=== PATIENT | female | born 1945 | race Caucasian/White ===

== ENCOUNTER 2018-01-05 12:09 | Inpatient (IN) | payer MEDICARE, OTHER ==
[~2018-01-05] VITALS: Ht 162.6 cm; Wt 62.2 kg
[2018-01-05] VITALS (9 sets, daily range): BP systolic 63–91; BP diastolic 32–278
[~2018-01-05 12:09] MED LIST: ANASTROZOLE1 MG PO; ARIMIDEX1 MG PO; VITAMIN D1000 UNI1 PO
[2018-01-05] MEDS ORDERED: Pantoprazole Inj IV ONE (12:15)
--- NOTE | 2018-01-05 12:34 | Emergency Room Report ---
History of Present Illness General Source: Family Member, EMS Present Illness HPI The patient is sent in for passing bright red blood per rectum. In addition paramedics state that when they were there she vomited some bright red blood. The patient is apparently on Coumadin after having blood clot in the past. She status post mastectomy on the right-hand side. Paramedics were unable to start an IV and she was hypotensive in the field. The patient denies any pain at this time but feels ill. The daughter here and states apparently the patient is a full code. Other history limited. No fever, cough, dyspnea. No prior GI bleed. Allergies: Coded Allergies: ASPIRIN (Unverified Allergy, Unknown, 01/05/18) Uncoded Allergies: TAPE (Allergy, Unknown, 01/05/18) Patient History Limited by: medical condition Past Medical History: see triage record, other - cirrhosis and thrombocytopenia Past Surgical History: hysterectomy, other - breast masectomies, carpal tunnel Social History: Denies: smoking, alcohol use Social History Narrative nursing home facility Reviewed Nursing Documentation: PMH: Agreed; PSxH: Agreed Nursing Documentation-PMH Hx Cardiac Problems: No Hx Cancer: Yes Hx Gastrointestinal Problems: Yes Hx Neurological Problems: No Review of Systems All Other Systems: limited Physical Exam Vital Signs Date Time Temp Pulse Resp B/P (MAP) Pulse Ox O2 Delivery O2 Flow Rate FiO2 01/05/18 12:33 98.0 125 18 75/34 98 Room Air 98.1 01/05/18 20:00 2.0 Sp02 EP Interpretation: reviewed, normal General Appearance: mild distress, obese, other - somewhat confused, Chronically Ill Head: normocephalic, atraumatic Eyes: bilateral eye PERRL, bilateral eye conjunctivae pale ENT: moist mucus membranes Neck: supple/symm/no masses Respiratory: lungs clear, normal breath sounds, other - masectomies Cardiovascular #1: tachycardia, edema - 3+ pitting edema bilat feet - anasarca Gastrointestinal: no guarding, no rebound, abnormal bowel sounds - hyperactive , tenderness - R flank Rectal: heme positive stool - dark blood Neurologic: responsive, sensory intact, motor weakness - LE bilat, but moves all 4, oriented - X2 Psychiatric: depressed affect Skin: pallor Procedures Critical Care Time Critical Care Time Total Critical Care Time: 60 min bedside evaluation and treatment excludes procedures (EKG). Reason for critical care: GI bleed, hypotension, NSTEMI, anticoagulated Possible complications: hypotension, hypertension, DE, shock, arrhythmias, metabolic acidosis, end organ damage, respiratory failure. Interventions: FFP, antibiotics, fluid resuscitation, preparing blood Course: Patient with GI bleed and hypotension. Immediate ordering of blood products (FFP) as on coumadin. BP low and respond to initial fluids. Arrange for FFP and transfusion. Protonix given. More responsive and c/o R flank pain. Morphine given with some relief. Discussed with daughter. Covered with antibiotics as elevated WBC. Discussed with admitting MDs. Re-assess, improved BP and needing blood transfusions. Consultations: nursing staff, EMS, family, blood bank, admitting MD and critical care MD Performed by: Dr. Oreilly Tolerated well condition = critical Medical Decision Making Diagnostic Impression: Primary Impression: GI bleed Qualified Codes: K92.2 - Gastrointestinal hemorrhage, unspecified Additional Impressions: Hypotension Qualified Codes: I95.89 - Other hypotension anticoagulation Hemorrhagic shock NSTEMI (non-ST elevated myocardial infarction) Thrombocytopenia [place] Course Patient presents with GI bleeding and hypotension. Differential includes hyper anticoagulation, ulcer, diverticulitis diverticulosis, acute myocardial infarction amongst others. We need to exclude sepsis also. Evaluation will be with EKG, chest x-ray abdominal series. The patient will have fluid resuscitation and most likely will need blood. Most likely will need to reverse the anticoagulation to some extent. Fresh frozen plasma is being ordered immediately. Also Protonix is ordered. EKG with ST, no hyperacute changes. CXR clear. ABD NSBGP, labs with leukocytosis, anemia and low platelets. INR "therapeutic". FFP called to lab to start preparing. Pt BP better. Able to give small dose morphine for pain. Alert and improved mentation. Discussed findings with daughter. + troponin. No STEMI. Patient allergic to aspirin. Working to transfuse and treat hemorrhagic shock. FFP infused. Patient improved BP. Admit ICU Dr. Randolph. Laboratory Tests Test 01/05/18 12:29 01/05/18 15:10 01/05/18 16:00 01/05/18 19:30 White Blood Count 15.4 K/UL (4.8-10.8) H 11.6 K/UL (4.8-10.8) H Red Blood Count 2.87 M/UL (4.20-5.40) L 1.87 M/UL (4.20-5.40) L Hemoglobin 8.1 G/DL (12.0-16.0) L 5.5 G/DL (12.0-16.0) Hematocrit 25.3 % (37.0-47.0) L 16.4 % (37.0-47.0) #L Mean Corpuscular Volume 88 FL (80-99) 88 FL (80-99) Mean Corpuscular Hemoglobin 28.3 PG (27.0-31.0) 29.7 PG (27.0-31.0) Mean Corpuscular Hemoglobin Concent 32.0 G/DL (32.0-36.0) 33.9 G/DL (32.0-36.0) Red Cell Distribution Width 16.9 % (11.6-14.8) H 17.3 % (11.6-14.8) H Platelet Count 107 K/UL (150-450) L 61 K/UL (150-450) L Mean Platelet Volume 9.3 FL (6.5-10.1) 9.5 FL (6.5-10.1) Neutrophils (%) (Auto) 74.4 % (45.0-75.0) % (45.0-75.0) Lymphocytes (%) (Auto) 17.5 % (20.0-45.0) L % (20.0-45.0) Monocytes (%) (Auto) 6.7 % (1.0-10.0) % (1.0-10.0) Eosinophils (%) (Auto) 0.4 % (0.0-3.0) % (0.0-3.0) Basophils (%) (Auto) 1.0 % (0.0-2.0) % (0.0-2.0) Prothrombin Time 31.2 SEC (9.30-11.50) H Prothrombin Time INR 2.9 (0.9-1.1) H PTT 53 SEC (23-33) H Sodium Level 135 MMOL/L (136-145) L Potassium Level 5.4 MMOL/L (3.5-5.1) H Chloride Level 104 MMOL/L (98-107) Carbon Dioxide Level 26 MMOL/L (21-32) Anion Gap 5 mmol/L (5-15) Blood Urea Nitrogen 44 mg/dL (7-18) H Creatinine 2.1 MG/DL (0.55-1.30) H Estimate Glomerular Filtration Rate mL/min (>60) Glucose Level 150 MG/DL (74-106) H Lactic Acid Level 3.20 mmol/L (0.66-2.22) H 3.60 mmol/L (0.66-2.22) H Calcium Level 8.0 MG/DL (8.5-10.1) L Total Bilirubin 1.4 MG/DL (0.2-1.0) H Direct Bilirubin 0.5 MG/DL (0.0-0.3) H Aspartate Amino Transferase (AST) 54 U/L (15-37) H Alanine Aminotransferase (ALT) 31 U/L (12-78) Alkaline Phosphatase 145 U/L (46-116) H Troponin I 0.084 ng/mL (0.000-0.056) Total Protein 5.7 G/DL (6.4-8.2) L Albumin 1.4 G/DL (3.4-5.0) L Globulin 4.3 g/dL Albumin/Globulin Ratio 0.3 (1.0-2.7) L Lipase 138 U/L (73-393) Urine Color Pending Urine Appearance Pending Urine pH Pending Urine Specific Wheeler Pending Urine Protein Pending Urine Glucose (UA) Pending Urine Ketones Pending Urine Occult Blood Pending Urine Nitrite Pending Urine Bilirubin Pending Urine Urobilinogen Pending Urine Leukocyte Esterase Pending Differential Total Cells Counted 100 Neutrophils % (Manual) 78 % (45-75) H Lymphocytes % (Manual) 17 % (20-45) L Monocytes % (Manual) 4 % (1-10) Eosinophils % (Manual) 0 % (0-3) Basophils % (Manual) 0 % (0-2) Band Neutrophils 1 % (0-8) Platelet Estimate Decreased L Platelet Morphology Normal Hypochromasia 3+ Anisocytosis 1+ Microcytosis 1+ Ammonia 38 umol/L (11-32) H EKG Diagnostic Results Rate: normal Rhythm: NSR ST Segments: no acute changes ASA given to the pt in ED: No - unable due to "allergy" and anticoagulation Rhythm Strip Diag. Results EP Interpretation: yes Rhythm: NSR, no PVC's, no ectopy Chest X-Ray Diagnostic Results Chest X-Ray Diagnostic Results : Chest X-Ray Ordered: Yes # of Views/Limited/Complete: 1 View Indication: Other EP Interpretation: Yes Interpretation: no consolidation, no effusion, no pneumothorax Impression: Other Electronically Signed by: Electronically signed by Vitor Oreilly MD Other X-Ray Diagnostic Results Other X-Ray Diagnostic Results : X-Ray ordered: abd # of Views/Limited Vs Complete: 1 View Indication: Other EP Interpretation: Yes Interpretation: nonspecific bowel gas, no sbo, other - no mass Impression: Other Electronically Signed by: Electronically signed by Vitor Oreilly MD Last Vital Signs Date Time Temp Pulse Resp B/P (MAP) Pulse Ox O2 Delivery O2 Flow Rate FiO2 01/05/18 20:00 98.0 84 18 66/42 98 Nasal Cannula 2.0 98.0 Status: improved Disposition: ADMITTED INPATIENT Condition: Critical Vitor Oreilly M.D. January 05, 2018 12:34
[2018-01-05] MEDS ORDERED: Pantoprazole Inj ONE (12:46)
[2018-01-05] MEDS ORDERED: CALCIUM CARBON500 M1 PO (12:54)
[2018-01-05] MEDS ORDERED: BISACODYL10 M1 RC (12:54)
[2018-01-05] MEDS ORDERED: FUROSEMIDE40 MG ORAL (12:54)
[2018-01-05] MEDS ORDERED: SPIRONOLACTONE50 MG ORAL (12:54)
[2018-01-05] MEDS ORDERED: POTASSIUM CHLO20 ME1 ORAL (12:54)
[2018-01-05] MEDS ORDERED: VITAMIN C250 MG ORAL (12:54)
[2018-01-05] MEDS ORDERED: COUMADIN4 MG ORAL (12:54)
[2018-01-05] MEDS ORDERED: XIFAXAN550 MG ORAL (12:54)
[2018-01-05] MEDS ORDERED: ALBUTEROL2.5 MG/3 M INH (12:54)
[2018-01-05] MEDS ORDERED: LACTULOSE20 GM/301 ORAL (12:54)
[2018-01-05] MEDS ORDERED: NORCO 5-325 TA1 EACH ORAL (12:54)
[2018-01-05] MEDS ORDERED: DOCUSATE SODIU100 MG ORAL (12:54)
[2018-01-05] MEDS ORDERED: BUSPIRONE HCL10 M1 ORAL (12:54)
[2018-01-05] MEDS ORDERED: SUCRALFATE1 GM ORAL (12:54)
[2018-01-05] MEDS ORDERED: ACETAMINOPHEN325 M1 ORAL (12:54)
[2018-01-05] MEDS ORDERED: MULTIVITAMINS1 EAC8 ORAL (12:54)
[2018-01-05 12:56] LABS: EOSINOPHILS % (AUTO) 0.4 % (0.0-3.0); HEMATOCRIT 25.3 % (37.0-47.0); HEMOGLOBIN 8.1 G/DL (12.0-16.0); LYMPHOCYTES % (AUTO) 17.5 % (20.0-45.0); MEAN CORPUSCULAR VOLUME 88 FL (80-99); MONOCYTES % (AUTO) 6.7 % (1.0-10.0); NEUTROPHILS % (AUTO) 74.4 % (45.0-75.0); PLATELET COUNT 107 K/UL (150-450); RED BLOOD COUNT 2.87 M/UL (4.20-5.40); RED CELL DISTRIBUTION WIDTH 16.9 % (11.6-14.8); WHITE BLOOD COUNT 15.4 K/UL (4.8-10.8)
[2018-01-05 13:16] LABS: INR 2.9 (0.9-1.1)
[2018-01-05] MEDS: Morphine Sulfate 4mg/ml Inj IVP PRN ×2 (13:33→20:06)
[2018-01-05 13:49] LABS: ANION GAP 5 mmol/L (5-15); BLOOD UREA NITROGEN 44 mg/dL (7-18); CARBON DIOXIDE 26 MMOL/L (21-32); CHLORIDE 104 MMOL/L (98-107); CREATININE 2.1 MG/DL (0.55-1.30); POTASSIUM 5.4 MMOL/L (3.5-5.1); SODIUM 135 MMOL/L (136-145)
[2018-01-05 14:03] LABS: ALANINE AMINOTRANSFERASE 31 U/L (12-78); ALBUMIN 1.4 G/DL (3.4-5.0); ALBUMIN/GLOBULIN RATIO 0.3 (1.0-2.7); ALKALINE PHOSPHATASE 145 U/L (46-116); ASPARTATE AMINO TRANSFERASE 54 U/L (15-37); BILIRUBIN,DIRECT 0.5 MG/DL (0.0-0.3); BILIRUBIN,TOTAL 1.4 MG/DL (0.2-1.0)
--- NOTE | 2018-01-05 14:08 | Diagnostic Imaging Report ---
Indication: Pain Technique: XRAY Chest 1v Comparison: None Findings: Limited exam with low lung volumes. Probable mild cardiomegaly and question of mild pulmonary vascular congestion. No definite focal airspace consolidation, pleural effusion or pneumothorax. There are degenerative changes of the spine. No acute osseous abnormality seen. IMPRESSION: Limited exam with low lung volumes. This artifactually exaggerate heart size and vascular markings. Probable mild cardiomegaly. A degree of mild pulmonary vascular congestion is not excluded. Correlate clinically. No definite focal consolidation, pleural effusion or pneumothorax.
--- NOTE | 2018-01-05 14:10 | Diagnostic Imaging Report ---
Indication: Pain Technique: XRAY Abdomen 1v Comparison: None Findings: Nonspecific bowel gas pattern with gas in large and small bowel loops. No definite abnormal bowel dilatation. There are degenerative changes in the spine and hips. No acute osseous abnormality is seen. Calcifications in the right upper quadrant may represent calcified gallstones. IMPRESSION: Nonspecific, not overtly obstructive bowel gas pattern. Calcifications in the right upper quadrant may represent calcified gallstones.
[2018-01-05] MEDS ORDERED: Nitroglycerin Subl 0.4mg tab SL PRN (15:45)
[2018-01-05] MEDS: DOPamine 400mg/250ml 250 ML IV SCH (15:45)
[2018-01-05] MEDS ORDERED: Miralax 17gm pkt ORAL PRN (15:45)
[2018-01-05] MEDS ORDERED: Cefepime HCl 1 GM in D5W 55 ML IVPB ONE (15:45)
[2018-01-05] MEDS ORDERED: Mylanta II UD 30ml ORAL PRN (15:45)
[2018-01-05] MEDS: D5NS 1,000 ML IV SCH (16:00)
[2018-01-05] MEDS ORDERED: Phytonadione 10 MG in D5W 55 ML IVPB SCH (17:00)
[2018-01-05] MEDS: BusPIRone 5mg Tab ORAL SCH (18:00)
[2018-01-05] MEDS ORDERED: Lidocaine 1% MPF 10mg/ml 5ml ONE (18:41)
[2018-01-05] MEDS ORDERED: Lidocaine 1% MPF 10mg/ml 5ml INJ ONE (18:45)
[2018-01-05] MEDS ORDERED: Lidocaine 1% MPF 10mg/ml 5ml INJ SCH (19:00)
--- NOTE | 2018-01-05 19:40 | Emergency Room Report ---
History of Present Illness General Chief Complaint: General Complaint Source: Medical Record Present Illness Allergies: Coded Allergies: ASPIRIN (Unverified Allergy, Unknown, 01/05/18) Uncoded Allergies: TAPE (Allergy, Unknown, 01/05/18) Patient History Now: No Nursing Documentation-PMH Hx Cardiac Problems: No Hx Hypertension: Yes Hx COPD: Yes Hx Cancer: Yes Hx Gastrointestinal Problems: Yes History Of Psychiatric Problem: Yes - depression Hx Neurological Problems: No Physical Exam Vital Signs Date Time Temp Pulse Resp B/P (MAP) Pulse Ox O2 Delivery O2 Flow Rate FiO2 01/05/18 12:33 98.0 125 18 75/34 98 Room Air 98.1 Procedures Central Line Central Line : Consent: Emergent Central Line Lumen: triple Maximal Sterile Barrier Tech: yes cap, yes mask, yes sterile gown, yes sterile gloves, yes large sterile sheet, yes hand hygiene, yes chlorhexidine prep Central Line Postion: internal jugular (R) Anesthesia: local cc's of anesthesia: 3 Complications: none Central Line Post Position: sutured, good blood return Attempts: One Patient Tolerated: Well Complications: Other - small hematoma to right side of neck, pressure held Medical Decision Making Diagnostic Impression: Primary Impression: GI bleed Additional Impressions: Hypotension anticoagulation Last Vital Signs Date Time Temp Pulse Resp B/P (MAP) Pulse Ox O2 Delivery O2 Flow Rate FiO2 01/05/18 19:21 97.8 18 91/40 98 Room Air 97.8 01/05/18 12:33 125 Disposition: ADMITTED INPATIENT Condition: Critical Referrals: Perico Randolph MD (PCP) Bandar Escobar MD January 05, 2018 19:40
[2018-01-05 19:56] LABS: HEMATOCRIT 16.4 % (37.0-47.0); MEAN CORPUSCULAR VOLUME 88 FL (80-99); PLATELET COUNT 61 K/UL (150-450); RED BLOOD COUNT 1.87 M/UL (4.20-5.40); RED CELL DISTRIBUTION WIDTH 17.3 % (11.6-14.8); WHITE BLOOD COUNT 11.6 K/UL (4.8-10.8)
[2018-01-05 20:07] LABS: HEMOGLOBIN 5.5 G/DL (12.0-16.0)
[2018-01-05] MEDS ORDERED: Sodium Chloride 500ML 500 ML IV ONE (20:15)
[2018-01-05 21:23] LABS: APPEARANCE,URINE CLEAR; BILIRUBIN, URINE NEGATIVE (NEGATIVE); COLOR,URINE YELLOW; GLUCOSE, URINE (UA) NEGATIVE (NEGATIVE); KETONES,URINE NEGATIVE (NEGATIVE); LEUKOCYTE ESTERASE ,URINE 3+ (NEGATIVE); NITRITE,URINE NEGATIVE (NEGATIVE); PH,URINE 5 (4.5-8.0); PROTEIN,URINE 1+ (NEGATIVE); UROBILINOGEN,URINE NORMAL MG/DL (0.0-1.0)
[2018-01-05 23:13] LABS: HEMATOCRIT 18.9 % (37.0-47.0); MEAN CORPUSCULAR VOLUME 87 FL (80-99); PLATELET COUNT 54 K/UL (150-450); RED BLOOD COUNT 2.18 M/UL (4.20-5.40); RED CELL DISTRIBUTION WIDTH 16.1 % (11.6-14.8); WHITE BLOOD COUNT 10.2 K/UL (4.8-10.8)
[2018-01-05 23:18] LABS: HEMOGLOBIN 6.4 G/DL (12.0-16.0)
[2018-01-06] VITALS (25 sets, daily range): BP systolic 79–128; BP diastolic 27–95
[2018-01-06 00:21] LABS: HEMATOCRIT 21.5 % (37.0-47.0); HEMOGLOBIN 7.1 G/DL (12.0-16.0); MEAN CORPUSCULAR VOLUME 88 FL (80-99); PLATELET COUNT 55 K/UL (150-450); RED BLOOD COUNT 2.44 M/UL (4.20-5.40); RED CELL DISTRIBUTION WIDTH 15.8 % (11.6-14.8); WHITE BLOOD COUNT 9.6 K/UL (4.8-10.8)
[2018-01-06 00:28] LABS: INR 1.8 (0.9-1.1)
[2018-01-06] MEDS: D5NS 1,000 ML IV SCH ×3 (01:44→16:27)
[2018-01-06 06:09] LABS: HEMATOCRIT 27.7 % (37.0-47.0); HEMOGLOBIN 9.5 G/DL (12.0-16.0); MEAN CORPUSCULAR VOLUME 88 FL (80-99); PLATELET COUNT 74 K/UL (150-450); RED BLOOD COUNT 3.16 M/UL (4.20-5.40); RED CELL DISTRIBUTION WIDTH 15.1 % (11.6-14.8); WHITE BLOOD COUNT 16.4 K/UL (4.8-10.8)
[2018-01-06 06:39] LABS: INR 1.6 (0.9-1.1)
[2018-01-06 06:42] LABS: ALANINE AMINOTRANSFERASE 27 U/L (12-78); ALBUMIN 1.8 G/DL (3.4-5.0); ALBUMIN/GLOBULIN RATIO 0.4 (1.0-2.7); ALKALINE PHOSPHATASE 119 U/L (46-116); AMYLASE 65 U/L (25-115); ANION GAP 6 mmol/L (5-15); ASPARTATE AMINO TRANSFERASE 40 U/L (15-37); BILIRUBIN,TOTAL 1.9 MG/DL (0.2-1.0); BLOOD UREA NITROGEN 41 mg/dL (7-18); CALCIUM 7.9 MG/DL (8.5-10.1); CARBON DIOXIDE 27 MMOL/L (21-32); CHLORIDE 104 MMOL/L (98-107); CREATININE 2.1 MG/DL (0.55-1.30); POTASSIUM 4.2 MMOL/L (3.5-5.1); SODIUM 137 MMOL/L (136-145)
[2018-01-06 07:13] LABS: PHOSPHORUS 3.7 MG/DL (2.5-4.9)
[2018-01-06 07:23] LABS: BILIRUBIN,DIRECT 0.6 MG/DL (0.0-0.3)
--- NOTE | 2018-01-06 07:45 | Consultation ---
DATE OF CONSULTATION: 01/05/2018 NOTE: POOR AUDIO GASTROENTEROLOGY CONSULTATION CONSULTING PHYSICIAN: Yohannes Woodall M.D. CHIEF COMPLAINT: I was asked to see this patient by Dr. Perico Randolph for evaluation of gastrointestinal bleeding. HISTORY OF PRESENT ILLNESS: The patient is a debilitated 72-year-old [place] woman from a shelter, who comes in with acute upper gastrointestinal bleeding. The patient was in her usual state of health until today when she was noted to have hematemesis followed by hematochezia. The patient was brought into the hospital where she was found to have severe anemia and also hypotension. She received two units of fresh frozen plasma and is currently undergoing two units of blood transfusion. Vitamin K was given intravenously to reverse her coagulopathy. Latter was given Coumadin for history of deep vein thrombosis and pulmonary embolism. The patient denies any abdominal pain. She states that she has not had history of ulcers recently. She has had an endoscopy and colonoscopy in June 2017 at [facility] showing portal hypertensive gastropathy and possibly a nonbleeding sigmoid vascular ectasia and internal hemorrhoids. It should be noted that the patient has a history of cirrhosis, which has been attributed to fatty liver disease. She has a baseline thrombocytopenia. She also was noted on anticoagulation for history of deep venous thrombosis. PAST MEDICAL HISTORY: 1. History of deep vein thrombosis and pulmonary embolism, on anticoagulation. 2. History of cirrhosis due to fatty liver with portal hypertension. 3. Portal hypertensive gastropathy. 4. History of internal hemorrhoids. 5. History of deep vein thrombosis and pulmonary embolism. 6. History of hepatic encephalopathy requiring lactulose. SOCIAL HISTORY: The patient resides in a shelter and requires 24-hour care. FAMILY HISTORY: Noncontributory. REVIEW OF SYSTEMS: Otherwise negative. PHYSICAL EXAMINATION: GENERAL: This is a debilitated, obese, and edematous white woman, seen in the intensive care unit with daughter at bedside. HEENT: Normocephalic and atraumatic. Dentition is poor. NECK: Supple. CHEST: Revealed coarse breath sounds. HEART: Revealed regular rate. ABDOMEN: Distended, but soft. There was minimal epigastric discomfort to palpation. EXTREMITIES: Revealed 2 to 3+ edema. ASSESSMENT: This patient presents with acute gastrointestinal bleeding in the setting of cirrhosis with thrombocytopenia as well as Coumadin coagulopathy. Differential diagnosis would include upper gastrointestinal bleeding. The lower GI source is unlikely given the presentation, but can be done at a later date if necessary. The patient should receive serial transfusions of fresh frozen plasma and blood as well as vitamin K to reverse the coagulopathy. She can undergo an endoscopy and perhaps later her colonoscopy to evaluate the entire gastrointestinal tract. RECOMMENDATIONS: Per above discussion and per orders written in the chart. Thank you for asking me to participate in the care of this patient. Yohannes Woodall M.D. DR: Mann JOB#: [id number] CC: JUNE
[2018-01-06] MEDS ORDERED: Spironolactone 50mg tab ORAL SCH (09:00)
[2018-01-06] MEDS: BusPIRone 5mg Tab ORAL SCH (09:07)
--- NOTE | 2018-01-06 09:47 | Pulmonolgy Critical Care Note ---
Critical Care - Asmt/Plan Problems: (1) Hemorrhagic shock (2) GI bleed (3) Coagulopathy (4) ATN (acute tubular necrosis) (5) History of breast cancer (6) History of pulmonary embolism (7) Morbid obesity Respiratory: monitor respiratory rate, adjust FIO2 Cardiac: continue pressors, continue to monitor HR/BP Renal: F/U I&O, decrease IV fluid, check electrolytes Gastrointestinal: hold feedings Endocrine: monitor blood sugar Hematologic: monitor H/H Neurologic: PRN Ativan Affect: PRN ativan Discussed with: nurses, consultants, shelter case manager, family member - with daughter at the bed site Critical Care - Objective Last 24 Hour Vital Signs Date Time Temp Pulse Resp B/P (MAP) Pulse Ox O2 Delivery O2 Flow Rate FiO2 01/06/18 09:00 90 13 109/95 100 Nasal Cannula 2.0 01/06/18 08:00 98.5 80 17 99/35 100 Nasal Cannula 2.0 98.5 01/06/18 07:00 75 13 96/36 100 Nasal Cannula 2.0 01/06/18 07:00 96/36 01/06/18 06:00 75 17 97/42 100 Nasal Cannula 2.0 01/06/18 06:00 96/36 01/06/18 05:00 91/36 01/06/18 05:00 81 15 91/36 95 Nasal Cannula 2.0 01/06/18 04:00 81 01/06/18 04:00 101/37 01/06/18 04:00 98.1 76 13 107/40 98 Nasal Cannula 2.0 98.1 01/06/18 03:00 81 17 106/59 99 Nasal Cannula 2.0 01/06/18 03:00 109/40 01/06/18 02:00 108/44 01/06/18 02:00 74 17 108/44 99 Nasal Cannula 2.0 01/06/18 01:30 74 18 98/49 99 Nasal Cannula 2.0 01/06/18 01:00 97/43 01/06/18 01:00 75 17 97/43 99 Nasal Cannula 2.0 01/06/18 00:00 98.3 72 16 79/38 98 Nasal Cannula 2.0 98.3 01/06/18 00:00 83 01/06/18 00:00 79/38 01/05/18 23:00 83 26 73/33 100 Nasal Cannula 2.0 01/05/18 23:00 73/33 01/05/18 22:00 82 26 77/32 100 Nasal Cannula 2.0 01/05/18 21:00 98.1 82 18 71/278 98 Nasal Cannula 2.0 98.1 01/05/18 20:00 98.0 84 18 66/42 98 Nasal Cannula 2.0 98.0 01/05/18 20:00 75/37 01/05/18 19:21 97.8 18 91/40 98 Room Air 97.8 01/05/18 19:00 79 18 63/47 98 Room Air 01/05/18 18:00 77 18 67/42 98 Room Air 01/05/18 17:14 100 01/05/18 17:00 97.8 18 77/46 98 Room Air 97.8 01/05/18 16:40 97.8 18 91/40 98 Room Air 97.8 01/05/18 13:33 98.1 01/05/18 13:00 98.1 18 75/34 98 Room Air 98.1 01/05/18 12:33 98.0 125 18 75/34 98 Room Air 98.1 Status: awake Condition: critical HEENT: atraumatic Neck: full ROM Lungs: clear Heart: HR/BP unstable Abdomen: non-tender, active bowel sounds, feeding tube Extremities: edema Micro: Microbiology Date/Time Source Procedure Growth Status 01/05/18 21:00 Urine,Clean Catch Urine Culture - Preliminary NO GROWTH Resulted Critical Care - Subjective ROS Limited/Unobtainable: No ICU Day: 2 Interval Events: Pt is admitted to ICU b/o BRBPR, She had a hemoglobin of 5, INR of 2.9. She recieved 3 units of prbc, and 2 units of FFP. She is awake and comfortable. Last bloody BM was 4 am today I&O: Intake and Output 01/05/18 01/06/18 19:00 07:00 Intake Total 0 ml 3612.50 ml Output Total 200 ml Balance 0 ml 3412.50 ml Intake Oral 0 ml IV Total 3612.50 ml Output Urine Total 200 ml # Bowel Movements 1 2 CXR: clear Labs: Laboratory Tests Test 01/05/18 12:29 01/05/18 16:00 01/05/18 19:30 01/05/18 21:00 White Blood Count 15.4 K/UL (4.8-10.8) H 11.6 K/UL (4.8-10.8) H Red Blood Count 2.87 M/UL (4.20-5.40) L 1.87 M/UL (4.20-5.40) L Hemoglobin 8.1 G/DL (12.0-16.0) L 5.5 G/DL (12.0-16.0) Hematocrit 25.3 % (37.0-47.0) L 16.4 % (37.0-47.0) #L Mean Corpuscular Volume 88 FL (80-99) 88 FL (80-99) Mean Corpuscular Hemoglobin 28.3 PG (27.0-31.0) 29.7 PG (27.0-31.0) Mean Corpuscular Hemoglobin Concent 32.0 G/DL (32.0-36.0) 33.9 G/DL (32.0-36.0) Red Cell Distribution Width 16.9 % (11.6-14.8) H 17.3 % (11.6-14.8) H Platelet Count 107 K/UL (150-450) L 61 K/UL (150-450) L Mean Platelet Volume 9.3 FL (6.5-10.1) 9.5 FL (6.5-10.1) Neutrophils (%) (Auto) 74.4 % (45.0-75.0) % (45.0-75.0) Lymphocytes (%) (Auto) 17.5 % (20.0-45.0) L % (20.0-45.0) Monocytes (%) (Auto) 6.7 % (1.0-10.0) % (1.0-10.0) Eosinophils (%) (Auto) 0.4 % (0.0-3.0) % (0.0-3.0) Basophils (%) (Auto) 1.0 % (0.0-2.0) % (0.0-2.0) Prothrombin Time 31.2 SEC (9.30-11.50) H Prothromb Time International Ratio 2.9 (0.9-1.1) H Activated Partial Thromboplast Time 53 SEC (23-33) H Sodium Level 135 MMOL/L (136-145) L Potassium Level 5.4 MMOL/L (3.5-5.1) H Chloride Level 104 MMOL/L (98-107) Carbon Dioxide Level 26 MMOL/L (21-32) Anion Gap 5 mmol/L (5-15) Blood Urea Nitrogen 44 mg/dL (7-18) H Creatinine 2.1 MG/DL (0.55-1.30) H Estimat Glomerular Filtration Rate mL/min (>60) Glucose Level 150 MG/DL (74-106) H Lactic Acid Level 3.20 mmol/L (0.66-2.22) H 3.60 mmol/L (0.66-2.22) H Calcium Level 8.0 MG/DL (8.5-10.1) L Total Bilirubin 1.4 MG/DL (0.2-1.0) H Direct Bilirubin 0.5 MG/DL (0.0-0.3) H Aspartate Amino Transf (AST/SGOT) 54 U/L (15-37) H Alanine Aminotransferase (ALT/SGPT) 31 U/L (12-78) Alkaline Phosphatase 145 U/L (46-116) H Troponin I 0.084 ng/mL (0.000-0.056) Total Protein 5.7 G/DL (6.4-8.2) L Albumin 1.4 G/DL (3.4-5.0) L Globulin 4.3 g/dL Albumin/Globulin Ratio 0.3 (1.0-2.7) L Lipase 138 U/L (73-393) Differential Total Cells Counted 100 Neutrophils % (Manual) 78 % (45-75) H Lymphocytes % (Manual) 17 % (20-45) L Monocytes % (Manual) 4 % (1-10) Eosinophils % (Manual) 0 % (0-3) Basophils % (Manual) 0 % (0-2) Band Neutrophils 1 % (0-8) Platelet Estimate Decreased L Platelet Morphology Normal Hypochromasia 3+ Anisocytosis 1+ Microcytosis 1+ Ammonia 38 umol/L (11-32) H Urine Color Yellow Urine Appearance Clear Urine pH 5 (4.5-8.0) Urine Specific Warren 1.015 (1.005-1.035) Urine Protein 1+ (NEGATIVE) H Urine Glucose (UA) Negative (NEGATIVE) Urine Ketones Negative (NEGATIVE) Urine Occult Blood 5+ (NEGATIVE) H Urine Nitrite Negative (NEGATIVE) Urine Bilirubin Negative (NEGATIVE) Urine Urobilinogen Normal MG/DL (0.0-1.0) Urine Leukocyte Esterase 3+ (NEGATIVE) H Urine RBC 5-10 /HPF (0 - 2) H Urine WBC 5-10 /HPF (0 - 2) H Urine Squamous Epithelial Cells Few /LPF (NONE/OCC) Urine Bacteria Moderate /HPF (NONE) H Test 01/05/18 22:45 01/06/18 00:05 01/06/18 04:30 White Blood Count 10.2 K/UL (4.8-10.8) 9.6 K/UL (4.8-10.8) 16.4 K/UL (4.8-10.8) #H Red Blood Count 2.18 M/UL (4.20-5.40) L 2.44 M/UL (4.20-5.40) L 3.16 M/UL (4.20-5.40) L Hemoglobin 6.4 G/DL (12.0-16.0) *L 7.1 G/DL (12.0-16.0) L 9.5 G/DL (12.0-16.0) #L Hematocrit 18.9 % (37.0-47.0) L 21.5 % (37.0-47.0) L 27.7 % (37.0-47.0) L Mean Corpuscular Volume 87 FL (80-99) 88 FL (80-99) 88 FL (80-99) Mean Corpuscular Hemoglobin 29.2 PG (27.0-31.0) 29.3 PG (27.0-31.0) 30.0 PG (27.0-31.0) Mean Corpuscular Hemoglobin Concent 33.8 G/DL (32.0-36.0) 33.1 G/DL (32.0-36.0) 34.1 G/DL (32.0-36.0) Red Cell Distribution Width 16.1 % (11.6-14.8) H 15.8 % (11.6-14.8) H 15.1 % (11.6-14.8) H Platelet Count 54 K/UL (150-450) L 55 K/UL (150-450) L 74 K/UL (150-450) L Mean Platelet Volume 10.3 FL (6.5-10.1) H 10.1 FL (6.5-10.1) 8.2 FL (6.5-10.1) Neutrophils (%) (Auto) % (45.0-75.0) % (45.0-75.0) % (45.0-75.0) Lymphocytes (%) (Auto) % (20.0-45.0) % (20.0-45.0) % (20.0-45.0) Monocytes (%) (Auto) % (1.0-10.0) % (1.0-10.0) % (1.0-10.0) Eosinophils (%) (Auto) % (0.0-3.0) % (0.0-3.0) % (0.0-3.0) Basophils (%) (Auto) % (0.0-2.0) % (0.0-2.0) % (0.0-2.0) Differential Total Cells Counted 100 100 Neutrophils % (Manual) 73 % (45-75) 72 % (45-75) Lymphocytes % (Manual) 19 % (20-45) L 18 % (20-45) L Monocytes % (Manual) 5 % (1-10) 4 % (1-10) Eosinophils % (Manual) 0 % (0-3) 2 % (0-3) Basophils % (Manual) 3 % (0-2) H 0 % (0-2) Band Neutrophils 0 % (0-8) 2 % (0-8) Platelet Estimate Decreased L Decreased L Platelet Morphology Normal Normal Prothrombin Time 18.4 SEC (9.30-11.50) H 16.4 SEC (9.30-11.50) H Prothromb Time International Ratio 1.8 (0.9-1.1) H 1.6 (0.9-1.1) H Myelocytes % 2 % (0-0) H Polychromasia 1+ Hypochromasia 1+ Anisocytosis 1+ Activated Partial Thromboplast Time 39 SEC (23-33) H Sodium Level 137 MMOL/L (136-145) Potassium Level 4.2 MMOL/L (3.5-5.1) Chloride Level 104 MMOL/L (98-107) Carbon Dioxide Level 27 MMOL/L (21-32) Anion Gap 6 mmol/L (5-15) Blood Urea Nitrogen 41 mg/dL (7-18) H Creatinine 2.1 MG/DL (0.55-1.30) H Estimat Glomerular Filtration Rate mL/min (>60) Glucose Level 133 MG/DL (74-106) H Calcium Level 7.9 MG/DL (8.5-10.1) L Phosphorus Level 3.7 MG/DL (2.5-4.9) Magnesium Level 1.8 MG/DL (1.8-2.4) Total Bilirubin 1.9 MG/DL (0.2-1.0) H Direct Bilirubin 0.6 MG/DL (0.0-0.3) H Aspartate Amino Transf (AST/SGOT) 40 U/L (15-37) H Alanine Aminotransferase (ALT/SGPT) 27 U/L (12-78) Alkaline Phosphatase 119 U/L (46-116) H Total Protein 6.1 G/DL (6.4-8.2) L Albumin 1.8 G/DL (3.4-5.0) L Globulin 4.3 g/dL Albumin/Globulin Ratio 0.4 (1.0-2.7) L Amylase Level 65 U/L (25-115) Lipase 105 U/L (73-393) Bakari Gilmore MD January 06, 2018 09:47
--- NOTE | 2018-01-06 10:02 | Diagnostic Imaging Report ---
Indication: Post central line placement Technique: One view of the chest Comparison: 6 hours earlier Findings: Interim placement of right jugular central venous catheter, tip which projects at the level of the high right atrium. No gross pneumothorax. Lungs and pleural spaces are clear. The heart is enlarged Impression: Satisfactory position of central venous catheter, suitable for use. No radiographically evident complication
[2018-01-06] MEDS ORDERED: Pantoprazole Inj IV SCH (10:30)
[2018-01-06 11:15] LABS: HEMATOCRIT 26.3 % (37.0-47.0); HEMOGLOBIN 8.6 G/DL (12.0-16.0); MEAN CORPUSCULAR VOLUME 88 FL (80-99); PLATELET COUNT 64 K/UL (150-450); RED BLOOD COUNT 2.98 M/UL (4.20-5.40); RED CELL DISTRIBUTION WIDTH 15.3 % (11.6-14.8)
[2018-01-06 11:28] LABS: INR 1.6 (0.9-1.1)
[2018-01-06 11:35] LABS: CREATINE KINASE 27 U/L (26-308)
--- NOTE | 2018-01-06 12:43 | Cardiology Progress Note ---
Assessment/Plan Assessment/Plan chronic borderline bp gi bleed anemia breast cancer s/p bialtel mastectomy coagulopathy due to Coumadin morbid obesity lymphedema sub acute renal insuf cr 1.8-2.1 11/2017 but 1.3-1.5 07/2017 bp chronic 90-100's range in 11/2017 agree with ivf and mane off pressor repeat cardiac enzyme [id number] Objective Last 24 Hour Vital Signs Date Time Temp Pulse Resp B/P (MAP) Pulse Ox O2 Delivery O2 Flow Rate FiO2 01/06/18 11:00 90 13 98/27 100 Nasal Cannula 2.0 01/06/18 10:00 87 13 101/33 100 Nasal Cannula 2.0 01/06/18 09:00 90 13 109/95 100 Nasal Cannula 2.0 01/06/18 08:00 97 Nasal Cannula 2.0 28 01/06/18 08:00 Nasal Cannula 2.0 28 01/06/18 08:00 98.5 80 17 99/35 100 Nasal Cannula 2.0 98.5 01/06/18 08:00 81 01/06/18 07:00 75 13 96/36 100 Nasal Cannula 2.0 01/06/18 07:00 96/36 01/06/18 06:00 75 17 97/42 100 Nasal Cannula 2.0 01/06/18 06:00 96/36 01/06/18 05:00 91/36 01/06/18 05:00 81 15 91/36 95 Nasal Cannula 2.0 01/06/18 04:00 81 01/06/18 04:00 101/37 01/06/18 04:00 98.1 76 13 107/40 98 Nasal Cannula 2.0 98.1 01/06/18 03:00 81 17 106/59 99 Nasal Cannula 2.0 01/06/18 03:00 109/40 01/06/18 02:00 108/44 01/06/18 02:00 74 17 108/44 99 Nasal Cannula 2.0 01/06/18 01:30 74 18 98/49 99 Nasal Cannula 2.0 01/06/18 01:00 97/43 01/06/18 01:00 75 17 97/43 99 Nasal Cannula 2.0 01/06/18 00:00 98.3 72 16 79/38 98 Nasal Cannula 2.0 98.3 01/06/18 00:00 83 01/06/18 00:00 79/38 01/05/18 23:00 83 26 73/33 100 Nasal Cannula 2.0 01/05/18 23:00 73/33 01/05/18 22:00 82 26 77/32 100 Nasal Cannula 2.0 01/05/18 21:00 98.1 82 18 71/278 98 Nasal Cannula 2.0 98.1 01/05/18 20:00 98.0 84 18 66/42 98 Nasal Cannula 2.0 98.0 01/05/18 20:00 75/37 01/05/18 19:21 97.8 18 91/40 98 Room Air 97.8 01/05/18 19:00 79 18 63/47 98 Room Air 01/05/18 18:00 77 18 67/42 98 Room Air 01/05/18 17:14 100 01/05/18 17:00 97.8 18 77/46 98 Room Air 97.8 01/05/18 16:40 97.8 18 91/40 98 Room Air 97.8 01/05/18 13:33 98.1 01/05/18 13:00 98.1 18 75/34 98 Room Air 98.1 Intake and Output 01/05/18 01/06/18 19:00 07:00 Intake Total 0 ml 3612.50 ml Output Total 200 ml Balance 0 ml 3412.50 ml Intake Oral 0 ml IV Total 3612.50 ml Output Urine Total 200 ml # Bowel Movements 1 2 Laboratory Tests Test 01/05/18 16:00 01/05/18 19:30 01/05/18 21:00 01/05/18 22:45 Lactic Acid Level 3.60 mmol/L (0.66-2.22) H White Blood Count 11.6 K/UL (4.8-10.8) H 10.2 K/UL (4.8-10.8) Red Blood Count 1.87 M/UL (4.20-5.40) L 2.18 M/UL (4.20-5.40) L Hemoglobin 5.5 G/DL (12.0-16.0) 6.4 G/DL (12.0-16.0) *L Hematocrit 16.4 % (37.0-47.0) #L 18.9 % (37.0-47.0) L Mean Corpuscular Volume 88 FL (80-99) 87 FL (80-99) Mean Corpuscular Hemoglobin 29.7 PG (27.0-31.0) 29.2 PG (27.0-31.0) Mean Corpuscular Hemoglobin Concent 33.9 G/DL (32.0-36.0) 33.8 G/DL (32.0-36.0) Red Cell Distribution Width 17.3 % (11.6-14.8) H 16.1 % (11.6-14.8) H Platelet Count 61 K/UL (150-450) L 54 K/UL (150-450) L Mean Platelet Volume 9.5 FL (6.5-10.1) 10.3 FL (6.5-10.1) H Neutrophils (%) (Auto) % (45.0-75.0) % (45.0-75.0) Lymphocytes (%) (Auto) % (20.0-45.0) % (20.0-45.0) Monocytes (%) (Auto) % (1.0-10.0) % (1.0-10.0) Eosinophils (%) (Auto) % (0.0-3.0) % (0.0-3.0) Basophils (%) (Auto) % (0.0-2.0) % (0.0-2.0) Differential Total Cells Counted 100 100 Neutrophils % (Manual) 78 % (45-75) H 73 % (45-75) Lymphocytes % (Manual) 17 % (20-45) L 19 % (20-45) L Monocytes % (Manual) 4 % (1-10) 5 % (1-10) Eosinophils % (Manual) 0 % (0-3) 0 % (0-3) Basophils % (Manual) 0 % (0-2) 3 % (0-2) H Band Neutrophils 1 % (0-8) 0 % (0-8) Platelet Estimate Decreased L Decreased L Platelet Morphology Normal Normal Hypochromasia 3+ Anisocytosis 1+ Microcytosis 1+ Ammonia 38 umol/L (11-32) H Urine Color Yellow Urine Appearance Clear Urine pH 5 (4.5-8.0) Urine Specific [place] 1.015 (1.005-1.035) Urine Protein 1+ (NEGATIVE) H Urine Glucose (UA) Negative (NEGATIVE) Urine Ketones Negative (NEGATIVE) Urine Occult Blood 5+ (NEGATIVE) H Urine Nitrite Negative (NEGATIVE) Urine Bilirubin Negative (NEGATIVE) Urine Urobilinogen Normal MG/DL (0.0-1.0) Urine Leukocyte Esterase 3+ (NEGATIVE) H Urine RBC 5-10 /HPF (0 - 2) H Urine WBC 5-10 /HPF (0 - 2) H Urine Squamous Epithelial Cells Few /LPF (NONE/OCC) Urine Bacteria Moderate /HPF (NONE) H Test 01/06/18 00:05 01/06/18 04:30 01/06/18 11:00 White Blood Count 9.6 K/UL (4.8-10.8) 16.4 K/UL (4.8-10.8) #H 15.0 K/UL (4.8-10.8) H Red Blood Count 2.44 M/UL (4.20-5.40) L 3.16 M/UL (4.20-5.40) L 2.98 M/UL (4.20-5.40) L Hemoglobin 7.1 G/DL (12.0-16.0) L 9.5 G/DL (12.0-16.0) #L 8.6 G/DL (12.0-16.0) L Hematocrit 21.5 % (37.0-47.0) L 27.7 % (37.0-47.0) L 26.3 % (37.0-47.0) L Mean Corpuscular Volume 88 FL (80-99) 88 FL (80-99) 88 FL (80-99) Mean Corpuscular Hemoglobin 29.3 PG (27.0-31.0) 30.0 PG (27.0-31.0) 29.0 PG (27.0-31.0) Mean Corpuscular Hemoglobin Concent 33.1 G/DL (32.0-36.0) 34.1 G/DL (32.0-36.0) 32.8 G/DL (32.0-36.0) Red Cell Distribution Width 15.8 % (11.6-14.8) H 15.1 % (11.6-14.8) H 15.3 % (11.6-14.8) H Platelet Count 55 K/UL (150-450) L 74 K/UL (150-450) L 64 K/UL (150-450) L Mean Platelet Volume 10.1 FL (6.5-10.1) 8.2 FL (6.5-10.1) 8.8 FL (6.5-10.1) Neutrophils (%) (Auto) % (45.0-75.0) % (45.0-75.0) % (45.0-75.0) Lymphocytes (%) (Auto) % (20.0-45.0) % (20.0-45.0) % (20.0-45.0) Monocytes (%) (Auto) % (1.0-10.0) % (1.0-10.0) % (1.0-10.0) Eosinophils (%) (Auto) % (0.0-3.0) % (0.0-3.0) % (0.0-3.0) Basophils (%) (Auto) % (0.0-2.0) % (0.0-2.0) % (0.0-2.0) Prothrombin Time 18.4 SEC (9.30-11.50) H 16.4 SEC (9.30-11.50) H 16.7 SEC (9.30-11.50) H Prothromb Time International Ratio 1.8 (0.9-1.1) H 1.6 (0.9-1.1) H 1.6 (0.9-1.1) H Differential Total Cells Counted 100 100 Neutrophils % (Manual) 72 % (45-75) 77 % (45-75) H Lymphocytes % (Manual) 18 % (20-45) L 10 % (20-45) L Monocytes % (Manual) 4 % (1-10) 8 % (1-10) Eosinophils % (Manual) 2 % (0-3) 0 % (0-3) Basophils % (Manual) 0 % (0-2) 0 % (0-2) Myelocytes % 2 % (0-0) H Band Neutrophils 2 % (0-8) 5 % (0-8) Platelet Estimate Decreased L Decreased L Platelet Morphology Normal Normal Polychromasia 1+ 1+ Hypochromasia 1+ 1+ Anisocytosis 1+ 1+ Activated Partial Thromboplast Time 39 SEC (23-33) H Sodium Level 137 MMOL/L (136-145) Potassium Level 4.2 MMOL/L (3.5-5.1) Chloride Level 104 MMOL/L (98-107) Carbon Dioxide Level 27 MMOL/L (21-32) Anion Gap 6 mmol/L (5-15) Blood Urea Nitrogen 41 mg/dL (7-18) H Creatinine 2.1 MG/DL (0.55-1.30) H Estimat Glomerular Filtration Rate mL/min (>60) Glucose Level 133 MG/DL (74-106) H Calcium Level 7.9 MG/DL (8.5-10.1) L Phosphorus Level 3.7 MG/DL (2.5-4.9) Magnesium Level 1.8 MG/DL (1.8-2.4) Total Bilirubin 1.9 MG/DL (0.2-1.0) H Direct Bilirubin 0.6 MG/DL (0.0-0.3) H Aspartate Amino Transf (AST/SGOT) 40 U/L (15-37) H Alanine Aminotransferase (ALT/SGPT) 27 U/L (12-78) Alkaline Phosphatase 119 U/L (46-116) H Total Protein 6.1 G/DL (6.4-8.2) L Albumin 1.8 G/DL (3.4-5.0) L Globulin 4.3 g/dL Albumin/Globulin Ratio 0.4 (1.0-2.7) L Amylase Level 65 U/L (25-115) Lipase 105 U/L (73-393) Lactic Acid Level 1.10 mmol/L (0.66-2.22) Uric Acid 7.1 MG/DL (2.6-7.2) Total Creatine Kinase 27 U/L (26-308) Carcinoembryonic Antigen Pending Microbiology Date/Time Source Procedure Growth Status 01/05/18 21:00 Urine,Clean Catch Urine Culture - Preliminary NO GROWTH Resulted Tenzin Ford MD January 06, 2018 12:43
[2018-01-06] MEDS ORDERED: Sodium Chloride 500ML 500 ML IV ONE (13:00)
--- NOTE | 2018-01-06 13:01 | Consultation ---
Consult Note Consult Note asked to eval for renal failure by Dr Randolph The patient is sent in for passing bright red blood per rectum. In addition paramedics state that when they were there she vomited some bright red blood. The patient is apparently on Coumadin after having blood clot in the past. She status post mastectomy on the right-hand side. Paramedics were unable to start an IV and she was hypotensive in the field. The patient denies any pain at this time but feels ill. The daughter here and states apparently the patient is a full code. Other history limited. No fever, cough, dyspnea. No prior GI bleed. Allergies: ASPIRIN (Unverified Allergy, Unknown, 01/05/18) TAPE (Allergy, Unknown, 01/05/18) Hx Cancer: Yes Hx Gastrointestinal Problems: Yes seen in ICU daughter present examined hypotensive on pressors patient was transfused and given FFP Assessment/Plan acute renal failure acute GI bleed Hemmorhagic anemia hypotension h/o breast ca h/o Pulmonary embolism hemodynamic support monitor renal parameters cortisol level avoid nephrotoxics per orders discussed with DARIA BUCKLEY January 06, 2018 13:01
--- NOTE | 2018-01-06 14:03 | Cardiology Report ---
APPROVED REPORT EXAM: Two-dimensional and M-mode echocardiogram with Doppler and color Doppler. INDICATION LV FUNCTION M-Mode DIMENSIONS IVSd1.3 (0.7-1.1cm)Left Atrium (MM)4.0 (1.6-4.0cm) LVDd5.3 (3.5-5.6cm)Aortic Root4.3 (2.0-3.7cm) PWd1.2 (0.7-1.1cm)Aortic Cusp Exc.1.8 (1.5-2.0cm) IVSs1.9 cm LVDs3.5 (2.5-4.0cm) PWs2.1 cm Technically difficult study due pts resistance with poor endocardial and valvular definition . Normal left ventricular chamber size, systolic function and wall motion to extent visualized. Left ventricular ejection fraction estimated to be 65-70 %. No evidence of left ventricular hypertrophy by 2-D. No evidence of pericardial effusion. All other cardiac chamber sizes are within normal limits. Focal aortic valve sclerosis with adequate cusp excursion. Mildly Thickened mitral valve leaflets with normal excursion. Mildly Mitral annulus and aortic root calcification. Pulmonic valve not well visualized. Normal tricuspid valve structure. IVC at normal size without physiologic collapse. valvular definition appears poor A color flow and spectral Doppler study was performed and revealed: No aortic regurgitation. Trace mitral regurgitation. Mitral diastolic velocities suggest reduced left ventricular relaxation c/w mild LV diastolic dysfunction (Grade I ). Trace tricuspid regurgitation. Tricuspid systolic velocities suggests peak right ventricular systolic pressure of 29mmHg No Pulmonic regurgitation present.
--- NOTE | 2018-01-06 14:37 | Cardiology Report ---
APPROVED REPORT EKG Measurement Heart [id number] [place] [id number] Sinus rhythm with 1st degree AV block Moderate voltage criteria for LVH, may be normal variant Borderline ECG
--- NOTE | 2018-01-06 14:42 | Consultation ---
Consult Note Consult Note [id number] Rad Galicia MD January 06, 2018 14:42
--- NOTE | 2018-01-06 14:53 | History & Physical ---
History and Physical History & Physicial Perico Randolph MD January 06, 2018 14:53
[2018-01-06] MEDS: DOPamine 400mg/250ml 250 ML IV SCH (15:45)
--- NOTE | 2018-01-06 16:45 | Consultation ---
DATE OF CONSULTATION: 01/06/2018 CARDIOLOGY CONSULTATION CONSULTING PHYSICIAN: Tenzin Ford M.D. REFERRING PHYSICIANS: 1. Bakari Adair M.D. 2. Perico Randolph M.D. REASON FOR REFERRAL: Hypotension. HISTORY OF PRESENT ILLNESS: This is a 72-year-old female with history of multiple medical problems as delineated below. The patient has been admitted to the hospital here at [facility] yesterday evening with bright red blood per rectum. Apparently, paramedics indicated that she had vomited some bright red blood as well. She has been on Coumadin and was brought to the emergency room at [facility]. She had some drop in her blood pressure and vasopressors were started. I was notified and was recommended administration of some intravenous fluids although the patient received some intravenous fluids earlier. Overnight, she received 3 units of blood cells and she appears to be better. She still remains on some pressors that are being titrated downwards. The patient is awake and responsive although she does not recall having had bleeding or vomiting. She denies any chest pain. Denies any shortness of breath. Denies any dizziness or lightheadedness. No history of palpitation. She does not have any shortness of breath on laying down. She does indicate she has the head of the bed up a little bit when she sleeps. PAST MEDICAL HISTORY: Positive for history of cirrhosis of the liver felt to be secondary to fatty liver and history of thrombocytopenia related to that. A [facility] data was reviewed and indicates that the patient does have a history of bilateral mastectomy for breast cancer. She had recent hospitalization at [facility] where she was treated for thigh cellulitis. She has had history of mastectomy, morbid obesity, pulmonary embolism, history of deep venous thrombosis previously, and bilateral lower extremity lymph edema. She is on chronic anticoagulation. According to her daughter, she never had any heart problems. There has been no history of heart attack. No stroke. No hepatitis or tuberculosis. No asthma. She does have a history of peptic ulcer disease many years ago. No kidney problems except for the cirrhosis. No other liver problems. No thyroid problems. She does have history of anemia. ALLERGIES: She is not allergic to any medication. Actually, she was told not to take aspirin because she takes Coumadin. SOCIAL HISTORY: Remote history of smoking. No drinking of alcoholic beverages. No drug use. She at a convalescent facility. REVIEW OF SYSTEMS: GASTROINTESTINAL: As mentioned with bloody vomitus and bloody stools. GENITOURINARY: Negative. She indicates she has a Luz catheter. PULMONARY: Denies any coughing or wheezing. CONSTITUTIONAL: Denies any fever, chills, or night sweats. NEUROLOGICAL: She has been basically bedbound. She is confused according to her daughter at this time intermittently. PHYSICAL EXAMINATION: GENERAL: Shows to be morbidly obese elderly female, in no respiratory distress. She looks somewhat pale. She has an IJ line in place on the right side. She is responsive and communicative. NECK: Supple. LUNGS: Appear to be clear to auscultation and percussion. CARDIAC: Regular rate and rhythm. There is a systolic ejection murmur. No RV lifts, heaves, thrills, or gallops noted. ABDOMEN: Soft and nontender. Positive bowel sounds. EXTREMITY: There is no clubbing, cyanosis, nor edema. She has pneumatic compression stockings in the lower part of the leg below the knee bilaterally. She has significant lymphedema. NEUROLOGICAL: As mentioned, awake and responsive. LABORATORY DATA: She came in with a white count of 15.4, with a hemoglobin 8.1, and platelet count of 107,000. Eventually, her hemoglobin dropped as low as 5.5 and received packed red cells. After 3 units of packed red cells, she had a white count of 15,000, hemoglobin 8.6, and a platelet count of 64,000 this morning, 77 polys, 10 lymphocytes, and 8 monos. Her coagulation, INR of 1.6, she came in with INR of 2.9 yesterday. She had a PTT of 39. Urinalysis, 5 to 10 rbc's and wbc's and 3+ leukocyte esterase. Urine culture so far negative. A chest x-ray has been performed and repeated. Initial chest x-ray showed limited examination, artificially exaggerated heart size and then subsequently chest x-ray for central line placement shows no significant other abnormalities being noted. She had venous duplex of her lower extremities. No evidence of thrombus within the common femoral and popliteal segment. The greater saphenous veins are also within normal limits. Her electrocardiogram, sinus rhythm with leftward axis. No significant ST-T abnormalities of any significant degree. ASSESSMENT: 1. Hypovolemic shock. 2. Anemia. 3. Gastrointestinal bleed. 4. History of deep venous thrombosis and pulmonary embolism, on chronic anticoagulation therapy. 5. History of breast cancer remotely, status post bilateral mastectomy. 6. Chronic borderline hypotension. 7. Morbid obesity. 8. Subacute renal insufficiency. PLAN: Dr. Gilmore and Dr. Randolph, the patient was seen in cardiac consultation. No symptoms or signs of coronary syndrome at this time. An EKG will be repeated. Her blood pressure data from [facility] was reviewed. It appears she is running with a blood pressure in the 90s to mid 100s on a chronic basis. She is being supported at this time with some pressors, it should be discontinued gradually. I do agree with administration of extra fluids. Packed red cells may need to be readministered if degree of anemia is becoming more severe. However, at this time, she appears to be holding on pretty well. An echocardiogram has been ordered and performed. I will review those data. An EKG will be repeated and a set of cardiac enzymes will be repeated in light of the fact that she has significant anemia at the time of her hospitalization. She has no signs or symptoms of acute coronary syndrome at this time. Her creatinine is elevated, but when compared with the [facility] data that was performed in November 2017, her creatinine appears to be stable level for the month of November. She was running in 1.8 to 2.1. Previously in July 2017, she had level in the 1.3 to 1.5 range, so acute component or subacute component of renal insufficiency is likely present. I will follow the patient along with you and hopefully over the next few hours, we will be able to taper off her pressors. Tenzin Ford M.D. DR: BERT JOB#: [id number] CC:
[2018-01-06] MEDS ORDERED: NS 500ML ONE (17:19)
[2018-01-06] MEDS ORDERED: NS 275ml ONE ×2 (17:19→17:41)
[2018-01-06] MEDS ORDERED: Tubing IV Secondary IV ONE (17:19)
[2018-01-06] MEDS ORDERED: Tubing IV Blood Pump IV ONE ×2 (17:19→17:41)
--- NOTE | 2018-01-06 18:15 | Consultation ---
DATE OF CONSULTATION: 01/06/2018 INFECTIOUS DISEASE CONSULTATION CONSULTING PHYSICIAN: Rad Galicia M.D. REFERRING PHYSICIANS: 1. Perico Randolph M.D. 2. Bakari Gilmore M.D. REASON FOR CONSULTATION: Sepsis. HISTORY OF PRESENT ILLNESS: The patient is a 72-year-old female, resident of long term, who came to the hospital with acute upper GI bleed followed with hematochezia. The patient has been admitted to the ICU. At the time of admission, the patient was found to be hypotensive and severely anemic. The patient also was found to have leukocytosis. Infectious Disease consultation has been requested for possible need for antibiotic treatment. PAST MEDICAL HISTORY: 1. DVT/PE, on anticoagulation. 2. History of cirrhosis/portal hypertension. 3. History of gastropathy. 4. Internal hemorrhoids. 5. History of encephalopathy. 6. Hypertension. 7. COPD. 8. History of breast cancer, bilateral mastectomy. 9. Hysterectomy. ALLERGIES: Aspirin. FAMILY HISTORY: Noncontributory. REVIEW OF SYSTEMS: HEENT: No recent change in vision or hearing. PULMONARY: No cough. CARDIOVASCULAR: No chest pain or palpitation. GASTROINTESTINAL/ABDOMEN: No abdominal pain. GENITOURINARY: No dysuria. EXTREMITIES: The patient has history of left lower extremity cellulitis in the past. PHYSICAL EXAMINATION: VITAL SIGNS: Temperature 98.5, pulse 86, respiratory rate 18, and blood pressure . HEENT: No pale conjunctivae. No icterus. NECK: No lymphadenopathy. CHEST: Clear. HEART: S1 and S2. ABDOMEN: Soft and obese. EXTREMITIES: No cyanosis. NEUROLOGIC: Awake. LABORATORY AND DIAGNOSTIC DATA: White blood cells 15, hemoglobin 8.6, and platelets 64,000. UA unremarkable. AST 40, ALT 27, and alkaline phosphatase 119. CRP 3.5. Urine culture is pending. ASSESSMENT: 1. The patient is a 72-year-old female with leukocytosis (due to the acute distress). 2. Monitor CBC. 3. Monitor BMP. 4. No evidence of source of infection at this point. PLAN: 1. We will monitor the patient off of antibiotics. 2. Blood transfusion as needed. 3. Monitor cultures (blood, urine). 4. Monitor chest x-ray. 5. We will follow GI recommendations. 6. Based on the patient's clinical course and labs, we will do further recommendations. Thank you, Dr. Randolph and Dr. Gilmore, for allowing me to participate in the care of this patient. I will follow the patient with you during this hospitalization. Rad Galiica M.D. DR: CHRISTINE JOB#: [id number] CC:
[2018-01-06 19:23] LABS: HEMATOCRIT 22.6 % (37.0-47.0); HEMOGLOBIN 7.6 G/DL (12.0-16.0); MEAN CORPUSCULAR VOLUME 87 FL (80-99); PLATELET COUNT 40 K/UL (150-450); RED CELL DISTRIBUTION WIDTH 15.2 % (11.6-14.8); WHITE BLOOD COUNT 8.3 K/UL (4.8-10.8)
[2018-01-06 19:26] LABS: INR 1.7 (0.9-1.1)
--- NOTE | 2018-01-06 19:54 | General Progress Note ---
Assessment/Plan Assessment/Plan Assessment - UGIB - Cirrhosis, from [facility] - No esophageal varcies on Jun 2017 EGD - h/o hepatic encephalopathy - Chronic edema - coagulopathy - hypotension, requiring pressors - ? all from GI Bleed (currently transfused) - ? partly baseline - ? partly septic - Azotemia Recommendations - d/w anesthesia this am - sedation risk at this time may outweigh endoscopic benefits - ice chips OK - PPI - close observation - can scope urgently if rebleeds - FFP and PRBC PRN - add Xifaxan - add octreotide, until EGD - BID PPI - Wean off pressors - EGD in next 24-48 hours once medically stablized Subjective Allergies: Coded Allergies: ASPIRIN (Unverified Allergy, Unknown, 01/05/18) Uncoded Allergies: TAPE (Allergy, Unknown, 01/05/18) Subjective Seen this am in ICU with daughter at bedside small blood tinged BM overnight patient without any complaints s/p multiple blood and FFP transfusions Objective Last 24 Hour Vital Signs Date Time Temp Pulse Resp B/P (MAP) Pulse Ox O2 Delivery O2 Flow Rate FiO2 01/06/18 19:00 94/35 01/06/18 19:00 79 13 94/35 100 Nasal Cannula 2.0 01/06/18 18:56 94/35 01/06/18 18:00 97/44 01/06/18 18:00 77 13 111/41 100 Nasal Cannula 2.0 01/06/18 17:00 87 13 98/53 100 Nasal Cannula 2.0 01/06/18 17:00 101/48 01/06/18 16:04 98/27 01/06/18 16:00 79 13 104/49 100 Nasal Cannula 2.0 01/06/18 16:00 80 01/06/18 15:00 81 13 128/64 100 Nasal Cannula 2.0 01/06/18 14:00 84 13 99/52 100 Nasal Cannula 2.0 01/06/18 13:00 77 13 94/29 100 Nasal Cannula 2.0 01/06/18 12:00 87 01/06/18 12:00 98.2 85 13 96/42 100 Nasal Cannula 2.0 98.2 01/06/18 11:00 90 13 98/27 100 Nasal Cannula 2.0 01/06/18 10:00 87 13 101/33 100 Nasal Cannula 2.0 01/06/18 09:00 90 13 109/95 100 Nasal Cannula 2.0 01/06/18 08:00 97 Nasal Cannula 2.0 28 01/06/18 08:00 Nasal Cannula 2.0 28 01/06/18 08:00 98.5 80 17 99/35 100 Nasal Cannula 2.0 98.5 01/06/18 08:00 81 01/06/18 07:00 75 13 96/36 100 Nasal Cannula 2.0 01/06/18 07:00 96/36 01/06/18 06:00 75 17 97/42 100 Nasal Cannula 2.0 01/06/18 06:00 96/36 01/06/18 05:00 91/36 01/06/18 05:00 81 15 91/36 95 Nasal Cannula 2.0 01/06/18 04:00 81 01/06/18 04:00 101/37 01/06/18 04:00 98.1 76 13 107/40 98 Nasal Cannula 2.0 98.1 01/06/18 03:00 81 17 106/59 99 Nasal Cannula 2.0 01/06/18 03:00 109/40 01/06/18 02:00 108/44 01/06/18 02:00 74 17 108/44 99 Nasal Cannula 2.0 01/06/18 01:30 74 18 98/49 99 Nasal Cannula 2.0 01/06/18 01:00 97/43 01/06/18 01:00 75 17 97/43 99 Nasal Cannula 2.0 01/06/18 00:00 98.3 72 16 79/38 98 Nasal Cannula 2.0 98.3 01/06/18 00:00 83 01/06/18 00:00 79/38 01/05/18 23:00 83 26 73/33 100 Nasal Cannula 2.0 01/05/18 23:00 73/33 01/05/18 22:00 82 26 77/32 100 Nasal Cannula 2.0 01/05/18 21:00 98.1 82 18 71/278 98 Nasal Cannula 2.0 98.1 01/05/18 20:00 98.0 84 18 66/42 98 Nasal Cannula 2.0 98.0 01/05/18 20:00 75/37 Intake and Output 01/05/18 01/06/18 19:00 07:00 Intake Total 0 ml 3612.50 ml Output Total 200 ml Balance 0 ml 3412.50 ml Intake Oral 0 ml IV Total 3612.50 ml Output Urine Total 200 ml # Bowel Movements 1 2 Laboratory Tests 01/05/18 21:00: Urine Color Yellow, Urine Appearance Clear, Urine pH 5, Urine Specific [place] 1.015, Urine Protein 1+H, Urine Glucose (UA) Negative, Urine Ketones Negative, Urine Occult Blood 5+H, Urine Nitrite Negative, Urine Bilirubin Negative, Urine Urobilinogen Normal, Urine Leukocyte Esterase 3+H, Urine RBC 5-10H, Urine WBC 5- 10H, Urine Squamous Epithelial Cells Few, Urine Bacteria ModerateH 01/05/18 22:45: White Blood Count 10.2, Red Blood Count 2.18L, Hemoglobin 6.4*L, Hematocrit 18.9L, Mean Corpuscular Volume 87, Mean Corpuscular Hemoglobin 29.2, Mean Corpuscular Hemoglobin Concent 33.8, Red Cell Distribution Width 16.1H, Platelet Count 54L, Mean Platelet Volume 10.3H, Neutrophils (%) (Auto) , Lymphocytes (%) (Auto) , Monocytes (%) (Auto) , Eosinophils (%) (Auto) , Basophils (%) (Auto) , Differential Total Cells Counted 100, Neutrophils % ( Manual) 73, Lymphocytes % (Manual) 19L, Monocytes % (Manual) 5, Eosinophils % ( Manual) 0, Basophils % (Manual) 3H, Band Neutrophils 0, Platelet Estimate DecreasedL, Platelet Morphology Normal 01/06/18 00:05: White Blood Count 9.6, Red Blood Count 2.44L, Hemoglobin 7.1L, Hematocrit 21.5L , Mean Corpuscular Volume 88, Mean Corpuscular Hemoglobin 29.3, Mean Corpuscular Hemoglobin Concent 33.1, Red Cell Distribution Width 15.8H, Platelet Count 55L, Mean Platelet Volume 10.1, Neutrophils (%) (Auto) , Lymphocytes (%) (Auto) , Monocytes (%) (Auto) , Eosinophils (%) (Auto) , Basophils (%) (Auto) , Prothrombin Time 18.4H, Prothromb Time International Ratio 1.8H 01/06/18 04:30: White Blood Count 16.4#H, Red Blood Count 3.16L, Hemoglobin 9.5#L, Hematocrit 27.7L, Mean Corpuscular Volume 88, Mean Corpuscular Hemoglobin 30.0, Mean Corpuscular Hemoglobin Concent 34.1, Red Cell Distribution Width 15.1H, Platelet Count 74L, Mean Platelet Volume 8.2, Neutrophils (%) (Auto) , Lymphocytes (%) (Auto) , Monocytes (%) (Auto) , Eosinophils (%) (Auto) , Basophils (%) (Auto) , Differential Total Cells Counted 100, Neutrophils % ( Manual) 72, Lymphocytes % (Manual) 18L, Monocytes % (Manual) 4, Eosinophils % ( Manual) 2, Basophils % (Manual) 0, Band Neutrophils 2, Platelet Estimate DecreasedL, Platelet Morphology Normal, Prothrombin Time 16.4H, Prothromb Time International Ratio 1.6H, Myelocytes % 2H, Polychromasia 1+, Hypochromasia 1+, Anisocytosis 1+, Activated Partial Thromboplast Time 39H, Sodium Level 137, Potassium Level 4.2, Chloride Level 104, Carbon Dioxide Level 27, Anion Gap 6, Blood Urea Nitrogen 41H, Creatinine 2.1H, Estimat Glomerular Filtration Rate , Glucose Level 133H, Calcium Level 7.9L, Phosphorus Level 3.7, Magnesium Level 1.8, Total Bilirubin 1.9H, Direct Bilirubin 0.6H, Aspartate Amino Transf (AST/ SGOT) 40H, Alanine Aminotransferase (ALT/SGPT) 27, Alkaline Phosphatase 119H, Total Protein 6.1L, Albumin 1.8L, Globulin 4.3, Albumin/Globulin Ratio 0.4L, Amylase Level 65, Lipase 105 01/06/18 11:00: White Blood Count 15.0H, Red Blood Count 2.98L, Hemoglobin 8.6L, Hematocrit 26.3L, Mean Corpuscular Volume 88, Mean Corpuscular Hemoglobin 29.0, Mean Corpuscular Hemoglobin Concent 32.8, Red Cell Distribution Width 15.3H, Platelet Count 64L, Mean Platelet Volume 8.8, Neutrophils (%) (Auto) , Lymphocytes (%) (Auto) , Monocytes (%) (Auto) , Eosinophils (%) (Auto) , Basophils (%) (Auto) , Differential Total Cells Counted 100, Neutrophils % ( Manual) 77H, Lymphocytes % (Manual) 10L, Monocytes % (Manual) 8, Eosinophils % ( Manual) 0, Basophils % (Manual) 0, Band Neutrophils 5, Platelet Estimate DecreasedL, Platelet Morphology Normal, Polychromasia 1+, Hypochromasia 1+, Anisocytosis 1+, Prothrombin Time 16.7H, Prothromb Time International Ratio 1.6H , Urine Random Sodium < 10L, Lactic Acid Level 1.10, Uric Acid 7.1, Total Creatine Kinase 27, C-Reactive Protein, Quantitative 3.5H, Carcinoembryonic Antigen [Pending] 01/06/18 18:25: White Blood Count 8.3, Red Blood Count 2.60L, Hemoglobin 7.6L, Hematocrit 22.6L , Mean Corpuscular Volume 87, Mean Corpuscular Hemoglobin 29.4, Mean Corpuscular Hemoglobin Concent 33.9, Red Cell Distribution Width 15.2H, Platelet Count 40L, Mean Platelet Volume 8.1, Neutrophils (%) (Auto) , Lymphocytes (%) (Auto) , Monocytes (%) (Auto) , Eosinophils (%) (Auto) , Basophils (%) (Auto) , Neutrophils % (Manual) [Pending], Lymphocytes % (Manual) [Pending], Platelet Estimate [Pending], Platelet Morphology [Pending], Prothrombin Time 17.6H, Prothromb Time International Ratio 1.7H Height (Feet): 5 Height (Inches): 4.00 Weight (Pounds): 319 Objective Obese and edematous WW NCAT supple CTA RRR abd soft ext (++) edema non focal neuro Yohannes Woodall MD January 06, 2018 19:54
[2018-01-06] MEDS: Vitamin A&D Oint 2oz Tube TOPIC SCH (21:00)
--- NOTE | 2018-01-06 21:15 | History and Physical Report ---
DATE OF ADMISSION: 01/05/2018 CHIEF COMPLAINT: Rectal bleeding. HISTORY OF PRESENT ILLNESS: This is a 72-year-old very delightful [place]er female with past medical history significant for history of breast cancer, status post bilateral mastectomy, history of fatty liver with liver cirrhosis, portal hypertension, history of internal hemorrhoids, deep vein thrombosis and PE, on anticoagulation Coumadin, history of hepatic encephalopathy, on lactulose therapy, prior history of hypertension, and morbid obesity, who was presented to the hospital from nursing facility after was noted to have acute rectal bleeding. The patient was in usual state of health until yesterday and when she started having bright red blood per rectum. The patient denies any hemoptysis, however, was noted to have hematochezia. The patient become hypotensive and subsequently was transferred to the hospital at the [facility] via ambulance. Shortly after initial evaluation in the emergency room, the patient was admitted to the hospital with acute GI bleed with hemorrhagic shock as well as acute anemia most likely secondary to blood loss. PAST MEDICAL HISTORY/PAST SURGICAL HISTORY: As above, history of deep vein thrombosis with pulmonary embolism on anticoagulation Coumadin, history of endoscopy and colonoscopy in 06/2017 at [facility] showing portal hypertension, gastropathy with possible nonbleeding sigmoid vascular ectasia with internal hemorrhoids, history of liver cirrhosis with fatty liver, portal hypertension, internal hemorrhoids, hepatic encephalopathy, hypertension as well as major depression disorder, congestive heart failure with diastolic dysfunction, and breast cancer, status post bilateral mastectomy. MEDICATIONS: At long-term, significant for Carafate, Coumadin 2 mg, docusate, Lasix 40 mg, albuterol inhaler, Voltaren gel, bisacodyl, Robitussin, acetaminophen, [place], and milk of magnesia. ALLERGIES: Allergy to aspirin and tape. FAMILY HISTORY: Noncontributory. REVIEW OF SYSTEMS: Mostly as above. Denies any dysuria or frequency. Complains of bright red blood per rectum. Denies any hemoptysis, however, has hematochezia. Denies any loss of consciousness. Denies any double vision. Complaining about severe weakness. No seizure activity. No bowel or urine incontinence. PHYSICAL EXAMINATION: GENERAL: The patient is awake, responsive, in no acute distress. VITAL SIGNS: On admission from the ER, temperature 98.0 degrees, pulse of 125, respirations 18, and initial blood pressure 75/34. HEAD AND NECK: Pupils are reactive to light. Extraocular movements are intact. Neck was supple. No JVD. The patient has a triple-lumen catheter in the right side of the neck. IJ was noted. LUNGS: Bilaterally no wheezing or rales. Decreased air in the bases. HEART: S1 and S2. Distant heart sounds. No murmur or gallops. ABDOMEN: Soft, nondistended, nontender, and morbidly obese. CHEST WALL: Bilateral mastectomy was noted, scar tissue and no sign of infection. EXTREMITIES: No cyanosis or clubbing. There is +1 edema. NEUROLOGIC: Cranial nerves II through XII grossly intact. Motor is 5/5 in all extremities. Gait is unable to obtain secondary to the patient's status. LABORATORY AND DIAGNOSTIC DATA: On admission from the ER, WBC of 11.6, hemoglobin of 5.5, hematocrit 16, and platelets is 61. The patient's sodium 135, potassium 5.4, chloride 104, bicarbonate 26, BUN 44, creatinine 2.1, and glucose is 150. Calcium is 8.0. Total bilirubin of 1.4, direct bilirubin of 0.5. Alkaline phosphatase 145. Total protein 5.7. Albumin is 1.4. Lipase is 138. Troponin 0.084 and lactic acid 3.20, repeat one is 3.60. PT of 31, INR is 2.9, and PTT of 53. The patient's chest x-ray noted to be limited, low lung volumes. There is artificially exaggerated heart size with vascular marking, portable mild cardiomegaly, degree of the mild pulmonary vascular congestion is not excluded, no pneumothorax, no pleural effusion. X-ray of the abdomen was done, showed nonspecific obstructive bowel gas pattern, calcification in the right upper quadrant, may represent calcified gallstones. EKG was noted to be normal sinus rhythm, ventricular rate of 88, first-degree AV block, moderate voltage criteria for left ventricular hypertrophy, and no ST elevation or T-wave inversion. ASSESSMENT: 1. Acute GI bleed. 2. Hemorrhagic shock. 3. Severe anemia most likely secondary to acute blood loss. 4. Acute kidney injury on chronic renal insufficiency. 5. Morbid obesity. 6. History of breast cancer. 7. Hyperkalemia. 8. Hypertension. 9. History of breast cancer, status post bilateral mastectomy. 10. Congestive heart failure, chronic with diastolic dysfunction. 11. Major depression disorder. 12. History of DVT and PE in past, on anticoagulation, Coumadin. PLAN: Admit the patient to ICU. We will follow up with Dr. Gilmore, Pulmonary/Critical Care, Dr. Sascha Bond from Nephrology, and Dr. Tenzin Ford from Cardiology as well as Dr. Yohannes Wooadll from Gastroenterology. We will monitor laboratory and hemoglobin and hematocrit. Consider to transfuse platelets as well as packed RBC and fresh frozen plasma as needed. Discussed with the daughter extensively at bedside. Code status is Full Code. POLST noted in the chart. Activity, bedrest and at this time for DVT prophylaxis, SCD. Kept the patient NPO. Perico Randolph M.D. DR: GERRY JOB#: [id number] CC: JUNE
[2018-01-06] MEDS: Pantoprazole Inj IV SCH (21:32)
[2018-01-06] MEDS: Dyna-Hex 2% Top Sol 2oz TOPIC SCH (21:32)
[2018-01-06] MEDS: Octreotide Acetate 500 MCG in Sodium Chloride 500ML 499 ML IV SCH (23:01)
[2018-01-07] VITALS (48 sets, daily range): BP systolic 68–121; BP diastolic 22–64
[2018-01-07 04:40] LABS: HEMATOCRIT 27.5 % (37.0-47.0); HEMOGLOBIN 9.2 G/DL (12.0-16.0); MEAN CORPUSCULAR VOLUME 88 FL (80-99); PLATELET COUNT 51 K/UL (150-450); RED BLOOD COUNT 3.12 M/UL (4.20-5.40); RED CELL DISTRIBUTION WIDTH 15.1 % (11.6-14.8); WHITE BLOOD COUNT 12.1 K/UL (4.8-10.8)
[2018-01-07 04:57] LABS: APPEARANCE,URINE CLEAR; BILIRUBIN, URINE NEGATIVE (NEGATIVE); GLUCOSE, URINE (UA) NEGATIVE (NEGATIVE); KETONES,URINE NEGATIVE (NEGATIVE); LEUKOCYTE ESTERASE ,URINE 1+ (NEGATIVE); NITRITE,URINE NEGATIVE (NEGATIVE); PH,URINE 5 (4.5-8.0); PROTEIN,URINE 2+ (NEGATIVE); UROBILINOGEN,URINE NORMAL MG/DL (0.0-1.0)
[2018-01-07 05:03] LABS: COLOR,URINE YELLOW
[2018-01-07 05:20] LABS: ALANINE AMINOTRANSFERASE 25 U/L (12-78); ALBUMIN 2.6 G/DL (3.4-5.0); ALBUMIN/GLOBULIN RATIO 0.8 (1.0-2.7); ALKALINE PHOSPHATASE 98 U/L (46-116); ANION GAP 8 mmol/L (5-15); ASPARTATE AMINO TRANSFERASE 40 U/L (15-37); BILIRUBIN,TOTAL 2.5 MG/DL (0.2-1.0); BLOOD UREA NITROGEN 37 mg/dL (7-18); CALCIUM 8.1 MG/DL (8.5-10.1); CARBON DIOXIDE 25 MMOL/L (21-32); CHLORIDE 104 MMOL/L (98-107); CHOLESTEROL 70 MG/DL (< 200); HDL CHOLESTEROL 17 MG/DL (40-60); PHOSPHORUS 3.7 MG/DL (2.5-4.9); POTASSIUM 4.2 MMOL/L (3.5-5.1); SODIUM 137 MMOL/L (136-145); TRIGLYCERIDES 69 MG/DL (30-150)
[2018-01-07 05:24] LABS: INR 1.6 (0.9-1.1)
[2018-01-07 05:55] LABS: BILIRUBIN,DIRECT 0.9 MG/DL (0.0-0.3)
[2018-01-07 06:22] LABS: CREATINE KINASE 33 U/L (26-308); GAMMA GLUTAMYL TRANSPEPTIDASE 40 U/L (5-85)
[2018-01-07] MEDS: Pantoprazole Inj IV SCH ×2 (09:20→20:28)
[2018-01-07] MEDS: Vitamin A&D Oint 2oz Tube TOPIC SCH ×2 (09:20→20:29)
--- NOTE | 2018-01-07 09:40 | Nephrology Progress Note ---
Assessment/Plan Problem List: (1) ATN (acute tubular necrosis) (2) Hypotension (3) Hemorrhagic shock (4) GI bleed (5) History of pulmonary embolism (6) History of breast cancer Assessment acute renal failure cr stable acute GI bleed Hemmorhagic anemia hypotension remains on pressors h/o breast ca h/o Pulmonary embolism Plan hemodynamic support add midodrine monitor renal parameters cortisol level avoid nephrotoxics per orders per GI discussed with RN Subjective ROS Limited/Unobtainable: No Constitutional: Reports: malaise Objective Objective Last 24 Hour Vital Signs Date Time Temp Pulse Resp B/P (MAP) Pulse Ox O2 Delivery O2 Flow Rate FiO2 01/07/18 07:00 67 16 96/36 99 Nasal Cannula 2.0 01/07/18 06:00 96/43 01/07/18 06:00 75 13 76/24 99 Nasal Cannula 2.0 01/07/18 05:00 81/31 01/07/18 05:00 75 13 101/42 99 Nasal Cannula 2.0 01/07/18 04:00 98.2 89 23 81/35 99 Nasal Cannula 2.0 98.2 01/07/18 04:00 81/35 01/07/18 04:00 85 01/07/18 03:00 75 16 91/43 99 Nasal Cannula 2.0 01/07/18 03:00 91/43 01/07/18 02:30 74 16 93/42 99 Nasal Cannula 2.0 01/07/18 02:17 71/55 01/07/18 02:00 75 16 71/55 98 Nasal Cannula 2.0 01/07/18 02:00 71/55 01/07/18 01:30 98.0 78 15 78/22 100 Nasal Cannula 2.0 98.0 01/07/18 01:00 68/33 01/07/18 01:00 89 17 68/33 98 Nasal Cannula 2.0 01/07/18 00:00 66 01/07/18 00:00 77/28 01/07/18 00:00 98.4 69 16 77/28 98 Nasal Cannula 2.0 98.4 01/06/18 23:01 103/40 01/06/18 23:00 70 17 103/40 100 Nasal Cannula 2.0 01/06/18 22:00 95/33 01/06/18 22:00 75 13 95/33 100 Nasal Cannula 2.0 01/06/18 21:00 86/26 01/06/18 21:00 79 13 97/40 100 Nasal Cannula 2.0 01/06/18 20:00 75 01/06/18 20:00 98/31 01/06/18 20:00 98.2 74 15 96/38 99 Nasal Cannula 2.0 98.2 01/06/18 19:30 Nasal Cannula 2.0 28 01/06/18 19:30 96 Nasal Cannula 2.0 28 01/06/18 19:00 94/35 01/06/18 19:00 79 13 94/35 100 Nasal Cannula 2.0 01/06/18 18:56 94/35 01/06/18 18:00 97/44 01/06/18 18:00 77 13 111/41 100 Nasal Cannula 2.0 01/06/18 17:00 87 13 98/53 100 Nasal Cannula 2.0 01/06/18 17:00 101/48 01/06/18 16:04 98/27 01/06/18 16:00 79 13 104/49 100 Nasal Cannula 2.0 01/06/18 16:00 80 01/06/18 15:00 81 13 128/64 100 Nasal Cannula 2.0 01/06/18 14:00 84 13 99/52 100 Nasal Cannula 2.0 01/06/18 13:00 77 13 94/29 100 Nasal Cannula 2.0 01/06/18 12:00 87 01/06/18 12:00 98.2 85 13 96/42 100 Nasal Cannula 2.0 98.2 01/06/18 11:00 90 13 98/27 100 Nasal Cannula 2.0 01/06/18 10:00 87 13 101/33 100 Nasal Cannula 2.0 Intake and Output 01/06/18 01/07/18 19:00 07:00 Intake Total 576.25 ml 2221.27 ml Output Total 280 ml 310 ml Balance 296.25 ml 1911.27 ml IV Total 576.25 ml 2221.27 ml Output Urine Total 280 ml 310 ml # Bowel Movements 2 1 Laboratory Tests 01/06/18 11:00: White Blood Count 15.0H, Red Blood Count 2.98L, Hemoglobin 8.6L, Hematocrit 26.3L, Mean Corpuscular Volume 88, Mean Corpuscular Hemoglobin 29.0, Mean Corpuscular Hemoglobin Concent 32.8, Red Cell Distribution Width 15.3H, Platelet Count 64L, Mean Platelet Volume 8.8, Neutrophils (%) (Auto) , Lymphocytes (%) (Auto) , Monocytes (%) (Auto) , Eosinophils (%) (Auto) , Basophils (%) (Auto) , Differential Total Cells Counted 100, Neutrophils % ( Manual) 77H, Lymphocytes % (Manual) 10L, Monocytes % (Manual) 8, Eosinophils % ( Manual) 0, Basophils % (Manual) 0, Band Neutrophils 5, Platelet Estimate DecreasedL, Platelet Morphology Normal, Polychromasia 1+, Hypochromasia 1+, Anisocytosis 1+, Prothrombin Time 16.7H, Prothromb Time International Ratio 1.6H , Urine Random Sodium < 10L, Lactic Acid Level 1.10, Uric Acid 7.1, Total Creatine Kinase 27, C-Reactive Protein, Quantitative 3.5H, Carcinoembryonic Antigen [Pending] 01/06/18 18:25: White Blood Count 8.3, Red Blood Count 2.60L, Hemoglobin 7.6L, Hematocrit 22.6L , Mean Corpuscular Volume 87, Mean Corpuscular Hemoglobin 29.4, Mean Corpuscular Hemoglobin Concent 33.9, Red Cell Distribution Width 15.2H, Platelet Count 40L, Mean Platelet Volume 8.1, Neutrophils (%) (Auto) , Lymphocytes (%) (Auto) , Monocytes (%) (Auto) , Eosinophils (%) (Auto) , Basophils (%) (Auto) , Differential Total Cells Counted 100, Neutrophils % ( Manual) 74, Lymphocytes % (Manual) 15L, Monocytes % (Manual) 6, Eosinophils % ( Manual) 3, Basophils % (Manual) 1, Band Neutrophils 1, Platelet Estimate DecreasedL, Platelet Morphology Normal, Hypochromasia 1+, Anisocytosis 1+, Prothrombin Time 17.6H, Prothromb Time International Ratio 1.7H 01/07/18 03:45: White Blood Count 12.1H, Red Blood Count 3.12L, Hemoglobin 9.2L, Hematocrit 27.5L, Mean Corpuscular Volume 88, Mean Corpuscular Hemoglobin 29.4, Mean Corpuscular Hemoglobin Concent 33.4, Red Cell Distribution Width 15.1H, Platelet Count 51L, Mean Platelet Volume 8.0, Neutrophils (%) (Auto) , Lymphocytes (%) (Auto) , Monocytes (%) (Auto) , Eosinophils (%) (Auto) , Basophils (%) (Auto) , Differential Total Cells Counted 100, Neutrophils % ( Manual) 72, Lymphocytes % (Manual) 16L, Monocytes % (Manual) 4, Eosinophils % ( Manual) 1, Basophils % (Manual) 1, Band Neutrophils 4, Platelet Estimate DecreasedL, Platelet Morphology Normal, Anisocytosis 1+, Prothrombin Time 16.1H , Prothromb Time International Ratio 1.6H, Uric Acid 7.0, Total Creatine Kinase 33, C-Reactive Protein, Quantitative 4.1H, Metamyelocytes % 2H, Activated Partial Thromboplast Time 42H, Sodium Level 137, Potassium Level 4.2, Chloride Level 104, Carbon Dioxide Level 25, Anion Gap 8, Blood Urea Nitrogen 37H, Creatinine 2.0H, Estimat Glomerular Filtration Rate , Glucose Level 138H, Calcium Level 8.1L, Phosphorus Level 3.7, Magnesium Level 1.8, Total Bilirubin 2.5H, Direct Bilirubin 0.9H, Gamma Glutamyl Transpeptidase 40, Aspartate Amino Transf (AST/SGOT) 40H, Alanine Aminotransferase (ALT/SGPT) 25, Alkaline Phosphatase 98, Troponin I 0.175H, Pro-B-Type Natriuretic Peptide 748H, Total Protein 5.7L, Albumin 2.6L, Globulin 3.1, Albumin/Globulin Ratio 0.8L, Triglycerides Level 69, Cholesterol Level 70, LDL Cholesterol 45, HDL Cholesterol 17L, Cholesterol/HDL Ratio 4.1, Thyroid Stimulating Hormone (TSH) 2.039, Cortisol AM Sample [Pending] 01/07/18 04:22: Urine Random Sodium 15L, Urine Color Yellow, Urine Appearance Clear, Urine pH 5 , Urine Specific [place] 1.010, Urine Protein 2+H, Urine Glucose (UA) Negative, Urine Ketones Negative, Urine Occult Blood 5+H, Urine Nitrite Negative, Urine Bilirubin Negative, Urine Urobilinogen Normal, Urine Leukocyte Esterase 1+H, Urine RBC 15-20H, Urine WBC 2-4, Urine Squamous Epithelial Cells Few, Urine Bacteria Few, Urine Eosinophils None seen, Urine Potassium Timed 44 Height (Feet): 5 Height (Inches): 4.00 Weight (Pounds): 324 General Appearance: no apparent distress Cardiovascular: normal rate Respiratory/Chest: decreased breath sounds Abdomen: soft DARIA MCNEILL January 07, 2018 09:40
--- NOTE | 2018-01-07 10:33 | Pulmonolgy Critical Care Note ---
Critical Care - Asmt/Plan Problems: (1) Hemorrhagic shock (2) GI bleed (3) Coagulopathy (4) ATN (acute tubular necrosis) (5) History of breast cancer (6) History of pulmonary embolism (7) Morbid obesity Respiratory: monitor respiratory rate, adjust FIO2, CXR Cardiac: continue pressors, continue to monitor HR/BP Renal: F/U I&O, keep IV fluid Infectious Disease: check cultures Gastrointestinal: hold feedings Endocrine: monitor blood sugar Hematologic: monitor H/H, transfuse if hgb<8.5 Neurologic: PRN Ativan, PRN Morphine, keep patient comfortable Affect: PRN ativan Prophylaxis: Protonix Notes Reviewed: cardio Discussed with: nurses, consultants, case mgrcivil manager - Objective Last 24 Hour Vital Signs Date Time Temp Pulse Resp B/P (MAP) Pulse Ox O2 Delivery O2 Flow Rate FiO2 01/07/18 10:00 70 18 79/28 99 Nasal Cannula 2.0 01/07/18 09:30 69 18 92/46 99 Nasal Cannula 2.0 01/07/18 09:00 70 20 90/36 99 Nasal Cannula 2.0 01/07/18 08:30 85 16 89/36 99 Nasal Cannula 2.0 01/07/18 08:00 82 01/07/18 08:00 98.7 89 23 85/35 99 Nasal Cannula 2.0 98.7 01/07/18 07:30 71 16 92/39 99 Nasal Cannula 2.0 01/07/18 07:00 67 16 96/36 99 Nasal Cannula 2.0 01/07/18 06:00 96/43 01/07/18 06:00 75 13 76/24 99 Nasal Cannula 2.0 01/07/18 05:00 81/31 01/07/18 05:00 75 13 101/42 99 Nasal Cannula 2.0 01/07/18 04:00 98.2 89 23 81/35 99 Nasal Cannula 2.0 98.2 01/07/18 04:00 81/35 01/07/18 04:00 85 01/07/18 03:00 75 16 91/43 99 Nasal Cannula 2.0 01/07/18 03:00 91/43 01/07/18 02:30 74 16 93/42 99 Nasal Cannula 2.0 01/07/18 02:17 71/55 01/07/18 02:00 75 16 71/55 98 Nasal Cannula 2.0 01/07/18 02:00 71/55 01/07/18 01:30 98.0 78 15 78/22 100 Nasal Cannula 2.0 98.0 01/07/18 01:00 68/33 01/07/18 01:00 89 17 68/33 98 Nasal Cannula 2.0 01/07/18 00:00 66 01/07/18 00:00 77/28 01/07/18 00:00 98.4 69 16 77/28 98 Nasal Cannula 2.0 98.4 01/06/18 23:01 103/40 01/06/18 23:00 70 17 103/40 100 Nasal Cannula 2.0 01/06/18 22:00 95/33 01/06/18 22:00 75 13 95/33 100 Nasal Cannula 2.0 01/06/18 21:00 86/26 01/06/18 21:00 79 13 97/40 100 Nasal Cannula 2.0 01/06/18 20:00 75 01/06/18 20:00 98/31 01/06/18 20:00 98.2 74 15 96/38 99 Nasal Cannula 2.0 98.2 01/06/18 19:30 Nasal Cannula 2.0 28 01/06/18 19:30 96 Nasal Cannula 2.0 28 01/06/18 19:00 94/35 01/06/18 19:00 79 13 94/35 100 Nasal Cannula 2.0 01/06/18 18:56 94/35 01/06/18 18:00 97/44 01/06/18 18:00 77 13 111/41 100 Nasal Cannula 2.0 01/06/18 17:00 87 13 98/53 100 Nasal Cannula 2.0 01/06/18 17:00 101/48 01/06/18 16:04 98/27 01/06/18 16:00 79 13 104/49 100 Nasal Cannula 2.0 01/06/18 16:00 80 01/06/18 15:00 81 13 128/64 100 Nasal Cannula 2.0 01/06/18 14:00 84 13 99/52 100 Nasal Cannula 2.0 01/06/18 13:00 77 13 94/29 100 Nasal Cannula 2.0 01/06/18 12:00 87 01/06/18 12:00 98.2 85 13 96/42 100 Nasal Cannula 2.0 98.2 01/06/18 11:00 90 13 98/27 100 Nasal Cannula 2.0 Status: awake Condition: critical HEENT: atraumatic Neck: full ROM Lungs: clear Heart: HR/BP stable, regular Abdomen: non-tender, feeding tube Extremities: no C/C/E Micro: Microbiology Date/Time Source Procedure Growth Status 01/05/18 12:40 Blood Blood Culture - Preliminary NO GROWTH AFTER 24 HOURS Resulted 01/05/18 12:40 Blood Blood Culture - Preliminary NO GROWTH AFTER 24 HOURS Resulted 01/05/18 21:00 Urine,Clean Catch Urine Culture - Preliminary Gram Negative Bacillus 1 Resulted Critical Care - Subjective ROS Limited/Unobtainable: Yes ICU Day: 2 Condition: critical EKG Rhythm: Sinus Rhythm FI02: 28 Fluids: d5 NS 50 cc/hour Drips: levophed I&O: Intake and Output 01/06/18 01/07/18 19:00 07:00 Intake Total 576.25 ml 2221.27 ml Output Total 280 ml 310 ml Balance 296.25 ml 1911.27 ml IV Total 576.25 ml 2221.27 ml Output Urine Total 280 ml 310 ml # Bowel Movements 2 1 CXR: ЕЛЕНА Labs: Laboratory Tests Test 01/06/18 11:00 01/06/18 18:25 01/07/18 03:45 01/07/18 04:22 White Blood Count 15.0 K/UL (4.8-10.8) H 8.3 K/UL (4.8-10.8) 12.1 K/UL (4.8-10.8) H Red Blood Count 2.98 M/UL (4.20-5.40) L 2.60 M/UL (4.20-5.40) L 3.12 M/UL (4.20-5.40) L Hemoglobin 8.6 G/DL (12.0-16.0) L 7.6 G/DL (12.0-16.0) L 9.2 G/DL (12.0-16.0) L Hematocrit 26.3 % (37.0-47.0) L 22.6 % (37.0-47.0) L 27.5 % (37.0-47.0) L Mean Corpuscular Volume 88 FL (80-99) 87 FL (80-99) 88 FL (80-99) Mean Corpuscular Hemoglobin 29.0 PG (27.0-31.0) 29.4 PG (27.0-31.0) 29.4 PG (27.0-31.0) Mean Corpuscular Hemoglobin Concent 32.8 G/DL (32.0-36.0) 33.9 G/DL (32.0-36.0) 33.4 G/DL (32.0-36.0) Red Cell Distribution Width 15.3 % (11.6-14.8) H 15.2 % (11.6-14.8) H 15.1 % (11.6-14.8) H Platelet Count 64 K/UL (150-450) L 40 K/UL (150-450) L 51 K/UL (150-450) L Mean Platelet Volume 8.8 FL (6.5-10.1) 8.1 FL (6.5-10.1) 8.0 FL (6.5-10.1) Neutrophils (%) (Auto) % (45.0-75.0) % (45.0-75.0) % (45.0-75.0) Lymphocytes (%) (Auto) % (20.0-45.0) % (20.0-45.0) % (20.0-45.0) Monocytes (%) (Auto) % (1.0-10.0) % (1.0-10.0) % (1.0-10.0) Eosinophils (%) (Auto) % (0.0-3.0) % (0.0-3.0) % (0.0-3.0) Basophils (%) (Auto) % (0.0-2.0) % (0.0-2.0) % (0.0-2.0) Differential Total Cells Counted 100 100 100 Neutrophils % (Manual) 77 % (45-75) H 74 % (45-75) 72 % (45-75) Lymphocytes % (Manual) 10 % (20-45) L 15 % (20-45) L 16 % (20-45) L Monocytes % (Manual) 8 % (1-10) 6 % (1-10) 4 % (1-10) Eosinophils % (Manual) 0 % (0-3) 3 % (0-3) 1 % (0-3) Basophils % (Manual) 0 % (0-2) 1 % (0-2) 1 % (0-2) Band Neutrophils 5 % (0-8) 1 % (0-8) 4 % (0-8) Platelet Estimate Decreased L Decreased L Decreased L Platelet Morphology Normal Normal Normal Polychromasia 1+ Hypochromasia 1+ 1+ Anisocytosis 1+ 1+ 1+ Prothrombin Time 16.7 SEC (9.30-11.50) H 17.6 SEC (9.30-11.50) H 16.1 SEC (9.30-11.50) H Prothromb Time International Ratio 1.6 (0.9-1.1) H 1.7 (0.9-1.1) H 1.6 (0.9-1.1) H Urine Random Sodium < 10 mmol/L (20-110) L 15 mmol/L (20-110) L Lactic Acid Level 1.10 mmol/L (0.66-2.22) Uric Acid 7.1 MG/DL (2.6-7.2) 7.0 MG/DL (2.6-7.2) Total Creatine Kinase 27 U/L (26-308) 33 U/L (26-308) C-Reactive Protein, Quantitative 3.5 mg/dL (0.00-0.90) H 4.1 mg/dL (0.00-0.90) H Carcinoembryonic Antigen Pending Metamyelocytes % 2 % (0-0) H Activated Partial Thromboplast Time 42 SEC (23-33) H Sodium Level 137 MMOL/L (136-145) Potassium Level 4.2 MMOL/L (3.5-5.1) Chloride Level 104 MMOL/L (98-107) Carbon Dioxide Level 25 MMOL/L (21-32) Anion Gap 8 mmol/L (5-15) Blood Urea Nitrogen 37 mg/dL (7-18) H Creatinine 2.0 MG/DL (0.55-1.30) H Estimat Glomerular Filtration Rate mL/min (>60) Glucose Level 138 MG/DL (74-106) H Calcium Level 8.1 MG/DL (8.5-10.1) L Phosphorus Level 3.7 MG/DL (2.5-4.9) Magnesium Level 1.8 MG/DL (1.8-2.4) Total Bilirubin 2.5 MG/DL (0.2-1.0) H Direct Bilirubin 0.9 MG/DL (0.0-0.3) H Gamma Glutamyl Transpeptidase 40 U/L (5-85) Aspartate Amino Transf (AST/SGOT) 40 U/L (15-37) H Alanine Aminotransferase (ALT/SGPT) 25 U/L (12-78) Alkaline Phosphatase 98 U/L (46-116) Troponin I 0.175 ng/mL (0.000-0.056) Pro-B-Type Natriuretic Peptide 748 pg/mL (0-125) H Total Protein 5.7 G/DL (6.4-8.2) L Albumin 2.6 G/DL (3.4-5.0) L Globulin 3.1 g/dL Albumin/Globulin Ratio 0.8 (1.0-2.7) L Triglycerides Level 69 MG/DL (30-150) Cholesterol Level 70 MG/DL (< 200) LDL Cholesterol 45 mg/dL (<100) HDL Cholesterol 17 MG/DL (40-60) L Cholesterol/HDL Ratio 4.1 (3.3-4.4) Thyroid Stimulating Hormone (TSH) 2.039 uiU/mL (0.358-3.740) Cortisol AM Sample Pending Urine Color Yellow Urine Appearance Clear Urine pH 5 (4.5-8.0) Urine Specific [place] 1.010 (1.005-1.035) Urine Protein 2+ (NEGATIVE) H Urine Glucose (UA) Negative (NEGATIVE) Urine Ketones Negative (NEGATIVE) Urine Occult Blood 5+ (NEGATIVE) H Urine Nitrite Negative (NEGATIVE) Urine Bilirubin Negative (NEGATIVE) Urine Urobilinogen Normal MG/DL (0.0-1.0) Urine Leukocyte Esterase 1+ (NEGATIVE) H Urine RBC 15-20 /HPF (0 - 2) H Urine WBC 2-4 /HPF (0 - 2) Urine Squamous Epithelial Cells Few /LPF (NONE/OCC) Urine Bacteria Few /HPF (NONE) Urine Eosinophils None seen Urine Potassium Timed 44 mmol/L (12-62) Bakari Gilmore MD January 07, 2018 10:33
[2018-01-07] MEDS: D5NS 1,000 ML IV SCH (12:00)
[2018-01-07 13:34] LABS: HEMATOCRIT 29.3 % (37.0-47.0); HEMOGLOBIN 9.5 G/DL (12.0-16.0); MEAN CORPUSCULAR VOLUME 88 FL (80-99); PLATELET COUNT 56 K/UL (150-450); RED BLOOD COUNT 3.33 M/UL (4.20-5.40); RED CELL DISTRIBUTION WIDTH 15.2 % (11.6-14.8); WHITE BLOOD COUNT 12.4 K/UL (4.8-10.8)
[2018-01-07] MEDS: Midodrine 10mg tab ORAL SCH ×2 (13:52→17:28)
[2018-01-07] MEDS: DOPamine 400mg/250ml 250 ML IV SCH (15:45)
--- NOTE | 2018-01-07 16:07 | Consultation ---
History of Present Illness General Date patient seen: January 07, 2018 Chief Complaint: General Complaint Present Illness HPI 72-year-old female, with MMP who came to the hospital with acute upper GI bleed followed with hematochezia. Well known to this physician the pt has hx of anxiety and cognitive impairment the pt is forgetful and pw anxiety Allergies: Coded Allergies: ASPIRIN (Unverified Allergy, Unknown, 01/05/18) Uncoded Allergies: TAPE (Allergy, Unknown, 01/05/18) Medication History Scheduled Anastrozole* (Arimidex*), 1 MG PO DAILY, (Reported) Ascorbic Acid* (Vitamin C*), 250 MG ORAL TWICE A DAY, (Reported) Buspirone Hcl* (Buspirone Hcl*), 10 MG ORAL TWICE A DAY, (Reported) Cholecalciferol (Vitamin D3)* (Vitamin D*), 2,000 UNITS PO DAILY, (Reported) Docusate Sodium* (Docusate Sodium*), 100 MG ORAL TWICE A DAY, (Reported) Furosemide* (Lasix*), 40 MG ORAL DAILY, (Reported) Lactulose (Lactulose*), 30 ML ORAL EVERY 8 HOURS, (Reported) Multivitamin With Minerals (Multivitamins With Minerals*), 1 TAB ORAL DAILY, ( Reported) Potassium Chloride* (K-Dur*), 20 MEQ ORAL DAILY, (Reported) Rifaximin* (Xifaxan*), 550 MG ORAL TWICE A DAY, (Reported) Spironolactone* (Aldactone*), 50 MG ORAL DAILY, (Reported) Sucralfate* (Carafate*), 1 GM ORAL FOUR TIMES A DAY, (Reported) Warfarin Sod* (Coumadin*), 4 MG ORAL DAILY, (Reported) Scheduled PRN Acetaminophen* (Acetaminophen 325MG Tablet*), 650 MG ORAL Q4H PRN for For Pain, (Reported) Albuterol Sulfate* (Albuterol Sulfate Hhn*), 3 ML INH Q4H PRN for Shortness of Breath, (Reported) Hydrocodone Bit/Acetaminophen 5-325* ([place] 5-325*), 1 TAB ORAL Q6H PRN for For Pain, (Reported) Miscellaneous Medications Bisacodyl (Bisacodyl), 10 MG RC, (Reported) Calcium Carbonate (Calcium Carbonate), 500 MG PO, (Reported) Patient History History Provided By: Patient, Medical Record, PMD Healthcare decision maker Resuscitation status Full Code Advanced Directive on File Past Medical/Surgical History Past Medical/Surgical History: (1) Thrombocytopenia (2) [place] (3) NSTEMI (non-ST elevated myocardial infarction) (4) Hemorrhagic shock (5) Hypotension (6) GI bleed (7) Morbid obesity (8) Coagulopathy (9) ATN (acute tubular necrosis) (10) History of breast cancer (11) History of pulmonary embolism Review of Systems Psychiatric: Reports: prior hx, anxiety, depressed feelings, emotional problems Physical Exam General Appearance: no apparent distress, alert Neurologic: oriented x 3, responsive, depressed affect Last 24 Hour Vital Signs Date Time Temp Pulse Resp B/P (MAP) Pulse Ox O2 Delivery O2 Flow Rate FiO2 01/07/18 15:11 114/56 01/07/18 15:00 66 16 114/56 98 Nasal Cannula 2.0 01/07/18 14:30 67 18 91/51 99 Nasal Cannula 2.0 01/07/18 14:00 78/39 01/07/18 14:00 70 19 101/40 99 Nasal Cannula 2.0 01/07/18 13:30 73 18 89/42 99 Nasal Cannula 2.0 01/07/18 13:00 75 19 82/45 99 Nasal Cannula 2.0 01/07/18 13:00 97/41 01/07/18 12:30 70 18 77/28 99 Nasal Cannula 2.0 01/07/18 12:00 85 01/07/18 12:00 98.7 82 22 85/35 99 Nasal Cannula 2.0 98.7 01/07/18 12:00 92/45 01/07/18 11:00 73 18 90/37 100 Nasal Cannula 2.0 01/07/18 11:00 102/59 01/07/18 10:30 69 18 82/30 99 Nasal Cannula 2.0 01/07/18 10:00 70 18 79/28 99 Nasal Cannula 2.0 01/07/18 10:00 109/52 01/07/18 09:30 69 18 92/46 99 Nasal Cannula 2.0 01/07/18 09:00 114/56 01/07/18 09:00 70 20 90/36 99 Nasal Cannula 2.0 01/07/18 08:30 85 16 89/36 99 Nasal Cannula 2.0 01/07/18 08:00 82 01/07/18 08:00 98.7 89 23 85/35 99 Nasal Cannula 2.0 98.7 01/07/18 08:00 100/60 01/07/18 07:30 71 16 92/39 99 Nasal Cannula 2.0 01/07/18 07:00 67 16 96/36 99 Nasal Cannula 2.0 01/07/18 06:00 96/43 01/07/18 06:00 75 13 76/24 99 Nasal Cannula 2.0 01/07/18 05:00 81/31 01/07/18 05:00 75 13 101/42 99 Nasal Cannula 2.0 01/07/18 04:00 98.2 89 23 81/35 99 Nasal Cannula 2.0 98.2 01/07/18 04:00 81/35 01/07/18 04:00 85 01/07/18 03:00 75 16 91/43 99 Nasal Cannula 2.0 01/07/18 03:00 91/43 01/07/18 02:30 74 16 93/42 99 Nasal Cannula 2.0 01/07/18 02:17 71/55 01/07/18 02:00 75 16 71/55 98 Nasal Cannula 2.0 01/07/18 02:00 71/55 01/07/18 01:30 98.0 78 15 78/22 100 Nasal Cannula 2.0 98.0 01/07/18 01:00 68/33 01/07/18 01:00 89 17 68/33 98 Nasal Cannula 2.0 01/07/18 00:00 66 01/07/18 00:00 77/28 01/07/18 00:00 98.4 69 16 77/28 98 Nasal Cannula 2.0 98.4 01/06/18 23:01 103/40 01/06/18 23:00 70 17 103/40 100 Nasal Cannula 2.0 01/06/18 22:00 95/33 01/06/18 22:00 75 13 95/33 100 Nasal Cannula 2.0 01/06/18 21:00 86/26 01/06/18 21:00 79 13 97/40 100 Nasal Cannula 2.0 01/06/18 20:00 75 01/06/18 20:00 98/31 01/06/18 20:00 98.2 74 15 96/38 99 Nasal Cannula 2.0 98.2 01/06/18 19:30 Nasal Cannula 2.0 28 01/06/18 19:30 96 Nasal Cannula 2.0 28 01/06/18 19:00 94/35 01/06/18 19:00 79 13 94/35 100 Nasal Cannula 2.0 01/06/18 18:56 94/35 01/06/18 18:00 97/44 01/06/18 18:00 77 13 111/41 100 Nasal Cannula 2.0 01/06/18 17:00 87 13 98/53 100 Nasal Cannula 2.0 01/06/18 17:00 101/48 Intake and Output 01/06/18 01/07/18 19:00 07:00 Intake Total 576.25 ml 2221.27 ml Output Total 280 ml 310 ml Balance 296.25 ml 1911.27 ml IV Total 576.25 ml 2221.27 ml Output Urine Total 280 ml 310 ml # Bowel Movements 2 1 Laboratory Tests Test 01/06/18 18:25 01/07/18 03:45 01/07/18 04:22 01/07/18 12:30 White Blood Count 8.3 K/UL (4.8-10.8) 12.1 K/UL (4.8-10.8) H 12.4 K/UL (4.8-10.8) H Red Blood Count 2.60 M/UL (4.20-5.40) L 3.12 M/UL (4.20-5.40) L 3.33 M/UL (4.20-5.40) L Hemoglobin 7.6 G/DL (12.0-16.0) L 9.2 G/DL (12.0-16.0) L 9.5 G/DL (12.0-16.0) L Hematocrit 22.6 % (37.0-47.0) L 27.5 % (37.0-47.0) L 29.3 % (37.0-47.0) L Mean Corpuscular Volume 87 FL (80-99) 88 FL (80-99) 88 FL (80-99) Mean Corpuscular Hemoglobin 29.4 PG (27.0-31.0) 29.4 PG (27.0-31.0) 28.6 PG (27.0-31.0) Mean Corpuscular Hemoglobin Concent 33.9 G/DL (32.0-36.0) 33.4 G/DL (32.0-36.0) 32.6 G/DL (32.0-36.0) Red Cell Distribution Width 15.2 % (11.6-14.8) H 15.1 % (11.6-14.8) H 15.2 % (11.6-14.8) H Platelet Count 40 K/UL (150-450) L 51 K/UL (150-450) L 56 K/UL (150-450) L Mean Platelet Volume 8.1 FL (6.5-10.1) 8.0 FL (6.5-10.1) 8.8 FL (6.5-10.1) Neutrophils (%) (Auto) % (45.0-75.0) % (45.0-75.0) % (45.0-75.0) Lymphocytes (%) (Auto) % (20.0-45.0) % (20.0-45.0) % (20.0-45.0) Monocytes (%) (Auto) % (1.0-10.0) % (1.0-10.0) % (1.0-10.0) Eosinophils (%) (Auto) % (0.0-3.0) % (0.0-3.0) % (0.0-3.0) Basophils (%) (Auto) % (0.0-2.0) % (0.0-2.0) % (0.0-2.0) Differential Total Cells Counted 100 100 100 Neutrophils % (Manual) 74 % (45-75) 72 % (45-75) 82 % (45-75) H Lymphocytes % (Manual) 15 % (20-45) L 16 % (20-45) L 8 % (20-45) L Monocytes % (Manual) 6 % (1-10) 4 % (1-10) 3 % (1-10) Eosinophils % (Manual) 3 % (0-3) 1 % (0-3) 2 % (0-3) Basophils % (Manual) 1 % (0-2) 1 % (0-2) 1 % (0-2) Band Neutrophils 1 % (0-8) 4 % (0-8) 4 % (0-8) Platelet Estimate Decreased L Decreased L Decreased L Platelet Morphology Normal Normal Normal Hypochromasia 1+ Anisocytosis 1+ 1+ 1+ Prothrombin Time 17.6 SEC (9.30-11.50) H 16.1 SEC (9.30-11.50) H Prothromb Time International Ratio 1.7 (0.9-1.1) H 1.6 (0.9-1.1) H Metamyelocytes % 2 % (0-0) H Activated Partial Thromboplast Time 42 SEC (23-33) H Sodium Level 137 MMOL/L (136-145) Potassium Level 4.2 MMOL/L (3.5-5.1) Chloride Level 104 MMOL/L (98-107) Carbon Dioxide Level 25 MMOL/L (21-32) Anion Gap 8 mmol/L (5-15) Blood Urea Nitrogen 37 mg/dL (7-18) H Creatinine 2.0 MG/DL (0.55-1.30) H Estimat Glomerular Filtration Rate mL/min (>60) Glucose Level 138 MG/DL (74-106) H Uric Acid 7.0 MG/DL (2.6-7.2) Calcium Level 8.1 MG/DL (8.5-10.1) L Phosphorus Level 3.7 MG/DL (2.5-4.9) Magnesium Level 1.8 MG/DL (1.8-2.4) Total Bilirubin 2.5 MG/DL (0.2-1.0) H Direct Bilirubin 0.9 MG/DL (0.0-0.3) H Gamma Glutamyl Transpeptidase 40 U/L (5-85) Aspartate Amino Transf (AST/SGOT) 40 U/L (15-37) H Alanine Aminotransferase (ALT/SGPT) 25 U/L (12-78) Alkaline Phosphatase 98 U/L (46-116) Total Creatine Kinase 33 U/L (26-308) Troponin I 0.175 ng/mL (0.000-0.056) C-Reactive Protein, Quantitative 4.1 mg/dL (0.00-0.90) H Pro-B-Type Natriuretic Peptide 748 pg/mL (0-125) H Total Protein 5.7 G/DL (6.4-8.2) L Albumin 2.6 G/DL (3.4-5.0) L Globulin 3.1 g/dL Albumin/Globulin Ratio 0.8 (1.0-2.7) L Triglycerides Level 69 MG/DL (30-150) Cholesterol Level 70 MG/DL (< 200) LDL Cholesterol 45 mg/dL (<100) HDL Cholesterol 17 MG/DL (40-60) L Cholesterol/HDL Ratio 4.1 (3.3-4.4) Thyroid Stimulating Hormone (TSH) 2.039 uiU/mL (0.358-3.740) Cortisol AM Sample Pending Urine Color Yellow Urine Appearance Clear Urine pH 5 (4.5-8.0) Urine Specific [place] 1.010 (1.005-1.035) Urine Protein 2+ (NEGATIVE) H Urine Glucose (UA) Negative (NEGATIVE) Urine Ketones Negative (NEGATIVE) Urine Occult Blood 5+ (NEGATIVE) H Urine Nitrite Negative (NEGATIVE) Urine Bilirubin Negative (NEGATIVE) Urine Urobilinogen Normal MG/DL (0.0-1.0) Urine Leukocyte Esterase 1+ (NEGATIVE) H Urine RBC 15-20 /HPF (0 - 2) H Urine WBC 2-4 /HPF (0 - 2) Urine Squamous Epithelial Cells Few /LPF (NONE/OCC) Urine Bacteria Few /HPF (NONE) Urine Eosinophils None seen Urine Random Sodium 15 mmol/L (20-110) L Urine Potassium Timed 44 mmol/L (12-62) Height (Feet): 5 Height (Inches): 4.00 Weight (Pounds): 324 Medications Current Medications Medications (Trade) Dose Ordered Sig/Miles Route PRN Reason Start Time Stop Time Status Last Admin Dose Admin Acetaminophen (Tylenol) 650 mg Q4H PRN ORAL fever 01/05/18 15:45 02/04/18 15:44 Chlorhexidine Gluconate (Destiny-Hex 2%) 1 applic DAILY@2000 TOPIC 01/06/18 20:00 02/05/18 19:59 01/06/18 21:32 Dextrose (Dextrose 50%) STAT PRN IV Hypoglycemia 01/05/18 15:45 02/04/18 15:44 Dextrose/Sodium Chloride 1,000 ml @ 50 mls/hr Q20H IV 5/15/18 16:00 02/04/18 15:59 01/07/18 12:00 Dopamine HCl/ Dextrose 250 ml @ 0 mls/hr Q24H IV 01/05/18 15:45 02/04/18 15:44 Midodrine (Pro-Amatine) 10 mg THREE TIMES A DAY ORAL 01/07/18 13:00 02/06/18 12:59 01/07/18 13:52 Morphine Sulfate (Morphine Sulfate) 2 mg Q4H PRN IVP For Pain 01/05/18 13:30 01/12/18 13:29 01/05/18 13:33 Nitroglycerin (Ntg) 0.4 mg Q5M X 3 DOSES PRN SL Prn Chest Pain 01/05/18 15:45 02/04/18 15:44 Norepinephrine Bitartrate 4 mg/ Dextrose 250 ml @ 0 mls/hr Q24H IV 01/05/18 20:00 02/04/18 19:59 01/07/18 09:00 Octreotide Acetate 500 mcg/ Sodium Chloride 500 ml @ 25 mls/hr Q20H IV 01/06/18 21:00 02/05/18 20:59 01/06/18 23:01 Ondansetron HCl (Zofran) 4 mg Q6H PRN IVP Nausea & Vomiting 01/05/18 13:30 02/04/18 13:29 01/05/18 13:32 Pantoprazole (Protonix) 40 mg Q12HR IV 01/06/18 21:00 02/05/18 10:29 01/07/18 09:20 Polyethylene Glycol (Miralax) 17 gm HSPRN PRN ORAL Constipation 01/05/18 15:45 02/04/18 15:44 Rifaximin (Xifaxan) 550 mg EVERY 12 HOURS ORAL 01/06/18 22:00 01/13/18 21:59 01/07/18 09:20 Vitamin A/Vitamin D (A & D Oint) 1 applic EVERY 12 HOURS TOPIC 01/06/18 21:00 02/05/18 20:59 01/07/18 09:20 Assessment/Plan Status: stable Assessment/Plan mdd anxiety d/o buspar 10mg bid Cady Brower M.D. January 07, 2018 16:07
--- NOTE | 2018-01-07 16:07 | General Progress Note ---
Subjective Allergies: Coded Allergies: ASPIRIN (Unverified Allergy, Unknown, 01/05/18) Uncoded Allergies: TAPE (Allergy, Unknown, 01/05/18) Objective Last 24 Hour Vital Signs Date Time Temp Pulse Resp B/P (MAP) Pulse Ox O2 Delivery O2 Flow Rate FiO2 01/07/18 15:11 114/56 01/07/18 15:00 66 16 114/56 98 Nasal Cannula 2.0 01/07/18 14:30 67 18 91/51 99 Nasal Cannula 2.0 01/07/18 14:00 78/39 01/07/18 14:00 70 19 101/40 99 Nasal Cannula 2.0 01/07/18 13:30 73 18 89/42 99 Nasal Cannula 2.0 01/07/18 13:00 75 19 82/45 99 Nasal Cannula 2.0 01/07/18 13:00 97/41 01/07/18 12:30 70 18 77/28 99 Nasal Cannula 2.0 01/07/18 12:00 85 01/07/18 12:00 98.7 82 22 85/35 99 Nasal Cannula 2.0 98.7 01/07/18 12:00 92/45 01/07/18 11:00 73 18 90/37 100 Nasal Cannula 2.0 01/07/18 11:00 102/59 01/07/18 10:30 69 18 82/30 99 Nasal Cannula 2.0 01/07/18 10:00 70 18 79/28 99 Nasal Cannula 2.0 01/07/18 10:00 109/52 01/07/18 09:30 69 18 92/46 99 Nasal Cannula 2.0 01/07/18 09:00 114/56 01/07/18 09:00 70 20 90/36 99 Nasal Cannula 2.0 01/07/18 08:30 85 16 89/36 99 Nasal Cannula 2.0 01/07/18 08:00 82 01/07/18 08:00 98.7 89 23 85/35 99 Nasal Cannula 2.0 98.7 01/07/18 08:00 100/60 01/07/18 07:30 71 16 92/39 99 Nasal Cannula 2.0 01/07/18 07:00 67 16 96/36 99 Nasal Cannula 2.0 01/07/18 06:00 96/43 5/16/18 06:00 75 13 76/24 99 Nasal Cannula 2.0 01/07/18 05:00 81/31 01/07/18 05:00 75 13 101/42 99 Nasal Cannula 2.0 01/07/18 04:00 98.2 89 23 81/35 99 Nasal Cannula 2.0 98.2 01/07/18 04:00 81/35 01/07/18 04:00 85 01/07/18 03:00 75 16 91/43 99 Nasal Cannula 2.0 01/07/18 03:00 91/43 01/07/18 02:30 74 16 93/42 99 Nasal Cannula 2.0 01/07/18 02:17 71/55 01/07/18 02:00 75 16 71/55 98 Nasal Cannula 2.0 01/07/18 02:00 71/55 01/07/18 01:30 98.0 78 15 78/22 100 Nasal Cannula 2.0 98.0 01/07/18 01:00 68/33 01/07/18 01:00 89 17 68/33 98 Nasal Cannula 2.0 01/07/18 00:00 66 01/07/18 00:00 77/28 01/07/18 00:00 98.4 69 16 77/28 98 Nasal Cannula 2.0 98.4 01/06/18 23:01 103/40 01/06/18 23:00 70 17 103/40 100 Nasal Cannula 2.0 01/06/18 22:00 95/33 01/06/18 22:00 75 13 95/33 100 Nasal Cannula 2.0 01/06/18 21:00 86/26 01/06/18 21:00 79 13 97/40 100 Nasal Cannula 2.0 01/06/18 20:00 75 01/06/18 20:00 98/31 01/06/18 20:00 98.2 74 15 96/38 99 Nasal Cannula 2.0 98.2 01/06/18 19:30 Nasal Cannula 2.0 28 01/06/18 19:30 96 Nasal Cannula 2.0 28 01/06/18 19:00 94/35 01/06/18 19:00 79 13 94/35 100 Nasal Cannula 2.0 01/06/18 18:56 94/35 01/06/18 18:00 97/44 5/15/18 18:00 77 13 111/41 100 Nasal Cannula 2.0 01/06/18 17:00 87 13 98/53 100 Nasal Cannula 2.0 01/06/18 17:00 101/48 Intake and Output 01/06/18 01/07/18 19:00 07:00 Intake Total 576.25 ml 2221.27 ml Output Total 280 ml 310 ml Balance 296.25 ml 1911.27 ml IV Total 576.25 ml 2221.27 ml Output Urine Total 280 ml 310 ml # Bowel Movements 2 1 Laboratory Tests 01/06/18 18:25: White Blood Count 8.3, Red Blood Count 2.60L, Hemoglobin 7.6L, Hematocrit 22.6L , Mean Corpuscular Volume 87, Mean Corpuscular Hemoglobin 29.4, Mean Corpuscular Hemoglobin Concent 33.9, Red Cell Distribution Width 15.2H, Platelet Count 40L, Mean Platelet Volume 8.1, Neutrophils (%) (Auto) , Lymphocytes (%) (Auto) , Monocytes (%) (Auto) , Eosinophils (%) (Auto) , Basophils (%) (Auto) , Differential Total Cells Counted 100, Neutrophils % ( Manual) 74, Lymphocytes % (Manual) 15L, Monocytes % (Manual) 6, Eosinophils % ( Manual) 3, Basophils % (Manual) 1, Band Neutrophils 1, Platelet Estimate DecreasedL, Platelet Morphology Normal, Hypochromasia 1+, Anisocytosis 1+, Prothrombin Time 17.6H, Prothromb Time International Ratio 1.7H 01/07/18 03:45: White Blood Count 12.1H, Red Blood Count 3.12L, Hemoglobin 9.2L, Hematocrit 27.5L, Mean Corpuscular Volume 88, Mean Corpuscular Hemoglobin 29.4, Mean Corpuscular Hemoglobin Concent 33.4, Red Cell Distribution Width 15.1H, Platelet Count 51L, Mean Platelet Volume 8.0, Neutrophils (%) (Auto) , Lymphocytes (%) (Auto) , Monocytes (%) (Auto) , Eosinophils (%) (Auto) , Basophils (%) (Auto) , Differential Total Cells Counted 100, Neutrophils % ( Manual) 72, Lymphocytes % (Manual) 16L, Monocytes % (Manual) 4, Eosinophils % ( Manual) 1, Basophils % (Manual) 1, Band Neutrophils 4, Platelet Estimate DecreasedL, Platelet Morphology Normal, Anisocytosis 1+, Prothrombin Time 16.1H , Prothromb Time International Ratio 1.6H, Metamyelocytes % 2H, Activated Partial Thromboplast Time 42H, Sodium Level 137, Potassium Level 4.2, Chloride Level 104, Carbon Dioxide Level 25, Anion Gap 8, Blood Urea Nitrogen 37H, Creatinine 2.0H, Estimat Glomerular Filtration Rate , Glucose Level 138H, Uric Acid 7.0, Calcium Level 8.1L, Phosphorus Level 3.7, Magnesium Level 1.8, Total Bilirubin 2.5H, Direct Bilirubin 0.9H, Gamma Glutamyl Transpeptidase 40, Aspartate Amino Transf (AST/SGOT) 40H, Alanine Aminotransferase (ALT/SGPT) 25, Alkaline Phosphatase 98, Total Creatine Kinase 33, Troponin I 0.175H, C- Reactive Protein, Quantitative 4.1H, Pro-B-Type Natriuretic Peptide 748H, Total Protein 5.7L, Albumin 2.6L, Globulin 3.1, Albumin/Globulin Ratio 0.8L, Triglycerides Level 69, Cholesterol Level 70, LDL Cholesterol 45, HDL Cholesterol 17L, Cholesterol/HDL Ratio 4.1, Thyroid Stimulating Hormone (TSH) 2.039, Cortisol AM Sample [Pending] 01/07/18 04:22: Urine Color Yellow, Urine Appearance Clear, Urine pH 5, Urine Specific [place] 1.010, Urine Protein 2+H, Urine Glucose (UA) Negative, Urine Ketones Negative, Urine Occult Blood 5+H, Urine Nitrite Negative, Urine Bilirubin Negative, Urine Urobilinogen Normal, Urine Leukocyte Esterase 1+H, Urine RBC 15-20H, Urine WBC 2 -4, Urine Squamous Epithelial Cells Few, Urine Bacteria Few, Urine Eosinophils None seen, Urine Random Sodium 15L, Urine Potassium Timed 44 01/07/18 12:30: White Blood Count 12.4H, Red Blood Count 3.33L, Hemoglobin 9.5L, Hematocrit 29.3L, Mean Corpuscular Volume 88, Mean Corpuscular Hemoglobin 28.6, Mean Corpuscular Hemoglobin Concent 32.6, Red Cell Distribution Width 15.2H, Platelet Count 56L, Mean Platelet Volume 8.8, Neutrophils (%) (Auto) , Lymphocytes (%) (Auto) , Monocytes (%) (Auto) , Eosinophils (%) (Auto) , Basophils (%) (Auto) , Differential Total Cells Counted 100, Neutrophils % ( Manual) 82H, Lymphocytes % (Manual) 8L, Monocytes % (Manual) 3, Eosinophils % ( Manual) 2, Basophils % (Manual) 1, Band Neutrophils 4, Platelet Estimate DecreasedL, Platelet Morphology Normal, Anisocytosis 1+ Height (Feet): 5 Height (Inches): 4.00 Weight (Pounds): 324 Cady Brower M.D. January 07, 2018 16:07
--- NOTE | 2018-01-07 16:32 | Cardiology Report ---
APPROVED REPORT EKG Measurement Heart [id number] Sinus rhythm with 1st degree AV block with premature supraventricular complexes Otherwise normal ECG
--- NOTE | 2018-01-07 16:55 | Cardiology Report ---
APPROVED REPORT EKG Measurement Heart [id number] Sinus rhythm with PACs Abnormal ECG
[2018-01-07] MEDS: Octreotide Acetate 500 MCG in Sodium Chloride 500ML 499 ML IV SCH (17:28)
--- NOTE | 2018-01-07 18:48 | Infectious Diseases Prog Note ---
Assessment/Plan Assessment/Plan ASSESSMENT: The patient is a 72-year-old female with leukocytosis (due to the GI bleed and acute distress) +ve UCxx : low count GNR ( contaminant ) Hyptoension ? GNR translocation ? LLEx cellulitis No evidence or source of infection at this point. DVT/PE, on anticoagulation. History of cirrhosis/portal hypertension. History of gastropathy. Internal hemorrhoids. History of encephalopathy. Hypertension. COPD. History of breast cancer, bilateral mastectomy. Hysterectomy PLAN: start IV Vanco and Zosyn Blood transfusion as needed. Monitor cultures (blood, urine). Monitor chest x-ray. GI fup Subjective Allergies: Coded Allergies: ASPIRIN (Unverified Allergy, Unknown, 01/05/18) Uncoded Allergies: TAPE (Allergy, Unknown, 01/05/18) Subjective afebrile Objective Vital Signs Last 24 Hour Vital Signs Date Time Temp Pulse Resp B/P (MAP) Pulse Ox O2 Delivery O2 Flow Rate FiO2 01/07/18 16:00 82 01/07/18 16:00 98.7 71 14 105/48 99 Nasal Cannula 2.0 98.7 01/07/18 15:45 105/48 01/07/18 15:30 69 18 110/55 98 Nasal Cannula 2.0 01/07/18 15:11 114/56 01/07/18 15:00 66 16 114/56 98 Nasal Cannula 2.0 01/07/18 14:30 67 18 91/51 99 Nasal Cannula 2.0 01/07/18 14:00 78/39 01/07/18 14:00 70 19 101/40 99 Nasal Cannula 2.0 01/07/18 13:30 73 18 89/42 99 Nasal Cannula 2.0 01/07/18 13:00 75 19 82/45 99 Nasal Cannula 2.0 01/07/18 13:00 97/41 01/07/18 12:30 70 18 77/28 99 Nasal Cannula 2.0 01/07/18 12:00 85 01/07/18 12:00 98.7 82 22 85/35 99 Nasal Cannula 2.0 98.7 01/07/18 12:00 92/45 01/07/18 11:00 73 18 90/37 100 Nasal Cannula 2.0 01/07/18 11:00 102/59 01/07/18 10:30 69 18 82/30 99 Nasal Cannula 2.0 01/07/18 10:00 70 18 79/28 99 Nasal Cannula 2.0 01/07/18 10:00 109/52 01/07/18 09:30 69 18 92/46 99 Nasal Cannula 2.0 01/07/18 09:00 114/56 01/07/18 09:00 70 20 90/36 99 Nasal Cannula 2.0 01/07/18 08:30 85 16 89/36 99 Nasal Cannula 2.0 01/07/18 08:00 82 01/07/18 08:00 98.7 89 23 85/35 99 Nasal Cannula 2.0 98.7 01/07/18 08:00 100/60 01/07/18 07:30 71 16 92/39 99 Nasal Cannula 2.0 01/07/18 07:00 67 16 96/36 99 Nasal Cannula 2.0 01/07/18 06:00 96/43 01/07/18 06:00 75 13 76/24 99 Nasal Cannula 2.0 01/07/18 05:00 81/31 01/07/18 05:00 75 13 101/42 99 Nasal Cannula 2.0 01/07/18 04:00 98.2 89 23 81/35 99 Nasal Cannula 2.0 98.2 01/07/18 04:00 81/35 01/07/18 04:00 85 01/07/18 03:00 75 16 91/43 99 Nasal Cannula 2.0 01/07/18 03:00 91/43 01/07/18 02:30 74 16 93/42 99 Nasal Cannula 2.0 01/07/18 02:17 71/55 01/07/18 02:00 75 16 71/55 98 Nasal Cannula 2.0 01/07/18 02:00 71/55 01/07/18 01:30 98.0 78 15 78/22 100 Nasal Cannula 2.0 98.0 01/07/18 01:00 68/33 01/07/18 01:00 89 17 68/33 98 Nasal Cannula 2.0 01/07/18 00:00 66 01/07/18 00:00 77/28 01/07/18 00:00 98.4 69 16 77/28 98 Nasal Cannula 2.0 98.4 01/06/18 23:01 103/40 01/06/18 23:00 70 17 103/40 100 Nasal Cannula 2.0 01/06/18 22:00 95/33 01/06/18 22:00 75 13 95/33 100 Nasal Cannula 2.0 01/06/18 21:00 86/26 01/06/18 21:00 79 13 97/40 100 Nasal Cannula 2.0 01/06/18 20:00 75 01/06/18 20:00 98/31 01/06/18 20:00 98.2 74 15 96/38 99 Nasal Cannula 2.0 98.2 01/06/18 19:30 Nasal Cannula 2.0 28 01/06/18 19:30 96 Nasal Cannula 2.0 28 01/06/18 19:00 94/35 01/06/18 19:00 79 13 94/35 100 Nasal Cannula 2.0 01/06/18 18:56 94/35 Height (Feet): 5 Height (Inches): 4.00 Weight (Pounds): 324 HEENT: mucous membranes moist Respiratory/Chest: normal breath sounds Cardiovascular: regular rhythm Abdomen: soft, non tender Microbiology Date/Time Source Procedure Growth Status 01/05/18 12:40 Blood Blood Culture - Preliminary NO GROWTH AFTER 24 HOURS Resulted 01/05/18 12:40 Blood Blood Culture - Preliminary NO GROWTH AFTER 24 HOURS Resulted 01/05/18 21:00 Urine,Clean Catch Urine Culture - Preliminary Gram Negative Bacillus 1 Resulted Laboratory Tests Test 01/07/18 03:45 01/07/18 04:22 01/07/18 12:30 White Blood Count 12.1 K/UL (4.8-10.8) H 12.4 K/UL (4.8-10.8) H Red Blood Count 3.12 M/UL (4.20-5.40) L 3.33 M/UL (4.20-5.40) L Hemoglobin 9.2 G/DL (12.0-16.0) L 9.5 G/DL (12.0-16.0) L Hematocrit 27.5 % (37.0-47.0) L 29.3 % (37.0-47.0) L Mean Corpuscular Volume 88 FL (80-99) 88 FL (80-99) Mean Corpuscular Hemoglobin 29.4 PG (27.0-31.0) 28.6 PG (27.0-31.0) Mean Corpuscular Hemoglobin Concent 33.4 G/DL (32.0-36.0) 32.6 G/DL (32.0-36.0) Red Cell Distribution Width 15.1 % (11.6-14.8) H 15.2 % (11.6-14.8) H Platelet Count 51 K/UL (150-450) L 56 K/UL (150-450) L Mean Platelet Volume 8.0 FL (6.5-10.1) 8.8 FL (6.5-10.1) Neutrophils (%) (Auto) % (45.0-75.0) % (45.0-75.0) Lymphocytes (%) (Auto) % (20.0-45.0) % (20.0-45.0) Monocytes (%) (Auto) % (1.0-10.0) % (1.0-10.0) Eosinophils (%) (Auto) % (0.0-3.0) % (0.0-3.0) Basophils (%) (Auto) % (0.0-2.0) % (0.0-2.0) Differential Total Cells Counted 100 100 Neutrophils % (Manual) 72 % (45-75) 82 % (45-75) H Lymphocytes % (Manual) 16 % (20-45) L 8 % (20-45) L Monocytes % (Manual) 4 % (1-10) 3 % (1-10) Eosinophils % (Manual) 1 % (0-3) 2 % (0-3) Basophils % (Manual) 1 % (0-2) 1 % (0-2) Metamyelocytes % 2 % (0-0) H Band Neutrophils 4 % (0-8) 4 % (0-8) Platelet Estimate Decreased L Decreased L Platelet Morphology Normal Normal Anisocytosis 1+ 1+ Prothrombin Time 16.1 SEC (9.30-11.50) H Prothromb Time International Ratio 1.6 (0.9-1.1) H Activated Partial Thromboplast Time 42 SEC (23-33) H Sodium Level 137 MMOL/L (136-145) Potassium Level 4.2 MMOL/L (3.5-5.1) Chloride Level 104 MMOL/L (98-107) Carbon Dioxide Level 25 MMOL/L (21-32) Anion Gap 8 mmol/L (5-15) Blood Urea Nitrogen 37 mg/dL (7-18) H Creatinine 2.0 MG/DL (0.55-1.30) H Estimat Glomerular Filtration Rate mL/min (>60) Glucose Level 138 MG/DL (74-106) H Uric Acid 7.0 MG/DL (2.6-7.2) Calcium Level 8.1 MG/DL (8.5-10.1) L Phosphorus Level 3.7 MG/DL (2.5-4.9) Magnesium Level 1.8 MG/DL (1.8-2.4) Total Bilirubin 2.5 MG/DL (0.2-1.0) H Direct Bilirubin 0.9 MG/DL (0.0-0.3) H Gamma Glutamyl Transpeptidase 40 U/L (5-85) Aspartate Amino Transf (AST/SGOT) 40 U/L (15-37) H Alanine Aminotransferase (ALT/SGPT) 25 U/L (12-78) Alkaline Phosphatase 98 U/L (46-116) Total Creatine Kinase 33 U/L (26-308) Troponin I 0.175 ng/mL (0.000-0.056) C-Reactive Protein, Quantitative 4.1 mg/dL (0.00-0.90) H Pro-B-Type Natriuretic Peptide 748 pg/mL (0-125) H Total Protein 5.7 G/DL (6.4-8.2) L Albumin 2.6 G/DL (3.4-5.0) L Globulin 3.1 g/dL Albumin/Globulin Ratio 0.8 (1.0-2.7) L Triglycerides Level 69 MG/DL (30-150) Cholesterol Level 70 MG/DL (< 200) LDL Cholesterol 45 mg/dL (<100) HDL Cholesterol 17 MG/DL (40-60) L Cholesterol/HDL Ratio 4.1 (3.3-4.4) Thyroid Stimulating Hormone (TSH) 2.039 uiU/mL (0.358-3.740) Cortisol AM Sample 9.8 UG/DL Urine Color Yellow Urine Appearance Clear Urine pH 5 (4.5-8.0) Urine Specific [place] 1.010 (1.005-1.035) Urine Protein 2+ (NEGATIVE) H Urine Glucose (UA) Negative (NEGATIVE) Urine Ketones Negative (NEGATIVE) Urine Occult Blood 5+ (NEGATIVE) H Urine Nitrite Negative (NEGATIVE) Urine Bilirubin Negative (NEGATIVE) Urine Urobilinogen Normal MG/DL (0.0-1.0) Urine Leukocyte Esterase 1+ (NEGATIVE) H Urine RBC 15-20 /HPF (0 - 2) H Urine WBC 2-4 /HPF (0 - 2) Urine Squamous Epithelial Cells Few /LPF (NONE/OCC) Urine Bacteria Few /HPF (NONE) Urine Eosinophils None seen Urine Random Sodium 15 mmol/L (20-110) L Urine Potassium Timed 44 mmol/L (12-62) Current Medications Medications (Trade) Dose Ordered Sig/Miles Route PRN Reason Start Time Stop Time Status Last Admin Dose Admin Acetaminophen (Tylenol) 650 mg Q4H PRN ORAL fever 01/05/18 15:45 02/04/18 15:44 Chlorhexidine Gluconate (Destiny-Hex 2%) 1 applic DAILY@2000 TOPIC 01/06/18 20:00 02/05/18 19:59 01/06/18 21:32 Dextrose (Dextrose 50%) STAT PRN IV Hypoglycemia 01/05/18 15:45 02/04/18 15:44 Dextrose/Sodium Chloride 1,000 ml @ 50 mls/hr Q20H IV 01/06/18 16:00 02/04/18 15:59 01/07/18 12:00 Dopamine HCl/ Dextrose 250 ml @ 0 mls/hr Q24H IV 01/05/18 15:45 02/04/18 15:44 Midodrine (Pro-Amatine) 10 mg THREE TIMES A DAY ORAL 01/07/18 13:00 02/06/18 12:59 01/07/18 17:28 Morphine Sulfate (Morphine Sulfate) 2 mg Q4H PRN IVP For Pain 01/05/18 13:30 01/12/18 13:29 01/05/18 13:33 Nitroglycerin (Ntg) 0.4 mg Q5M X 3 DOSES PRN SL Prn Chest Pain 01/05/18 15:45 02/04/18 15:44 Norepinephrine Bitartrate 4 mg/ Dextrose 250 ml @ 0 mls/hr Q24H IV 01/05/18 20:00 02/04/18 19:59 01/07/18 09:00 Octreotide Acetate 500 mcg/ Sodium Chloride 500 ml @ 25 mls/hr Q20H IV 01/06/18 21:00 02/05/18 20:59 01/07/18 17:28 Ondansetron HCl (Zofran) 4 mg Q6H PRN IVP Nausea & Vomiting 01/05/18 13:30 02/04/18 13:29 01/05/18 13:32 Pantoprazole (Protonix) 40 mg Q12HR IV 01/06/18 21:00 02/05/18 10:29 01/07/18 09:20 Polyethylene Glycol (Miralax) 17 gm HSPRN PRN ORAL Constipation 01/05/18 15:45 02/04/18 15:44 Rifaximin (Xifaxan) 550 mg EVERY 12 HOURS ORAL 01/06/18 22:00 01/13/18 21:59 01/07/18 09:20 Vitamin A/Vitamin D (A & D Oint) 1 applic EVERY 12 HOURS TOPIC 01/06/18 21:00 02/05/18 20:59 01/07/18 09:20 Rad Galicia MD January 07, 2018 18:48
[2018-01-07] MEDS: Dyna-Hex 2% Top Sol 2oz TOPIC SCH (19:46)
--- NOTE | 2018-01-07 20:35 | Cardiology Progress Note ---
Assessment/Plan Assessment/Plan 1. Hypovolemic shock. 2. Anemia. 3. Gastrointestinal bleed. 4. History of deep venous thrombosis and pulmonary embolism, on chronic anticoagulation therapy. 5. History of breast cancer remotely, status post bilateral mastectomy. 6. Chronic borderline hypotension. 7. Morbid obesity. 8. Subacute renal insufficiency.cr 1.8-2.1 11/2017 but 1.3-1.5 07/2017 bp chronic 90-100's range in 11/2017 bp is better bc neg urine cx + repeat cardiac enzyme min abn of ? sig with renal isnuf echo normal wall motion cortisol normal on ivf [id number] Subjective Cardiovascular: Denies: chest pain, lightheadedness, palpitations Respiratory: Denies: orthopnea, shortness of breath Gastrointestinal/Abdominal: Denies: abdominal pain Genitourinary: Denies: burning Objective Last 24 Hour Vital Signs Date Time Temp Pulse Resp B/P (MAP) Pulse Ox O2 Delivery O2 Flow Rate FiO2 01/07/18 20:00 98.1 74 20 105/50 99 Nasal Cannula 2.0 98.1 01/07/18 19:34 99 Nasal Cannula 2.0 28 01/07/18 19:34 Nasal Cannula 2.0 28 01/07/18 16:00 82 01/07/18 16:00 98.7 71 14 105/48 99 Nasal Cannula 2.0 98.7 01/07/18 15:45 105/48 01/07/18 15:30 69 18 110/55 98 Nasal Cannula 2.0 01/07/18 15:11 114/56 01/07/18 15:00 66 16 114/56 98 Nasal Cannula 2.0 01/07/18 14:30 67 18 91/51 99 Nasal Cannula 2.0 01/07/18 14:00 78/39 01/07/18 14:00 70 19 101/40 99 Nasal Cannula 2.0 01/07/18 13:30 73 18 89/42 99 Nasal Cannula 2.0 01/07/18 13:00 75 19 82/45 99 Nasal Cannula 2.0 01/07/18 13:00 97/41 01/07/18 12:30 70 18 77/28 99 Nasal Cannula 2.0 01/07/18 12:00 85 01/07/18 12:00 98.7 82 22 85/35 99 Nasal Cannula 2.0 98.7 01/07/18 12:00 92/45 01/07/18 11:00 73 18 90/37 100 Nasal Cannula 2.0 01/07/18 11:00 102/59 01/07/18 10:30 69 18 82/30 99 Nasal Cannula 2.0 01/07/18 10:00 70 18 79/28 99 Nasal Cannula 2.0 01/07/18 10:00 109/52 01/07/18 09:30 69 18 92/46 99 Nasal Cannula 2.0 01/07/18 09:00 114/56 01/07/18 09:00 70 20 90/36 99 Nasal Cannula 2.0 01/07/18 08:30 85 16 89/36 99 Nasal Cannula 2.0 01/07/18 08:00 82 01/07/18 08:00 98.7 89 23 85/35 99 Nasal Cannula 2.0 98.7 01/07/18 08:00 100/60 01/07/18 07:30 71 16 92/39 99 Nasal Cannula 2.0 01/07/18 07:00 67 16 96/36 99 Nasal Cannula 2.0 01/07/18 06:00 96/43 01/07/18 06:00 75 13 76/24 99 Nasal Cannula 2.0 01/07/18 05:00 81/31 01/07/18 05:00 75 13 101/42 99 Nasal Cannula 2.0 01/07/18 04:00 98.2 89 23 81/35 99 Nasal Cannula 2.0 98.2 01/07/18 04:00 81/35 01/07/18 04:00 85 01/07/18 03:00 75 16 91/43 99 Nasal Cannula 2.0 01/07/18 03:00 91/43 01/07/18 02:30 74 16 93/42 99 Nasal Cannula 2.0 01/07/18 02:17 71/55 01/07/18 02:00 75 16 71/55 98 Nasal Cannula 2.0 01/07/18 02:00 71/55 01/07/18 01:30 98.0 78 15 78/22 100 Nasal Cannula 2.0 98.0 01/07/18 01:00 68/33 01/07/18 01:00 89 17 68/33 98 Nasal Cannula 2.0 01/07/18 00:00 66 01/07/18 00:00 77/28 01/07/18 00:00 98.4 69 16 77/28 98 Nasal Cannula 2.0 98.4 01/06/18 23:01 103/40 01/06/18 23:00 70 17 103/40 100 Nasal Cannula 2.0 01/06/18 22:00 95/33 01/06/18 22:00 75 13 95/33 100 Nasal Cannula 2.0 01/06/18 21:00 86/26 01/06/18 21:00 79 13 97/40 100 Nasal Cannula 2.0 General Appearance: no apparent distress, alert, obese Neck: supple Cardiovascular: normal rate, regular rhythm Respiratory/Chest: lungs clear, normal breath sounds Abdomen: normal bowel sounds, non tender, soft Extremities: trace edema Intake and Output 01/06/18 01/07/18 19:00 07:00 Intake Total 576.25 ml 2221.27 ml Output Total 280 ml 310 ml Balance 296.25 ml 1911.27 ml IV Total 576.25 ml 2221.27 ml Output Urine Total 280 ml 310 ml # Bowel Movements 2 1 Laboratory Tests Test 01/07/18 03:45 01/07/18 04:22 01/07/18 12:30 White Blood Count 12.1 K/UL (4.8-10.8) H 12.4 K/UL (4.8-10.8) H Red Blood Count 3.12 M/UL (4.20-5.40) L 3.33 M/UL (4.20-5.40) L Hemoglobin 9.2 G/DL (12.0-16.0) L 9.5 G/DL (12.0-16.0) L Hematocrit 27.5 % (37.0-47.0) L 29.3 % (37.0-47.0) L Mean Corpuscular Volume 88 FL (80-99) 88 FL (80-99) Mean Corpuscular Hemoglobin 29.4 PG (27.0-31.0) 28.6 PG (27.0-31.0) Mean Corpuscular Hemoglobin Concent 33.4 G/DL (32.0-36.0) 32.6 G/DL (32.0-36.0) Red Cell Distribution Width 15.1 % (11.6-14.8) H 15.2 % (11.6-14.8) H Platelet Count 51 K/UL (150-450) L 56 K/UL (150-450) L Mean Platelet Volume 8.0 FL (6.5-10.1) 8.8 FL (6.5-10.1) Neutrophils (%) (Auto) % (45.0-75.0) % (45.0-75.0) Lymphocytes (%) (Auto) % (20.0-45.0) % (20.0-45.0) Monocytes (%) (Auto) % (1.0-10.0) % (1.0-10.0) Eosinophils (%) (Auto) % (0.0-3.0) % (0.0-3.0) Basophils (%) (Auto) % (0.0-2.0) % (0.0-2.0) Differential Total Cells Counted 100 100 Neutrophils % (Manual) 72 % (45-75) 82 % (45-75) H Lymphocytes % (Manual) 16 % (20-45) L 8 % (20-45) L Monocytes % (Manual) 4 % (1-10) 3 % (1-10) Eosinophils % (Manual) 1 % (0-3) 2 % (0-3) Basophils % (Manual) 1 % (0-2) 1 % (0-2) Metamyelocytes % 2 % (0-0) H Band Neutrophils 4 % (0-8) 4 % (0-8) Platelet Estimate Decreased L Decreased L Platelet Morphology Normal Normal Anisocytosis 1+ 1+ Prothrombin Time 16.1 SEC (9.30-11.50) H Prothromb Time International Ratio 1.6 (0.9-1.1) H Activated Partial Thromboplast Time 42 SEC (23-33) H Sodium Level 137 MMOL/L (136-145) Potassium Level 4.2 MMOL/L (3.5-5.1) Chloride Level 104 MMOL/L (98-107) Carbon Dioxide Level 25 MMOL/L (21-32) Anion Gap 8 mmol/L (5-15) Blood Urea Nitrogen 37 mg/dL (7-18) H Creatinine 2.0 MG/DL (0.55-1.30) H Estimat Glomerular Filtration Rate mL/min (>60) Glucose Level 138 MG/DL (74-106) H Uric Acid 7.0 MG/DL (2.6-7.2) Calcium Level 8.1 MG/DL (8.5-10.1) L Phosphorus Level 3.7 MG/DL (2.5-4.9) Magnesium Level 1.8 MG/DL (1.8-2.4) Total Bilirubin 2.5 MG/DL (0.2-1.0) H Direct Bilirubin 0.9 MG/DL (0.0-0.3) H Gamma Glutamyl Transpeptidase 40 U/L (5-85) Aspartate Amino Transf (AST/SGOT) 40 U/L (15-37) H Alanine Aminotransferase (ALT/SGPT) 25 U/L (12-78) Alkaline Phosphatase 98 U/L (46-116) Total Creatine Kinase 33 U/L (26-308) Troponin I 0.175 ng/mL (0.000-0.056) C-Reactive Protein, Quantitative 4.1 mg/dL (0.00-0.90) H Pro-B-Type Natriuretic Peptide 748 pg/mL (0-125) H Total Protein 5.7 G/DL (6.4-8.2) L Albumin 2.6 G/DL (3.4-5.0) L Globulin 3.1 g/dL Albumin/Globulin Ratio 0.8 (1.0-2.7) L Triglycerides Level 69 MG/DL (30-150) Cholesterol Level 70 MG/DL (< 200) LDL Cholesterol 45 mg/dL (<100) HDL Cholesterol 17 MG/DL (40-60) L Cholesterol/HDL Ratio 4.1 (3.3-4.4) Thyroid Stimulating Hormone (TSH) 2.039 uiU/mL (0.358-3.740) Cortisol AM Sample 9.8 UG/DL Urine Color Yellow Urine Appearance Clear Urine pH 5 (4.5-8.0) Urine Specific [place] 1.010 (1.005-1.035) Urine Protein 2+ (NEGATIVE) H Urine Glucose (UA) Negative (NEGATIVE) Urine Ketones Negative (NEGATIVE) Urine Occult Blood 5+ (NEGATIVE) H Urine Nitrite Negative (NEGATIVE) Urine Bilirubin Negative (NEGATIVE) Urine Urobilinogen Normal MG/DL (0.0-1.0) Urine Leukocyte Esterase 1+ (NEGATIVE) H Urine RBC 15-20 /HPF (0 - 2) H Urine WBC 2-4 /HPF (0 - 2) Urine Squamous Epithelial Cells Few /LPF (NONE/OCC) Urine Bacteria Few /HPF (NONE) Urine Eosinophils None seen Urine Random Sodium 15 mmol/L (20-110) L Urine Potassium Timed 44 mmol/L (12-62) Microbiology Date/Time Source Procedure Growth Status 01/05/18 12:40 Blood Blood Culture - Preliminary NO GROWTH AFTER 24 HOURS Resulted 01/05/18 12:40 Blood Blood Culture - Preliminary NO GROWTH AFTER 24 HOURS Resulted 01/05/18 21:00 Urine,Clean Catch Urine Culture - Preliminary Gram Negative Bacillus 1 Resulted Tenzin Ford MD January 07, 2018 20:34
[2018-01-07] MEDS ORDERED: Vancomycin 1.5 GM/D5W 250ML IVPB ONE (21:00)
[2018-01-07 21:17] LABS: HEMATOCRIT 28.9 % (37.0-47.0); HEMOGLOBIN 9.7 G/DL (12.0-16.0); MEAN CORPUSCULAR VOLUME 86 FL (80-99); PLATELET COUNT 60 K/UL (150-450); RED BLOOD COUNT 3.34 M/UL (4.20-5.40); RED CELL DISTRIBUTION WIDTH 15.4 % (11.6-14.8); WHITE BLOOD COUNT 13.2 K/UL (4.8-10.8)
[2018-01-07 21:27] LABS: INR 1.5 (0.9-1.1)
--- NOTE | 2018-01-07 21:58 | General Progress Note ---
Assessment/Plan Assessment/Plan Assessment - UGIB - Cirrhosis, from GRECO - No esophageal varcies on Jun 2017 EGD - h/o hepatic encephalopathy - Chronic edema - coagulopathy - h/o DVT/PE - off of coumadin now - hypotension, requiring pressors - ? all from GI Bleed (currently transfused) - ? partly baseline - ? partly septic - Azotemia Recommendations - await family decision - one reasonable option is to not scope and also not anticoagulate (would need IVC filter) - PPI - close observation - FFP and PRBC PRN - Xifaxan - octreotide, wean off soon - BID PPI - Wean off pressors Subjective Allergies: Coded Allergies: ASPIRIN (Unverified Allergy, Unknown, 01/05/18) Uncoded Allergies: TAPE (Allergy, Unknown, 01/05/18) Subjective above noted d/w IM and cardilogy still on pressors, trying to wean off discussed with family re risk/benefits of endoscopy Bleeding presumed from portal HTN gastropathy, combined with anticoagulation effect EGD would not be of benefit in that setting Other dx would be ulcers and varix where EGD could provide benefit would very likely be intubated for EGD Family want to think about the decision. Not ready to give consent at this time. Objective Last 24 Hour Vital Signs Date Time Temp Pulse Resp B/P (MAP) Pulse Ox O2 Delivery O2 Flow Rate FiO2 01/07/18 20:00 98.1 74 20 105/50 99 Nasal Cannula 2.0 98.1 01/07/18 19:34 99 Nasal Cannula 2.0 28 01/07/18 19:34 Nasal Cannula 2.0 28 01/07/18 19:00 102/50 01/07/18 18:00 110/59 01/07/18 17:28 108/55 01/07/18 16:00 101/60 01/07/18 16:00 82 01/07/18 16:00 98.7 71 14 105/48 99 Nasal Cannula 2.0 98.7 01/07/18 15:45 105/48 01/07/18 15:30 69 18 110/55 98 Nasal Cannula 2.0 01/07/18 15:11 114/56 01/07/18 15:00 66 16 114/56 98 Nasal Cannula 2.0 01/07/18 14:30 67 18 91/51 99 Nasal Cannula 2.0 01/07/18 14:00 78/39 01/07/18 14:00 70 19 101/40 99 Nasal Cannula 2.0 01/07/18 13:30 73 18 89/42 99 Nasal Cannula 2.0 01/07/18 13:00 75 19 82/45 99 Nasal Cannula 2.0 01/07/18 13:00 97/41 01/07/18 12:30 70 18 77/28 99 Nasal Cannula 2.0 01/07/18 12:00 85 01/07/18 12:00 98.7 82 22 85/35 99 Nasal Cannula 2.0 98.7 01/07/18 12:00 92/45 01/07/18 11:00 73 18 90/37 100 Nasal Cannula 2.0 01/07/18 11:00 102/59 01/07/18 10:30 69 18 82/30 99 Nasal Cannula 2.0 01/07/18 10:00 70 18 79/28 99 Nasal Cannula 2.0 01/07/18 10:00 109/52 01/07/18 09:30 69 18 92/46 99 Nasal Cannula 2.0 01/07/18 09:00 114/56 01/07/18 09:00 70 20 90/36 99 Nasal Cannula 2.0 01/07/18 08:30 85 16 89/36 99 Nasal Cannula 2.0 01/07/18 08:00 82 01/07/18 08:00 98.7 89 23 85/35 99 Nasal Cannula 2.0 98.7 01/07/18 08:00 100/60 01/07/18 07:30 71 16 92/39 99 Nasal Cannula 2.0 01/07/18 07:00 67 16 96/36 99 Nasal Cannula 2.0 01/07/18 06:00 96/43 01/07/18 06:00 75 13 76/24 99 Nasal Cannula 2.0 01/07/18 05:00 81/31 01/07/18 05:00 75 13 101/42 99 Nasal Cannula 2.0 01/07/18 04:00 98.2 89 23 81/35 99 Nasal Cannula 2.0 98.2 01/07/18 04:00 81/35 01/07/18 04:00 85 01/07/18 03:00 75 16 91/43 99 Nasal Cannula 2.0 01/07/18 03:00 91/43 01/07/18 02:30 74 16 93/42 99 Nasal Cannula 2.0 01/07/18 02:17 71/55 01/07/18 02:00 75 16 71/55 98 Nasal Cannula 2.0 01/07/18 02:00 71/55 01/07/18 01:30 98.0 78 15 78/22 100 Nasal Cannula 2.0 98.0 01/07/18 01:00 6833 01/07/18 01:00 89 17 98 Nasal Cannula 2.0 01/07/18 00:00 66 01/07/18 00:00 77/28 01/07/18 00:00 98.4 69 16 98 Nasal Cannula 2.0 98.4 01/06/18 23:01 103/40 01/06/18 23:00 70 17 10340 100 Nasal Cannula 2.0 01/06/18 22:00 95/33 01/06/18 22:00 75 13 100 Nasal Cannula 2.0 Intake and Output 01/06/18 01/07/18 19:00 07:00 Intake Total 576.25 ml 2221.27 ml Output Total 280 ml 310 ml Balance 296.25 ml 1911.27 ml IV Total 576.25 ml 2221.27 ml Output Urine Total 280 ml 310 ml # Bowel Movements 2 1 Laboratory Tests 01/07/18 03:45: White Blood Count 12.1H, Red Blood Count 3.12L, Hemoglobin 9.2L, Hematocrit 27.5L, Mean Corpuscular Volume 88, Mean Corpuscular Hemoglobin 29.4, Mean Corpuscular Hemoglobin Concent 33.4, Red Cell Distribution Width 15.1H, Platelet Count 51L, Mean Platelet Volume 8.0, Neutrophils (%) (Auto) , Lymphocytes (%) (Auto) , Monocytes (%) (Auto) , Eosinophils (%) (Auto) , Basophils (%) (Auto) , Differential Total Cells Counted 100, Neutrophils % ( Manual) 72, Lymphocytes % (Manual) 16L, Monocytes % (Manual) 4, Eosinophils % ( Manual) 1, Basophils % (Manual) 1, Metamyelocytes % 2H, Band Neutrophils 4, Platelet Estimate DecreasedL, Platelet Morphology Normal, Anisocytosis 1+, Prothrombin Time 16.1H, Prothromb Time International Ratio 1.6H, Activated Partial Thromboplast Time 42H, Sodium Level 137, Potassium Level 4.2, Chloride Level 104, Carbon Dioxide Level 25, Anion Gap 8, Blood Urea Nitrogen 37H, Creatinine 2.0H, Estimat Glomerular Filtration Rate , Glucose Level 138H, Uric Acid 7.0, Calcium Level 8.1L, Phosphorus Level 3.7, Magnesium Level 1.8, Total Bilirubin 2.5H, Direct Bilirubin 0.9H, Gamma Glutamyl Transpeptidase 40, Aspartate Amino Transf (AST/SGOT) 40H, Alanine Aminotransferase (ALT/SGPT) 25, Alkaline Phosphatase 98, Total Creatine Kinase 33, Troponin I 0.175H, C- Reactive Protein, Quantitative 4.1H, Pro-B-Type Natriuretic Peptide 748H, Total Protein 5.7L, Albumin 2.6L, Globulin 3.1, Albumin/Globulin Ratio 0.8L, Triglycerides Level 69, Cholesterol Level 70, LDL Cholesterol 45, HDL Cholesterol 17L, Cholesterol/HDL Ratio 4.1, Thyroid Stimulating Hormone (TSH) 2.039, Cortisol AM Sample 9.8 01/07/18 04:22: Urine Color Yellow, Urine Appearance Clear, Urine pH 5, Urine Specific [place] 1.010, Urine Protein 2+H, Urine Glucose (UA) Negative, Urine Ketones Negative, Urine Occult Blood 5+H, Urine Nitrite Negative, Urine Bilirubin Negative, Urine Urobilinogen Normal, Urine Leukocyte Esterase 1+H, Urine RBC 15-20H, Urine WBC 2 -4, Urine Squamous Epithelial Cells Few, Urine Bacteria Few, Urine Eosinophils None seen, Urine Random Sodium 15L, Urine Potassium Timed 44 01/07/18 12:30: White Blood Count 12.4H, Red Blood Count 3.33L, Hemoglobin 9.5L, Hematocrit 29.3L, Mean Corpuscular Volume 88, Mean Corpuscular Hemoglobin 28.6, Mean Corpuscular Hemoglobin Concent 32.6, Red Cell Distribution Width 15.2H, Platelet Count 56L, Mean Platelet Volume 8.8, Neutrophils (%) (Auto) , Lymphocytes (%) (Auto) , Monocytes (%) (Auto) , Eosinophils (%) (Auto) , Basophils (%) (Auto) , Differential Total Cells Counted 100, Neutrophils % ( Manual) 82H, Lymphocytes % (Manual) 8L, Monocytes % (Manual) 3, Eosinophils % ( Manual) 2, Basophils % (Manual) 1, Band Neutrophils 4, Platelet Estimate DecreasedL, Platelet Morphology Normal, Anisocytosis 1+ 01/07/18 21:00: White Blood Count 13.2H, Red Blood Count 3.34L, Hemoglobin 9.7L, Hematocrit 28.9L, Mean Corpuscular Volume 86, Mean Corpuscular Hemoglobin 29.0, Mean Corpuscular Hemoglobin Concent 33.5, Red Cell Distribution Width 15.4H, Platelet Count 60L, Mean Platelet Volume 7.4, Neutrophils (%) (Auto) , Lymphocytes (%) (Auto) , Monocytes (%) (Auto) , Eosinophils (%) (Auto) , Basophils (%) (Auto) , Neutrophils % (Manual) [Pending], Lymphocytes % (Manual) [Pending], Platelet Estimate [Pending], Platelet Morphology [Pending], Prothrombin Time 15.4H, Prothromb Time International Ratio 1.5H, Activated Partial Thromboplast Time 46H Height (Feet): 5 Height (Inches): 4.00 Weight (Pounds): 324 Objective Obese and edematous WW NCAT supple CTA RRR abd soft ext (++) edema non focal neuro Yohannes Woodall MD January 07, 2018 21:58
[2018-01-07] MEDS: Piperacillin/Tazobactam 3.375 GM in D5W 110 ML IVPB SCH (22:02)
[2018-01-07] MEDS ORDERED: Tubing Blood Filter IV ONE (22:16)
[2018-01-07] MEDS ORDERED: NS 275ml ONE (22:16)
--- NOTE | 2018-01-07 23:25 | Internal Med Progress Note ---
Subjective Physician Name Perico Randolph Attending Physician Perico Randolph MD Current Medications Medications (Trade) Dose Ordered Sig/Miles Route PRN Reason Start Time Stop Time Status Last Admin Dose Admin Acetaminophen (Tylenol) 650 mg Q4H PRN ORAL fever 01/05/18 15:45 02/04/18 15:44 Chlorhexidine Gluconate (Destiny-Hex 2%) 1 applic DAILY@2000 TOPIC 01/06/18 20:00 02/05/18 19:59 01/07/18 19:46 Dextrose (Dextrose 50%) STAT PRN IV Hypoglycemia 01/05/18 15:45 02/04/18 15:44 Dextrose/Sodium Chloride 1,000 ml @ 50 mls/hr Q20H IV 01/06/18 16:00 02/04/18 15:59 01/07/18 12:00 Dopamine HCl/ Dextrose 250 ml @ 0 mls/hr Q24H IV 01/05/18 15:45 02/04/18 15:44 Midodrine (Pro-Amatine) 10 mg THREE TIMES A DAY ORAL 01/07/18 13:00 02/06/18 12:59 01/07/18 17:28 Morphine Sulfate (Morphine Sulfate) 2 mg Q4H PRN IVP For Pain 01/05/18 13:30 01/12/18 13:29 01/05/18 13:33 Nitroglycerin (Ntg) 0.4 mg Q5M X 3 DOSES PRN SL Prn Chest Pain 01/05/18 15:45 02/04/18 15:44 Norepinephrine Bitartrate 4 mg/ Dextrose 250 ml @ 0 mls/hr Q24H IV 01/07/18 21:30 02/04/18 19:59 01/07/18 21:55 Octreotide Acetate 500 mcg/ Sodium Chloride 500 ml @ 25 mls/hr Q20H IV 01/06/18 21:00 02/05/18 20:59 01/07/18 17:28 Ondansetron HCl (Zofran) 4 mg Q6H PRN IVP Nausea & Vomiting 01/05/18 13:30 02/04/18 13:29 01/05/18 13:32 Pantoprazole (Protonix) 40 mg Q12HR IV 01/06/18 21:00 02/05/18 10:29 01/07/18 20:28 Piperacillin Sod/ Tazobactam Sod 3.375 gm/Dextrose 110 ml @ 27.5 mls/hr EVERY 8 HOURS IVPB 01/07/18 23:30 01/12/18 23:29 01/07/18 22:02 Polyethylene Glycol (Miralax) 17 gm HSPRN PRN ORAL Constipation 01/05/18 15:45 02/04/18 15:44 Rifaximin (Xifaxan) 550 mg EVERY 12 HOURS ORAL 01/06/18 22:00 01/13/18 21:59 01/07/18 20:29 Vancomycin HCl (Vanco rx to dose) 1 ea DAILY PRN MISC Per rx protocol 01/07/18 19:45 02/06/18 19:44 Vitamin A/Vitamin D (A & D Oint) 1 applic EVERY 12 HOURS TOPIC 01/06/18 21:00 02/05/18 20:59 01/07/18 20:29 Allergies: Coded Allergies: ASPIRIN (Unverified Allergy, Unknown, 01/05/18) Uncoded Allergies: TAPE (Allergy, Unknown, 01/05/18) Subjective awake, alert, responsive , still in ICU on pressor, Hgb: 9.7 Objective Last Vital Signs Date Time Temp Pulse Resp B/P (MAP) Pulse Ox O2 Delivery O2 Flow Rate FiO2 01/07/18 21:55 118/50 01/07/18 20:00 98.1 74 20 99 Nasal Cannula 2.0 98.1 01/07/18 19:34 28 Laboratory Tests Test 01/07/18 03:45 01/07/18 04:22 01/07/18 12:30 01/07/18 21:00 White Blood Count 12.1 K/UL (4.8-10.8) H 12.4 K/UL (4.8-10.8) H 13.2 K/UL (4.8-10.8) H Red Blood Count 3.12 M/UL (4.20-5.40) L 3.33 M/UL (4.20-5.40) L 3.34 M/UL (4.20-5.40) L Hemoglobin 9.2 G/DL (12.0-16.0) L 9.5 G/DL (12.0-16.0) L 9.7 G/DL (12.0-16.0) L Hematocrit 27.5 % (37.0-47.0) L 29.3 % (37.0-47.0) L 28.9 % (37.0-47.0) L Mean Corpuscular Volume 88 FL (80-99) 88 FL (80-99) 86 FL (80-99) Mean Corpuscular Hemoglobin 29.4 PG (27.0-31.0) 28.6 PG (27.0-31.0) 29.0 PG (27.0-31.0) Mean Corpuscular Hemoglobin Concent 33.4 G/DL (32.0-36.0) 32.6 G/DL (32.0-36.0) 33.5 G/DL (32.0-36.0) Red Cell Distribution Width 15.1 % (11.6-14.8) H 15.2 % (11.6-14.8) H 15.4 % (11.6-14.8) H Platelet Count 51 K/UL (150-450) L 56 K/UL (150-450) L 60 K/UL (150-450) L Mean Platelet Volume 8.0 FL (6.5-10.1) 8.8 FL (6.5-10.1) 7.4 FL (6.5-10.1) Neutrophils (%) (Auto) % (45.0-75.0) % (45.0-75.0) % (45.0-75.0) Lymphocytes (%) (Auto) % (20.0-45.0) % (20.0-45.0) % (20.0-45.0) Monocytes (%) (Auto) % (1.0-10.0) % (1.0-10.0) % (1.0-10.0) Eosinophils (%) (Auto) % (0.0-3.0) % (0.0-3.0) % (0.0-3.0) Basophils (%) (Auto) % (0.0-2.0) % (0.0-2.0) % (0.0-2.0) Differential Total Cells Counted 100 100 100 Neutrophils % (Manual) 72 % (45-75) 82 % (45-75) H 72 % (45-75) Lymphocytes % (Manual) 16 % (20-45) L 8 % (20-45) L 15 % (20-45) L Monocytes % (Manual) 4 % (1-10) 3 % (1-10) 7 % (1-10) Eosinophils % (Manual) 1 % (0-3) 2 % (0-3) 3 % (0-3) Basophils % (Manual) 1 % (0-2) 1 % (0-2) 1 % (0-2) Metamyelocytes % 2 % (0-0) H Band Neutrophils 4 % (0-8) 4 % (0-8) 2 % (0-8) Platelet Estimate Decreased L Decreased L Decreased L Platelet Morphology Normal Normal Normal Anisocytosis 1+ 1+ 1+ Prothrombin Time 16.1 SEC (9.30-11.50) H 15.4 SEC (9.30-11.50) H Prothromb Time International Ratio 1.6 (0.9-1.1) H 1.5 (0.9-1.1) H Activated Partial Thromboplast Time 42 SEC (23-33) H 46 SEC (23-33) H Sodium Level 137 MMOL/L (136-145) Potassium Level 4.2 MMOL/L (3.5-5.1) Chloride Level 104 MMOL/L (98-107) Carbon Dioxide Level 25 MMOL/L (21-32) Anion Gap 8 mmol/L (5-15) Blood Urea Nitrogen 37 mg/dL (7-18) H Creatinine 2.0 MG/DL (0.55-1.30) H Estimat Glomerular Filtration Rate mL/min (>60) Glucose Level 138 MG/DL (74-106) H Uric Acid 7.0 MG/DL (2.6-7.2) Calcium Level 8.1 MG/DL (8.5-10.1) L Phosphorus Level 3.7 MG/DL (2.5-4.9) Magnesium Level 1.8 MG/DL (1.8-2.4) Total Bilirubin 2.5 MG/DL (0.2-1.0) H Direct Bilirubin 0.9 MG/DL (0.0-0.3) H Gamma Glutamyl Transpeptidase 40 U/L (5-85) Aspartate Amino Transf (AST/SGOT) 40 U/L (15-37) H Alanine Aminotransferase (ALT/SGPT) 25 U/L (12-78) Alkaline Phosphatase 98 U/L (46-116) Total Creatine Kinase 33 U/L (26-308) Troponin I 0.175 ng/mL (0.000-0.056) C-Reactive Protein, Quantitative 4.1 mg/dL (0.00-0.90) H Pro-B-Type Natriuretic Peptide 748 pg/mL (0-125) H Total Protein 5.7 G/DL (6.4-8.2) L Albumin 2.6 G/DL (3.4-5.0) L Globulin 3.1 g/dL Albumin/Globulin Ratio 0.8 (1.0-2.7) L Triglycerides Level 69 MG/DL (30-150) Cholesterol Level 70 MG/DL (< 200) LDL Cholesterol 45 mg/dL (<100) HDL Cholesterol 17 MG/DL (40-60) L Cholesterol/HDL Ratio 4.1 (3.3-4.4) Thyroid Stimulating Hormone (TSH) 2.039 uiU/mL (0.358-3.740) Cortisol AM Sample 9.8 UG/DL Urine Color Yellow Urine Appearance Clear Urine pH 5 (4.5-8.0) Urine Specific Monitor 1.010 (1.005-1.035) Urine Protein 2+ (NEGATIVE) H Urine Glucose (UA) Negative (NEGATIVE) Urine Ketones Negative (NEGATIVE) Urine Occult Blood 5+ (NEGATIVE) H Urine Nitrite Negative (NEGATIVE) Urine Bilirubin Negative (NEGATIVE) Urine Urobilinogen Normal MG/DL (0.0-1.0) Urine Leukocyte Esterase 1+ (NEGATIVE) H Urine RBC 15-20 /HPF (0 - 2) H Urine WBC 2-4 /HPF (0 - 2) Urine Squamous Epithelial Cells Few /LPF (NONE/OCC) Urine Bacteria Few /HPF (NONE) Urine Eosinophils None seen Urine Random Sodium 15 mmol/L (20-110) L Urine Potassium Timed 44 mmol/L (12-62) Microbiology Date/Time Source Procedure Growth Status 01/05/18 12:40 Blood Blood Culture - Preliminary NO GROWTH AFTER 24 HOURS Resulted 01/05/18 12:40 Blood Blood Culture - Preliminary NO GROWTH AFTER 24 HOURS Resulted 01/05/18 21:00 Urine,Clean Catch Urine Culture - Preliminary Gram Negative Bacillus 1 Resulted Intake and Output 01/06/18 01/07/18 19:00 07:00 Intake Total 576.25 ml 2221.27 ml Output Total 280 ml 310 ml Balance 296.25 ml 1911.27 ml IV Total 576.25 ml 2221.27 ml Output Urine Total 280 ml 310 ml # Bowel Movements 2 1 Objective GENERAL: The patient is awake, responsive, in no acute distress. HEAD AND NECK: Pupils are reactive to light. Extraocular movements are intact. Neck was supple. No JVD. The patient has a triple-lumen catheter in the right side of the neck. IJ was noted. LUNGS: Bilaterally no wheezing or rales. Decreased air in the bases. HEART: S1 and S2. Distant heart sounds. No murmur or gallops. ABDOMEN: Soft, nondistended, nontender, and morbidly obese. CHEST WALL: Bilateral mastectomy was noted, scar tissue and no sign of infection. EXTREMITIES: No cyanosis or clubbing. There is +1 edema. NEUROLOGIC: Cranial nerves II through XII grossly intact. Motor is 5/5 in all extremities. Gait is unable to obtain secondary to the patient's status. Assessment/Plan Assessment/Plan 1. Acute GI bleed. 2. Hemorrhagic shock. 3. Severe anemia most likely secondary to acute blood loss. 4. Acute kidney injury on chronic renal insufficiency. 5. Morbid obesity. 6. History of breast cancer. 7. Hyperkalemia. 8. Hypertension. 9. History of breast cancer, status post bilateral mastectomy. 10. Congestive heart failure, chronic with diastolic dysfunction. 11. Major depression disorder. 12. History of DVT and PE in past, Hold anticoagulation, Coumadin. 13. 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 14. Chronic hypotension. PLAN: in ICU. Dr. Gilmore, Pulmonary/Critical Care, Dr. Sascha Bond from Nephrology Dr. Tenzin Ford from Cardiology Dr. Yohannes Woodall from Gastroenterology. Monitor laboratory and Cultures. Discussed with the daughter extensively at bedside regarding plan of care and possible EGD, Code status is Full Code. POLST noted in the chart. bedrest and at this time for DVT prophylaxis, SCD. Abx: Vanco IV and Zosyn IV on Levophed Perico Vázquez MD January 07, 2018 23:25
[2018-01-08] VITALS (64 sets, daily range): BP systolic 85–117; BP diastolic 23–62
[2018-01-08] MEDS: Piperacillin/Tazobactam 3.375 GM in D5W 110 ML IVPB SCH ×3 (05:37→22:07)
[2018-01-08 06:24] LABS: HEMATOCRIT 26.3 % (37.0-47.0); HEMOGLOBIN 8.7 G/DL (12.0-16.0); MEAN CORPUSCULAR VOLUME 88 FL (80-99); PLATELET COUNT 47 K/UL (150-450); RED BLOOD COUNT 2.97 M/UL (4.20-5.40); RED CELL DISTRIBUTION WIDTH 15.5 % (11.6-14.8); WHITE BLOOD COUNT 9.2 K/UL (4.8-10.8)
[2018-01-08 06:28] LABS: INR 1.5 (0.9-1.1)
--- NOTE | 2018-01-08 07:05 | Anethesia Preoperative Eval ---
Anesthesia Pre-op PMH/ROS General Date of Evaluation: January 08, 2018 Time of Evaluation: 06:53 Anesthesiologist: javy ASA Score: ASA 4 Mallampati Score Class I : Soft palate, uvula, fauces, pillars visible Class II: Soft palate, uvula, fauces visible Class III: Soft palate, base of uvula visible Class IV: Only hard plate visible Mallampati Classification: Class II Surgeon: elsy Diagnosis: ugib Surgical Procedure: egd w/ control of bleeding Anesthesia History: none Social History: smoking - nonsmoker Family History: no anesthesia problems Allergies: Coded Allergies: ASPIRIN (Unverified Allergy, Unknown, 01/05/18) Uncoded Allergies: TAPE (Allergy, Unknown, 01/05/18) Past Medical History Cardiovascular: Reports: HTN, other - ashd, heart failure, portal hypertension Pulmonary: Reports: COPD Gastrointestinal/Genitourinary: Reports: other - cirrhosis Neurologic/Psychiatric: Reports: depression/anxiety Hematology/Immune: Reports: anemia, DVT, other - pulmonary embolus, malignant neoplasm, breast cancer Other: obesity Anesthesia Pre-op Phys. Exam Physician Exam Last Vital Signs Date Time Temp Pulse Resp B/P (MAP) Pulse Ox O2 Delivery O2 Flow Rate FiO2 01/08/18 06:00 116/47 01/08/18 06:00 68 16 98 Nasal Cannula 2.0 01/08/18 04:00 98.2 98.2 01/07/18 19:34 28 Constitutional: NAD Neurologic: CN 2-12 intact Cardiovascular: RRR Respiratory: CTA Gastrointestinal: S/NT/ND Airway Exam Mallampati Score: Class II MO: limited Neck: short TMD: 1fb ROM: limited Anesthesia Pre-op A/P Labs Hematology Test 01/07/18 12:30 01/07/18 21:00 01/08/18 05:00 White Blood Count 12.4 K/UL (4.8-10.8) H 13.2 K/UL (4.8-10.8) H 9.2 K/UL (4.8-10.8) Red Blood Count 3.33 M/UL (4.20-5.40) L 3.34 M/UL (4.20-5.40) L 2.97 M/UL (4.20-5.40) L Hemoglobin 9.5 G/DL (12.0-16.0) L 9.7 G/DL (12.0-16.0) L 8.7 G/DL (12.0-16.0) L Hematocrit 29.3 % (37.0-47.0) L 28.9 % (37.0-47.0) L 26.3 % (37.0-47.0) L Mean Corpuscular Volume 88 FL (80-99) 86 FL (80-99) 88 FL (80-99) Mean Corpuscular Hemoglobin 28.6 PG (27.0-31.0) 29.0 PG (27.0-31.0) 29.2 PG (27.0-31.0) Mean Corpuscular Hemoglobin Concent 32.6 G/DL (32.0-36.0) 33.5 G/DL (32.0-36.0) 33.1 G/DL (32.0-36.0) Red Cell Distribution Width 15.2 % (11.6-14.8) H 15.4 % (11.6-14.8) H 15.5 % (11.6-14.8) H Platelet Count 56 K/UL (150-450) L 60 K/UL (150-450) L 47 K/UL (150-450) L Mean Platelet Volume 8.8 FL (6.5-10.1) 7.4 FL (6.5-10.1) 8.9 FL (6.5-10.1) Neutrophils (%) (Auto) % (45.0-75.0) % (45.0-75.0) % (45.0-75.0) Lymphocytes (%) (Auto) % (20.0-45.0) % (20.0-45.0) % (20.0-45.0) Monocytes (%) (Auto) % (1.0-10.0) % (1.0-10.0) % (1.0-10.0) Eosinophils (%) (Auto) % (0.0-3.0) % (0.0-3.0) % (0.0-3.0) Basophils (%) (Auto) % (0.0-2.0) % (0.0-2.0) % (0.0-2.0) Differential Total Cells Counted 100 100 Neutrophils % (Manual) 82 % (45-75) H 72 % (45-75) Pending Lymphocytes % (Manual) 8 % (20-45) L 15 % (20-45) L Pending Monocytes % (Manual) 3 % (1-10) 7 % (1-10) Eosinophils % (Manual) 2 % (0-3) 3 % (0-3) Basophils % (Manual) 1 % (0-2) 1 % (0-2) Band Neutrophils 4 % (0-8) 2 % (0-8) Platelet Estimate Decreased L Decreased L Pending Platelet Morphology Normal Normal Pending Anisocytosis 1+ 1+ Coagulation Test 01/07/18 21:00 01/08/18 04:00 Prothrombin Time 15.4 SEC (9.30-11.50) H 15.7 SEC (9.30-11.50) H Prothromb Time International Ratio 1.5 (0.9-1.1) H 1.5 (0.9-1.1) H Activated Partial Thromboplast Time 46 SEC (23-33) H 52 SEC (23-33) H Chemistry Test 01/08/18 04:00 Sodium Level Pending Potassium Level Pending Chloride Level Pending Carbon Dioxide Level Pending Blood Urea Nitrogen Pending Creatinine Pending Estimat Glomerular Filtration Rate Pending Glucose Level Pending Calcium Level Pending Phosphorus Level Pending Magnesium Level Pending Total Bilirubin Pending Aspartate Amino Transf (AST/SGOT) Pending Alanine Aminotransferase (ALT/SGPT) Pending Alkaline Phosphatase Pending Total Protein Pending Albumin Pending Globulin Pending Risk Assessment & Plan Assessment: [email or web address] Plan: titrate pressors to off as tolerated. optimize patient's status before considering mac for procedure Status Change Before Surgery: Velia Sepulveda MD January 08, 2018 07:05
[2018-01-08 07:11] LABS: ALANINE AMINOTRANSFERASE 30 U/L (12-78); ALBUMIN 2.4 G/DL (3.4-5.0); ALBUMIN/GLOBULIN RATIO 0.8 (1.0-2.7); ALKALINE PHOSPHATASE 93 U/L (46-116); ANION GAP 7 mmol/L (5-15); ASPARTATE AMINO TRANSFERASE 49 U/L (15-37); BILIRUBIN,TOTAL 2.8 MG/DL (0.2-1.0); BLOOD UREA NITROGEN 33 mg/dL (7-18); CALCIUM 7.6 MG/DL (8.5-10.1); CARBON DIOXIDE 25 MMOL/L (21-32); CHLORIDE 102 MMOL/L (98-107); PHOSPHORUS 3.4 MG/DL (2.5-4.9); POTASSIUM 3.9 MMOL/L (3.5-5.1); SODIUM 134 MMOL/L (136-145)
[2018-01-08 07:12] LABS: BILIRUBIN,DIRECT 1.4 MG/DL (0.0-0.3)
[2018-01-08] MEDS: D5NS 1,000 ML IV SCH (09:20)
[2018-01-08] MEDS: Midodrine 10mg tab ORAL SCH ×3 (09:20→18:07)
[2018-01-08] MEDS: Pantoprazole Inj IV SCH ×2 (09:20→20:40)
[2018-01-08] MEDS: Vitamin A&D Oint 2oz Tube TOPIC SCH ×2 (09:21→21:00)
--- NOTE | 2018-01-08 10:03 | Pulmonolgy Critical Care Note ---
Critical Care - Asmt/Plan Problems: (1) Hemorrhagic shock (2) GI bleed (3) Coagulopathy (4) ATN (acute tubular necrosis) (5) History of breast cancer (6) History of pulmonary embolism (7) Morbid obesity Respiratory: monitor respiratory rate, adjust FIO2 Cardiac: continue pressors, continue to monitor HR/BP Renal: F/U I&O, keep IV fluid, check electrolytes Infectious Disease: check cultures, continue antibiotics Gastrointestinal: hold feedings, other - EGD when hemodynamically stable Endocrine: monitor blood sugar Hematologic: monitor H/H, transfuse if hgb<8.5 - last blood transfusion was Neurologic: PRN Ativan, PRN Morphine Affect: PRN ativan Discussed with: nurses, consultants, geriatric case managerpreparation room manager - Objective Last 24 Hour Vital Signs Date Time Temp Pulse Resp B/P (MAP) Pulse Ox O2 Delivery O2 Flow Rate FiO2 01/08/18 07:00 67 16 91/38 99 Nasal Cannula 2.0 01/08/18 07:00 93/40 01/08/18 06:45 66 14 110/45 99 Nasal Cannula 2.0 01/08/18 06:30 66 15 110/45 95 Nasal Cannula 2.0 01/08/18 06:15 66 14 110/45 99 Nasal Cannula 2.0 01/08/18 06:00 116/47 01/08/18 06:00 68 16 116/47 98 Nasal Cannula 2.0 01/08/18 05:45 69 15 116/47 98 Nasal Cannula 2.0 01/08/18 05:37 116/51 01/08/18 05:30 67 15 116/51 98 Nasal Cannula 2.0 01/08/18 05:15 74 17 116/51 98 Nasal Cannula 2.0 01/08/18 05:00 92/35 01/08/18 05:00 68 14 92/35 98 Nasal Cannula 2.0 01/08/18 04:45 66 16 91/41 98 Nasal Cannula 2.0 01/08/18 04:30 66 13 87/36 98 Nasal Cannula 2.0 01/08/18 04:15 67 16 87/36 97 Nasal Cannula 2.0 01/08/18 04:00 98.2 67 14 97/43 98 Nasal Cannula 2.0 98.2 01/08/18 04:00 90/41 01/08/18 04:00 67 01/08/18 03:45 67 14 97/23 98 Nasal Cannula 2.0 01/08/18 03:30 72 16 97/23 97 Nasal Cannula 2.0 01/08/18 03:15 65 13 94/40 99 Nasal Cannula 2.0 01/08/18 03:00 64 13 94/40 99 Nasal Cannula 2.0 01/08/18 03:00 94/40 01/08/18 02:45 67 15 94/40 98 Nasal Cannula 2.0 01/08/18 02:30 66 15 96/44 98 Nasal Cannula 2.0 01/08/18 02:15 69 15 92/32 98 Nasal Cannula 2.0 01/08/18 02:00 69 19 92/32 97 Nasal Cannula 2.0 01/08/18 02:00 92/32 01/08/18 01:45 66 14 89/62 98 Nasal Cannula 2.0 01/08/18 01:30 66 18 89/62 97 Nasal Cannula 2.0 01/08/18 01:15 71 12 85/34 96 Nasal Cannula 2.0 01/08/18 01:08 91/43 01/08/18 01:00 85/43 01/08/18 01:00 67 13 85/43 96 Nasal Cannula 2.0 01/08/18 00:45 71 14 91/43 96 Nasal Cannula 2.0 01/08/18 00:30 68 14 91/43 96 Nasal Cannula 2.0 01/08/18 00:15 79 19 91/43 99 Nasal Cannula 2.0 01/08/18 00:00 73 01/08/18 00:00 98.5 73 15 88/41 99 Nasal Cannula 2.0 98.5 01/08/18 00:00 88/41 18 23:45 70 13 88/41 99 Nasal Cannula 2.0 01/07/18 23:30 69 12 104/44 99 Nasal Cannula 2.0 01/07/18 23:15 70 13 104/44 98 Nasal Cannula 2.0 18 23:00 75 16 94/48 98 Nasal Cannula 2.0 18 23:00 94/48 18 22:45 72 14 94/48 98 Nasal Cannula 2.0 01/07/18 22:30 70 12 95/41 98 Nasal Cannula 2.0 01/07/18 22:15 69 14 95/41 98 Nasal Cannula 2.0 01/07/18 22:00 110/47 18 22:00 77 16 110/47 97 Nasal Cannula 2.0 18 21:55 118/50 18 21:45 75 15 110/47 97 Nasal Cannula 2.0 01/07/18 21:30 67 16 118/50 98 Nasal Cannula 2.0 01/07/18 21:15 61 17 104/64 97 Nasal Cannula 2.0 01/07/18 21:00 75 18 71/42 97 Nasal Cannula 2.0 01/07/18 20:45 66 18 71/42 96 Nasal Cannula 2.0 01/07/18 20:30 71 20 117/40 99 Nasal Cannula 2.0 01/07/18 20:15 71 18 117/40 98 Nasal Cannula 2.0 01/07/18 20:00 69 01/07/18 20:00 98.1 74 20 105/50 99 Nasal Cannula 2.0 98.1 01/07/18 20:00 98.1 74 20 105/50 99 Nasal Cannula 2.0 98.1 18 19:45 71 18 105/50 100 01/07/18 19:34 99 Nasal Cannula 2.0 28 01/07/18 19:34 Nasal Cannula 2.0 28 18 19:30 72 16 105/50 96 18 19:15 71 16 89/43 95 Nasal Cannula 2.0 01/07/18 19:00 65 13 89/43 100 Nasal Cannula 2.0 01/07/18 19:00 102/50 18 18:00 110/59 18 17:28 108/55 18 16:00 101/60 18 16:00 82 01/07/18 16:00 98.7 71 14 105/48 99 Nasal Cannula 2.0 98.7 18 15:45 105/48 18 15:30 69 18 110/55 98 Nasal Cannula 2.0 18 15:11 114/56 18 15:00 66 16 114/56 98 Nasal Cannula 2.0 5/16/18 14:30 67 18 91/51 99 Nasal Cannula 2.0 01/07/18 14:00 78/39 01/07/18 14:00 70 19 101/40 99 Nasal Cannula 2.0 01/07/18 13:30 73 18 89/42 99 Nasal Cannula 2.0 01/07/18 13:00 75 19 82/45 99 Nasal Cannula 2.0 01/07/18 13:00 97/41 01/07/18 12:30 70 18 77/28 99 Nasal Cannula 2.0 01/07/18 12:00 85 01/07/18 12:00 98.7 82 22 85/35 99 Nasal Cannula 2.0 98.7 01/07/18 12:00 92/45 01/07/18 11:00 73 18 90/37 100 Nasal Cannula 2.0 01/07/18 11:00 102/59 01/07/18 10:30 69 18 82/30 99 Nasal Cannula 2.0 Status: awake Condition: critical Neck: full ROM Lungs: clear Heart: HR/BP unstable Abdomen: soft Extremities: no C/C/E Micro: Microbiology Date/Time Source Procedure Growth Status 01/05/18 12:40 Blood Blood Culture - Preliminary NO GROWTH AFTER 48 HOURS Resulted 01/05/18 12:40 Blood Blood Culture - Preliminary NO GROWTH AFTER 48 HOURS Resulted 01/05/18 21:00 Urine,Clean Catch Urine Culture - Preliminary Providencia Stuartii Streptococcus Species Resulted Critical Care - Subjective ICU Day: 3 Condition: critical EKG Rhythm: Sinus Rhythm FI02: 28 Fluids: NS 50 cc/hour Drips: Levophed I&O: Intake and Output 01/07/18 01/08/18 19:00 07:00 Intake Total 1458.85 ml 1537.5 ml Output Total 355 ml 600 ml Balance 1103.85 ml 937.5 ml IV Total 1458.85 ml 1537.5 ml Output Urine Total 355 ml 600 ml Labs: Laboratory Tests Test 01/07/18 12:30 01/07/18 21:00 01/08/18 04:00 01/08/18 05:00 White Blood Count 12.4 K/UL (4.8-10.8) H 13.2 K/UL (4.8-10.8) H 9.2 K/UL (4.8-10.8) Red Blood Count 3.33 M/UL (4.20-5.40) L 3.34 M/UL (4.20-5.40) L 2.97 M/UL (4.20-5.40) L Hemoglobin 9.5 G/DL (12.0-16.0) L 9.7 G/DL (12.0-16.0) L 8.7 G/DL (12.0-16.0) L Hematocrit 29.3 % (37.0-47.0) L 28.9 % (37.0-47.0) L 26.3 % (37.0-47.0) L Mean Corpuscular Volume 88 FL (80-99) 86 FL (80-99) 88 FL (80-99) Mean Corpuscular Hemoglobin 28.6 PG (27.0-31.0) 29.0 PG (27.0-31.0) 29.2 PG (27.0-31.0) Mean Corpuscular Hemoglobin Concent 32.6 G/DL (32.0-36.0) 33.5 G/DL (32.0-36.0) 33.1 G/DL (32.0-36.0) Red Cell Distribution Width 15.2 % (11.6-14.8) H 15.4 % (11.6-14.8) H 15.5 % (11.6-14.8) H Platelet Count 56 K/UL (150-450) L 60 K/UL (150-450) L 47 K/UL (150-450) L Mean Platelet Volume 8.8 FL (6.5-10.1) 7.4 FL (6.5-10.1) 8.9 FL (6.5-10.1) Neutrophils (%) (Auto) % (45.0-75.0) % (45.0-75.0) % (45.0-75.0) Lymphocytes (%) (Auto) % (20.0-45.0) % (20.0-45.0) % (20.0-45.0) Monocytes (%) (Auto) % (1.0-10.0) % (1.0-10.0) % (1.0-10.0) Eosinophils (%) (Auto) % (0.0-3.0) % (0.0-3.0) % (0.0-3.0) Basophils (%) (Auto) % (0.0-2.0) % (0.0-2.0) % (0.0-2.0) Differential Total Cells Counted 100 100 Neutrophils % (Manual) 82 % (45-75) H 72 % (45-75) Pending Lymphocytes % (Manual) 8 % (20-45) L 15 % (20-45) L Pending Monocytes % (Manual) 3 % (1-10) 7 % (1-10) Eosinophils % (Manual) 2 % (0-3) 3 % (0-3) Basophils % (Manual) 1 % (0-2) 1 % (0-2) Band Neutrophils 4 % (0-8) 2 % (0-8) Platelet Estimate Decreased L Decreased L Pending Platelet Morphology Normal Normal Pending Anisocytosis 1+ 1+ Prothrombin Time 15.4 SEC (9.30-11.50) H 15.7 SEC (9.30-11.50) H Prothromb Time International Ratio 1.5 (0.9-1.1) H 1.5 (0.9-1.1) H Activated Partial Thromboplast Time 46 SEC (23-33) H 52 SEC (23-33) H Sodium Level 134 MMOL/L (136-145) L Potassium Level 3.9 MMOL/L (3.5-5.1) Chloride Level 102 MMOL/L (98-107) Carbon Dioxide Level 25 MMOL/L (21-32) Anion Gap 7 mmol/L (5-15) Blood Urea Nitrogen 33 mg/dL (7-18) H Creatinine 2.0 MG/DL (0.55-1.30) H Estimat Glomerular Filtration Rate mL/min (>60) Glucose Level 167 MG/DL (74-106) H Calcium Level 7.6 MG/DL (8.5-10.1) L Phosphorus Level 3.4 MG/DL (2.5-4.9) Magnesium Level 1.7 MG/DL (1.8-2.4) L Total Bilirubin 2.8 MG/DL (0.2-1.0) H Direct Bilirubin 1.4 MG/DL (0.0-0.3) H Aspartate Amino Transf (AST/SGOT) 49 U/L (15-37) H Alanine Aminotransferase (ALT/SGPT) 30 U/L (12-78) Alkaline Phosphatase 93 U/L (46-116) Total Protein 5.5 G/DL (6.4-8.2) L Albumin 2.4 G/DL (3.4-5.0) L Globulin 3.1 g/dL Albumin/Globulin Ratio 0.8 (1.0-2.7) L Bakari Gilmore MD January 08, 2018 10:03
--- NOTE | 2018-01-08 10:15 | Consultation ---
DATE OF CONSULTATION: 01/07/2018 NOTE: POOR AUDIO HEMATOLOGY/ONCOLOGY CONSULTATION CONSULTING PHYSICIAN: Meenakshi Delgado M.D. REFERRING PHYSICIAN: Perico Randolph M.D. REASON FOR CONSULTATION: History of breast cancer, coagulopathy, severe gastrointestinal bleed, and severe anemia. HISTORY OF PRESENT ILLNESS: The patient is a 72-year-old female with known history of breast cancer. The patient was treated under my care with bilateral mastectomies and subsequent adjuvant therapy. The patient has a history of cryptogenic cirrhosis with fatty liver with secondary cirrhosis and portal hypertension. The patient has had a history of deep venous thrombosis in the past and pulmonary embolism, status post chronic anticoagulation. She also has a history of hepatic encephalopathy and treated with lactulose, morbid obesity, immobility, and has been residing in a nursing facility as a result. The patient does have a history of hypertension. The patient is known to have significant rectal bleeding as well as apparent hematuria. Subsequently, she developed significant hypotension and was transferred by ambulance to [facility]. The patient is noted be in hemorrhagic shock, status post multiple units of packed red blood cells. PAST MEDICAL HISTORY: History of breast cancer, status post bilateral mastectomies as noted above, status post adjuvant chemotherapy, currently with no evidence of disease; history of small pulmonary nodules of no significance and followed ; history of pulmonary embolism and DVT, on chronic anticoagulation; history of portal hypertension; cirrhosis; fatty liver; hemorrhoids; morbid obesity; immobility, otherwise as above. PAST SURGICAL HISTORY: As above. MEDICATIONS: Per medical records. ALLERGIES: Per medical records. FAMILY HISTORY: No known cancers in family. SOCIAL HISTORY: The patient has a very supportive family. The patient is a resident of nursing facility. No tobacco, alcohol, or drugs. REVIEW OF SYSTEMS: GENERAL: The patient currently is more awake. HEENT: The patient denies any headaches, vision loss, or hearing loss. PULMONARY: The patient denies shortness of breath. CARDIAC: The patient denies chest pain or palpitations. GASTROINTESTINAL: The patient denies any abdominal pain. The patient has had noted above. SKIN: The patient denies bruising or petechiae. HEMATOLOGIC: The patient is severely anemic secondary to bleed. PHYSICAL EXAMINATION: GENERAL: The patient is well developed, well nourished. The patient is a morbidly obese female, who is awake and alert. Currently son-in-law at the bedside. VITAL SIGNS: Temperature 98 degrees, pulse of 100, breathing at 20, and blood pressure 98/60. HEENT: Sclerae anicteric. CHEST: Clear to auscultation. CARDIAC: Regular rhythm. S1 and S2. ABDOMEN: Soft, nontender, nondistended. No hepatosplenomegaly. BREASTS: There are bilateral mastectomy scars with no nodularity noted. EXTREMITIES: Evidence of edema of bilateral lower extremities. NEUROLOGICAL: The patient is able to move all extremities . LABORATORY DATA: demonstrated a white count 11.6, hemoglobin 5.5, platelet count of 61,000. Creatinine was elevated at 2.1 with bilirubin of 0.5. Current laboratory data today includes white count of 12.1, hemoglobin 9.2, platelet count of 51,000. INR 1.6 with PTT of 42. ASSESSMENT AND PLAN: 1. Breast cancer. No evidence of disease at this point in time. . 2. Anemia, severe secondary to hemorrhagic episode. The patient is status post multiple units of packed red blood cells. The patient needs to have serial exams. The patient is to have appropriate gastrointestinal evaluation. This has been discussed with the patient in great length. 3. History of pulmonary embolism and deep venous thrombosis. At this point in time, my recommendation for the patient to have serial ultrasounds of upper and lower extremities and if negative, hold off on anticoagulation. The patient is very high risk for thrombosis obviously, family is aware, however, in lieu of current bleed inside and the patient has chronic low platelets, it is most likely safer to hold off any further anticoagulation. 4. Morbid obesity. 5. Immobility. Physical Therapy needs to be evaluated when the patient overall is improved. 6. Shock with severe hypotension. Renal function is to be evaluated and continue to be followed up closely. Currently significantly improved. 7. Code Status. Full code. Meenakshi Delgado M.D. DR: OJ JOB#: [id number] CC:
--- NOTE | 2018-01-08 11:32 | Infectious Diseases Prog Note ---
Assessment/Plan Assessment/Plan ASSESSMENT: The patient is a 72-year-old female with Afebrile leukocytosis (due to the GI bleed and acute distress) , SP +ve UCx : low count Providencia , Strep ( contaminant ) Hyptoension ? GNR translocation ? LLEx cellulitis No evidence or source of infection at this point. DVT/PE, on anticoagulation. History of cirrhosis/portal hypertension. History of gastropathy. Internal hemorrhoids. History of encephalopathy. Hypertension. COPD. History of breast cancer, bilateral mastectomy. Hysterectomy PLAN: cont IV Vanco and Zosyn d # 2 Blood transfusion as needed. Monitor cultures (blood, urine). Monitor chest x-ray. GI fup Subjective Allergies: Coded Allergies: ASPIRIN (Unverified Allergy, Unknown, 01/05/18) Uncoded Allergies: TAPE (Allergy, Unknown, 01/05/18) Subjective afebrile Objective Vital Signs Last 24 Hour Vital Signs Date Time Temp Pulse Resp B/P (MAP) Pulse Ox O2 Delivery O2 Flow Rate FiO2 01/08/18 11:00 63 16 94/49 98 Nasal Cannula 2.0 01/08/18 10:30 59 15 97/50 98 Nasal Cannula 2.0 01/08/18 10:00 59 14 117/40 98 Nasal Cannula 2.0 01/08/18 09:30 60 13 102/51 99 Nasal Cannula 2.0 01/08/18 09:00 67 17 95/44 97 Nasal Cannula 2.0 01/08/18 08:30 68 18 99/47 97 Nasal Cannula 2.0 01/08/18 08:00 97.7 62 13 89/43 97 Nasal Cannula 2.0 97.7 01/08/18 08:00 68 01/08/18 07:30 68 17 93/40 97 Nasal Cannula 2.0 01/08/18 07:00 67 16 91/38 99 Nasal Cannula 2.0 01/08/18 07:00 93/40 01/08/18 06:45 66 14 110/45 99 Nasal Cannula 2.0 01/08/18 06:30 66 15 110/45 95 Nasal Cannula 2.0 01/08/18 06:15 66 14 110/45 99 Nasal Cannula 2.0 01/08/18 06:00 116/47 01/08/18 06:00 68 16 116/47 98 Nasal Cannula 2.0 01/08/18 05:45 69 15 116/47 98 Nasal Cannula 2.0 18 05:37 116/51 18 05:30 67 15 116/51 98 Nasal Cannula 2.0 18 05:15 74 17 116/51 98 Nasal Cannula 2.0 18 05:00 92/35 01/08/18 05:00 68 14 92/35 98 Nasal Cannula 2.0 01/08/18 04:45 66 16 91/41 98 Nasal Cannula 2.0 01/08/18 04:30 66 13 87/36 98 Nasal Cannula 2.0 01/08/18 04:15 67 16 87/36 97 Nasal Cannula 2.0 01/08/18 04:00 98.2 67 14 97/43 98 Nasal Cannula 2.0 98.2 01/08/18 04:00 90/41 01/08/18 04:00 67 01/08/18 03:45 67 14 97/23 98 Nasal Cannula 2.0 01/08/18 03:30 72 16 97/23 97 Nasal Cannula 2.0 01/08/18 03:15 65 13 94/40 99 Nasal Cannula 2.0 18 03:00 64 13 94/40 99 Nasal Cannula 2.0 18 03:00 94/40 01/08/18 02:45 67 15 94/40 98 Nasal Cannula 2.0 01/08/18 02:30 66 15 96/44 98 Nasal Cannula 2.0 18 02:15 69 15 92/32 98 Nasal Cannula 2.0 01/08/18 02:00 69 19 92/32 97 Nasal Cannula 2.0 18 02:00 92/32 18 01:45 66 14 89/62 98 Nasal Cannula 2.0 18 01:30 66 18 89/62 97 Nasal Cannula 2.0 18 01:15 71 12 85/34 96 Nasal Cannula 2.0 01/08/18 01:08 91/43 18 01:00 85/43 01/08/18 01:00 67 13 85/43 96 Nasal Cannula 2.0 18 00:45 71 14 91/43 96 Nasal Cannula 2.0 5/17/18 00:30 68 14 91/43 96 Nasal Cannula 2.0 01/08/18 00:15 79 19 91/43 99 Nasal Cannula 2.0 01/08/18 00:00 73 01/08/18 00:00 98.5 73 15 88/41 99 Nasal Cannula 2.0 98.5 01/08/18 00:00 88/41 01/07/18 23:45 70 13 88/41 99 Nasal Cannula 2.0 01/07/18 23:30 69 12 104/44 99 Nasal Cannula 2.0 01/07/18 23:15 70 13 104/44 98 Nasal Cannula 2.0 01/07/18 23:00 75 16 94/48 98 Nasal Cannula 2.0 01/07/18 23:00 94/48 01/07/18 22:45 72 14 94/48 98 Nasal Cannula 2.0 01/07/18 22:30 70 12 95/41 98 Nasal Cannula 2.0 01/07/18 22:15 69 14 95/41 98 Nasal Cannula 2.0 01/07/18 22:00 110/47 01/07/18 22:00 77 16 110/47 97 Nasal Cannula 2.0 01/07/18 21:55 118/50 01/07/18 21:45 75 15 110/47 97 Nasal Cannula 2.0 01/07/18 21:30 67 16 118/50 98 Nasal Cannula 2.0 01/07/18 21:15 61 17 104/64 97 Nasal Cannula 2.0 01/07/18 21:00 75 18 71/42 97 Nasal Cannula 2.0 01/07/18 20:45 66 18 71/42 96 Nasal Cannula 2.0 01/07/18 20:30 71 20 117/40 99 Nasal Cannula 2.0 18 20:15 71 18 117/40 98 Nasal Cannula 2.0 18 20:00 69 01/07/18 20:00 98.1 74 20 105/50 99 Nasal Cannula 2.0 98.1 01/07/18 20:00 98.1 74 20 105/50 99 Nasal Cannula 2.0 98.1 01/07/18 19:45 71 18 105/50 100 18 19:34 99 Nasal Cannula 2.0 28 01/07/18 19:34 Nasal Cannula 2.0 28 01/07/18 19:30 72 16 105/50 96 01/07/18 19:15 71 16 89/43 95 Nasal Cannula 2.0 01/07/18 19:00 65 13 89/43 100 Nasal Cannula 2.0 01/07/18 19:00 102/50 01/07/18 18:00 110/59 01/07/18 17:28 108/55 01/07/18 16:00 101/60 01/07/18 16:00 82 01/07/18 16:00 98.7 71 14 105/48 99 Nasal Cannula 2.0 98.7 01/07/18 15:45 105/48 01/07/18 15:30 69 18 110/55 98 Nasal Cannula 2.0 01/07/18 15:11 114/56 01/07/18 15:00 66 16 114/56 98 Nasal Cannula 2.0 01/07/18 14:30 67 18 91/51 99 Nasal Cannula 2.0 01/07/18 14:00 78/39 01/07/18 14:00 70 19 101/40 99 Nasal Cannula 2.0 01/07/18 13:30 73 18 89/42 99 Nasal Cannula 2.0 01/07/18 13:00 75 19 82/45 99 Nasal Cannula 2.0 01/07/18 13:00 97/41 01/07/18 12:30 70 18 77/28 99 Nasal Cannula 2.0 01/07/18 12:00 85 01/07/18 12:00 98.7 82 22 85/35 99 Nasal Cannula 2.0 98.7 01/07/18 12:00 92/45 Height (Feet): 5 Height (Inches): 4.00 Weight (Pounds): 288 HEENT: mucous membranes moist Respiratory/Chest: no accessory muscle use Cardiovascular: regular rhythm Abdomen: no organomegaly Microbiology Date/Time Source Procedure Growth Status 01/05/18 12:40 Blood Blood Culture - Preliminary NO GROWTH AFTER 48 HOURS Resulted 01/05/18 12:40 Blood Blood Culture - Preliminary NO GROWTH AFTER 48 HOURS Resulted 01/05/18 21:00 Urine,Clean Catch Urine Culture - Preliminary Providencia Stuartii Streptococcus Species Resulted Laboratory Tests Test 01/07/18 12:30 01/07/18 21:00 01/08/18 04:00 5/17/18 05:00 White Blood Count 12.4 K/UL (4.8-10.8) H 13.2 K/UL (4.8-10.8) H 9.2 K/UL (4.8-10.8) Red Blood Count 3.33 M/UL (4.20-5.40) L 3.34 M/UL (4.20-5.40) L 2.97 M/UL (4.20-5.40) L Hemoglobin 9.5 G/DL (12.0-16.0) L 9.7 G/DL (12.0-16.0) L 8.7 G/DL (12.0-16.0) L Hematocrit 29.3 % (37.0-47.0) L 28.9 % (37.0-47.0) L 26.3 % (37.0-47.0) L Mean Corpuscular Volume 88 FL (80-99) 86 FL (80-99) 88 FL (80-99) Mean Corpuscular Hemoglobin 28.6 PG (27.0-31.0) 29.0 PG (27.0-31.0) 29.2 PG (27.0-31.0) Mean Corpuscular Hemoglobin Concent 32.6 G/DL (32.0-36.0) 33.5 G/DL (32.0-36.0) 33.1 G/DL (32.0-36.0) Red Cell Distribution Width 15.2 % (11.6-14.8) H 15.4 % (11.6-14.8) H 15.5 % (11.6-14.8) H Platelet Count 56 K/UL (150-450) L 60 K/UL (150-450) L 47 K/UL (150-450) L Mean Platelet Volume 8.8 FL (6.5-10.1) 7.4 FL (6.5-10.1) 8.9 FL (6.5-10.1) Neutrophils (%) (Auto) % (45.0-75.0) % (45.0-75.0) % (45.0-75.0) Lymphocytes (%) (Auto) % (20.0-45.0) % (20.0-45.0) % (20.0-45.0) Monocytes (%) (Auto) % (1.0-10.0) % (1.0-10.0) % (1.0-10.0) Eosinophils (%) (Auto) % (0.0-3.0) % (0.0-3.0) % (0.0-3.0) Basophils (%) (Auto) % (0.0-2.0) % (0.0-2.0) % (0.0-2.0) Differential Total Cells Counted 100 100 100 Neutrophils % (Manual) 82 % (45-75) H 72 % (45-75) 77 % (45-75) H Lymphocytes % (Manual) 8 % (20-45) L 15 % (20-45) L 13 % (20-45) L Monocytes % (Manual) 3 % (1-10) 7 % (1-10) 9 % (1-10) Eosinophils % (Manual) 2 % (0-3) 3 % (0-3) 1 % (0-3) Basophils % (Manual) 1 % (0-2) 1 % (0-2) 0 % (0-2) Band Neutrophils 4 % (0-8) 2 % (0-8) 0 % (0-8) Platelet Estimate Decreased L Decreased L Decreased L Platelet Morphology Normal Normal Normal Anisocytosis 1+ 1+ 1+ Prothrombin Time 15.4 SEC (9.30-11.50) H 15.7 SEC (9.30-11.50) H Prothromb Time International Ratio 1.5 (0.9-1.1) H 1.5 (0.9-1.1) H Activated Partial Thromboplast Time 46 SEC (23-33) H 52 SEC (23-33) H Sodium Level 134 MMOL/L (136-145) L Potassium Level 3.9 MMOL/L (3.5-5.1) Chloride Level 102 MMOL/L (98-107) Carbon Dioxide Level 25 MMOL/L (21-32) Anion Gap 7 mmol/L (5-15) Blood Urea Nitrogen 33 mg/dL (7-18) H Creatinine 2.0 MG/DL (0.55-1.30) H Estimat Glomerular Filtration Rate mL/min (>60) Glucose Level 167 MG/DL (74-106) H Calcium Level 7.6 MG/DL (8.5-10.1) L Phosphorus Level 3.4 MG/DL (2.5-4.9) Magnesium Level 1.7 MG/DL (1.8-2.4) L Total Bilirubin 2.8 MG/DL (0.2-1.0) H Direct Bilirubin 1.4 MG/DL (0.0-0.3) H Aspartate Amino Transf (AST/SGOT) 49 U/L (15-37) H Alanine Aminotransferase (ALT/SGPT) 30 U/L (12-78) Alkaline Phosphatase 93 U/L (46-116) Total Protein 5.5 G/DL (6.4-8.2) L Albumin 2.4 G/DL (3.4-5.0) L Globulin 3.1 g/dL Albumin/Globulin Ratio 0.8 (1.0-2.7) L Hypochromasia 2+ Current Medications Medications (Trade) Dose Ordered Sig/Miles Route PRN Reason Start Time Stop Time Status Last Admin Dose Admin Acetaminophen (Tylenol) 650 mg Q4H PRN ORAL fever 01/05/18 15:45 02/04/18 15:44 Chlorhexidine Gluconate (Destiny-Hex 2%) 1 applic DAILY@2000 TOPIC 01/06/18 20:00 02/05/18 19:59 01/07/18 19:46 Dextrose (Dextrose 50%) STAT PRN IV Hypoglycemia 01/05/18 15:45 02/04/18 15:44 Dextrose/Sodium Chloride 1,000 ml @ 50 mls/hr Q20H IV 01/06/18 16:00 02/04/18 15:59 01/08/18 09:20 Dopamine HCl/ Dextrose 250 ml @ 0 mls/hr Q24H IV 01/05/18 15:45 02/04/18 15:44 Midodrine (Pro-Amatine) 10 mg THREE TIMES A DAY ORAL 01/07/18 13:00 02/06/18 12:59 01/08/18 09:20 Morphine Sulfate (Morphine Sulfate) 2 mg Q4H PRN IVP For Pain 01/05/18 13:30 01/12/18 13:29 01/05/18 13:33 Nitroglycerin (Ntg) 0.4 mg Q5M X 3 DOSES PRN SL Prn Chest Pain 01/05/18 15:45 02/04/18 15:44 Norepinephrine Bitartrate 4 mg/ Dextrose 250 ml @ 0 mls/hr Q24H IV 01/07/18 21:30 02/04/18 19:59 01/08/18 05:37 Octreotide Acetate 500 mcg/ Sodium Chloride 500 ml @ 25 mls/hr Q20H IV 01/06/18 21:00 02/05/18 20:59 01/07/18 17:28 Ondansetron HCl (Zofran) 4 mg Q6H PRN IVP Nausea & Vomiting 01/05/18 13:30 02/04/18 13:29 01/05/18 13:32 Pantoprazole (Protonix) 40 mg Q12HR IV 01/06/18 21:00 02/05/18 10:29 01/08/18 09:20 Piperacillin Sod/ Tazobactam Sod 3.375 gm/Dextrose 110 ml @ 27.5 mls/hr EVERY 8 HOURS IVPB 01/07/18 23:30 01/12/18 23:29 01/08/18 05:37 Polyethylene Glycol (Miralax) 17 gm HSPRN PRN ORAL Constipation 01/05/18 15:45 02/04/18 15:44 Rifaximin (Xifaxan) 550 mg EVERY 12 HOURS ORAL 01/06/18 22:00 01/13/18 21:59 01/08/18 09:20 Vancomycin HCl (Vanco rx to dose) 1 ea DAILY PRN MISC Per rx protocol 01/07/18 19:45 02/06/18 19:44 Vitamin A/Vitamin D (A & D Oint) 1 applic EVERY 12 HOURS TOPIC 01/06/18 21:00 02/05/18 20:59 01/08/18 09:21 Rad Galicia MD January 08, 2018 11:32
--- NOTE | 2018-01-08 12:35 | Nephrology Progress Note ---
Assessment/Plan Problem List: (1) ATN (acute tubular necrosis) (2) Hypotension (3) Hemorrhagic shock (4) GI bleed (5) History of pulmonary embolism (6) History of breast cancer Assessment acute renal failure cr stable @ 2 acute GI bleed Hemmorhagic anemia hypotension remains on pressors h/o breast ca h/o Pulmonary embolism Plan hemodynamic support on midodrine monitor renal parameters cortisol level 9.8 avoid nephrotoxics per orders per GI discussed with RN Subjective ROS Limited/Unobtainable: No Constitutional: Reports: malaise Objective Objective Last 24 Hour Vital Signs Date Time Temp Pulse Resp B/P (MAP) Pulse Ox O2 Delivery O2 Flow Rate FiO2 01/08/18 11:00 63 16 94/49 98 Nasal Cannula 2.0 01/08/18 10:30 59 15 97/50 98 Nasal Cannula 2.0 01/08/18 10:00 59 14 117/40 98 Nasal Cannula 2.0 01/08/18 09:30 60 13 102/51 99 Nasal Cannula 2.0 01/08/18 09:00 67 17 95/44 97 Nasal Cannula 2.0 01/08/18 08:30 68 18 99/47 97 Nasal Cannula 2.0 01/08/18 08:00 97.7 62 13 89/43 97 Nasal Cannula 2.0 97.7 01/08/18 08:00 68 01/08/18 07:30 68 17 93/40 97 Nasal Cannula 2.0 01/08/18 07:00 67 16 91/38 99 Nasal Cannula 2.0 01/08/18 07:00 93/40 01/08/18 06:45 66 14 110/45 99 Nasal Cannula 2.0 01/08/18 06:30 66 15 110/45 95 Nasal Cannula 2.0 01/08/18 06:15 66 14 110/45 99 Nasal Cannula 2.0 01/08/18 06:00 116/47 01/08/18 06:00 68 16 116/47 98 Nasal Cannula 2.0 01/08/18 05:45 69 15 116/47 98 Nasal Cannula 2.0 01/08/18 05:37 116/51 01/08/18 05:30 67 15 116/51 98 Nasal Cannula 2.0 01/08/18 05:15 74 17 116/51 98 Nasal Cannula 2.0 01/08/18 05:00 92/35 01/08/18 05:00 68 14 92/35 98 Nasal Cannula 2.0 01/08/18 04:45 66 16 91/41 98 Nasal Cannula 2.0 01/08/18 04:30 66 13 87/36 98 Nasal Cannula 2.0 01/08/18 04:15 67 16 87/36 97 Nasal Cannula 2.0 01/08/18 04:00 98.2 67 14 97/43 98 Nasal Cannula 2.0 98.2 01/08/18 04:00 90/41 01/08/18 04:00 67 01/08/18 03:45 67 14 97/23 98 Nasal Cannula 2.0 01/08/18 03:30 72 16 97/23 97 Nasal Cannula 2.0 01/08/18 03:15 65 13 94/40 99 Nasal Cannula 2.0 01/08/18 03:00 64 13 94/40 99 Nasal Cannula 2.0 01/08/18 03:00 94/40 01/08/18 02:45 67 15 94/40 98 Nasal Cannula 2.0 01/08/18 02:30 66 15 96/44 98 Nasal Cannula 2.0 01/08/18 02:15 69 15 92/32 98 Nasal Cannula 2.0 01/08/18 02:00 69 19 92/32 97 Nasal Cannula 2.0 01/08/18 02:00 92/32 01/08/18 01:45 66 14 89/62 98 Nasal Cannula 2.0 01/08/18 01:30 66 18 89/62 97 Nasal Cannula 2.0 01/08/18 01:15 71 12 85/34 96 Nasal Cannula 2.0 01/08/18 01:08 91/43 01/08/18 01:00 85/43 01/08/18 01:00 67 13 85/43 96 Nasal Cannula 2.0 01/08/18 00:45 71 14 91/43 96 Nasal Cannula 2.0 01/08/18 00:30 68 14 91/43 96 Nasal Cannula 2.0 01/08/18 00:15 79 19 91/43 99 Nasal Cannula 2.0 18 00:00 73 01/08/18 00:00 98.5 73 15 88/41 99 Nasal Cannula 2.0 98.5 18 00:00 88/41 01/07/18 23:45 70 13 88/41 99 Nasal Cannula 2.0 01/07/18 23:30 69 12 104/44 99 Nasal Cannula 2.0 01/07/18 23:15 70 13 104/44 98 Nasal Cannula 2.0 01/07/18 23:00 75 16 94/48 98 Nasal Cannula 2.0 01/07/18 23:00 94/48 18 22:45 72 14 94/48 98 Nasal Cannula 2.0 01/07/18 22:30 70 12 95/41 98 Nasal Cannula 2.0 01/07/18 22:15 69 14 95/41 98 Nasal Cannula 2.0 01/07/18 22:00 110/47 01/07/18 22:00 77 16 110/47 97 Nasal Cannula 2.0 01/07/18 21:55 118/50 01/07/18 21:45 75 15 110/47 97 Nasal Cannula 2.0 01/07/18 21:30 67 16 118/50 98 Nasal Cannula 2.0 01/07/18 21:15 61 17 104/64 97 Nasal Cannula 2.0 01/07/18 21:00 75 18 71/42 97 Nasal Cannula 2.0 01/07/18 20:45 66 18 71/42 96 Nasal Cannula 2.0 01/07/18 20:30 71 20 117/40 99 Nasal Cannula 2.0 18 20:15 71 18 117/40 98 Nasal Cannula 2.0 18 20:00 69 18 20:00 98.1 74 20 105/50 99 Nasal Cannula 2.0 98.1 01/07/18 20:00 98.1 74 20 105/50 99 Nasal Cannula 2.0 98.1 18 19:45 71 18 105/50 100 18 19:34 99 Nasal Cannula 2.0 28 01/07/18 19:34 Nasal Cannula 2.0 28 01/07/18 19:30 72 16 105/50 96 1618 19:15 71 16 89/43 95 Nasal Cannula 2.0 01/07/18 19:00 65 13 89/43 100 Nasal Cannula 2.0 01/07/18 19:00 102/50 01/07/18 18:00 110/59 01/07/18 17:28 108/55 01/07/18 16:00 101/60 01/07/18 16:00 82 01/07/18 16:00 98.7 71 14 105/48 99 Nasal Cannula 2.0 98.7 01/07/18 15:45 105/48 01/07/18 15:30 69 18 110/55 98 Nasal Cannula 2.0 01/07/18 15:11 114/56 01/07/18 15:00 66 16 114/56 98 Nasal Cannula 2.0 01/07/18 14:30 67 18 91/51 99 Nasal Cannula 2.0 01/07/18 14:00 78/39 01/07/18 14:00 70 19 101/40 99 Nasal Cannula 2.0 01/07/18 13:30 73 18 89/42 99 Nasal Cannula 2.0 01/07/18 13:00 75 19 82/45 99 Nasal Cannula 2.0 01/07/18 13:00 97/41 Intake and Output 01/07/18 01/08/18 19:00 07:00 Intake Total 1458.85 ml 1537.5 ml Output Total 355 ml 600 ml Balance 1103.85 ml 937.5 ml IV Total 1458.85 ml 1537.5 ml Output Urine Total 355 ml 600 ml Laboratory Tests 01/07/18 21:00: White Blood Count 13.2H, Red Blood Count 3.34L, Hemoglobin 9.7L, Hematocrit 28.9L, Mean Corpuscular Volume 86, Mean Corpuscular Hemoglobin 29.0, Mean Corpuscular Hemoglobin Concent 33.5, Red Cell Distribution Width 15.4H, Platelet Count 60L, Mean Platelet Volume 7.4, Neutrophils (%) (Auto) , Lymphocytes (%) (Auto) , Monocytes (%) (Auto) , Eosinophils (%) (Auto) , Basophils (%) (Auto) , Differential Total Cells Counted 100, Neutrophils % ( Manual) 72, Lymphocytes % (Manual) 15L, Monocytes % (Manual) 7, Eosinophils % ( Manual) 3, Basophils % (Manual) 1, Band Neutrophils 2, Platelet Estimate DecreasedL, Platelet Morphology Normal, Anisocytosis 1+, Prothrombin Time 15.4H , Prothromb Time International Ratio 1.5H, Activated Partial Thromboplast Time 46H 01/08/18 04:00: Prothrombin Time 15.7H, Prothromb Time International Ratio 1.5H, Activated Partial Thromboplast Time 52H, Sodium Level 134L, Potassium Level 3.9, Chloride Level 102, Carbon Dioxide Level 25, Anion Gap 7, Blood Urea Nitrogen 33H, Creatinine 2.0H, Estimat Glomerular Filtration Rate , Glucose Level 167H, Calcium Level 7.6L, Phosphorus Level 3.4, Magnesium Level 1.7L, Total Bilirubin 2.8H, Direct Bilirubin 1.4H, Aspartate Amino Transf (AST/SGOT) 49H, Alanine Aminotransferase (ALT/SGPT) 30, Alkaline Phosphatase 93, Total Protein 5.5L, Albumin 2.4L, Globulin 3.1, Albumin/Globulin Ratio 0.8L 01/08/18 05:00: White Blood Count 9.2, Red Blood Count 2.97L, Hemoglobin 8.7L, Hematocrit 26.3L , Mean Corpuscular Volume 88, Mean Corpuscular Hemoglobin 29.2, Mean Corpuscular Hemoglobin Concent 33.1, Red Cell Distribution Width 15.5H, Platelet Count 47L, Mean Platelet Volume 8.9, Neutrophils (%) (Auto) , Lymphocytes (%) (Auto) , Monocytes (%) (Auto) , Eosinophils (%) (Auto) , Basophils (%) (Auto) , Differential Total Cells Counted 100, Neutrophils % ( Manual) 77H, Lymphocytes % (Manual) 13L, Monocytes % (Manual) 9, Eosinophils % ( Manual) 1, Basophils % (Manual) 0, Band Neutrophils 0, Platelet Estimate DecreasedL, Platelet Morphology Normal, Anisocytosis 1+, Hypochromasia 2+ Height (Feet): 5 Height (Inches): 4.00 Weight (Pounds): 288 General Appearance: no apparent distress Cardiovascular: normal rate Respiratory/Chest: decreased breath sounds Abdomen: soft DARIA MCNEILL January 08, 2018 12:35
[2018-01-08 13:09] LABS: FERRITIN 126 NG/ML (8-388)
[2018-01-08 13:23] LABS: % IRON SATURATION 56 % (15-50); IRON 63 ug/dL (50-175); TOTAL IRON BINDING CAPACITY 113 ug/dL (250-450)
[2018-01-08] MEDS: Octreotide Acetate 500 MCG in Sodium Chloride 500ML 499 ML IV SCH (14:19)
--- NOTE | 2018-01-08 14:35 | Internal Med Progress Note ---
Subjective Physician Name Perico Randolph Attending Physician Perico Randolph MD Current Medications Medications (Trade) Dose Ordered Sig/Miles Route PRN Reason Start Time Stop Time Status Last Admin Dose Admin Acetaminophen (Tylenol) 650 mg Q4H PRN ORAL fever 01/05/18 15:45 02/04/18 15:44 Chlorhexidine Gluconate (Destiny-Hex 2%) 1 applic DAILY@2000 TOPIC 01/06/18 20:00 02/05/18 19:59 01/07/18 19:46 Dextrose (Dextrose 50%) STAT PRN IV Hypoglycemia 01/05/18 15:45 02/04/18 15:44 Dextrose/Sodium Chloride 1,000 ml @ 50 mls/hr Q20H IV 01/06/18 16:00 02/04/18 15:59 01/08/18 09:20 Dopamine HCl/ Dextrose 250 ml @ 0 mls/hr Q24H IV 01/05/18 15:45 02/04/18 15:44 Midodrine (Pro-Amatine) 10 mg THREE TIMES A DAY ORAL 01/07/18 13:00 02/06/18 12:59 01/08/18 14:18 Morphine Sulfate (Morphine Sulfate) 2 mg Q4H PRN IVP For Pain 01/05/18 13:30 01/12/18 13:29 01/05/18 13:33 Nitroglycerin (Ntg) 0.4 mg Q5M X 3 DOSES PRN SL Prn Chest Pain 01/05/18 15:45 02/04/18 15:44 Norepinephrine Bitartrate 4 mg/ Dextrose 250 ml @ 0 mls/hr Q24H IV 01/07/18 21:30 02/04/18 19:59 01/08/18 05:37 Octreotide Acetate 500 mcg/ Sodium Chloride 500 ml @ 25 mls/hr Q20H IV 01/06/18 21:00 02/05/18 20:59 01/08/18 14:19 Ondansetron HCl (Zofran) 4 mg Q6H PRN IVP Nausea & Vomiting 01/05/18 13:30 02/04/18 13:29 01/05/18 13:32 Pantoprazole (Protonix) 40 mg Q12HR IV 01/06/18 21:00 02/05/18 10:29 01/08/18 09:20 Piperacillin Sod/ Tazobactam Sod 3.375 gm/Dextrose 110 ml @ 27.5 mls/hr EVERY 8 HOURS IVPB 01/07/18 23:30 01/12/18 23:29 01/08/18 14:18 Polyethylene Glycol (Miralax) 17 gm HSPRN PRN ORAL Constipation 01/05/18 15:45 02/04/18 15:44 Rifaximin (Xifaxan) 550 mg EVERY 12 HOURS ORAL 01/06/18 22:00 01/13/18 21:59 01/08/18 09:20 Vancomycin HCl (Vanco rx to dose) 1 ea DAILY PRN MISC Per rx protocol 01/07/18 19:45 02/06/18 19:44 Vitamin A/Vitamin D (A & D Oint) 1 applic EVERY 12 HOURS TOPIC 01/06/18 21:00 02/05/18 20:59 01/08/18 09:21 Allergies: Coded Allergies: ASPIRIN (Unverified Allergy, Unknown, 01/05/18) Uncoded Allergies: TAPE (Allergy, Unknown, 01/05/18) Subjective awake, alert, responsive, NAD, Daughter at bedside , still in ICU on pressor, Hgb: 8.7 Objective Last Vital Signs Date Time Temp Pulse Resp B/P (MAP) Pulse Ox O2 Delivery O2 Flow Rate FiO2 01/08/18 13:00 74 20 87/46 100 Nasal Cannula 2.0 01/08/18 12:00 97.8 97.8 01/07/18 19:34 28 Laboratory Tests Test 01/07/18 21:00 01/08/18 04:00 01/08/18 05:00 White Blood Count 13.2 K/UL (4.8-10.8) H 9.2 K/UL (4.8-10.8) Red Blood Count 3.34 M/UL (4.20-5.40) L 2.97 M/UL (4.20-5.40) L Hemoglobin 9.7 G/DL (12.0-16.0) L 8.7 G/DL (12.0-16.0) L Hematocrit 28.9 % (37.0-47.0) L 26.3 % (37.0-47.0) L Mean Corpuscular Volume 86 FL (80-99) 88 FL (80-99) Mean Corpuscular Hemoglobin 29.0 PG (27.0-31.0) 29.2 PG (27.0-31.0) Mean Corpuscular Hemoglobin Concent 33.5 G/DL (32.0-36.0) 33.1 G/DL (32.0-36.0) Red Cell Distribution Width 15.4 % (11.6-14.8) H 15.5 % (11.6-14.8) H Platelet Count 60 K/UL (150-450) L 47 K/UL (150-450) L Mean Platelet Volume 7.4 FL (6.5-10.1) 8.9 FL (6.5-10.1) Neutrophils (%) (Auto) % (45.0-75.0) % (45.0-75.0) Lymphocytes (%) (Auto) % (20.0-45.0) % (20.0-45.0) Monocytes (%) (Auto) % (1.0-10.0) % (1.0-10.0) Eosinophils (%) (Auto) % (0.0-3.0) % (0.0-3.0) Basophils (%) (Auto) % (0.0-2.0) % (0.0-2.0) Differential Total Cells Counted 100 100 Neutrophils % (Manual) 72 % (45-75) 77 % (45-75) H Lymphocytes % (Manual) 15 % (20-45) L 13 % (20-45) L Monocytes % (Manual) 7 % (1-10) 9 % (1-10) Eosinophils % (Manual) 3 % (0-3) 1 % (0-3) Basophils % (Manual) 1 % (0-2) 0 % (0-2) Band Neutrophils 2 % (0-8) 0 % (0-8) Platelet Estimate Decreased L Decreased L Platelet Morphology Normal Normal Anisocytosis 1+ 1+ Prothrombin Time 15.4 SEC (9.30-11.50) H 15.7 SEC (9.30-11.50) H Prothromb Time International Ratio 1.5 (0.9-1.1) H 1.5 (0.9-1.1) H Activated Partial Thromboplast Time 46 SEC (23-33) H 52 SEC (23-33) H Sodium Level 134 MMOL/L (136-145) L Potassium Level 3.9 MMOL/L (3.5-5.1) Chloride Level 102 MMOL/L (98-107) Carbon Dioxide Level 25 MMOL/L (21-32) Anion Gap 7 mmol/L (5-15) Blood Urea Nitrogen 33 mg/dL (7-18) H Creatinine 2.0 MG/DL (0.55-1.30) H Estimat Glomerular Filtration Rate mL/min (>60) Glucose Level 167 MG/DL (74-106) H Calcium Level 7.6 MG/DL (8.5-10.1) L Phosphorus Level 3.4 MG/DL (2.5-4.9) Magnesium Level 1.7 MG/DL (1.8-2.4) L Iron Level 63 ug/dL (50-175) Total Iron Binding Capacity 113 ug/dL (250-450) L Percent Iron Saturation 56 % (15-50) H Unsaturated Iron Binding 50 ug/dL (112-346) L Ferritin 126 NG/ML (8-388) Total Bilirubin 2.8 MG/DL (0.2-1.0) H Direct Bilirubin 1.4 MG/DL (0.0-0.3) H Aspartate Amino Transf (AST/SGOT) 49 U/L (15-37) H Alanine Aminotransferase (ALT/SGPT) 30 U/L (12-78) Alkaline Phosphatase 93 U/L (46-116) Total Protein 5.5 G/DL (6.4-8.2) L Albumin 2.4 G/DL (3.4-5.0) L Globulin 3.1 g/dL Albumin/Globulin Ratio 0.8 (1.0-2.7) L Vitamin B12 Level 1075 PG/ML (193-986) H Folate 5.2 NG/ML (8.6-58.9) L Hypochromasia 2+ Microbiology Date/Time Source Procedure Growth Status 01/05/18 21:00 Urine,Clean Catch Urine Culture - Preliminary Providencia Stuartii Streptococcus Species Resulted Intake and Output 01/07/18 01/08/18 19:00 07:00 Intake Total 1458.85 ml 1537.5 ml Output Total 355 ml 600 ml Balance 1103.85 ml 937.5 ml IV Total 1458.85 ml 1537.5 ml Output Urine Total 355 ml 600 ml Objective GENERAL: awake, responsive, in no acute distress. HEAD AND NECK: Pupils are reactive to light. Extraocular movements are intact. Neck was supple. No JVD. The patient has a triple-lumen catheter right IJ. LUNGS: Bilaterally no wheezing or rales. Decreased air in the bases. HEART: S1 and S2 RR. Distant heart sounds. No murmur ABDOMEN: Soft, nondistended, nontender, and morbidly obese. CHEST WALL: Bilateral mastectomy was noted, scar tissue and no sign of infection. EXTREMITIES: No cyanosis or clubbing. +1 edema. NEUROLOGIC: Cranial nerves II through XII grossly intact. Motor is 5/5 in all extremities. Gait is unable to obtain secondary to the patient's status. Assessment/Plan Assessment/Plan 1. Acute GI bleed. 2. Hemorrhagic shock. 3. Severe anemia most likely secondary to acute blood loss. 4. Acute kidney injury on chronic renal insufficiency. 5. Morbid obesity. 6. History of breast cancer. 7. Hyperkalemia. 8. Hypertension. 9. History of breast cancer, status post bilateral mastectomy. 10. Congestive heart failure, chronic with diastolic dysfunction. 11. Major depression disorder. 12. History of DVT and PE in past, Hold anticoagulation, Coumadin. 13. 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 14. Chronic hypotension. PLAN: in ICU. Dr. Gilmore, Pulmonary/Critical Care, Dr. Sascha Bond from Nephrology Dr. Tenzin Ford from Cardiology Dr. Yohannes Woodall from Gastroenterology. Monitor laboratory and Cultures. Discussed with the daughter extensively at bedside regarding plan of care and lab results. Code status is Full Code. POLST noted in the chart. bedrest and at this time for DVT prophylaxis, SCD. Abx: Vanco IV and Zosyn IV on Norepinephrine Drip On Sandostatin drip 2D Echo: Technically difficult study due pts resistance with poor endocardial and valvular definition . Normal left ventricular chamber size, systolic function and wall motion to extent visualized. Left ventricular ejection fraction estimated to be 65-70 %. No evidence of left ventricular hypertrophy by 2-D. No evidence of pericardial effusion. All other cardiac chamber sizes are within normal limits. Focal aortic valve sclerosis with adequate cusp excursion. Mildly Thickened mitral valve leaflets with normal excursion. Mildly Mitral annulus and aortic root calcification. Pulmonic valve not well visualized. Normal tricuspid valve structure. IVC at normal size without physiologic collapse. valvular definition appears poor A color flow and spectral Doppler study was performed and revealed: No aortic regurgitation. Trace mitral regurgitation. Mitral diastolic velocities suggest reduced left ventricular relaxation c/w mild LV diastolic dysfunction (Grade I ). Trace tricuspid regurgitation. Tricuspid systolic velocities suggests peak right ventricular systolic pressure of 29mmHg No Pulmonic regurgitation present. Perico Randolph MD January 08, 2018 14:35
[2018-01-08] MEDS: DOPamine 400mg/250ml 250 ML IV SCH (15:45)
--- NOTE | 2018-01-08 15:50 | General Progress Note ---
Assessment/Plan Status: stable, progressing Assessment/Plan mdd anxiety d/o buspar 10mg bid Subjective Date patient seen: January 08, 2018 Neurologic/Psychiatric: Reports: anxiety, depressed, emotional problems Allergies: Coded Allergies: ASPIRIN (Unverified Allergy, Unknown, 01/05/18) Uncoded Allergies: TAPE (Allergy, Unknown, 01/05/18) Objective Last 24 Hour Vital Signs Date Time Temp Pulse Resp B/P (MAP) Pulse Ox O2 Delivery O2 Flow Rate FiO2 01/08/18 13:00 74 20 87/46 100 Nasal Cannula 2.0 01/08/18 12:30 72 17 91/46 99 Nasal Cannula 2.0 01/08/18 12:00 60 01/08/18 12:00 97.8 72 18 88/41 99 Nasal Cannula 2.0 97.8 01/08/18 11:30 60 17 95/41 98 Nasal Cannula 2.0 01/08/18 11:00 63 16 94/49 98 Nasal Cannula 2.0 01/08/18 10:30 59 15 97/50 98 Nasal Cannula 2.0 01/08/18 10:00 59 14 117/40 98 Nasal Cannula 2.0 01/08/18 09:30 60 13 102/51 99 Nasal Cannula 2.0 01/08/18 09:00 67 17 95/44 97 Nasal Cannula 2.0 01/08/18 08:30 68 18 99/47 97 Nasal Cannula 2.0 01/08/18 08:00 97.7 62 13 89/43 97 Nasal Cannula 2.0 97.7 01/08/18 08:00 68 01/08/18 07:30 68 17 93/40 97 Nasal Cannula 2.0 01/08/18 07:00 67 16 91/38 99 Nasal Cannula 2.0 01/08/18 07:00 93/40 01/08/18 06:45 66 14 110/45 99 Nasal Cannula 2.0 01/08/18 06:30 66 15 110/45 95 Nasal Cannula 2.0 01/08/18 06:15 66 14 110/45 99 Nasal Cannula 2.0 01/08/18 06:00 116/47 01/08/18 06:00 68 16 116/47 98 Nasal Cannula 2.0 01/08/18 05:45 69 15 116/47 98 Nasal Cannula 2.0 01/08/18 05:37 116/51 5/17/18 05:30 67 15 116/51 98 Nasal Cannula 2.0 01/08/18 05:15 74 17 116/51 98 Nasal Cannula 2.0 01/08/18 05:00 92/35 01/08/18 05:00 68 14 92/35 98 Nasal Cannula 2.0 01/08/18 04:45 66 16 91/41 98 Nasal Cannula 2.0 01/08/18 04:30 66 13 87/36 98 Nasal Cannula 2.0 01/08/18 04:15 67 16 87/36 97 Nasal Cannula 2.0 01/08/18 04:00 98.2 67 14 97/43 98 Nasal Cannula 2.0 98.2 01/08/18 04:00 90/41 01/08/18 04:00 67 01/08/18 03:45 67 14 97/23 98 Nasal Cannula 2.0 01/08/18 03:30 72 16 97/23 97 Nasal Cannula 2.0 01/08/18 03:15 65 13 94/40 99 Nasal Cannula 2.0 01/08/18 03:00 64 13 94/40 99 Nasal Cannula 2.0 01/08/18 03:00 94/40 01/08/18 02:45 67 15 94/40 98 Nasal Cannula 2.0 01/08/18 02:30 66 15 96/44 98 Nasal Cannula 2.0 01/08/18 02:15 69 15 92/32 98 Nasal Cannula 2.0 01/08/18 02:00 69 19 92/32 97 Nasal Cannula 2.0 01/08/18 02:00 92/32 01/08/18 01:45 66 14 89/62 98 Nasal Cannula 2.0 01/08/18 01:30 66 18 89/62 97 Nasal Cannula 2.0 01/08/18 01:15 71 12 85/34 96 Nasal Cannula 2.0 01/08/18 01:08 91/43 01/08/18 01:00 85/43 01/08/18 01:00 67 13 85/43 96 Nasal Cannula 2.0 01/08/18 00:45 71 14 91/43 96 Nasal Cannula 2.0 01/08/18 00:30 68 14 91/43 96 Nasal Cannula 2.0 01/08/18 00:15 79 19 91/43 99 Nasal Cannula 2.0 01/08/18 00:00 73 01/08/18 00:00 98.5 73 15 88/41 99 Nasal Cannula 2.0 98.5 01/08/18 00:00 88/41 01/07/18 23:45 70 13 88/41 99 Nasal Cannula 2.0 01/07/18 23:30 69 12 104/44 99 Nasal Cannula 2.0 01/07/18 23:15 70 13 104/44 98 Nasal Cannula 2.0 01/07/18 23:00 75 16 94/48 98 Nasal Cannula 2.0 01/07/18 23:00 94/48 01/07/18 22:45 72 14 94/48 98 Nasal Cannula 2.0 01/07/18 22:30 70 12 95/41 98 Nasal Cannula 2.0 01/07/18 22:15 69 14 95/41 98 Nasal Cannula 2.0 01/07/18 22:00 110/47 01/07/18 22:00 77 16 110/47 97 Nasal Cannula 2.0 01/07/18 21:55 118/50 01/07/18 21:45 75 15 110/47 97 Nasal Cannula 2.0 01/07/18 21:30 67 16 118/50 98 Nasal Cannula 2.0 01/07/18 21:15 61 17 104/64 97 Nasal Cannula 2.0 01/07/18 21:00 75 18 71/42 97 Nasal Cannula 2.0 01/07/18 20:45 66 18 71/42 96 Nasal Cannula 2.0 01/07/18 20:30 71 20 117/40 99 Nasal Cannula 2.0 01/07/18 20:15 71 18 117/40 98 Nasal Cannula 2.0 01/07/18 20:00 69 01/07/18 20:00 98.1 74 20 105/50 99 Nasal Cannula 2.0 98.1 01/07/18 20:00 98.1 74 20 105/50 99 Nasal Cannula 2.0 98.1 01/07/18 19:45 71 18 105/50 100 18 19:34 99 Nasal Cannula 2.0 28 01/07/18 19:34 Nasal Cannula 2.0 28 01/07/18 19:30 72 16 105/50 96 18 19:15 71 16 89/43 95 Nasal Cannula 2.0 01/07/18 19:00 65 13 89/43 100 Nasal Cannula 2.0 01/07/18 19:00 102/50 01/07/18 18:00 110/59 01/07/18 17:28 108/55 01/07/18 16:00 101/60 01/07/18 16:00 82 01/07/18 16:00 98.7 71 14 105/48 99 Nasal Cannula 2.0 98.7 Intake and Output 01/07/18 01/08/18 19:00 07:00 Intake Total 1458.85 ml 1537.5 ml Output Total 355 ml 600 ml Balance 1103.85 ml 937.5 ml IV Total 1458.85 ml 1537.5 ml Output Urine Total 355 ml 600 ml Laboratory Tests 01/07/18 21:00: White Blood Count 13.2H, Red Blood Count 3.34L, Hemoglobin 9.7L, Hematocrit 28.9L, Mean Corpuscular Volume 86, Mean Corpuscular Hemoglobin 29.0, Mean Corpuscular Hemoglobin Concent 33.5, Red Cell Distribution Width 15.4H, Platelet Count 60L, Mean Platelet Volume 7.4, Neutrophils (%) (Auto) , Lymphocytes (%) (Auto) , Monocytes (%) (Auto) , Eosinophils (%) (Auto) , Basophils (%) (Auto) , Differential Total Cells Counted 100, Neutrophils % ( Manual) 72, Lymphocytes % (Manual) 15L, Monocytes % (Manual) 7, Eosinophils % ( Manual) 3, Basophils % (Manual) 1, Band Neutrophils 2, Platelet Estimate DecreasedL, Platelet Morphology Normal, Anisocytosis 1+, Prothrombin Time 15.4H , Prothromb Time International Ratio 1.5H, Activated Partial Thromboplast Time 46H 01/08/18 04:00: Prothrombin Time 15.7H, Prothromb Time International Ratio 1.5H, Activated Partial Thromboplast Time 52H, Sodium Level 134L, Potassium Level 3.9, Chloride Level 102, Carbon Dioxide Level 25, Anion Gap 7, Blood Urea Nitrogen 33H, Creatinine 2.0H, Estimat Glomerular Filtration Rate , Glucose Level 167H, Calcium Level 7.6L, Phosphorus Level 3.4, Magnesium Level 1.7L, Iron Level 63, Total Iron Binding Capacity 113L, Percent Iron Saturation 56H, Unsaturated Iron Binding 50L, Ferritin 126, Total Bilirubin 2.8H, Direct Bilirubin 1.4H, Aspartate Amino Transf (AST/SGOT) 49H, Alanine Aminotransferase (ALT/SGPT) 30, Alkaline Phosphatase 93, Total Protein 5.5L, Albumin 2.4L, Globulin 3.1, Albumin /Globulin Ratio 0.8L, Vitamin B12 Level 1075H, Folate 5.2L 01/08/18 05:00: White Blood Count 9.2, Red Blood Count 2.97L, Hemoglobin 8.7L, Hematocrit 26.3L , Mean Corpuscular Volume 88, Mean Corpuscular Hemoglobin 29.2, Mean Corpuscular Hemoglobin Concent 33.1, Red Cell Distribution Width 15.5H, Platelet Count 47L, Mean Platelet Volume 8.9, Neutrophils (%) (Auto) , Lymphocytes (%) (Auto) , Monocytes (%) (Auto) , Eosinophils (%) (Auto) , Basophils (%) (Auto) , Differential Total Cells Counted 100, Neutrophils % ( Manual) 77H, Lymphocytes % (Manual) 13L, Monocytes % (Manual) 9, Eosinophils % ( Manual) 1, Basophils % (Manual) 0, Band Neutrophils 0, Platelet Estimate DecreasedL, Platelet Morphology Normal, Anisocytosis 1+, Hypochromasia 2+ 01/08/18 14:30: Urine Eosinophils [Pending] Height (Feet): 5 Height (Inches): 4.00 Weight (Pounds): 288 General Appearance: WD/WN, no apparent distress, alert Neurologic: oriented x 3, responsive, depressed affect Cady Brower M.D. January 08, 2018 15:50
--- NOTE | 2018-01-08 17:42 | General Progress Note ---
Assessment/Plan Assessment/Plan Assessment - UGIB - Cirrhosis, from [facility] - No esophageal varcies on Jun 2017 EGD - h/o hepatic encephalopathy - Chronic edema - coagulopathy - h/o DVT/PE - off of coumadin now - hypotension, requiring pressors - ? all from GI Bleed (currently transfused) - ? partly baseline - ? partly septic - Azotemia Recommendations - restart PO diet - no plans for Endoscopy at this time - wean off of sandostatin - Consider IVC filter, since may no longer be a candidate for anticoagulation - close observation - FFP and PRBC PRN - Xifaxan - BID PPI Subjective Allergies: Coded Allergies: ASPIRIN (Unverified Allergy, Unknown, 01/05/18) Uncoded Allergies: TAPE (Allergy, Unknown, 01/05/18) Subjective above noted still on pressors d/w anesthesia - still not candidate for sedation/EGD (unless life threatening situation) d/w family - at this time they agree to hold off on EGD Objective Last 24 Hour Vital Signs Date Time Temp Pulse Resp B/P (MAP) Pulse Ox O2 Delivery O2 Flow Rate FiO2 01/08/18 13:00 74 20 87/46 100 Nasal Cannula 2.0 01/08/18 12:30 72 17 91/46 99 Nasal Cannula 2.0 01/08/18 12:00 60 01/08/18 12:00 97.8 72 18 88/41 99 Nasal Cannula 2.0 97.8 01/08/18 11:30 60 17 95/41 98 Nasal Cannula 2.0 01/08/18 11:00 63 16 94/49 98 Nasal Cannula 2.0 01/08/18 10:30 59 15 97/50 98 Nasal Cannula 2.0 01/08/18 10:00 59 14 117/40 98 Nasal Cannula 2.0 01/08/18 09:30 60 13 102/51 99 Nasal Cannula 2.0 01/08/18 09:00 67 17 95/44 97 Nasal Cannula 2.0 01/08/18 08:30 68 18 99/47 97 Nasal Cannula 2.0 01/08/18 08:00 97.7 62 13 89/43 97 Nasal Cannula 2.0 97.7 01/08/18 08:00 68 01/08/18 07:30 68 17 93/40 97 Nasal Cannula 2.0 01/08/18 07:00 67 16 91/38 99 Nasal Cannula 2.0 01/08/18 07:00 93/40 18 06:45 66 14 110/45 99 Nasal Cannula 2.0 18 06:30 66 15 110/45 95 Nasal Cannula 2.0 18 06:15 66 14 110/45 99 Nasal Cannula 2.0 18 06:00 116/47 01/08/18 06:00 68 16 116/47 98 Nasal Cannula 2.0 01/08/18 05:45 69 15 116/47 98 Nasal Cannula 2.0 18 05:37 116/51 01/08/18 05:30 67 15 116/51 98 Nasal Cannula 2.0 01/08/18 05:15 74 17 116/51 98 Nasal Cannula 2.0 01/08/18 05:00 92/35 01/08/18 05:00 68 14 92/35 98 Nasal Cannula 2.0 01/08/18 04:45 66 16 91/41 98 Nasal Cannula 2.0 01/08/18 04:30 66 13 87/36 98 Nasal Cannula 2.0 18 04:15 67 16 87/36 97 Nasal Cannula 2.0 01/08/18 04:00 98.2 67 14 97/43 98 Nasal Cannula 2.0 98.2 01/08/18 04:00 90/41 01/08/18 04:00 67 18 03:45 67 14 97/23 98 Nasal Cannula 2.0 18 03:30 72 16 97/23 97 Nasal Cannula 2.0 18 03:15 65 13 94/40 99 Nasal Cannula 2.0 18 03:00 64 13 94/40 99 Nasal Cannula 2.0 01/08/18 03:00 94/40 01/08/18 02:45 67 15 94/40 98 Nasal Cannula 2.0 18 02:30 66 15 96/44 98 Nasal Cannula 2.0 01/08/18 02:15 69 15 92/32 98 Nasal Cannula 2.0 01/08/18 02:00 69 19 92/32 97 Nasal Cannula 2.0 01/08/18 02:00 92/32 01/08/18 01:45 66 14 89/62 98 Nasal Cannula 2.0 01/08/18 01:30 66 18 89/62 97 Nasal Cannula 2.0 01/08/18 01:15 71 12 85/34 96 Nasal Cannula 2.0 01/08/18 01:08 91/43 01/08/18 01:00 85/43 01/08/18 01:00 67 13 85/43 96 Nasal Cannula 2.0 01/08/18 00:45 71 14 91/43 96 Nasal Cannula 2.0 01/08/18 00:30 68 14 91/43 96 Nasal Cannula 2.0 01/08/18 00:15 79 19 91/43 99 Nasal Cannula 2.0 01/08/18 00:00 73 01/08/18 00:00 98.5 73 15 88/41 99 Nasal Cannula 2.0 98.5 01/08/18 00:00 88/41 01/07/18 23:45 70 13 88/41 99 Nasal Cannula 2.0 01/07/18 23:30 69 12 104/44 99 Nasal Cannula 2.0 01/07/18 23:15 70 13 104/44 98 Nasal Cannula 2.0 01/07/18 23:00 75 16 94/48 98 Nasal Cannula 2.0 01/07/18 23:00 94/48 01/07/18 22:45 72 14 94/48 98 Nasal Cannula 2.0 01/07/18 22:30 70 12 95/41 98 Nasal Cannula 2.0 01/07/18 22:15 69 14 95/41 98 Nasal Cannula 2.0 01/07/18 22:00 110/47 01/07/18 22:00 77 16 110/47 97 Nasal Cannula 2.0 01/07/18 21:55 118/50 18 21:45 75 15 110/47 97 Nasal Cannula 2.0 01/07/18 21:30 67 16 118/50 98 Nasal Cannula 2.0 01/07/18 21:15 61 17 104/64 97 Nasal Cannula 2.0 01/07/18 21:00 75 18 71/42 97 Nasal Cannula 2.0 01/07/18 20:45 66 18 71/42 96 Nasal Cannula 2.0 01/07/18 20:30 71 20 117/40 99 Nasal Cannula 2.0 01/07/18 20:15 71 18 117/40 98 Nasal Cannula 2.0 01/07/18 20:00 69 01/07/18 20:00 98.1 74 20 105/50 99 Nasal Cannula 2.0 98.1 01/07/18 20:00 98.1 74 20 105/50 99 Nasal Cannula 2.0 98.1 01/07/18 19:45 71 18 105/50 100 01/07/18 19:34 99 Nasal Cannula 2.0 28 01/07/18 19:34 Nasal Cannula 2.0 28 01/07/18 19:30 72 16 105/50 96 01/07/18 19:15 71 16 89/43 95 Nasal Cannula 2.0 01/07/18 19:00 65 13 89/43 100 Nasal Cannula 2.0 01/07/18 19:00 102/50 01/07/18 18:00 110/59 Intake and Output 01/07/18 01/08/18 19:00 07:00 Intake Total 1458.85 ml 1537.5 ml Output Total 355 ml 600 ml Balance 1103.85 ml 937.5 ml IV Total 1458.85 ml 1537.5 ml Output Urine Total 355 ml 600 ml Laboratory Tests 01/07/18 21:00: White Blood Count 13.2H, Red Blood Count 3.34L, Hemoglobin 9.7L, Hematocrit 28.9L, Mean Corpuscular Volume 86, Mean Corpuscular Hemoglobin 29.0, Mean Corpuscular Hemoglobin Concent 33.5, Red Cell Distribution Width 15.4H, Platelet Count 60L, Mean Platelet Volume 7.4, Neutrophils (%) (Auto) , Lymphocytes (%) (Auto) , Monocytes (%) (Auto) , Eosinophils (%) (Auto) , Basophils (%) (Auto) , Differential Total Cells Counted 100, Neutrophils % ( Manual) 72, Lymphocytes % (Manual) 15L, Monocytes % (Manual) 7, Eosinophils % ( Manual) 3, Basophils % (Manual) 1, Band Neutrophils 2, Platelet Estimate DecreasedL, Platelet Morphology Normal, Anisocytosis 1+, Prothrombin Time 15.4H , Prothromb Time International Ratio 1.5H, Activated Partial Thromboplast Time 46H 01/08/18 04:00: Prothrombin Time 15.7H, Prothromb Time International Ratio 1.5H, Activated Partial Thromboplast Time 52H, Sodium Level 134L, Potassium Level 3.9, Chloride Level 102, Carbon Dioxide Level 25, Anion Gap 7, Blood Urea Nitrogen 33H, Creatinine 2.0H, Estimat Glomerular Filtration Rate , Glucose Level 167H, Calcium Level 7.6L, Phosphorus Level 3.4, Magnesium Level 1.7L, Iron Level 63, Total Iron Binding Capacity 113L, Percent Iron Saturation 56H, Unsaturated Iron Binding 50L, Ferritin 126, Total Bilirubin 2.8H, Direct Bilirubin 1.4H, Aspartate Amino Transf (AST/SGOT) 49H, Alanine Aminotransferase (ALT/SGPT) 30, Alkaline Phosphatase 93, Total Protein 5.5L, Albumin 2.4L, Globulin 3.1, Albumin /Globulin Ratio 0.8L, Vitamin B12 Level 1075H, Folate 5.2L 01/08/18 05:00: White Blood Count 9.2, Red Blood Count 2.97L, Hemoglobin 8.7L, Hematocrit 26.3L , Mean Corpuscular Volume 88, Mean Corpuscular Hemoglobin 29.2, Mean Corpuscular Hemoglobin Concent 33.1, Red Cell Distribution Width 15.5H, Platelet Count 47L, Mean Platelet Volume 8.9, Neutrophils (%) (Auto) , Lymphocytes (%) (Auto) , Monocytes (%) (Auto) , Eosinophils (%) (Auto) , Basophils (%) (Auto) , Differential Total Cells Counted 100, Neutrophils % ( Manual) 77H, Lymphocytes % (Manual) 13L, Monocytes % (Manual) 9, Eosinophils % ( Manual) 1, Basophils % (Manual) 0, Band Neutrophils 0, Platelet Estimate DecreasedL, Platelet Morphology Normal, Anisocytosis 1+, Hypochromasia 2+ 01/08/18 14:30: Urine Eosinophils None seen Height (Feet): 5 Height (Inches): 4.00 Weight (Pounds): 288 Objective Obese and edematous WW NCAT supple CTA RRR abd soft ext (++) edema non focal neuro Yohnanes Woodall MD January 08, 2018 17:42
[2018-01-08] MEDS: Dyna-Hex 2% Top Sol 2oz TOPIC SCH (20:00)
--- NOTE | 2018-01-08 20:23 | Cardiology Progress Note ---
Assessment/Plan Assessment/Plan 1. Hypovolemic shock. 2. Anemia. 3. Gastrointestinal bleed. 4. History of deep venous thrombosis and pulmonary embolism, on chronic anticoagulation therapy. 5. History of breast cancer remotely, status post bilateral mastectomy. 6. Chronic borderline hypotension. 7. Morbid obesity. 8. Subacute renal insufficiency.cr 1.8-2.1 11/2017 but 1.3-1.5 07/2017 9. cirrhosis 10. thrombocytopenia bp chronic 90-100's range in 11/2017 bp is better bc neg urine cx + repeat cardiac enzyme min abn of ? sig with renal isnuf echo normal wall motion cortisol normal on ivf tapering off pressors slowly noted no plans of pci Subjective Cardiovascular: Denies: chest pain, lightheadedness, palpitations Respiratory: Denies: shortness of breath Gastrointestinal/Abdominal: Denies: abdominal pain, blood in stool Genitourinary: Denies: burning Objective Last 24 Hour Vital Signs Date Time Temp Pulse Resp B/P (MAP) Pulse Ox O2 Delivery O2 Flow Rate FiO2 01/08/18 19:23 Nasal Cannula 2.0 28 01/08/18 19:23 100 Nasal Cannula 2.0 28 01/08/18 18:30 57 14 109/44 98 Nasal Cannula 2.0 01/08/18 18:00 61 16 102/41 100 Nasal Cannula 2.0 01/08/18 18:00 102/41 01/08/18 17:30 54 14 98/44 100 Nasal Cannula 2.0 01/08/18 17:00 56 16 103/44 99 Nasal Cannula 2.0 01/08/18 17:00 103/44 01/08/18 16:30 64 16 86/45 98 Nasal Cannula 2.0 01/08/18 16:00 89/44 01/08/18 16:00 98.1 64 17 89/44 96 Nasal Cannula 2.0 98.1 01/08/18 16:00 58 01/08/18 15:45 89/44 01/08/18 15:30 60 15 86/40 99 Nasal Cannula 2.0 01/08/18 15:00 60 16 88/43 99 Nasal Cannula 2.0 01/08/18 15:00 88/43 01/08/18 14:30 59 15 85/50 99 Nasal Cannula 2.0 01/08/18 14:00 66 17 90/43 99 Nasal Cannula 2.0 01/08/18 14:00 90/43 18 13:30 58 16 91/58 99 Nasal Cannula 2.0 01/08/18 13:00 87/46 01/08/18 13:00 74 20 87/46 100 Nasal Cannula 2.0 01/08/18 12:30 72 17 91/46 99 Nasal Cannula 2.0 01/08/18 12:00 60 01/08/18 12:00 97.8 72 18 88/41 99 Nasal Cannula 2.0 97.8 01/08/18 12:00 88/41 01/08/18 11:30 60 17 95/41 98 Nasal Cannula 2.0 01/08/18 11:00 63 16 94/49 98 Nasal Cannula 2.0 01/08/18 11:00 94/49 01/08/18 10:30 59 15 97/50 98 Nasal Cannula 2.0 01/08/18 10:00 59 14 117/40 98 Nasal Cannula 2.0 01/08/18 10:00 117/40 01/08/18 09:30 60 13 102/51 99 Nasal Cannula 2.0 01/08/18 09:00 95/44 01/08/18 09:00 67 17 95/44 97 Nasal Cannula 2.0 01/08/18 08:30 68 18 99/47 97 Nasal Cannula 2.0 01/08/18 08:00 97.7 62 13 89/43 97 Nasal Cannula 2.0 97.7 01/08/18 08:00 99/47 18 08:00 68 01/08/18 07:30 68 17 93/40 97 Nasal Cannula 2.0 01/08/18 07:00 67 16 91/38 99 Nasal Cannula 2.0 01/08/18 07:00 93/40 18 06:45 66 14 110/45 99 Nasal Cannula 2.0 18 06:30 66 15 110/45 95 Nasal Cannula 2.0 18 06:15 66 14 110/45 99 Nasal Cannula 2.0 18 06:00 116/47 18 06:00 68 16 116/47 98 Nasal Cannula 2.0 18 05:45 69 15 116/47 98 Nasal Cannula 2.0 5/17/18 05:37 116/51 18 05:30 67 15 116/51 98 Nasal Cannula 2.0 01/08/18 05:15 74 17 116/51 98 Nasal Cannula 2.0 01/08/18 05:00 92/35 18 05:00 68 14 92/35 98 Nasal Cannula 2.0 01/08/18 04:45 66 16 91/41 98 Nasal Cannula 2.0 01/08/18 04:30 66 13 87/36 98 Nasal Cannula 2.0 01/08/18 04:15 67 16 87/36 97 Nasal Cannula 2.0 01/08/18 04:00 98.2 67 14 97/43 98 Nasal Cannula 2.0 98.2 01/08/18 04:00 90/41 01/08/18 04:00 67 01/08/18 03:45 67 14 97/23 98 Nasal Cannula 2.0 01/08/18 03:30 72 16 97/23 97 Nasal Cannula 2.0 01/08/18 03:15 65 13 94/40 99 Nasal Cannula 2.0 01/08/18 03:00 64 13 94/40 99 Nasal Cannula 2.0 01/08/18 03:00 94/40 18 02:45 67 15 94/40 98 Nasal Cannula 2.0 01/08/18 02:30 66 15 96/44 98 Nasal Cannula 2.0 01/08/18 02:15 69 15 92/32 98 Nasal Cannula 2.0 01/08/18 02:00 69 19 92/32 97 Nasal Cannula 2.0 01/08/18 02:00 92/32 01/08/18 01:45 66 14 89/62 98 Nasal Cannula 2.0 01/08/18 01:30 66 18 89/62 97 Nasal Cannula 2.0 01/08/18 01:15 71 12 85/34 96 Nasal Cannula 2.0 18 01:08 91/43 01/08/18 01:00 85/43 01/08/18 01:00 67 13 85/43 96 Nasal Cannula 2.0 01/08/18 00:45 71 14 91/43 96 Nasal Cannula 2.0 01/08/18 00:30 68 14 91/43 96 Nasal Cannula 2.0 01/08/18 00:15 79 19 91/43 99 Nasal Cannula 2.0 01/08/18 00:00 73 01/08/18 00:00 98.5 73 15 88/41 99 Nasal Cannula 2.0 98.5 01/08/18 00:00 88/41 01/07/18 23:45 70 13 88/41 99 Nasal Cannula 2.0 01/07/18 23:30 69 12 104/44 99 Nasal Cannula 2.0 01/07/18 23:15 70 13 104/44 98 Nasal Cannula 2.0 01/07/18 23:00 75 16 94/48 98 Nasal Cannula 2.0 01/07/18 23:00 94/48 01/07/18 22:45 72 14 94/48 98 Nasal Cannula 2.0 01/07/18 22:30 70 12 95/41 98 Nasal Cannula 2.0 01/07/18 22:15 69 14 95/41 98 Nasal Cannula 2.0 01/07/18 22:00 110/47 01/07/18 22:00 77 16 110/47 97 Nasal Cannula 2.0 01/07/18 21:55 118/50 01/07/18 21:45 75 15 110/47 97 Nasal Cannula 2.0 01/07/18 21:30 67 16 118/50 98 Nasal Cannula 2.0 01/07/18 21:15 61 17 104/64 97 Nasal Cannula 2.0 01/07/18 21:00 75 18 71/42 97 Nasal Cannula 2.0 01/07/18 20:45 66 18 71/42 96 Nasal Cannula 2.0 01/07/18 20:30 71 20 117/40 99 Nasal Cannula 2.0 General Appearance: no apparent distress, alert, obese Neck: supple Cardiovascular: normal rate, regular rhythm Respiratory/Chest: lungs clear, normal breath sounds Abdomen: normal bowel sounds, non tender, soft Extremities: moderate edema Intake and Output 01/07/18 01/08/18 19:00 07:00 Intake Total 1458.85 ml 1537.5 ml Output Total 355 ml 600 ml Balance 1103.85 ml 937.5 ml IV Total 1458.85 ml 1537.5 ml Output Urine Total 355 ml 600 ml Laboratory Tests Test 01/07/18 21:00 01/08/18 04:00 01/08/18 05:00 01/08/18 14:30 White Blood Count 13.2 K/UL (4.8-10.8) H 9.2 K/UL (4.8-10.8) Red Blood Count 3.34 M/UL (4.20-5.40) L 2.97 M/UL (4.20-5.40) L Hemoglobin 9.7 G/DL (12.0-16.0) L 8.7 G/DL (12.0-16.0) L Hematocrit 28.9 % (37.0-47.0) L 26.3 % (37.0-47.0) L Mean Corpuscular Volume 86 FL (80-99) 88 FL (80-99) Mean Corpuscular Hemoglobin 29.0 PG (27.0-31.0) 29.2 PG (27.0-31.0) Mean Corpuscular Hemoglobin Concent 33.5 G/DL (32.0-36.0) 33.1 G/DL (32.0-36.0) Red Cell Distribution Width 15.4 % (11.6-14.8) H 15.5 % (11.6-14.8) H Platelet Count 60 K/UL (150-450) L 47 K/UL (150-450) L Mean Platelet Volume 7.4 FL (6.5-10.1) 8.9 FL (6.5-10.1) Neutrophils (%) (Auto) % (45.0-75.0) % (45.0-75.0) Lymphocytes (%) (Auto) % (20.0-45.0) % (20.0-45.0) Monocytes (%) (Auto) % (1.0-10.0) % (1.0-10.0) Eosinophils (%) (Auto) % (0.0-3.0) % (0.0-3.0) Basophils (%) (Auto) % (0.0-2.0) % (0.0-2.0) Differential Total Cells Counted 100 100 Neutrophils % (Manual) 72 % (45-75) 77 % (45-75) H Lymphocytes % (Manual) 15 % (20-45) L 13 % (20-45) L Monocytes % (Manual) 7 % (1-10) 9 % (1-10) Eosinophils % (Manual) 3 % (0-3) 1 % (0-3) Basophils % (Manual) 1 % (0-2) 0 % (0-2) Band Neutrophils 2 % (0-8) 0 % (0-8) Platelet Estimate Decreased L Decreased L Platelet Morphology Normal Normal Anisocytosis 1+ 1+ Prothrombin Time 15.4 SEC (9.30-11.50) H 15.7 SEC (9.30-11.50) H Prothromb Time International Ratio 1.5 (0.9-1.1) H 1.5 (0.9-1.1) H Activated Partial Thromboplast Time 46 SEC (23-33) H 52 SEC (23-33) H Sodium Level 134 MMOL/L (136-145) L Potassium Level 3.9 MMOL/L (3.5-5.1) Chloride Level 102 MMOL/L (98-107) Carbon Dioxide Level 25 MMOL/L (21-32) Anion Gap 7 mmol/L (5-15) Blood Urea Nitrogen 33 mg/dL (7-18) H Creatinine 2.0 MG/DL (0.55-1.30) H Estimat Glomerular Filtration Rate mL/min (>60) Glucose Level 167 MG/DL (74-106) H Calcium Level 7.6 MG/DL (8.5-10.1) L Phosphorus Level 3.4 MG/DL (2.5-4.9) Magnesium Level 1.7 MG/DL (1.8-2.4) L Iron Level 63 ug/dL (50-175) Total Iron Binding Capacity 113 ug/dL (250-450) L Percent Iron Saturation 56 % (15-50) H Unsaturated Iron Binding 50 ug/dL (112-346) L Ferritin 126 NG/ML (8-388) Total Bilirubin 2.8 MG/DL (0.2-1.0) H Direct Bilirubin 1.4 MG/DL (0.0-0.3) H Aspartate Amino Transf (AST/SGOT) 49 U/L (15-37) H Alanine Aminotransferase (ALT/SGPT) 30 U/L (12-78) Alkaline Phosphatase 93 U/L (46-116) Total Protein 5.5 G/DL (6.4-8.2) L Albumin 2.4 G/DL (3.4-5.0) L Globulin 3.1 g/dL Albumin/Globulin Ratio 0.8 (1.0-2.7) L Vitamin B12 Level 1075 PG/ML (193-986) H Folate 5.2 NG/ML (8.6-58.9) L Hypochromasia 2+ Urine Eosinophils None seen Test 01/08/18 17:55 Random Vancomycin Level 11.7 ug/mL Microbiology Date/Time Source Procedure Growth Status 01/05/18 21:00 Urine,Clean Catch Urine Culture - Preliminary Providencia Stuartii Streptococcus Species Resulted Tenzin Ford MD January 08, 2018 20:23
[2018-01-08] MEDS ORDERED: Vancomycin 1.5 GM/D5W 250ML IVPB ONE (21:00)
[2018-01-09] VITALS (44 sets, daily range): BP systolic 80–109; BP diastolic 32–93
[2018-01-09 05:08] LABS: HEMATOCRIT 23.8 % (37.0-47.0); HEMOGLOBIN 7.8 G/DL (12.0-16.0); MEAN CORPUSCULAR VOLUME 89 FL (80-99); PLATELET COUNT 40 K/UL (150-450); RED BLOOD COUNT 2.68 M/UL (4.20-5.40); RED CELL DISTRIBUTION WIDTH 16.2 % (11.6-14.8); WHITE BLOOD COUNT 7.6 K/UL (4.8-10.8)
[2018-01-09] MEDS: D5NS 1,000 ML IV SCH (05:13)
[2018-01-09 05:47] LABS: ALANINE AMINOTRANSFERASE 25 U/L (12-78); ALBUMIN 1.9 G/DL (3.4-5.0); ALBUMIN/GLOBULIN RATIO 0.6 (1.0-2.7); ALKALINE PHOSPHATASE 81 U/L (46-116); ANION GAP 5 mmol/L (5-15); ASPARTATE AMINO TRANSFERASE 51 U/L (15-37); BILIRUBIN,TOTAL 2.8 MG/DL (0.2-1.0); BLOOD UREA NITROGEN 31 mg/dL (7-18); CALCIUM 7.5 MG/DL (8.5-10.1); CARBON DIOXIDE 26 MMOL/L (21-32); CHLORIDE 105 MMOL/L (98-107); CREATININE 2.1 MG/DL (0.55-1.30); PHOSPHORUS 3.3 MG/DL (2.5-4.9); SODIUM 136 MMOL/L (136-145)
[2018-01-09 06:22] LABS: INR 1.5 (0.9-1.1)
[2018-01-09] MEDS: Piperacillin/Tazobactam 3.375 GM in D5W 110 ML IVPB SCH ×3 (06:28→21:42)
[2018-01-09 06:38] LABS: BILIRUBIN,DIRECT 1.4 MG/DL (0.0-0.3)
[2018-01-09] MEDS: Midodrine 10mg tab ORAL SCH ×3 (09:00→18:25)
[2018-01-09] MEDS: Vitamin A&D Oint 2oz Tube TOPIC SCH ×2 (09:00→20:30)
[2018-01-09] MEDS: Pantoprazole Inj IV SCH ×2 (09:00→20:30)
--- NOTE | 2018-01-09 11:52 | Pulmonolgy Critical Care Note ---
Critical Care - Asmt/Plan Problems: (1) Hemorrhagic shock (2) GI bleed (3) Coagulopathy (4) ATN (acute tubular necrosis) (5) History of breast cancer (6) History of pulmonary embolism (7) Morbid obesity Respiratory: monitor respiratory rate, adjust FIO2, CXR Cardiac: continue pressors, continue to monitor HR/BP Renal: F/U I&O Infectious Disease: check cultures Gastrointestinal: hold feedings Endocrine: monitor blood sugar, check HgA1C Hematologic: monitor H/H, transfuse if hgb<8.5 Neurologic: PRN Morphine, keep patient comfortable Affect: PRN ativan Prophylaxis: Protonix Notes Reviewed: car jockey, cardio Discussed with: nurses, consultants, social work case managerbusiness affairs manager - Objective Last 24 Hour Vital Signs Date Time Temp Pulse Resp B/P (MAP) Pulse Ox O2 Delivery O2 Flow Rate FiO2 01/09/18 11:00 90/40 01/09/18 11:00 79 21 99/40 98 Nasal Cannula 2.0 01/09/18 10:30 80 21 93/35 98 Nasal Cannula 2.0 01/09/18 10:00 92/35 01/09/18 10:00 73 21 80/32 98 Nasal Cannula 2.0 01/09/18 09:30 77 21 87/33 98 Nasal Cannula 2.0 01/09/18 09:00 75 21 92/34 98 Nasal Cannula 2.0 01/09/18 09:00 89/33 01/09/18 08:30 71 21 89/40 98 Nasal Cannula 2.0 01/09/18 08:16 96 Nasal Cannula 2.0 28 01/09/18 08:16 Nasal Cannula 2.0 28 01/09/18 08:00 95/40 01/09/18 08:00 98.2 72 21 90/33 98 Nasal Cannula 2.0 98.2 01/09/18 08:00 75 01/09/18 07:00 97.9 68 16 93/36 96 Nasal Cannula 2.0 97.9 01/09/18 07:00 93/36 01/09/18 06:30 71 21 87/33 98 Nasal Cannula 2.0 01/09/18 06:00 68 14 87/34 96 Nasal Cannula 2.0 01/09/18 06:00 87/34 01/09/18 05:30 66 14 91/40 98 Nasal Cannula 2.0 01/09/18 05:00 69 15 84/39 98 Nasal Cannula 2.0 01/09/18 05:00 84/42 01/09/18 04:30 67 15 84/42 100 Nasal Cannula 2.0 01/09/18 04:00 71 01/09/18 04:00 98.0 71 21 103/36 98 Nasal Cannula 2.0 98.0 01/09/18 04:00 79/34 01/09/18 03:30 71 21 85/38 98 Nasal Cannula 2.0 01/09/18 03:30 99/42 01/09/18 03:00 88/39 01/09/18 03:00 69 21 88/93 98 Nasal Cannula 2.0 01/09/18 02:30 70 21 86/42 98 Nasal Cannula 2.0 01/09/18 02:30 90/37 01/09/18 02:00 71 23 90/37 97 Nasal Cannula 2.0 01/09/18 02:00 92/40 01/09/18 01:30 68 18 92/40 98 Nasal Cannula 2.0 01/09/18 01:00 95/39 01/09/18 01:00 69 20 95/39 98 Nasal Cannula 2.0 01/09/18 00:30 101/39 01/09/18 00:30 69 19 101/39 97 Nasal Cannula 2.0 01/09/18 00:00 89 01/09/18 00:00 102/44 01/09/18 00:00 66 20 92/37 99 Nasal Cannula 2.0 01/08/18 23:30 100/42 01/08/18 23:30 61 18 89/42 97 Nasal Cannula 2.0 01/08/18 23:00 61 20 95/40 97 Nasal Cannula 2.0 18 23:00 95/40 18 22:30 64 17 93/44 98 Nasal Cannula 2.0 01/08/18 22:00 65 14 94/43 98 Nasal Cannula 2.0 18 21:42 91/40 18 21:30 60 14 89/42 99 Nasal Cannula 2.0 01/08/18 21:15 64 16 91/40 99 Nasal Cannula 2.0 18 21:00 63 15 91/40 98 Nasal Cannula 2.0 01/08/18 21:00 91/40 01/08/18 20:45 72 16 91/42 98 Nasal Cannula 2.0 01/08/18 20:30 57 16 100/59 99 Nasal Cannula 2.0 18 20:30 100/59 18 20:00 59 01/08/18 20:00 97.3 56 12 107/46 100 Nasal Cannula 2.0 97.3 01/08/18 20:00 107/46 01/08/18 19:30 54 14 101/47 100 Nasal Cannula 2.0 01/08/18 19:23 Nasal Cannula 2.0 28 01/08/18 19:23 100 Nasal Cannula 2.0 28 01/08/18 19:00 100/40 01/08/18 19:00 55 11 100/40 100 Nasal Cannula 2.0 01/08/18 18:30 57 14 109/44 98 Nasal Cannula 2.0 01/08/18 18:00 61 16 102/41 100 Nasal Cannula 2.0 01/08/18 18:00 102/41 01/08/18 17:30 54 14 98/44 100 Nasal Cannula 2.0 01/08/18 17:00 56 16 103/44 99 Nasal Cannula 2.0 01/08/18 17:00 103/44 01/08/18 16:30 64 16 86/45 98 Nasal Cannula 2.0 01/08/18 16:00 89/44 01/08/18 16:00 98.1 64 17 89/44 96 Nasal Cannula 2.0 98.1 01/08/18 16:00 58 18 15:45 89/44 18 15:30 60 15 86/40 99 Nasal Cannula 2.0 01/08/18 15:00 60 16 88/43 99 Nasal Cannula 2.0 18 15:00 88/43 18 14:30 59 15 85/50 99 Nasal Cannula 2.0 01/08/18 14:00 66 17 90/43 99 Nasal Cannula 2.0 01/08/18 14:00 90/43 18 13:30 58 16 91/58 99 Nasal Cannula 2.0 18 13:00 87/46 01/08/18 13:00 74 20 87/46 100 Nasal Cannula 2.0 01/08/18 12:30 72 17 91/46 99 Nasal Cannula 2.0 01/08/18 12:00 60 01/08/18 12:00 97.8 72 18 88/41 99 Nasal Cannula 2.0 97.8 01/08/18 12:00 88/41 Status: awake Condition: grave HEENT: atraumatic Lungs: chest wall tender Heart: HR/BP stable, regular Abdomen: active bowel sounds Extremities: no C/C/E, edema Decubiti: location Critical Care - Subjective ROS Limited/Unobtainable: No Interval Events: getting blood now Condition: critical EKG Rhythm: Sinus Rhythm FI02: 28 I&O: Intake and Output 01/08/18 01/09/18 19:00 07:00 Intake Total 1474.5 ml 853.170 ml Output Total 430 ml 270 ml Balance 1044.5 ml 583.170 ml Intake Oral 250 ml 30 ml IV Total 1174.5 ml 823.170 ml Other 50 ml Output Urine Total 430 ml 270 ml CXR: no change Labs: Laboratory Tests Test 01/08/18 14:30 01/08/18 17:55 01/09/18 04:00 Urine Eosinophils None seen Random Vancomycin Level 11.7 ug/mL White Blood Count 7.6 K/UL (4.8-10.8) Red Blood Count 2.68 M/UL (4.20-5.40) L Hemoglobin 7.8 G/DL (12.0-16.0) L Hematocrit 23.8 % (37.0-47.0) L Mean Corpuscular Volume 89 FL (80-99) Mean Corpuscular Hemoglobin 29.2 PG (27.0-31.0) Mean Corpuscular Hemoglobin Concent 32.9 G/DL (32.0-36.0) Red Cell Distribution Width 16.2 % (11.6-14.8) H Platelet Count 40 K/UL (150-450) L Mean Platelet Volume 9.3 FL (6.5-10.1) Neutrophils (%) (Auto) % (45.0-75.0) Lymphocytes (%) (Auto) % (20.0-45.0) Monocytes (%) (Auto) % (1.0-10.0) Eosinophils (%) (Auto) % (0.0-3.0) Basophils (%) (Auto) % (0.0-2.0) Differential Total Cells Counted 100 Neutrophils % (Manual) 71 % (45-75) Lymphocytes % (Manual) 16 % (20-45) L Monocytes % (Manual) 7 % (1-10) Eosinophils % (Manual) 2 % (0-3) Basophils % (Manual) 1 % (0-2) Band Neutrophils 3 % (0-8) Platelet Estimate Decreased L Platelet Morphology Normal Hypochromasia 1+ Anisocytosis 1+ Prothrombin Time 15.9 SEC (9.30-11.50) H Prothromb Time International Ratio 1.5 (0.9-1.1) H Activated Partial Thromboplast Time 53 SEC (23-33) H Sodium Level 136 MMOL/L (136-145) Potassium Level 4.0 MMOL/L (3.5-5.1) Chloride Level 105 MMOL/L (98-107) Carbon Dioxide Level 26 MMOL/L (21-32) Anion Gap 5 mmol/L (5-15) Blood Urea Nitrogen 31 mg/dL (7-18) H Creatinine 2.1 MG/DL (0.55-1.30) H Estimat Glomerular Filtration Rate mL/min (>60) Glucose Level 130 MG/DL (74-106) H Calcium Level 7.5 MG/DL (8.5-10.1) L Phosphorus Level 3.3 MG/DL (2.5-4.9) Magnesium Level 1.5 MG/DL (1.8-2.4) L Total Bilirubin 2.8 MG/DL (0.2-1.0) H Direct Bilirubin 1.4 MG/DL (0.0-0.3) H Aspartate Amino Transf (AST/SGOT) 51 U/L (15-37) H Alanine Aminotransferase (ALT/SGPT) 25 U/L (12-78) Alkaline Phosphatase 81 U/L (46-116) Total Protein 4.9 G/DL (6.4-8.2) L Albumin 1.9 G/DL (3.4-5.0) L Globulin 3.0 g/dL Albumin/Globulin Ratio 0.6 (1.0-2.7) L Bakari Gilmore MD January 09, 2018 11:52
--- NOTE | 2018-01-09 13:41 | Internal Med Progress Note ---
Subjective Physician Name Perico Randolph Attending Physician Perico Randolph MD Current Medications Medications (Trade) Dose Ordered Sig/Miles Route PRN Reason Start Time Stop Time Status Last Admin Dose Admin Acetaminophen (Tylenol) 650 mg Q4H PRN ORAL fever 01/05/18 15:45 02/04/18 15:44 Chlorhexidine Gluconate (Destiny-Hex 2%) 1 applic DAILY@2000 TOPIC 01/06/18 20:00 02/05/18 19:59 01/08/18 20:00 Dextrose (Dextrose 50%) STAT PRN IV Hypoglycemia 01/05/18 15:45 02/04/18 15:44 Dextrose/Sodium Chloride 1,000 ml @ 50 mls/hr Q20H IV 01/06/18 16:00 02/04/18 15:59 01/09/18 05:13 Dopamine HCl/ Dextrose 250 ml @ 0 mls/hr Q24H IV 01/05/18 15:45 02/04/18 15:44 Midodrine (Pro-Amatine) 10 mg THREE TIMES A DAY ORAL 01/07/18 13:00 02/06/18 12:59 01/09/18 09:00 Morphine Sulfate (Morphine Sulfate) 2 mg Q4H PRN IVP For Pain 01/05/18 13:30 01/12/18 13:29 01/05/18 13:33 Nitroglycerin (Ntg) 0.4 mg Q5M X 3 DOSES PRN SL Prn Chest Pain 01/05/18 15:45 02/04/18 15:44 Norepinephrine Bitartrate 4 mg/ Dextrose 250 ml @ 0 mls/hr Q24H IV 01/07/18 21:30 02/04/18 19:59 01/09/18 02:00 Ondansetron HCl (Zofran) 4 mg Q6H PRN IVP Nausea & Vomiting 01/05/18 13:30 02/04/18 13:29 01/05/18 13:32 Pantoprazole (Protonix) 40 mg Q12HR IV 01/06/18 21:00 02/05/18 10:29 01/09/18 09:00 Piperacillin Sod/ Tazobactam Sod 3.375 gm/Dextrose 110 ml @ 27.5 mls/hr EVERY 8 HOURS IVPB 01/07/18 23:30 01/12/18 23:29 01/09/18 06:28 Polyethylene Glycol (Miralax) 17 gm HSPRN PRN ORAL Constipation 01/05/18 15:45 02/04/18 15:44 Rifaximin (Xifaxan) 550 mg EVERY 12 HOURS ORAL 01/06/18 22:00 01/13/18 21:59 01/09/18 09:00 Vancomycin HCl (Vanco rx to dose) 1 ea DAILY PRN MISC Per rx protocol 01/07/18 19:45 02/06/18 19:44 Vancomycin HCl/ Dextrose 250 ml @ 125 mls/hr Q48H IVPB 01/10/18 21:00 01/15/18 20:59 Vitamin A/Vitamin D (A & D Oint) 1 applic EVERY 12 HOURS TOPIC 01/06/18 21:00 02/05/18 20:59 01/09/18 09:00 Allergies: Coded Allergies: ASPIRIN (Unverified Allergy, Unknown, 01/05/18) Uncoded Allergies: TAPE (Allergy, Unknown, 01/05/18) Subjective awake, alert, responsive, NAD, Daughter at bedside , still in ICU, on pressor, Hgb: 7.8 Objective Last Vital Signs Date Time Temp Pulse Resp B/P (MAP) Pulse Ox O2 Delivery O2 Flow Rate FiO2 01/09/18 11:00 90/40 01/09/18 11:00 79 21 98 Nasal Cannula 2.0 01/09/18 08:16 28 01/09/18 08:00 98.2 98.2 Laboratory Tests Test 01/08/18 14:30 01/08/18 17:55 01/09/18 04:00 Urine Eosinophils None seen Random Vancomycin Level 11.7 ug/mL White Blood Count 7.6 K/UL (4.8-10.8) Red Blood Count 2.68 M/UL (4.20-5.40) L Hemoglobin 7.8 G/DL (12.0-16.0) L Hematocrit 23.8 % (37.0-47.0) L Mean Corpuscular Volume 89 FL (80-99) Mean Corpuscular Hemoglobin 29.2 PG (27.0-31.0) Mean Corpuscular Hemoglobin Concent 32.9 G/DL (32.0-36.0) Red Cell Distribution Width 16.2 % (11.6-14.8) H Platelet Count 40 K/UL (150-450) L Mean Platelet Volume 9.3 FL (6.5-10.1) Neutrophils (%) (Auto) % (45.0-75.0) Lymphocytes (%) (Auto) % (20.0-45.0) Monocytes (%) (Auto) % (1.0-10.0) Eosinophils (%) (Auto) % (0.0-3.0) Basophils (%) (Auto) % (0.0-2.0) Differential Total Cells Counted 100 Neutrophils % (Manual) 71 % (45-75) Lymphocytes % (Manual) 16 % (20-45) L Monocytes % (Manual) 7 % (1-10) Eosinophils % (Manual) 2 % (0-3) Basophils % (Manual) 1 % (0-2) Band Neutrophils 3 % (0-8) Platelet Estimate Decreased L Platelet Morphology Normal Hypochromasia 1+ Anisocytosis 1+ Prothrombin Time 15.9 SEC (9.30-11.50) H Prothromb Time International Ratio 1.5 (0.9-1.1) H Activated Partial Thromboplast Time 53 SEC (23-33) H Sodium Level 136 MMOL/L (136-145) Potassium Level 4.0 MMOL/L (3.5-5.1) Chloride Level 105 MMOL/L (98-107) Carbon Dioxide Level 26 MMOL/L (21-32) Anion Gap 5 mmol/L (5-15) Blood Urea Nitrogen 31 mg/dL (7-18) H Creatinine 2.1 MG/DL (0.55-1.30) H Estimat Glomerular Filtration Rate mL/min (>60) Glucose Level 130 MG/DL (74-106) H Calcium Level 7.5 MG/DL (8.5-10.1) L Phosphorus Level 3.3 MG/DL (2.5-4.9) Magnesium Level 1.5 MG/DL (1.8-2.4) L Total Bilirubin 2.8 MG/DL (0.2-1.0) H Direct Bilirubin 1.4 MG/DL (0.0-0.3) H Aspartate Amino Transf (AST/SGOT) 51 U/L (15-37) H Alanine Aminotransferase (ALT/SGPT) 25 U/L (12-78) Alkaline Phosphatase 81 U/L (46-116) Total Protein 4.9 G/DL (6.4-8.2) L Albumin 1.9 G/DL (3.4-5.0) L Globulin 3.0 g/dL Albumin/Globulin Ratio 0.6 (1.0-2.7) L Intake and Output 01/08/18 01/09/18 19:00 07:00 Intake Total 1474.5 ml 853.170 ml Output Total 430 ml 270 ml Balance 1044.5 ml 583.170 ml Intake Oral 250 ml 30 ml IV Total 1174.5 ml 823.170 ml Other 50 ml Output Urine Total 430 ml 270 ml Objective GENERAL: awake, responsive, in no acute distress. HEAD AND NECK: Pupils are reactive to light. Extraocular movements are intact. Neck was supple. No JVD. Triple-lumen catheter right IJ. LUNGS: Bilaterally no wheezing or rales. Decreased air in the bases. HEART: S1 and S2 RR. Distant heart sounds. No murmur ABDOMEN: Soft, nondistended, nontender, and morbidly obese. CHEST WALL: Bilateral mastectomy was noted, scar tissue and no sign of infection. EXTREMITIES: No cyanosis or clubbing. +2 edema. NEUROLOGIC: Cranial nerves II through XII grossly intact. Motor is 5/5 in all extremities. Gait is unable to obtain secondary to the patient's status. Assessment/Plan Assessment/Plan 1. Acute GI bleed. 2. Hemorrhagic shock. 3. Severe anemia most likely secondary to acute blood loss. 4. Acute kidney injury on chronic renal insufficiency. 5. Morbid obesity. 6. History of breast cancer. 7. Hyperkalemia. 8. Hypertension. 9. History of breast cancer, status post bilateral mastectomy. 10. Congestive heart failure, chronic with diastolic dysfunction. 11. Major depression disorder. 12. History of DVT and PE in past, Hold anticoagulation, Coumadin. 13. 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 14. Chronic hypotension. PLAN: in ICU. Dr. Gilmore, Pulmonary/Critical Care, Dr. Sascha Bond from Nephrology Dr. Tenzin Ford from Cardiology Dr. Yohannes Woodall from Gastroenterology. Monitor laboratory and Cultures. Discussed with the daughter extensively at bedside regarding plan of care and lab results. Code status is Full Code. POLST noted in the chart. bedrest and at this time for DVT prophylaxis, SCD. Abx: Vanco IV and Zosyn IV weaning Norepinephrine Drip Dc Sandostatin drip Transfuse 1 U PRBC. 2D Echo: Technically difficult study due pts resistance with poor endocardial and valvular definition . Normal left ventricular chamber size, systolic function and wall motion to extent visualized. Left ventricular ejection fraction estimated to be 65-70 %. No evidence of left ventricular hypertrophy by 2-D. No evidence of pericardial effusion. All other cardiac chamber sizes are within normal limits. Focal aortic valve sclerosis with adequate cusp excursion. Mildly Thickened mitral valve leaflets with normal excursion. Mildly Mitral annulus and aortic root calcification. Pulmonic valve not well visualized. Normal tricuspid valve structure. IVC at normal size without physiologic collapse. valvular definition appears poor A color flow and spectral Doppler study was performed and revealed: No aortic regurgitation. Trace mitral regurgitation. Mitral diastolic velocities suggest reduced left ventricular relaxation c/w mild LV diastolic dysfunction (Grade I ). Trace tricuspid regurgitation. Tricuspid systolic velocities suggests peak right ventricular systolic pressure of 29mmHg No Pulmonic regurgitation present. Perico Randolph MD January 09, 2018 13:41
--- NOTE | 2018-01-09 15:15 | General Progress Note ---
Assessment/Plan Status: stable, progressing Assessment/Plan mdd anxiety d/o buspar 10mg bid provided ro/st Subjective Date patient seen: January 09, 2018 Neurologic/Psychiatric: Reports: anxiety, emotional problems Allergies: Coded Allergies: ASPIRIN (Unverified Allergy, Unknown, 01/05/18) Uncoded Allergies: TAPE (Allergy, Unknown, 01/05/18) Objective Last 24 Hour Vital Signs Date Time Temp Pulse Resp B/P (MAP) Pulse Ox O2 Delivery O2 Flow Rate FiO2 01/09/18 11:00 90/40 01/09/18 11:00 79 21 99/40 98 Nasal Cannula 2.0 01/09/18 10:30 80 21 93/35 98 Nasal Cannula 2.0 01/09/18 10:00 92/35 01/09/18 10:00 73 21 80/32 98 Nasal Cannula 2.0 01/09/18 09:30 77 21 87/33 98 Nasal Cannula 2.0 01/09/18 09:00 75 21 92/34 98 Nasal Cannula 2.0 01/09/18 09:00 89/33 01/09/18 08:30 71 21 89/40 98 Nasal Cannula 2.0 01/09/18 08:16 96 Nasal Cannula 2.0 28 01/09/18 08:16 Nasal Cannula 2.0 28 01/09/18 08:00 95/40 01/09/18 08:00 98.2 72 21 90/33 98 Nasal Cannula 2.0 98.2 01/09/18 08:00 75 01/09/18 07:00 97.9 68 16 93/36 96 Nasal Cannula 2.0 97.9 01/09/18 07:00 93/36 01/09/18 06:30 71 21 87/33 98 Nasal Cannula 2.0 01/09/18 06:00 68 14 87/34 96 Nasal Cannula 2.0 01/09/18 06:00 87/34 01/09/18 05:30 66 14 91/40 98 Nasal Cannula 2.0 01/09/18 05:00 69 15 84/39 98 Nasal Cannula 2.0 01/09/18 05:00 84/42 01/09/18 04:30 67 15 84/42 100 Nasal Cannula 2.0 01/09/18 04:00 71 01/09/18 04:00 98.0 71 21 103/36 98 Nasal Cannula 2.0 98.0 01/09/18 04:00 79/34 18 03:30 71 21 85/38 98 Nasal Cannula 2.0 01/09/18 03:30 99/42 01/09/18 03:00 88/39 01/09/18 03:00 69 21 88/93 98 Nasal Cannula 2.0 01/09/18 02:30 70 21 86/42 98 Nasal Cannula 2.0 01/09/18 02:30 90/37 01/09/18 02:00 71 23 90/37 97 Nasal Cannula 2.0 01/09/18 02:00 92/40 01/09/18 01:30 68 18 92/40 98 Nasal Cannula 2.0 01/09/18 01:00 95/39 01/09/18 01:00 69 20 95/39 98 Nasal Cannula 2.0 01/09/18 00:30 101/39 01/09/18 00:30 69 19 101/39 97 Nasal Cannula 2.0 01/09/18 00:00 89 01/09/18 00:00 102/44 01/09/18 00:00 66 20 92/37 99 Nasal Cannula 2.0 01/08/18 23:30 100/42 01/08/18 23:30 61 18 89/42 97 Nasal Cannula 2.0 01/08/18 23:00 61 20 95/40 97 Nasal Cannula 2.0 01/08/18 23:00 95/40 18 22:30 64 17 93/44 98 Nasal Cannula 2.0 01/08/18 22:00 65 14 94/43 98 Nasal Cannula 2.0 18 21:42 91/40 18 21:30 60 14 89/42 99 Nasal Cannula 2.0 18 21:15 64 16 91/40 99 Nasal Cannula 2.0 18 21:00 63 15 91/40 98 Nasal Cannula 2.0 01/08/18 21:00 91/40 01/08/18 20:45 72 16 91/42 98 Nasal Cannula 2.0 18 20:30 57 16 100/59 99 Nasal Cannula 2.0 18 20:30 100/59 01/08/18 20:00 59 5/17/18 20:00 97.3 56 12 107/46 100 Nasal Cannula 2.0 97.3 01/08/18 20:00 107/46 18 19:30 54 14 101/47 100 Nasal Cannula 2.0 01/08/18 19:23 Nasal Cannula 2.0 28 01/08/18 19:23 100 Nasal Cannula 2.0 28 01/08/18 19:00 100/40 01/08/18 19:00 55 11 100/40 100 Nasal Cannula 2.0 01/08/18 18:30 57 14 109/44 98 Nasal Cannula 2.0 01/08/18 18:00 61 16 102/41 100 Nasal Cannula 2.0 01/08/18 18:00 102/41 01/08/18 17:30 54 14 98/44 100 Nasal Cannula 2.0 01/08/18 17:00 56 16 103/44 99 Nasal Cannula 2.0 01/08/18 17:00 103/44 01/08/18 16:30 64 16 86/45 98 Nasal Cannula 2.0 01/08/18 16:00 89/44 01/08/18 16:00 98.1 64 17 89/44 96 Nasal Cannula 2.0 98.1 01/08/18 16:00 58 18 15:45 89/44 18 15:30 60 15 86/40 99 Nasal Cannula 2.0 Intake and Output 01/08/18 01/09/18 19:00 07:00 Intake Total 1474.5 ml 853.170 ml Output Total 430 ml 270 ml Balance 1044.5 ml 583.170 ml Intake Oral 250 ml 30 ml IV Total 1174.5 ml 823.170 ml Other 50 ml Output Urine Total 430 ml 270 ml Laboratory Tests 01/08/18 17:55: Random Vancomycin Level 11.7 01/09/18 04:00: White Blood Count 7.6, Red Blood Count 2.68L, Hemoglobin 7.8L, Hematocrit 23.8L , Mean Corpuscular Volume 89, Mean Corpuscular Hemoglobin 29.2, Mean Corpuscular Hemoglobin Concent 32.9, Red Cell Distribution Width 16.2H, Platelet Count 40L, Mean Platelet Volume 9.3, Neutrophils (%) (Auto) , Lymphocytes (%) (Auto) , Monocytes (%) (Auto) , Eosinophils (%) (Auto) , Basophils (%) (Auto) , Differential Total Cells Counted 100, Neutrophils % ( Manual) 71, Lymphocytes % (Manual) 16L, Monocytes % (Manual) 7, Eosinophils % ( Manual) 2, Basophils % (Manual) 1, Band Neutrophils 3, Platelet Estimate DecreasedL, Platelet Morphology Normal, Hypochromasia 1+, Anisocytosis 1+, Prothrombin Time 15.9H, Prothromb Time International Ratio 1.5H, Activated Partial Thromboplast Time 53H, Sodium Level 136, Potassium Level 4.0, Chloride Level 105, Carbon Dioxide Level 26, Anion Gap 5, Blood Urea Nitrogen 31H, Creatinine 2.1H, Estimat Glomerular Filtration Rate , Glucose Level 130H, Calcium Level 7.5L, Phosphorus Level 3.3, Magnesium Level 1.5L, Total Bilirubin 2.8H, Direct Bilirubin 1.4H, Aspartate Amino Transf (AST/SGOT) 51H, Alanine Aminotransferase (ALT/SGPT) 25, Alkaline Phosphatase 81, Total Protein 4.9L, Albumin 1.9L, Globulin 3.0, Albumin/Globulin Ratio 0.6L Height (Feet): 5 Height (Inches): 4.00 Weight (Pounds): 339 General Appearance: WD/WN, no apparent distress, alert Neurologic: oriented x 3 - more confused than baseline, responsive, depressed affect Cady Brower M.D. January 09, 2018 15:15
[2018-01-09] MEDS: DOPamine 400mg/250ml 250 ML IV SCH (15:45)
--- NOTE | 2018-01-09 15:58 | Nephrology Progress Note ---
Assessment/Plan Problem List: (1) ATN (acute tubular necrosis) (2) Hypotension (3) Hemorrhagic shock (4) GI bleed (5) History of pulmonary embolism (6) History of breast cancer Assessment acute renal failure cr stable @ 2.1 acute GI bleed Hemmorhagic anemia hypotension remains on pressors h/o breast ca h/o Pulmonary embolism Plan transfuse hemodynamic support on midodrine monitor renal parameters cortisol level 9.8 avoid nephrotoxics per orders per GI discussed with RN Subjective ROS Limited/Unobtainable: No Constitutional: Reports: malaise Objective Objective Last 24 Hour Vital Signs Date Time Temp Pulse Resp B/P (MAP) Pulse Ox O2 Delivery O2 Flow Rate FiO2 01/09/18 11:00 90/40 01/09/18 11:00 79 21 99/40 98 Nasal Cannula 2.0 01/09/18 10:30 80 21 93/35 98 Nasal Cannula 2.0 01/09/18 10:00 92/35 01/09/18 10:00 73 21 80/32 98 Nasal Cannula 2.0 01/09/18 09:30 77 21 87/33 98 Nasal Cannula 2.0 01/09/18 09:00 75 21 92/34 98 Nasal Cannula 2.0 01/09/18 09:00 89/33 01/09/18 08:30 71 21 89/40 98 Nasal Cannula 2.0 01/09/18 08:16 96 Nasal Cannula 2.0 28 01/09/18 08:16 Nasal Cannula 2.0 28 01/09/18 08:00 95/40 01/09/18 08:00 98.2 72 21 90/33 98 Nasal Cannula 2.0 98.2 01/09/18 08:00 75 01/09/18 07:00 97.9 68 16 93/36 96 Nasal Cannula 2.0 97.9 01/09/18 07:00 93/36 01/09/18 06:30 71 21 87/33 98 Nasal Cannula 2.0 01/09/18 06:00 68 14 87/34 96 Nasal Cannula 2.0 01/09/18 06:00 87/34 01/09/18 05:30 66 14 91/40 98 Nasal Cannula 2.0 01/09/18 05:00 69 15 84/39 98 Nasal Cannula 2.0 01/09/18 05:00 84/42 01/09/18 04:30 67 15 84/42 100 Nasal Cannula 2.0 01/09/18 04:00 71 01/09/18 04:00 98.0 71 21 103/36 98 Nasal Cannula 2.0 98.0 01/09/18 04:00 79/34 01/09/18 03:30 71 21 85/38 98 Nasal Cannula 2.0 01/09/18 03:30 99/42 01/09/18 03:00 88/39 01/09/18 03:00 69 21 88/93 98 Nasal Cannula 2.0 01/09/18 02:30 70 21 86/42 98 Nasal Cannula 2.0 01/09/18 02:30 90/37 01/09/18 02:00 71 23 90/37 97 Nasal Cannula 2.0 01/09/18 02:00 92/40 01/09/18 01:30 68 18 92/40 98 Nasal Cannula 2.0 01/09/18 01:00 95/39 01/09/18 01:00 69 20 95/39 98 Nasal Cannula 2.0 01/09/18 00:30 101/39 01/09/18 00:30 69 19 101/39 97 Nasal Cannula 2.0 01/09/18 00:00 89 01/09/18 00:00 102/44 01/09/18 00:00 66 20 92/37 99 Nasal Cannula 2.0 01/08/18 23:30 100/42 01/08/18 23:30 61 18 89/42 97 Nasal Cannula 2.0 01/08/18 23:00 61 20 95/40 97 Nasal Cannula 2.0 01/08/18 23:00 95/40 01/08/18 22:30 64 17 93/44 98 Nasal Cannula 2.0 01/08/18 22:00 65 14 94/43 98 Nasal Cannula 2.0 01/08/18 21:42 91/40 01/08/18 21:30 60 14 89/42 99 Nasal Cannula 2.0 01/08/18 21:15 64 16 91/40 99 Nasal Cannula 2.0 01/08/18 21:00 63 15 91/40 98 Nasal Cannula 2.0 01/08/18 21:00 91/40 01/08/18 20:45 72 16 91/42 98 Nasal Cannula 2.0 01/08/18 20:30 57 16 100/59 99 Nasal Cannula 2.0 01/08/18 20:30 100/59 01/08/18 20:00 59 01/08/18 20:00 97.3 56 12 107/46 100 Nasal Cannula 2.0 97.3 01/08/18 20:00 107/46 01/08/18 19:30 54 14 101/47 100 Nasal Cannula 2.0 01/08/18 19:23 Nasal Cannula 2.0 28 01/08/18 19:23 100 Nasal Cannula 2.0 28 01/08/18 19:00 100/40 01/08/18 19:00 55 11 100/40 100 Nasal Cannula 2.0 01/08/18 18:30 57 14 109/44 98 Nasal Cannula 2.0 01/08/18 18:00 61 16 102/41 100 Nasal Cannula 2.0 01/08/18 18:00 102/41 01/08/18 17:30 54 14 98/44 100 Nasal Cannula 2.0 01/08/18 17:00 56 16 103/44 99 Nasal Cannula 2.0 01/08/18 17:00 103/44 01/08/18 16:30 64 16 86/45 98 Nasal Cannula 2.0 01/08/18 16:00 89/44 01/08/18 16:00 98.1 64 17 89/44 96 Nasal Cannula 2.0 98.1 01/08/18 16:00 58 Intake and Output 01/08/1818 19:00 07:00 Intake Total 1474.5 ml 853.170 ml Output Total 430 ml 270 ml Balance 1044.5 ml 583.170 ml Intake Oral 250 ml 30 ml IV Total 1174.5 ml 823.170 ml Other 50 ml Output Urine Total 430 ml 270 ml Laboratory Tests 01/08/18 17:55: Random Vancomycin Level 11.7 01/09/18 04:00: White Blood Count 7.6, Red Blood Count 2.68L, Hemoglobin 7.8L, Hematocrit 23.8L , Mean Corpuscular Volume 89, Mean Corpuscular Hemoglobin 29.2, Mean Corpuscular Hemoglobin Concent 32.9, Red Cell Distribution Width 16.2H, Platelet Count 40L, Mean Platelet Volume 9.3, Neutrophils (%) (Auto) , Lymphocytes (%) (Auto) , Monocytes (%) (Auto) , Eosinophils (%) (Auto) , Basophils (%) (Auto) , Differential Total Cells Counted 100, Neutrophils % ( Manual) 71, Lymphocytes % (Manual) 16L, Monocytes % (Manual) 7, Eosinophils % ( Manual) 2, Basophils % (Manual) 1, Band Neutrophils 3, Platelet Estimate DecreasedL, Platelet Morphology Normal, Hypochromasia 1+, Anisocytosis 1+, Prothrombin Time 15.9H, Prothromb Time International Ratio 1.5H, Activated Partial Thromboplast Time 53H, Sodium Level 136, Potassium Level 4.0, Chloride Level 105, Carbon Dioxide Level 26, Anion Gap 5, Blood Urea Nitrogen 31H, Creatinine 2.1H, Estimat Glomerular Filtration Rate , Glucose Level 130H, Calcium Level 7.5L, Phosphorus Level 3.3, Magnesium Level 1.5L, Total Bilirubin 2.8H, Direct Bilirubin 1.4H, Aspartate Amino Transf (AST/SGOT) 51H, Alanine Aminotransferase (ALT/SGPT) 25, Alkaline Phosphatase 81, Total Protein 4.9L, Albumin 1.9L, Globulin 3.0, Albumin/Globulin Ratio 0.6L Height (Feet): 5 Height (Inches): 4.00 Weight (Pounds): 339 General Appearance: no apparent distress Objective no change DARIA MCNEILL January 09, 2018 15:58
--- NOTE | 2018-01-09 18:19 | General Progress Note ---
Assessment/Plan Assessment/Plan Assessment - UGIB - clinically resolved, but still anemic and downward trend - Cirrhosis, from GRECO - No esophageal varcies on Jun 2017 EGD - h/o hepatic encephalopathy - coagulopathy (INR and platelets) - Chronic edema - h/o DVT/PE - off of coumadin now - hypotension, requiring pressors - Azotemia Recommendations - PO diet - at high anesthesia risk for EGD (due to both hypotension and poor breathing reserves) - no plans for Endoscopy at this time - not clear if benefits justify the risk - Consider IVC filter, since may no longer be a candidate for anticoagulation - Will give a 24-48 hour IV albumin trial --> may help wean off pressors - FFP and PRBC PRN - Xifaxan - BID PPI Subjective Allergies: Coded Allergies: ASPIRIN (Unverified Allergy, Unknown, 01/05/18) Uncoded Allergies: TAPE (Allergy, Unknown, 01/05/18) Subjective above noted still on pressors feels OK, but weak no abd pain no vomiting Objective Last 24 Hour Vital Signs Date Time Temp Pulse Resp B/P (MAP) Pulse Ox O2 Delivery O2 Flow Rate FiO2 01/09/18 16:30 75 16 91/41 97 Nasal Cannula 2.0 01/09/18 16:00 98.6 72 18 89/42 98 Nasal Cannula 2.0 98.6 01/09/18 16:00 78 01/09/18 16:00 91/41 01/09/18 15:45 90/40 01/09/18 15:30 83 20 101/46 99 Nasal Cannula 2.0 01/09/18 15:00 80 21 99/36 98 Nasal Cannula 2.0 01/09/18 15:00 98/35 01/09/18 14:00 101/45 01/09/18 14:00 75 19 99/40 98 Nasal Cannula 2.0 01/09/18 13:30 75 18 105/42 98 Nasal Cannula 2.0 01/09/18 13:00 82 21 95/41 98 Nasal Cannula 2.0 01/09/18 13:00 97/33 01/09/18 12:30 80 20 99/40 98 Nasal Cannula 2.0 01/09/18 12:00 92/40 01/09/18 12:00 80 01/09/18 12:00 98.2 72 21 90/33 98 Nasal Cannula 2.0 98.2 18 11:00 90/40 18 11:00 79 21 99/40 98 Nasal Cannula 2.0 01/09/18 10:30 80 21 93/35 98 Nasal Cannula 2.0 01/09/18 10:00 92/35 18 10:00 73 21 80/32 98 Nasal Cannula 2.0 01/09/18 09:30 77 21 87/33 98 Nasal Cannula 2.0 01/09/18 09:00 75 21 92/34 98 Nasal Cannula 2.0 01/09/18 09:00 89/33 01/09/18 08:30 71 21 89/40 98 Nasal Cannula 2.0 01/09/18 08:16 96 Nasal Cannula 2.0 28 01/09/18 08:16 Nasal Cannula 2.0 28 01/09/18 08:00 95/40 01/09/18 08:00 98.2 72 21 90/33 98 Nasal Cannula 2.0 98.2 01/09/18 08:00 75 01/09/18 07:00 97.9 68 16 93/36 96 Nasal Cannula 2.0 97.9 01/09/18 07:00 93/36 18 06:30 71 21 87/33 98 Nasal Cannula 2.0 01/09/18 06:00 68 14 87/34 96 Nasal Cannula 2.0 01/09/18 06:00 87/34 18 05:30 66 14 91/40 98 Nasal Cannula 2.0 01/09/18 05:00 69 15 84/39 98 Nasal Cannula 2.0 01/09/18 05:00 84/42 18 04:30 67 15 84/42 100 Nasal Cannula 2.0 01/09/18 04:00 71 18 04:00 98.0 71 21 103/36 98 Nasal Cannula 2.0 98.0 01/09/18 04:00 79/34 01/09/18 03:30 71 21 85/38 98 Nasal Cannula 2.0 18 03:30 99/42 01/09/18 03:00 88/39 18 03:00 69 21 88/93 98 Nasal Cannula 2.0 01/09/18 02:30 70 21 86/42 98 Nasal Cannula 2.0 01/09/18 02:30 90/37 18 02:00 71 23 90/37 97 Nasal Cannula 2.0 01/09/18 02:00 92/40 01/09/18 01:30 68 18 92/40 98 Nasal Cannula 2.0 01/09/18 01:00 95/39 01/09/18 01:00 69 20 95/39 98 Nasal Cannula 2.0 01/09/18 00:30 101/39 01/09/18 00:30 69 19 101/39 97 Nasal Cannula 2.0 01/09/18 00:00 89 01/09/18 00:00 102/44 01/09/18 00:00 66 20 92/37 99 Nasal Cannula 2.0 01/08/18 23:30 100/42 01/08/18 23:30 61 18 89/42 97 Nasal Cannula 2.0 01/08/18 23:00 61 20 95/40 97 Nasal Cannula 2.0 01/08/18 23:00 95/40 01/08/18 22:30 64 17 93/44 98 Nasal Cannula 2.0 01/08/18 22:00 65 14 94/43 98 Nasal Cannula 2.0 01/08/18 21:42 91/40 01/08/18 21:30 60 14 89/42 99 Nasal Cannula 2.0 01/08/18 21:15 64 16 91/40 99 Nasal Cannula 2.0 01/08/18 21:00 63 15 91/40 98 Nasal Cannula 2.0 01/08/18 21:00 91/40 01/08/18 20:45 72 16 91/42 98 Nasal Cannula 2.0 01/08/18 20:30 57 16 100/59 99 Nasal Cannula 2.0 01/08/18 20:30 100/59 18 20:00 59 01/08/18 20:00 97.3 56 12 107/46 100 Nasal Cannula 2.0 97.3 01/08/18 20:00 107/46 18 19:30 54 14 101/47 100 Nasal Cannula 2.0 01/08/18 19:23 Nasal Cannula 2.0 28 01/08/18 19:23 100 Nasal Cannula 2.0 28 01/08/18 19:00 100/40 01/08/18 19:00 55 11 100/40 100 Nasal Cannula 2.0 01/08/18 18:30 57 14 109/44 98 Nasal Cannula 2.0 Intake and Output 01/08/18 01/09/18 19:00 07:00 Intake Total 1474.5 ml 853.170 ml Output Total 430 ml 270 ml Balance 1044.5 ml 583.170 ml Intake Oral 250 ml 30 ml IV Total 1174.5 ml 823.170 ml Other 50 ml Output Urine Total 430 ml 270 ml Laboratory Tests 01/09/18 04:00: White Blood Count 7.6, Red Blood Count 2.68L, Hemoglobin 7.8L, Hematocrit 23.8L , Mean Corpuscular Volume 89, Mean Corpuscular Hemoglobin 29.2, Mean Corpuscular Hemoglobin Concent 32.9, Red Cell Distribution Width 16.2H, Platelet Count 40L, Mean Platelet Volume 9.3, Neutrophils (%) (Auto) , Lymphocytes (%) (Auto) , Monocytes (%) (Auto) , Eosinophils (%) (Auto) , Basophils (%) (Auto) , Differential Total Cells Counted 100, Neutrophils % ( Manual) 71, Lymphocytes % (Manual) 16L, Monocytes % (Manual) 7, Eosinophils % ( Manual) 2, Basophils % (Manual) 1, Band Neutrophils 3, Platelet Estimate DecreasedL, Platelet Morphology Normal, Hypochromasia 1+, Anisocytosis 1+, Prothrombin Time 15.9H, Prothromb Time International Ratio 1.5H, Activated Partial Thromboplast Time 53H, Sodium Level 136, Potassium Level 4.0, Chloride Level 105, Carbon Dioxide Level 26, Anion Gap 5, Blood Urea Nitrogen 31H, Creatinine 2.1H, Estimat Glomerular Filtration Rate , Glucose Level 130H, Calcium Level 7.5L, Phosphorus Level 3.3, Magnesium Level 1.5L, Total Bilirubin 2.8H, Direct Bilirubin 1.4H, Aspartate Amino Transf (AST/SGOT) 51H, Alanine Aminotransferase (ALT/SGPT) 25, Alkaline Phosphatase 81, Total Protein 4.9L, Albumin 1.9L, Globulin 3.0, Albumin/Globulin Ratio 0.6L Height (Feet): 5 Height (Inches): 4.00 Weight (Pounds): 339 Objective Obese and edematous WW NCAT supple CTA RRR abd soft ext (++) edema non focal neuro Khorrami,Payman MD January 09, 2018 18:19
--- NOTE | 2018-01-09 18:42 | Cardiology Progress Note ---
Assessment/Plan Assessment/Plan 1. Hypovolemic shock. 2. Anemia. 3. Gastrointestinal bleed. 4. History of deep venous thrombosis and pulmonary embolism, on chronic anticoagulation therapy. 5. History of breast cancer remotely, status post bilateral mastectomy. 6. Chronic borderline hypotension. 7. Morbid obesity. 8. Subacute renal insufficiency.cr 1.8-2.1 11/2017 but 1.3-1.5 07/2017 9. cirrhosis 10. thrombocytopenia bp chronic 90-100's range in 11/2017 bp is better bc neg urine cx + repeat cardiac enzyme min abn of ? sig with renal isnuf echo normal wall motion cortisol normal on ivf tapering off pressors slowly almost off noted no plans for egd still off anitcoag due to unkown risk fo recurrent gi bleed heme input noted Subjective Cardiovascular: Denies: chest pain, lightheadedness, palpitations Respiratory: Denies: shortness of breath Gastrointestinal/Abdominal: Denies: abdominal pain Genitourinary: Denies: burning Objective Last 24 Hour Vital Signs Date Time Temp Pulse Resp B/P (MAP) Pulse Ox O2 Delivery O2 Flow Rate FiO2 01/09/18 18:00 73 16 92/41 97 Nasal Cannula 2.0 01/09/18 17:30 75 18 97/39 97 Nasal Cannula 2.0 01/09/18 17:00 72 16 89/42 97 Nasal Cannula 2.0 01/09/18 16:30 75 16 91/41 97 Nasal Cannula 2.0 01/09/18 16:00 98.6 72 18 89/42 98 Nasal Cannula 2.0 98.6 01/09/18 16:00 78 01/09/18 16:00 91/41 01/09/18 15:45 90/40 01/09/18 15:30 83 20 101/46 99 Nasal Cannula 2.0 01/09/18 15:00 80 21 99/36 98 Nasal Cannula 2.0 01/09/18 15:00 98/35 01/09/18 14:00 101/45 01/09/18 14:00 75 19 99/40 98 Nasal Cannula 2.0 01/09/18 13:30 75 18 105/42 98 Nasal Cannula 2.0 01/09/18 13:00 82 21 95/41 98 Nasal Cannula 2.0 01/09/18 13:00 97/33 01/09/18 12:30 80 20 99/40 98 Nasal Cannula 2.0 01/09/18 12:00 92/40 01/09/18 12:00 80 01/09/18 12:00 98.2 72 21 90/33 98 Nasal Cannula 2.0 98.2 01/09/18 11:00 90/40 01/09/18 11:00 79 21 99/40 98 Nasal Cannula 2.0 01/09/18 10:30 80 21 93/35 98 Nasal Cannula 2.0 01/09/18 10:00 92/35 01/09/18 10:00 73 21 80/32 98 Nasal Cannula 2.0 01/09/18 09:30 77 21 87/33 98 Nasal Cannula 2.0 01/09/18 09:00 75 21 92/34 98 Nasal Cannula 2.0 01/09/18 09:00 89/33 01/09/18 08:30 71 21 89/40 98 Nasal Cannula 2.0 01/09/18 08:16 96 Nasal Cannula 2.0 28 01/09/18 08:16 Nasal Cannula 2.0 28 01/09/18 08:00 95/40 01/09/18 08:00 98.2 72 21 90/33 98 Nasal Cannula 2.0 98.2 01/09/18 08:00 75 01/09/18 07:00 97.9 68 16 93/36 96 Nasal Cannula 2.0 97.9 01/09/18 07:00 93/36 01/09/18 06:30 71 21 87/33 98 Nasal Cannula 2.0 01/09/18 06:00 68 14 87/34 96 Nasal Cannula 2.0 01/09/18 06:00 87/34 01/09/18 05:30 66 14 91/40 98 Nasal Cannula 2.0 01/09/18 05:00 69 15 84/39 98 Nasal Cannula 2.0 01/09/18 05:00 84/42 01/09/18 04:30 67 15 84/42 100 Nasal Cannula 2.0 01/09/18 04:00 71 01/09/18 04:00 98.0 71 21 103/36 98 Nasal Cannula 2.0 98.0 01/09/18 04:00 79/34 01/09/18 03:30 71 21 85/38 98 Nasal Cannula 2.0 01/09/18 03:30 99/42 01/09/18 03:00 88/39 01/09/18 03:00 69 21 88/93 98 Nasal Cannula 2.0 01/09/18 02:30 70 21 86/42 98 Nasal Cannula 2.0 01/09/18 02:30 90/37 01/09/18 02:00 71 23 90/37 97 Nasal Cannula 2.0 01/09/18 02:00 92/40 01/09/18 01:30 68 18 92/40 98 Nasal Cannula 2.0 01/09/18 01:00 95/39 01/09/18 01:00 69 20 95/39 98 Nasal Cannula 2.0 01/09/18 00:30 101/39 01/09/18 00:30 69 19 101/39 97 Nasal Cannula 2.0 01/09/18 00:00 89 01/09/18 00:00 102/44 01/09/18 00:00 66 20 92/37 99 Nasal Cannula 2.0 01/08/18 23:30 100/42 01/08/18 23:30 61 18 89/42 97 Nasal Cannula 2.0 01/08/18 23:00 61 20 95/40 97 Nasal Cannula 2.0 01/08/18 23:00 95/40 01/08/18 22:30 64 17 93/44 98 Nasal Cannula 2.0 01/08/18 22:00 65 14 94/43 98 Nasal Cannula 2.0 01/08/18 21:42 91/40 01/08/18 21:30 60 14 89/42 99 Nasal Cannula 2.0 01/08/18 21:15 64 16 91/40 99 Nasal Cannula 2.0 01/08/18 21:00 63 15 91/40 98 Nasal Cannula 2.0 01/08/18 21:00 91/40 01/08/18 20:45 72 16 91/42 98 Nasal Cannula 2.0 01/08/18 20:30 57 16 100/59 99 Nasal Cannula 2.0 18 20:30 100/59 18 20:00 59 18 20:00 97.3 56 12 107/46 100 Nasal Cannula 2.0 97.3 01/08/18 20:00 107/46 01/08/18 19:30 54 14 101/47 100 Nasal Cannula 2.0 01/08/18 19:23 Nasal Cannula 2.0 28 01/08/18 19:23 100 Nasal Cannula 2.0 28 01/08/18 19:00 100/40 01/08/18 19:00 55 11 100/40 100 Nasal Cannula 2.0 General Appearance: alert Neck: supple Cardiovascular: normal rate, regular rhythm Respiratory/Chest: crackles/rales Abdomen: normal bowel sounds, non tender, soft Extremities: moderate edema Intake and Output 01/08/18 01/09/18 19:00 07:00 Intake Total 1474.5 ml 853.170 ml Output Total 430 ml 270 ml Balance 1044.5 ml 583.170 ml Intake Oral 250 ml 30 ml IV Total 1174.5 ml 823.170 ml Other 50 ml Output Urine Total 430 ml 270 ml Laboratory Tests Test 01/09/18 04:00 White Blood Count 7.6 K/UL (4.8-10.8) Red Blood Count 2.68 M/UL (4.20-5.40) L Hemoglobin 7.8 G/DL (12.0-16.0) L Hematocrit 23.8 % (37.0-47.0) L Mean Corpuscular Volume 89 FL (80-99) Mean Corpuscular Hemoglobin 29.2 PG (27.0-31.0) Mean Corpuscular Hemoglobin Concent 32.9 G/DL (32.0-36.0) Red Cell Distribution Width 16.2 % (11.6-14.8) H Platelet Count 40 K/UL (150-450) L Mean Platelet Volume 9.3 FL (6.5-10.1) Neutrophils (%) (Auto) % (45.0-75.0) Lymphocytes (%) (Auto) % (20.0-45.0) Monocytes (%) (Auto) % (1.0-10.0) Eosinophils (%) (Auto) % (0.0-3.0) Basophils (%) (Auto) % (0.0-2.0) Differential Total Cells Counted 100 Neutrophils % (Manual) 71 % (45-75) Lymphocytes % (Manual) 16 % (20-45) L Monocytes % (Manual) 7 % (1-10) Eosinophils % (Manual) 2 % (0-3) Basophils % (Manual) 1 % (0-2) Band Neutrophils 3 % (0-8) Platelet Estimate Decreased L Platelet Morphology Normal Hypochromasia 1+ Anisocytosis 1+ Prothrombin Time 15.9 SEC (9.30-11.50) H Prothromb Time International Ratio 1.5 (0.9-1.1) H Activated Partial Thromboplast Time 53 SEC (23-33) H Sodium Level 136 MMOL/L (136-145) Potassium Level 4.0 MMOL/L (3.5-5.1) Chloride Level 105 MMOL/L (98-107) Carbon Dioxide Level 26 MMOL/L (21-32) Anion Gap 5 mmol/L (5-15) Blood Urea Nitrogen 31 mg/dL (7-18) H Creatinine 2.1 MG/DL (0.55-1.30) H Estimat Glomerular Filtration Rate mL/min (>60) Glucose Level 130 MG/DL (74-106) H Calcium Level 7.5 MG/DL (8.5-10.1) L Phosphorus Level 3.3 MG/DL (2.5-4.9) Magnesium Level 1.5 MG/DL (1.8-2.4) L Total Bilirubin 2.8 MG/DL (0.2-1.0) H Direct Bilirubin 1.4 MG/DL (0.0-0.3) H Aspartate Amino Transf (AST/SGOT) 51 U/L (15-37) H Alanine Aminotransferase (ALT/SGPT) 25 U/L (12-78) Alkaline Phosphatase 81 U/L (46-116) Total Protein 4.9 G/DL (6.4-8.2) L Albumin 1.9 G/DL (3.4-5.0) L Globulin 3.0 g/dL Albumin/Globulin Ratio 0.6 (1.0-2.7) L Tenzin Ford MD January 09, 2018 18:42
[2018-01-09] MEDS: Dyna-Hex 2% Top Sol 2oz TOPIC SCH (20:00)
--- NOTE | 2018-01-09 20:40 | Infectious Diseases Prog Note ---
Assessment/Plan Assessment/Plan ASSESSMENT: The patient is a 72-year-old female with Afebrile leukocytosis (due to the GI bleed and acute distress) , SP +ve UCx : low count Providencia , Entero ( contaminant ) Hyptoension ? GNR translocation ? LLEx cellulitis no change No evidence or source of infection at this point. DVT/PE, on anticoagulation. History of cirrhosis/portal hypertension. History of gastropathy. Internal hemorrhoids. History of encephalopathy. Hypertension. COPD. History of breast cancer, bilateral mastectomy. Hysterectomy PLAN: cont IV Vanco and Zosyn d # 3 / 5-7 Blood transfusion as needed. Monitor cultures (blood, ). Monitor chest x-ray. GI fup not a candiate for EGD (due to both hypotension and poor breathing reserves) Subjective Allergies: Coded Allergies: ASPIRIN (Unverified Allergy, Unknown, 01/05/18) Uncoded Allergies: TAPE (Allergy, Unknown, 01/05/18) Subjective tapering pressors Objective Vital Signs Last 24 Hour Vital Signs Date Time Temp Pulse Resp B/P (MAP) Pulse Ox O2 Delivery O2 Flow Rate FiO2 01/09/18 19:19 Nasal Cannula 2.0 28 01/09/18 19:19 97 Nasal Cannula 2.0 28 01/09/18 19:00 65 18 93/47 97 Nasal Cannula 2.0 01/09/18 18:00 73 16 92/41 97 Nasal Cannula 2.0 01/09/18 17:30 75 18 97/39 97 Nasal Cannula 2.0 01/09/18 17:00 93/47 01/09/18 17:00 72 16 89/42 97 Nasal Cannula 2.0 01/09/18 16:30 75 16 91/41 97 Nasal Cannula 2.0 01/09/18 16:00 98.6 72 18 89/42 98 Nasal Cannula 2.0 98.6 01/09/18 16:00 78 01/09/18 16:00 91/41 01/09/18 15:45 90/40 01/09/18 15:30 83 20 101/46 99 Nasal Cannula 2.0 01/09/18 15:00 80 21 99/36 98 Nasal Cannula 2.0 01/09/18 15:00 98/35 01/09/18 14:00 101/45 01/09/18 14:00 75 19 99/40 98 Nasal Cannula 2.0 18 13:30 75 18 105/42 98 Nasal Cannula 2.0 18 13:00 82 21 95/41 98 Nasal Cannula 2.0 18 13:00 97/33 5/18 12:30 80 20 99/40 98 Nasal Cannula 2.0 18 12:00 92/40 18 12:00 80 01/09/18 12:00 98.2 72 21 90/33 98 Nasal Cannula 2.0 98.2 18 11:00 90/40 18 11:00 79 21 99/40 98 Nasal Cannula 2.0 01/09/18 10:30 80 21 93/35 98 Nasal Cannula 2.0 01/09/18 10:00 92/35 01/09/18 10:00 73 21 80/32 98 Nasal Cannula 2.0 01/09/18 09:30 77 21 87/33 98 Nasal Cannula 2.0 01/09/18 09:00 75 21 92/34 98 Nasal Cannula 2.0 01/09/18 09:00 89/33 518 08:30 71 21 89/40 98 Nasal Cannula 2.0 01/09/18 08:16 96 Nasal Cannula 2.0 28 01/09/18 08:16 Nasal Cannula 2.0 28 01/09/18 08:00 95/40 18 08:00 98.2 72 21 90/33 98 Nasal Cannula 2.0 98.2 01/09/18 08:00 75 01/09/18 07:00 97.9 68 16 93/36 96 Nasal Cannula 2.0 97.9 18 07:00 93/36 18 06:30 71 21 87/33 98 Nasal Cannula 2.0 18 06:00 68 14 87/34 96 Nasal Cannula 2.0 01/09/18 06:00 87/34 18 05:30 66 14 91/40 98 Nasal Cannula 2.0 18 05:00 69 15 84/39 98 Nasal Cannula 2.0 01/09/18 05:00 84/42 518 04:30 67 15 84/42 100 Nasal Cannula 2.0 01/09/18 04:00 71 01/09/18 04:00 98.0 71 21 103/36 98 Nasal Cannula 2.0 98.0 01/09/18 04:00 79/34 01/09/18 03:30 71 21 85/38 98 Nasal Cannula 2.0 01/09/18 03:30 99/42 01/09/18 03:00 88/39 01/09/18 03:00 69 21 88/93 98 Nasal Cannula 2.0 01/09/18 02:30 70 21 86/42 98 Nasal Cannula 2.0 01/09/18 02:30 90/37 01/09/18 02:00 71 23 90/37 97 Nasal Cannula 2.0 01/09/18 02:00 92/40 01/09/18 01:30 68 18 92/40 98 Nasal Cannula 2.0 01/09/18 01:00 95/39 01/09/18 01:00 69 20 95/39 98 Nasal Cannula 2.0 01/09/18 00:30 101/39 01/09/18 00:30 69 19 101/39 97 Nasal Cannula 2.0 01/09/18 00:00 89 01/09/18 00:00 102/44 01/09/18 00:00 66 20 92/37 99 Nasal Cannula 2.0 01/08/18 23:30 100/42 01/08/18 23:30 61 18 89/42 97 Nasal Cannula 2.0 01/08/18 23:00 61 20 95/40 97 Nasal Cannula 2.0 01/08/18 23:00 95/40 01/08/18 22:30 64 17 93/44 98 Nasal Cannula 2.0 01/08/18 22:00 65 14 94/43 98 Nasal Cannula 2.0 01/08/18 21:42 91/40 01/08/18 21:30 60 14 89/42 99 Nasal Cannula 2.0 01/08/18 21:15 64 16 91/40 99 Nasal Cannula 2.0 01/08/18 21:00 63 15 91/40 98 Nasal Cannula 2.0 01/08/18 21:00 91/40 01/08/18 20:45 72 16 91/42 98 Nasal Cannula 2.0 Height (Feet): 5 Height (Inches): 4.00 Weight (Pounds): 339 HEENT: mucous membranes moist Respiratory/Chest: no respiratory distress Cardiovascular: regularly irregular Abdomen: soft, non tender Laboratory Tests Test 01/09/18 04:00 White Blood Count 7.6 K/UL (4.8-10.8) Red Blood Count 2.68 M/UL (4.20-5.40) L Hemoglobin 7.8 G/DL (12.0-16.0) L Hematocrit 23.8 % (37.0-47.0) L Mean Corpuscular Volume 89 FL (80-99) Mean Corpuscular Hemoglobin 29.2 PG (27.0-31.0) Mean Corpuscular Hemoglobin Concent 32.9 G/DL (32.0-36.0) Red Cell Distribution Width 16.2 % (11.6-14.8) H Platelet Count 40 K/UL (150-450) L Mean Platelet Volume 9.3 FL (6.5-10.1) Neutrophils (%) (Auto) % (45.0-75.0) Lymphocytes (%) (Auto) % (20.0-45.0) Monocytes (%) (Auto) % (1.0-10.0) Eosinophils (%) (Auto) % (0.0-3.0) Basophils (%) (Auto) % (0.0-2.0) Differential Total Cells Counted 100 Neutrophils % (Manual) 71 % (45-75) Lymphocytes % (Manual) 16 % (20-45) L Monocytes % (Manual) 7 % (1-10) Eosinophils % (Manual) 2 % (0-3) Basophils % (Manual) 1 % (0-2) Band Neutrophils 3 % (0-8) Platelet Estimate Decreased L Platelet Morphology Normal Hypochromasia 1+ Anisocytosis 1+ Prothrombin Time 15.9 SEC (9.30-11.50) H Prothromb Time International Ratio 1.5 (0.9-1.1) H Activated Partial Thromboplast Time 53 SEC (23-33) H Sodium Level 136 MMOL/L (136-145) Potassium Level 4.0 MMOL/L (3.5-5.1) Chloride Level 105 MMOL/L (98-107) Carbon Dioxide Level 26 MMOL/L (21-32) Anion Gap 5 mmol/L (5-15) Blood Urea Nitrogen 31 mg/dL (7-18) H Creatinine 2.1 MG/DL (0.55-1.30) H Estimat Glomerular Filtration Rate mL/min (>60) Glucose Level 130 MG/DL (74-106) H Calcium Level 7.5 MG/DL (8.5-10.1) L Phosphorus Level 3.3 MG/DL (2.5-4.9) Magnesium Level 1.5 MG/DL (1.8-2.4) L Total Bilirubin 2.8 MG/DL (0.2-1.0) H Direct Bilirubin 1.4 MG/DL (0.0-0.3) H Aspartate Amino Transf (AST/SGOT) 51 U/L (15-37) H Alanine Aminotransferase (ALT/SGPT) 25 U/L (12-78) Alkaline Phosphatase 81 U/L (46-116) Total Protein 4.9 G/DL (6.4-8.2) L Albumin 1.9 G/DL (3.4-5.0) L Globulin 3.0 g/dL Albumin/Globulin Ratio 0.6 (1.0-2.7) L Current Medications Medications (Trade) Dose Ordered Sig/Miles Route PRN Reason Start Time Stop Time Status Last Admin Dose Admin Acetaminophen (Tylenol) 650 mg Q4H PRN ORAL fever 01/05/18 15:45 02/04/18 15:44 Albumin Human 100 ml @ 100 mls/hr Q8H IV 01/09/18 20:00 01/11/18 12:59 01/09/18 20:00 Chlorhexidine Gluconate (Destiny-Hex 2%) 1 applic DAILY@2000 TOPIC 01/06/18 20:00 02/05/18 19:59 01/09/18 20:00 Dextrose (Dextrose 50%) STAT PRN IV Hypoglycemia 01/05/18 15:45 02/04/18 15:44 Dextrose/Sodium Chloride 1,000 ml @ 50 mls/hr Q20H IV 01/06/18 16:00 02/04/18 15:59 01/09/18 05:13 Dopamine HCl/ Dextrose 250 ml @ 0 mls/hr Q24H IV 01/05/18 15:45 02/04/18 15:44 Midodrine (Pro-Amatine) 10 mg THREE TIMES A DAY ORAL 01/07/18 13:00 02/06/18 12:59 01/09/18 18:25 Morphine Sulfate (Morphine Sulfate) 2 mg Q4H PRN IVP For Pain 01/05/18 13:30 01/12/18 13:29 01/05/18 13:33 Nitroglycerin (Ntg) 0.4 mg Q5M X 3 DOSES PRN SL Prn Chest Pain 01/05/18 15:45 02/04/18 15:44 Norepinephrine Bitartrate 4 mg/ Dextrose 250 ml @ 0 mls/hr Q24H IV 01/07/18 21:30 02/04/18 19:59 01/09/18 02:00 Ondansetron HCl (Zofran) 4 mg Q6H PRN IVP Nausea & Vomiting 01/05/18 13:30 02/04/18 13:29 01/05/18 13:32 Pantoprazole (Protonix) 40 mg Q12HR IV 01/06/18 21:00 02/05/18 10:29 01/09/18 20:30 Piperacillin Sod/ Tazobactam Sod 3.375 gm/Dextrose 110 ml @ 27.5 mls/hr EVERY 8 HOURS IVPB 01/07/18 23:30 01/12/18 23:29 01/09/18 14:13 Polyethylene Glycol (Miralax) 17 gm HSPRN PRN ORAL Constipation 01/05/18 15:45 02/04/18 15:44 Rifaximin (Xifaxan) 550 mg EVERY 12 HOURS ORAL 01/06/18 22:00 01/13/18 21:59 01/09/18 20:30 Vancomycin HCl (Vanco rx to dose) 1 ea DAILY PRN MISC Per rx protocol 01/07/18 19:45 02/06/18 19:44 Vancomycin HCl/ Dextrose 250 ml @ 125 mls/hr Q48H IVPB 01/10/18 21:00 01/15/18 20:59 Vitamin A/Vitamin D (A & D Oint) 1 applic EVERY 12 HOURS TOPIC 01/06/18 21:00 02/05/18 20:59 01/09/18 20:30 Rad Galicia MD January 09, 2018 20:40
[2018-01-10] VITALS (31 sets, daily range): BP systolic 59–113; BP diastolic 36–55
[2018-01-10 05:17] LABS: HEMATOCRIT 26.5 % (37.0-47.0); HEMOGLOBIN 8.8 G/DL (12.0-16.0); MEAN CORPUSCULAR VOLUME 90 FL (80-99); PLATELET COUNT 50 K/UL (150-450); RED BLOOD COUNT 2.96 M/UL (4.20-5.40); RED CELL DISTRIBUTION WIDTH 15.4 % (11.6-14.8); WHITE BLOOD COUNT 7.5 K/UL (4.8-10.8)
[2018-01-10 05:27] LABS: INR 1.5 (0.9-1.1)
[2018-01-10] MEDS: Piperacillin/Tazobactam 3.375 GM in D5W 110 ML IVPB SCH ×3 (05:46→21:51)
[2018-01-10 06:01] LABS: ALANINE AMINOTRANSFERASE 25 U/L (12-78); ALBUMIN 2.3 G/DL (3.4-5.0); ALBUMIN/GLOBULIN RATIO 0.7 (1.0-2.7); ALKALINE PHOSPHATASE 83 U/L (46-116); ANION GAP 8 mmol/L (5-15); ASPARTATE AMINO TRANSFERASE 45 U/L (15-37); BILIRUBIN,TOTAL 4.4 MG/DL (0.2-1.0); BLOOD UREA NITROGEN 29 mg/dL (7-18); CALCIUM 7.5 MG/DL (8.5-10.1); CARBON DIOXIDE 25 MMOL/L (21-32); CHLORIDE 104 MMOL/L (98-107); CREATININE 2.3 MG/DL (0.55-1.30); PHOSPHORUS 3.3 MG/DL (2.5-4.9); POTASSIUM 3.9 MMOL/L (3.5-5.1); SODIUM 136 MMOL/L (136-145)
[2018-01-10 06:02] LABS: BILIRUBIN,DIRECT 2.2 MG/DL (0.0-0.3)
--- NOTE | 2018-01-10 07:05 | Pulmonolgy Critical Care Note ---
Critical Care - Asmt/Plan Assessment/Plan: ASSESSMENT hypovolemic shock secondary to acute hemorrhage Acute upper GI bleeding Severe anemia secondary to acute blood loss Acute kidney injury on chronic renal insufficiency History of PE/DVT History of breast cancer, status post bilateral mastectomy Morbid obesity History of hypertension Coagulopathy Chronic CHF with diastolic dysfunction Liver cirrhosis secondary to an GRECO Major depressive disorder Anxiety Hepatic encephalopathy PLAN OF CARE ICU Gentle IV hydration on pressors, wean to keep MAP above 65 on midodrine s/p Sandostatin gtt on Protonix GI follows EGD in 2017 with no evidence of esophageal varices on Rifaximin as per GI for elevated ammonia check ammonia level this am Monitor H&H, platelet count anemia workup consistent with anemia of chronic disease. transfuse prn with FFP and PRBC High Rigger closely follows Echocardiogram with preserved ejection fraction 65-70% Minimally abnormal cardiac enzyme insignificant in view of renal insufficiency as per manager crisis Speech Coach seen and evaluated Per repair cameraman recommendations, hold anticoagulation given severe anemia. Venous duplex BLE negative Supplemental oxygen as needed to keep pulse oximetry above 92% Patient with history of breast cancer and bilateral mastectomy, but no evidence of disease at this time ,as per oncologist Security Officer Supervisor closely follows Gentle IV fluids continued closely monitor renal parameters, electrolytes corrected electrolytes as needed avoid nephrotoxins per long line teamster patient had acute kidney injury on chronic renal insufficiency and renal function stable at this time infectious disease specialist follows blood culture negative, urine culture revealed low count of Providencia and Strep , which is contaminant as per ID ; no evidence of infection however patient initially with leukocytosis , likely reactive due to on acute GI bleeding,per ID recs continue antibiotic for now pain management Bowel regimen Psychiatrist seen and evaluated patient, diagnosed patient with major depressive disorder and anxiety disorder reality orientation and supportive therapy provided psychiatric medication regimen optimized case discussed and evaluated by supervising physician Critical Care - Objective Last 24 Hour Vital Signs Date Time Temp Pulse Resp B/P (MAP) Pulse Ox O2 Delivery O2 Flow Rate FiO2 01/10/18 07:00 63 15 113/54 98 Nasal Cannula 2.0 01/10/18 06:30 68 14 101/52 97 Nasal Cannula 2.0 01/10/18 06:00 66 15 105/51 95 Nasal Cannula 2.0 01/10/18 05:30 55 16 59/39 95 Nasal Cannula 2.0 01/10/18 05:00 102/53 01/10/18 05:00 98.4 66 18 90/41 90 Nasal Cannula 2.0 98.4 01/10/18 04:30 62 15 101/44 95 Nasal Cannula 2.0 01/10/18 04:00 61 01/10/18 04:00 60 15 81/36 93 Nasal Cannula 2.0 01/10/18 04:00 81/39 01/10/18 03:30 65 17 98/49 94 Nasal Cannula 2.0 01/10/18 03:00 67 19 99/48 94 Nasal Cannula 2.0 01/10/18 03:00 98/44 01/10/18 02:30 66 22 99/49 95 Nasal Cannula 2.0 01/10/18 02:00 101/45 01/10/18 02:00 68 24 101/45 97 Nasal Cannula 2.0 01/10/18 01:00 63 18 101/43 96 Nasal Cannula 2.0 01/10/18 01:00 101/43 01/10/18 00:30 69 15 99/44 96 Nasal Cannula 2.0 01/10/18 00:00 66 01/10/18 00:00 100/48 01/10/18 00:00 98.6 66 16 100/44 96 Nasal Cannula 2.0 98.6 01/09/18 23:30 43 15 89/44 96 Nasal Cannula 2.0 01/09/18 23:00 64 15 107/50 96 Nasal Cannula 2.0 01/09/18 23:00 107/45 01/09/18 22:30 66 19 109/48 97 Nasal Cannula 2.0 01/09/18 22:00 58 17 104/46 97 Nasal Cannula 2.0 01/09/18 22:00 104/46 18 21:43 80/40 18 21:30 59 16 96/44 97 Nasal Cannula 2.0 01/09/18 21:00 68 16 89/43 97 Nasal Cannula 2.0 01/09/18 20:30 64 16 81/38 97 Nasal Cannula 2.0 01/09/18 20:00 62 01/09/18 20:00 98.5 65 16 88/43 97 Nasal Cannula 2.0 98.5 18 19:30 65 16 85/41 97 Nasal Cannula 2.0 01/09/18 19:19 Nasal Cannula 2.0 28 5/18/18 19:19 97 Nasal Cannula 2.0 28 18/18 19:00 65 18 93/47 97 Nasal Cannula 2.0 18/18 18:00 73 16 92/41 97 Nasal Cannula 2.0 18/18 17:30 75 18 97/39 97 Nasal Cannula 2.0 /18/18 17:00 93/47 5/18 17:00 72 16 89/42 97 Nasal Cannula 2.0 01/09/18 16:30 75 16 91/41 97 Nasal Cannula 2.0 01/09/18 16:00 98.6 72 18 89/42 98 Nasal Cannula 2.0 98.6 18 16:00 78 01/09/18 16:00 91/41 18 15:45 90/40 01/09/18 15:30 83 20 101/46 99 Nasal Cannula 2.0 18 15:00 80 21 99/36 98 Nasal Cannula 2.0 18 15:00 98/35 18 14:00 101/45 01/09/18 14:00 75 19 99/40 98 Nasal Cannula 2.0 18 13:30 75 18 105/42 98 Nasal Cannula 2.0 18 13:00 82 21 95/41 98 Nasal Cannula 2.0 18 13:00 97/33 01/09/18 12:30 80 20 99/40 98 Nasal Cannula 2.0 01/09/18 12:00 92/40 01/09/18 12:00 80 18 12:00 98.2 72 21 90/33 98 Nasal Cannula 2.0 98.2 18 11:00 90/40 5/18 11:00 79 21 99/40 98 Nasal Cannula 2.0 01/09/18 10:30 80 21 93/35 98 Nasal Cannula 2.0 01/09/18 10:00 92/35 01/09/18 10:00 73 21 80/32 98 Nasal Cannula 2.0 01/09/18 09:30 77 21 87/33 98 Nasal Cannula 2.0 01/09/18 09:00 75 21 92/34 98 Nasal Cannula 2.0 18 09:00 89/33 5/18 08:30 71 21 89/40 98 Nasal Cannula 2.0 01/09/18 08:16 96 Nasal Cannula 2.0 28 01/09/18 08:16 Nasal Cannula 2.0 28 01/09/18 08:00 95/40 01/09/18 08:00 98.2 72 21 90/33 98 Nasal Cannula 2.0 98.2 01/09/18 08:00 75 Status: somnolent - poorly responsive, other - Condition: critical HEENT: atraumatic Lungs: clear - diminishede Heart: HR/BP unstable Abdomen: soft, non-tender - obese Extremities: other - +3 edema BLE Critical Care - Subjective ROS Limited/Unobtainable: Yes Interval Events: still on Levophed gtt s/p 1 u PRBC 01/09 HH better creat worse up to 2.3 low Mg-1.5 Condition: critical IV Access: central - RIJ intact EKG Rhythm: Sinus Rhythm FI02: 28 Fluids: D5NS at 50 Drips: Levophed at 2mcg/min I&O: Intake and Output 01/09/18 01/10/18 19:00 07:00 Intake Total 817.00 ml 980.0 ml Output Total 510 ml 380 ml Balance 307.00 ml 600.0 ml IV Total 817.00 ml 980.0 ml Output Urine Total 510 ml 380 ml Abby Mcguire DEPARTMENT ADMINISTRATOR January 10, 2018 07:05
[2018-01-10] MEDS: Pantoprazole Inj IV SCH ×2 (08:58→20:41)
[2018-01-10] MEDS: Vitamin A&D Oint 2oz Tube TOPIC SCH ×2 (08:58→20:42)
[2018-01-10] MEDS: Midodrine 10mg tab ORAL SCH ×3 (08:58→17:33)
--- NOTE | 2018-01-10 13:02 | Internal Med Progress Note ---
Subjective Date of Service: January 10, 2018 Physician Name Day,Ramiro Attending Physician Perico Randolph MD Current Medications Medications (Trade) Dose Ordered Sig/Miles Route PRN Reason Start Time Stop Time Status Last Admin Dose Admin Acetaminophen (Tylenol) 650 mg Q4H PRN ORAL fever 01/05/18 15:45 02/04/18 15:44 Albumin Human 100 ml @ 100 mls/hr Q8H IV 01/09/18 20:00 01/11/18 12:59 01/10/18 12:42 Chlorhexidine Gluconate (Destiny-Hex 2%) 1 applic DAILY@2000 TOPIC 01/06/18 20:00 02/05/18 19:59 01/09/18 20:00 Dextrose (Dextrose 50%) STAT PRN IV Hypoglycemia 01/05/18 15:45 02/04/18 15:44 Dextrose/Sodium Chloride 1,000 ml @ 50 mls/hr Q20H IV 01/06/18 16:00 02/04/18 15:59 01/10/18 00:00 Dopamine HCl/ Dextrose 250 ml @ 0 mls/hr Q24H IV 01/05/18 15:45 02/04/18 15:44 Midodrine (Pro-Amatine) 10 mg THREE TIMES A DAY ORAL 01/07/18 13:00 02/06/18 12:59 01/10/18 12:42 Morphine Sulfate (Morphine Sulfate) 2 mg Q4H PRN IVP For Pain 01/05/18 13:30 01/12/18 13:29 01/05/18 13:33 Nitroglycerin (Ntg) 0.4 mg Q5M X 3 DOSES PRN SL Prn Chest Pain 01/05/18 15:45 02/04/18 15:44 Norepinephrine Bitartrate 4 mg/ Dextrose 250 ml @ 0 mls/hr Q24H IV 01/07/18 21:30 02/04/18 19:59 01/09/18 21:43 Ondansetron HCl (Zofran) 4 mg Q6H PRN IVP Nausea & Vomiting 01/05/18 13:30 02/04/18 13:29 01/05/18 13:32 Pantoprazole (Protonix) 40 mg Q12HR IV 01/06/18 21:00 02/05/18 10:29 01/10/18 08:58 Piperacillin Sod/ Tazobactam Sod 3.375 gm/Dextrose 110 ml @ 27.5 mls/hr EVERY 8 HOURS IVPB 01/07/18 23:30 01/12/18 23:29 01/10/18 05:46 Polyethylene Glycol (Miralax) 17 gm HSPRN PRN ORAL Constipation 01/05/18 15:45 02/04/18 15:44 Rifaximin (Xifaxan) 550 mg EVERY 12 HOURS ORAL 01/06/18 22:00 01/13/18 21:59 01/10/18 08:58 Vancomycin HCl (Vanco rx to dose) 1 ea DAILY PRN MISC Per rx protocol 01/07/18 19:45 02/06/18 19:44 Vancomycin HCl/ Dextrose 250 ml @ 125 mls/hr Q48H IVPB 01/10/18 21:00 01/15/18 20:59 Vitamin A/Vitamin D (A & D Oint) 1 applic EVERY 12 HOURS TOPIC 01/06/18 21:00 02/05/18 20:59 01/10/18 08:58 Allergies: Coded Allergies: ASPIRIN (Unverified Allergy, Unknown, 01/05/18) Uncoded Allergies: TAPE (Allergy, Unknown, 01/05/18) ROS Limited/Unobtainable: No Constitutional: Reports: no symptoms HEENT: Reports: no symptoms Cardiovascular: Reports: no symptoms Respiratory: Reports: no symptoms Gastrointestinal/Abdominal: Reports: blood in stool, rectal bleeding Genitourinary: Reports: no symptoms Neurologic/Psychiatric: Reports: no symptoms Subjective 72 YO F admitted with hematemesis and rectal bleeding. Cover for [facility] Med-Dr Randolph. ICU Objective Last Vital Signs Date Time Temp Pulse Resp B/P (MAP) Pulse Ox O2 Delivery O2 Flow Rate FiO2 01/10/18 12:00 63 13 93/44 98 Nasal Cannula 2.0 01/10/18 08:00 98.8 98.8 01/09/18 19:19 28 Laboratory Tests Test 01/10/18 04:00 White Blood Count 7.5 K/UL (4.8-10.8) Red Blood Count 2.96 M/UL (4.20-5.40) L Hemoglobin 8.8 G/DL (12.0-16.0) L Hematocrit 26.5 % (37.0-47.0) L Mean Corpuscular Volume 90 FL (80-99) Mean Corpuscular Hemoglobin 29.6 PG (27.0-31.0) Mean Corpuscular Hemoglobin Concent 33.0 G/DL (32.0-36.0) Red Cell Distribution Width 15.4 % (11.6-14.8) H Platelet Count 50 K/UL (150-450) L Mean Platelet Volume 8.1 FL (6.5-10.1) Neutrophils (%) (Auto) % (45.0-75.0) Lymphocytes (%) (Auto) % (20.0-45.0) Monocytes (%) (Auto) % (1.0-10.0) Eosinophils (%) (Auto) % (0.0-3.0) Basophils (%) (Auto) % (0.0-2.0) Differential Total Cells Counted 100 Neutrophils % (Manual) 68 % (45-75) Lymphocytes % (Manual) 20 % (20-45) Monocytes % (Manual) 7 % (1-10) Eosinophils % (Manual) 5 % (0-3) H Basophils % (Manual) 0 % (0-2) Band Neutrophils 0 % (0-8) Platelet Estimate Decreased L Platelet Morphology Normal Hypochromasia 1+ Anisocytosis 1+ Prothrombin Time 16.1 SEC (9.30-11.50) H Prothromb Time International Ratio 1.5 (0.9-1.1) H Activated Partial Thromboplast Time 53 SEC (23-33) H Sodium Level 136 MMOL/L (136-145) Potassium Level 3.9 MMOL/L (3.5-5.1) Chloride Level 104 MMOL/L (98-107) Carbon Dioxide Level 25 MMOL/L (21-32) Anion Gap 8 mmol/L (5-15) Blood Urea Nitrogen 29 mg/dL (7-18) H Creatinine 2.3 MG/DL (0.55-1.30) H Estimat Glomerular Filtration Rate mL/min (>60) Glucose Level 123 MG/DL (74-106) H Calcium Level 7.5 MG/DL (8.5-10.1) L Phosphorus Level 3.3 MG/DL (2.5-4.9) Magnesium Level 1.5 MG/DL (1.8-2.4) L Total Bilirubin 4.4 MG/DL (0.2-1.0) H Direct Bilirubin 2.2 MG/DL (0.0-0.3) H Aspartate Amino Transf (AST/SGOT) 45 U/L (15-37) H Alanine Aminotransferase (ALT/SGPT) 25 U/L (12-78) Alkaline Phosphatase 83 U/L (46-116) Total Protein 5.5 G/DL (6.4-8.2) L Albumin 2.3 G/DL (3.4-5.0) L Globulin 3.2 g/dL Albumin/Globulin Ratio 0.7 (1.0-2.7) L Intake and Output 01/09/18 01/10/18 19:00 07:00 Intake Total 817.00 ml 1150.0 ml Output Total 510 ml 380 ml Balance 307.00 ml 770.0 ml IV Total 817.00 ml 1150.0 ml Output Urine Total 510 ml 380 ml Objective Objective GENERAL: awake, responsive, in no acute distress. HEAD AND NECK: Pupils are reactive to light. Extraocular movements are intact. Neck was supple. No JVD. Triple-lumen catheter right IJ. LUNGS: Bilaterally no wheezing or rales. Decreased air in the bases. HEART: S1 and S2 RR. Distant heart sounds. No murmur ABDOMEN: Soft, nondistended, nontender, and morbidly obese. CHEST WALL: Bilateral mastectomy was noted, scar tissue and no sign of infection. EXTREMITIES: No cyanosis or clubbing. +2 edema. NEUROLOGIC: Cranial nerves II through XII grossly intact. Motor is 5/5 in all extremities. Gait is unable to obtain secondary to the patient's status. Assessment/Plan Assessment/Plan Assessment/Plan 1. Acute GI bleed. 2. Hemorrhagic shock. 3. Severe anemia most likely secondary to acute blood loss. 4. Acute kidney injury on chronic renal insufficiency. 5. Morbid obesity. 6. History of breast cancer. 7. Hyperkalemia. 8. Hypertension. 9. History of breast cancer, status post bilateral mastectomy. 10. Congestive heart failure, chronic with diastolic dysfunction. 11. Major depression disorder. 12. History of DVT and PE in past, Hold anticoagulation, Coumadin. 13. 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 14. Chronic hypotension. PLAN: in ICU. Dr. Gilmore, Pulmonary/Critical Care, Dr. Sascha Bond from Nephrology Dr. Tenzin Ford from Cardiology Dr. Yohannes Woodall from Gastroenterology. Hold Endoscopy due to high anesthesia risk-see GI note Monitor laboratory and Cultures. Code status is Full Code. POLST noted in the chart. bedrest and at this time for DVT prophylaxis, SCD. Abx: Vanco IV and Zosyn IV weaning Dopamine Drip Dc Sandostatin drip S/P transfusion 5 units packed RBC and 2 units FFP Ramiro Day MD January 10, 2018 13:02
--- NOTE | 2018-01-10 14:11 | General Progress Note ---
Assessment/Plan Assessment/Plan - UGIB - clinically resolved, but still anemic and downward trend - Cirrhosis, from GRECO - No esophageal varcies on Jun 2017 EGD - h/o hepatic encephalopathy - coagulopathy (INR and platelets) - Chronic edema - h/o DVT/PE - off of coumadin now - hypotension, requiring pressors - Azotemia Recommendations - PO diet - at high anesthesia risk for EGD (due to both hypotension and poor breathing reserves) - no plans for Endoscopy at this time - not clear if benefits justify the risk - Consider IVC filter, since may no longer be a candidate for anticoagulation - Will give a 24-48 hour IV albumin trial --> may help wean off pressors - FFP and PRBC PRN - Xifaxan - BID PP -add lactulose -vit k Subjective ROS Limited/Unobtainable: No Allergies: Coded Allergies: ASPIRIN (Unverified Allergy, Unknown, 01/05/18) Uncoded Allergies: TAPE (Allergy, Unknown, 01/05/18) Objective Last 24 Hour Vital Signs Date Time Temp Pulse Resp B/P (MAP) Pulse Ox O2 Delivery O2 Flow Rate FiO2 01/10/18 13:00 98.8 60 16 92/43 98 Nasal Cannula 2.0 98.8 01/10/18 13:00 59 01/10/18 13:00 93/46 01/10/18 12:00 63 13 93/44 98 Nasal Cannula 2.0 01/10/18 12:00 93/44 01/10/18 11:00 92/43 01/10/18 11:00 63 13 111/51 99 Nasal Cannula 2.0 01/10/18 10:00 63 17 98/46 98 Nasal Cannula 2.0 01/10/18 09:58 106/51 01/10/18 09:00 63 17 87/47 98 Nasal Cannula 2.0 01/10/18 08:58 98/46 01/10/18 08:00 98.8 64 16 92/40 98 Nasal Cannula 2.0 98.8 01/10/18 08:00 92/40 01/10/18 08:00 61 01/10/18 07:00 113/54 01/10/18 07:00 63 15 113/54 98 Nasal Cannula 2.0 01/10/18 06:30 68 14 101/52 97 Nasal Cannula 2.0 01/10/18 06:00 108/49 01/10/18 06:00 66 15 105/51 95 Nasal Cannula 2.0 01/10/18 05:30 55 16 59/39 95 Nasal Cannula 2.0 01/10/18 05:00 102/53 01/10/18 05:00 98.4 66 18 90/41 90 Nasal Cannula 2.0 98.4 01/10/18 04:30 62 15 101/44 95 Nasal Cannula 2.0 01/10/18 04:00 61 01/10/18 04:00 60 15 81/36 93 Nasal Cannula 2.0 01/10/18 04:00 81/39 01/10/18 03:30 65 17 98/49 94 Nasal Cannula 2.0 01/10/18 03:00 67 19 99/48 94 Nasal Cannula 2.0 01/10/18 03:00 98/44 01/10/18 02:30 66 22 99/49 95 Nasal Cannula 2.0 01/10/18 02:00 101/45 01/10/18 02:00 68 24 101/45 97 Nasal Cannula 2.0 01/10/18 01:00 63 18 101/43 96 Nasal Cannula 2.0 01/10/18 01:00 101/43 01/10/18 00:30 69 15 99/44 96 Nasal Cannula 2.0 01/10/18 00:00 66 01/10/18 00:00 100/48 01/10/18 00:00 98.6 66 16 100/44 96 Nasal Cannula 2.0 98.6 01/09/18 23:30 43 15 89/44 96 Nasal Cannula 2.0 01/09/18 23:00 64 15 107/50 96 Nasal Cannula 2.0 01/09/18 23:00 107/45 01/09/18 22:30 66 19 109/48 97 Nasal Cannula 2.0 01/09/18 22:00 58 17 104/46 97 Nasal Cannula 2.0 01/09/18 22:00 104/46 18 21:43 80/40 18 21:30 59 16 96/44 97 Nasal Cannula 2.0 01/09/18 21:00 68 16 89/43 97 Nasal Cannula 2.0 01/09/18 20:30 64 16 81/38 97 Nasal Cannula 2.0 01/09/18 20:00 62 01/09/18 20:00 98.5 65 16 88/43 97 Nasal Cannula 2.0 98.5 01/09/18 19:30 65 16 85/41 97 Nasal Cannula 2.0 01/09/18 19:19 Nasal Cannula 2.0 28 01/09/18 19:19 97 Nasal Cannula 2.0 28 01/09/18 19:00 65 18 93/47 97 Nasal Cannula 2.0 01/09/18 18:00 73 16 92/41 97 Nasal Cannula 2.0 01/09/18 17:30 75 18 97/39 97 Nasal Cannula 2.0 01/09/18 17:00 93/47 01/09/18 17:00 72 16 89/42 97 Nasal Cannula 2.0 01/09/18 16:30 75 16 91/41 97 Nasal Cannula 2.0 01/09/18 16:00 98.6 72 18 89/42 98 Nasal Cannula 2.0 98.6 01/09/18 16:00 78 01/09/18 16:00 91/41 01/09/18 15:45 90/40 01/09/18 15:30 83 20 101/46 99 Nasal Cannula 2.0 01/09/18 15:00 80 21 99/36 98 Nasal Cannula 2.0 01/09/18 15:00 98/35 Intake and Output 01/09/18 01/10/18 19:00 07:00 Intake Total 817.00 ml 1150.0 ml Output Total 510 ml 380 ml Balance 307.00 ml 770.0 ml IV Total 817.00 ml 1150.0 ml Output Urine Total 510 ml 380 ml Laboratory Tests 01/10/18 04:00: White Blood Count 7.5, Red Blood Count 2.96L, Hemoglobin 8.8L, Hematocrit 26.5L , Mean Corpuscular Volume 90, Mean Corpuscular Hemoglobin 29.6, Mean Corpuscular Hemoglobin Concent 33.0, Red Cell Distribution Width 15.4H, Platelet Count 50L, Mean Platelet Volume 8.1, Neutrophils (%) (Auto) , Lymphocytes (%) (Auto) , Monocytes (%) (Auto) , Eosinophils (%) (Auto) , Basophils (%) (Auto) , Differential Total Cells Counted 100, Neutrophils % ( Manual) 68, Lymphocytes % (Manual) 20, Monocytes % (Manual) 7, Eosinophils % ( Manual) 5H, Basophils % (Manual) 0, Band Neutrophils 0, Platelet Estimate DecreasedL, Platelet Morphology Normal, Hypochromasia 1+, Anisocytosis 1+, Prothrombin Time 16.1H, Prothromb Time International Ratio 1.5H, Activated Partial Thromboplast Time 53H, Sodium Level 136, Potassium Level 3.9, Chloride Level 104, Carbon Dioxide Level 25, Anion Gap 8, Blood Urea Nitrogen 29H, Creatinine 2.3H, Estimat Glomerular Filtration Rate , Glucose Level 123H, Calcium Level 7.5L, Phosphorus Level 3.3, Magnesium Level 1.5L, Total Bilirubin 4.4H, Direct Bilirubin 2.2H, Aspartate Amino Transf (AST/SGOT) 45H, Alanine Aminotransferase (ALT/SGPT) 25, Alkaline Phosphatase 83, Total Protein 5.5L, Albumin 2.3L, Globulin 3.2, Albumin/Globulin Ratio 0.7L 01/10/18 13:00: Ammonia 102H Height (Feet): 5 Height (Inches): 4.00 Weight (Pounds): 345 General Appearance: lethargic EENT: normal ENT inspection Neck: supple Cardiovascular: normal rate Respiratory/Chest: decreased breath sounds Abdomen: non tender, soft, hypoactive bowel sounds Extremities: non-tender Marlon Gibson MD January 10, 2018 14:11
--- NOTE | 2018-01-10 14:36 | Nephrology Progress Note ---
Assessment/Plan Problem List: (1) ATN (acute tubular necrosis) (2) Hypotension (3) Hemorrhagic shock (4) GI bleed (5) History of pulmonary embolism (6) History of breast cancer Assessment more encephalopathic Amonia level tan acute renal failure cr higher 2.3 acute GI bleed Hemmorhagic anemia hypotension remains on pressors h/o breast ca h/o Pulmonary embolism Plan transfused one unit 01/09 hemodynamic support on midodrine monitor renal parameters cortisol level 9.8 avoid nephrotoxics per orders per GI discussed with RN Subjective ROS Limited/Unobtainable: Yes Constitutional: Reports: weakness Objective Objective Last 24 Hour Vital Signs Date Time Temp Pulse Resp B/P (MAP) Pulse Ox O2 Delivery O2 Flow Rate FiO2 01/10/18 14:00 54 13 86/52 98 Nasal Cannula 2.0 01/10/18 13:00 98.8 60 16 92/43 98 Nasal Cannula 2.0 98.8 01/10/18 13:00 59 01/10/18 13:00 93/46 01/10/18 12:00 63 13 93/44 98 Nasal Cannula 2.0 01/10/18 12:00 93/44 01/10/18 11:00 92/43 01/10/18 11:00 63 13 111/51 99 Nasal Cannula 2.0 01/10/18 10:00 63 17 98/46 98 Nasal Cannula 2.0 01/10/18 09:58 106/51 01/10/18 09:00 63 17 87/47 98 Nasal Cannula 2.0 01/10/18 08:58 98/46 01/10/18 08:00 98.8 64 16 92/40 98 Nasal Cannula 2.0 98.8 01/10/18 08:00 92/40 01/10/18 08:00 61 01/10/18 07:00 113/54 01/10/18 07:00 63 15 113/54 98 Nasal Cannula 2.0 01/10/18 06:30 68 14 101/52 97 Nasal Cannula 2.0 01/10/18 06:00 108/49 01/10/18 06:00 66 15 105/51 95 Nasal Cannula 2.0 01/10/18 05:30 55 16 59/39 95 Nasal Cannula 2.0 01/10/18 05:00 102/53 01/10/18 05:00 98.4 66 18 90/41 90 Nasal Cannula 2.0 98.4 01/10/18 04:30 62 15 101/44 95 Nasal Cannula 2.0 01/10/18 04:00 61 01/10/18 04:00 60 15 81/36 93 Nasal Cannula 2.0 01/10/18 04:00 81/39 01/10/18 03:30 65 17 98/49 94 Nasal Cannula 2.0 01/10/18 03:00 67 19 99/48 94 Nasal Cannula 2.0 01/10/18 03:00 98/44 01/10/18 02:30 66 22 99/49 95 Nasal Cannula 2.0 01/10/18 02:00 101/45 01/10/18 02:00 68 24 101/45 97 Nasal Cannula 2.0 01/10/18 01:00 63 18 101/43 96 Nasal Cannula 2.0 01/10/18 01:00 101/43 01/10/18 00:30 69 15 99/44 96 Nasal Cannula 2.0 01/10/18 00:00 66 01/10/18 00:00 100/48 01/10/18 00:00 98.6 66 16 100/44 96 Nasal Cannula 2.0 98.6 01/09/18 23:30 43 15 89/44 96 Nasal Cannula 2.0 01/09/18 23:00 64 15 107/50 96 Nasal Cannula 2.0 01/09/18 23:00 107/45 18 22:30 66 19 109/48 97 Nasal Cannula 2.0 01/09/18 22:00 58 17 104/46 97 Nasal Cannula 2.0 01/09/18 22:00 104/46 18 21:43 80/40 18 21:30 59 16 96/44 97 Nasal Cannula 2.0 01/09/18 21:00 68 16 89/43 97 Nasal Cannula 2.0 01/09/18 20:30 64 16 81/38 97 Nasal Cannula 2.0 18 20:00 62 01/09/18 20:00 98.5 65 16 88/43 97 Nasal Cannula 2.0 98.5 01/09/18 19:30 65 16 85/41 97 Nasal Cannula 2.0 01/09/18 19:19 Nasal Cannula 2.0 28 01/09/18 19:19 97 Nasal Cannula 2.0 28 01/09/18 19:00 65 18 93/47 97 Nasal Cannula 2.0 01/09/18 18:00 73 16 92/41 97 Nasal Cannula 2.0 01/09/18 17:30 75 18 97/39 97 Nasal Cannula 2.0 01/09/18 17:00 93/47 01/09/18 17:00 72 16 89/42 97 Nasal Cannula 2.0 01/09/18 16:30 75 16 91/41 97 Nasal Cannula 2.0 01/09/18 16:00 98.6 72 18 89/42 98 Nasal Cannula 2.0 98.6 01/09/18 16:00 78 01/09/18 16:00 91/41 01/09/18 15:45 90/40 01/09/18 15:30 83 20 101/46 99 Nasal Cannula 2.0 01/09/18 15:00 80 21 99/36 98 Nasal Cannula 2.0 01/09/18 15:00 98/35 Intake and Output 01/09/18 01/10/18 19:00 07:00 Intake Total 817.00 ml 1150.0 ml Output Total 510 ml 380 ml Balance 307.00 ml 770.0 ml IV Total 817.00 ml 1150.0 ml Output Urine Total 510 ml 380 ml Laboratory Tests 01/10/18 04:00: White Blood Count 7.5, Red Blood Count 2.96L, Hemoglobin 8.8L, Hematocrit 26.5L , Mean Corpuscular Volume 90, Mean Corpuscular Hemoglobin 29.6, Mean Corpuscular Hemoglobin Concent 33.0, Red Cell Distribution Width 15.4H, Platelet Count 50L, Mean Platelet Volume 8.1, Neutrophils (%) (Auto) , Lymphocytes (%) (Auto) , Monocytes (%) (Auto) , Eosinophils (%) (Auto) , Basophils (%) (Auto) , Differential Total Cells Counted 100, Neutrophils % ( Manual) 68, Lymphocytes % (Manual) 20, Monocytes % (Manual) 7, Eosinophils % ( Manual) 5H, Basophils % (Manual) 0, Band Neutrophils 0, Platelet Estimate DecreasedL, Platelet Morphology Normal, Hypochromasia 1+, Anisocytosis 1+, Prothrombin Time 16.1H, Prothromb Time International Ratio 1.5H, Activated Partial Thromboplast Time 53H, Sodium Level 136, Potassium Level 3.9, Chloride Level 104, Carbon Dioxide Level 25, Anion Gap 8, Blood Urea Nitrogen 29H, Creatinine 2.3H, Estimat Glomerular Filtration Rate , Glucose Level 123H, Calcium Level 7.5L, Phosphorus Level 3.3, Magnesium Level 1.5L, Total Bilirubin 4.4H, Direct Bilirubin 2.2H, Aspartate Amino Transf (AST/SGOT) 45H, Alanine Aminotransferase (ALT/SGPT) 25, Alkaline Phosphatase 83, Total Protein 5.5L, Albumin 2.3L, Globulin 3.2, Albumin/Globulin Ratio 0.7L 01/10/18 13:00: Ammonia 102H Height (Feet): 5 Height (Inches): 4.00 Weight (Pounds): 345 General Appearance: no apparent distress, confused Respiratory/Chest: decreased breath sounds Abdomen: soft Objective no change DARIA MCNEILL January 10, 2018 14:36
--- NOTE | 2018-01-10 14:57 | Infectious Diseases Prog Note ---
Assessment/Plan Assessment/Plan ASSESSMENT: The patient is a 72-year-old female with Afebrile leukocytosis (due to the GI bleed and acute distress) , SP +ve UCx : low count Providencia , Entero ( contaminant ) Hyptoension ? 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 LLEx cellulitis (thigh) no sig changes No evidence or source of infection at this point. VAL No esophageal varcies on Jun 2017 EGD DVT/PE, on anticoagulation. History of cirrhosis/portal hypertension. History of gastropathy. Internal hemorrhoids. History of encephalopathy. Hypertension. COPD. History of breast cancer, bilateral mastectomy. Hysterectomy PLAN: cont IV Vanco ( LLExt cellulitis ) and Zosyn (GNR translocation) d # 4 / 5- 7 Blood transfusion as needed. Monitor cultures (blood, ) Monitor chest x-ray. GI following not a candidate for EGD (due to both hypotension and poor breathing reserves) Nephro following RPBC PRN back on pressors Subjective Allergies: Coded Allergies: ASPIRIN (Unverified Allergy, Unknown, 01/05/18) Uncoded Allergies: TAPE (Allergy, Unknown, 01/05/18) Subjective no pain Objective Vital Signs Last 24 Hour Vital Signs Date Time Temp Pulse Resp B/P (MAP) Pulse Ox O2 Delivery O2 Flow Rate FiO2 01/10/18 14:00 54 13 86/52 98 Nasal Cannula 2.0 01/10/18 14:00 86/60 01/10/18 13:00 98.8 60 16 92/43 98 Nasal Cannula 2.0 98.8 01/10/18 13:00 59 01/10/18 13:00 93/46 01/10/18 12:00 63 13 93/44 98 Nasal Cannula 2.0 01/10/18 12:00 93/44 01/10/18 11:00 92/43 01/10/18 11:00 63 13 111/51 99 Nasal Cannula 2.0 01/10/18 10:00 63 17 98/46 98 Nasal Cannula 2.0 01/10/18 09:58 106/51 01/10/18 09:00 63 17 87/47 98 Nasal Cannula 2.0 01/10/18 08:58 98/46 01/10/18 08:00 98.8 64 16 92/40 98 Nasal Cannula 2.0 98.8 01/10/18 08:00 92/40 01/10/18 08:00 61 18 07:00 113/54 01/10/18 07:00 63 15 113/54 98 Nasal Cannula 2.0 01/10/18 06:30 68 14 101/52 97 Nasal Cannula 2.0 01/10/18 06:00 108/49 01/10/18 06:00 66 15 105/51 95 Nasal Cannula 2.0 01/10/18 05:30 55 16 59/39 95 Nasal Cannula 2.0 01/10/18 05:00 102/53 01/10/18 05:00 98.4 66 18 90/41 90 Nasal Cannula 2.0 98.4 01/10/18 04:30 62 15 101/44 95 Nasal Cannula 2.0 01/10/18 04:00 61 01/10/18 04:00 60 15 81/36 93 Nasal Cannula 2.0 01/10/18 04:00 81/39 01/10/18 03:30 65 17 98/49 94 Nasal Cannula 2.0 01/10/18 03:00 67 19 99/48 94 Nasal Cannula 2.0 01/10/18 03:00 98/44 01/10/18 02:30 66 22 99/49 95 Nasal Cannula 2.0 01/10/18 02:00 101/45 01/10/18 02:00 68 24 101/45 97 Nasal Cannula 2.0 01/10/18 01:00 63 18 101/43 96 Nasal Cannula 2.0 01/10/18 01:00 101/43 01/10/18 00:30 69 15 99/44 96 Nasal Cannula 2.0 01/10/18 00:00 66 01/10/18 00:00 100/48 01/10/18 00:00 98.6 66 16 100/44 96 Nasal Cannula 2.0 98.6 01/09/18 23:30 43 15 89/44 96 Nasal Cannula 2.0 01/09/18 23:00 64 15 107/50 96 Nasal Cannula 2.0 01/09/18 23:00 107/45 01/09/18 22:30 66 19 109/48 97 Nasal Cannula 2.0 01/09/18 22:00 58 17 104/46 97 Nasal Cannula 2.0 01/09/18 22:00 104/46 01/09/18 21:43 80/40 01/09/18 21:30 59 16 96/44 97 Nasal Cannula 2.0 01/09/18 21:00 68 16 89/43 97 Nasal Cannula 2.0 01/09/18 20:30 64 16 81/38 97 Nasal Cannula 2.0 01/09/18 20:00 62 01/09/18 20:00 98.5 65 16 88/43 97 Nasal Cannula 2.0 98.5 01/09/18 19:30 65 16 85/41 97 Nasal Cannula 2.0 01/09/18 19:19 Nasal Cannula 2.0 28 01/09/18 19:19 97 Nasal Cannula 2.0 28 01/09/18 19:00 65 18 93/47 97 Nasal Cannula 2.0 01/09/18 18:00 73 16 92/41 97 Nasal Cannula 2.0 01/09/18 17:30 75 18 97/39 97 Nasal Cannula 2.0 01/09/18 17:00 93/47 01/09/18 17:00 72 16 89/42 97 Nasal Cannula 2.0 01/09/18 16:30 75 16 91/41 97 Nasal Cannula 2.0 01/09/18 16:00 98.6 72 18 89/42 98 Nasal Cannula 2.0 98.6 01/09/18 16:00 78 01/09/18 16:00 91/41 01/09/18 15:45 90/40 01/09/18 15:30 83 20 101/46 99 Nasal Cannula 2.0 01/09/18 15:00 80 21 99/36 98 Nasal Cannula 2.0 01/09/18 15:00 98/35 Height (Feet): 5 Height (Inches): 4.00 Weight (Pounds): 345 HEENT: anicteric Respiratory/Chest: normal breath sounds Cardiovascular: regularly irregular Abdomen: no organomegaly Laboratory Tests Test 01/10/18 04:00 01/10/18 13:00 White Blood Count 7.5 K/UL (4.8-10.8) Red Blood Count 2.96 M/UL (4.20-5.40) L Hemoglobin 8.8 G/DL (12.0-16.0) L Hematocrit 26.5 % (37.0-47.0) L Mean Corpuscular Volume 90 FL (80-99) Mean Corpuscular Hemoglobin 29.6 PG (27.0-31.0) Mean Corpuscular Hemoglobin Concent 33.0 G/DL (32.0-36.0) Red Cell Distribution Width 15.4 % (11.6-14.8) H Platelet Count 50 K/UL (150-450) L Mean Platelet Volume 8.1 FL (6.5-10.1) Neutrophils (%) (Auto) % (45.0-75.0) Lymphocytes (%) (Auto) % (20.0-45.0) Monocytes (%) (Auto) % (1.0-10.0) Eosinophils (%) (Auto) % (0.0-3.0) Basophils (%) (Auto) % (0.0-2.0) Differential Total Cells Counted 100 Neutrophils % (Manual) 68 % (45-75) Lymphocytes % (Manual) 20 % (20-45) Monocytes % (Manual) 7 % (1-10) Eosinophils % (Manual) 5 % (0-3) H Basophils % (Manual) 0 % (0-2) Band Neutrophils 0 % (0-8) Platelet Estimate Decreased L Platelet Morphology Normal Hypochromasia 1+ Anisocytosis 1+ Prothrombin Time 16.1 SEC (9.30-11.50) H Prothromb Time International Ratio 1.5 (0.9-1.1) H Activated Partial Thromboplast Time 53 SEC (23-33) H Sodium Level 136 MMOL/L (136-145) Potassium Level 3.9 MMOL/L (3.5-5.1) Chloride Level 104 MMOL/L (98-107) Carbon Dioxide Level 25 MMOL/L (21-32) Anion Gap 8 mmol/L (5-15) Blood Urea Nitrogen 29 mg/dL (7-18) H Creatinine 2.3 MG/DL (0.55-1.30) H Estimat Glomerular Filtration Rate mL/min (>60) Glucose Level 123 MG/DL (74-106) H Calcium Level 7.5 MG/DL (8.5-10.1) L Phosphorus Level 3.3 MG/DL (2.5-4.9) Magnesium Level 1.5 MG/DL (1.8-2.4) L Total Bilirubin 4.4 MG/DL (0.2-1.0) H Direct Bilirubin 2.2 MG/DL (0.0-0.3) H Aspartate Amino Transf (AST/SGOT) 45 U/L (15-37) H Alanine Aminotransferase (ALT/SGPT) 25 U/L (12-78) Alkaline Phosphatase 83 U/L (46-116) Total Protein 5.5 G/DL (6.4-8.2) L Albumin 2.3 G/DL (3.4-5.0) L Globulin 3.2 g/dL Albumin/Globulin Ratio 0.7 (1.0-2.7) L Ammonia 102 umol/L (11-32) H Current Medications Medications (Trade) Dose Ordered Sig/Miles Route PRN Reason Start Time Stop Time Status Last Admin Dose Admin Acetaminophen (Tylenol) 650 mg Q4H PRN ORAL fever 01/05/18 15:45 02/04/18 15:44 Albumin Human 100 ml @ 100 mls/hr Q8H IV 01/09/18 20:00 01/11/18 12:59 01/10/18 12:42 Chlorhexidine Gluconate (Destiny-Hex 2%) 1 applic DAILY@2000 TOPIC 01/06/18 20:00 02/05/18 19:59 01/09/18 20:00 Dextrose (Dextrose 50%) STAT PRN IV Hypoglycemia 01/05/18 15:45 02/04/18 15:44 Dextrose/Sodium Chloride 1,000 ml @ 50 mls/hr Q20H IV 01/06/18 16:00 02/04/18 15:59 01/10/18 00:00 Dopamine HCl/ Dextrose 250 ml @ 0 mls/hr Q24H IV 01/05/18 15:45 02/04/18 15:44 Lactulose (Cephulac) 20 gm THREE TIMES A DAY ORAL 01/10/18 18:00 02/09/18 17:59 Midodrine (Pro-Amatine) 10 mg THREE TIMES A DAY ORAL 01/07/18 13:00 02/06/18 12:59 01/10/18 12:42 Morphine Sulfate (Morphine Sulfate) 2 mg Q4H PRN IVP For Pain 01/05/18 13:30 01/12/18 13:29 01/05/18 13:33 Nitroglycerin (Ntg) 0.4 mg Q5M X 3 DOSES PRN SL Prn Chest Pain 01/05/18 15:45 02/04/18 15:44 Norepinephrine Bitartrate 4 mg/ Dextrose 250 ml @ 0 mls/hr Q24H IV 01/07/18 21:30 02/04/18 19:59 01/09/18 21:43 Ondansetron HCl (Zofran) 4 mg Q6H PRN IVP Nausea & Vomiting 01/05/18 13:30 02/04/18 13:29 01/05/18 13:32 Pantoprazole (Protonix) 40 mg Q12HR IV 01/06/18 21:00 02/05/18 10:29 01/10/18 08:58 Phytonadione 1 mg/ Dextrose 55.5 ml @ 222 mls/hr ONCE ONCE IVPB 01/10/18 15:30 01/10/18 15:44 Piperacillin Sod/ Tazobactam Sod 3.375 gm/Dextrose 110 ml @ 27.5 mls/hr EVERY 8 HOURS IVPB 01/07/18 23:30 01/12/18 23:29 01/10/18 14:23 Polyethylene Glycol (Miralax) 17 gm HSPRN PRN ORAL Constipation 01/05/18 15:45 02/04/18 15:44 Rifaximin (Xifaxan) 550 mg EVERY 12 HOURS ORAL 01/06/18 22:00 01/13/18 21:59 01/10/18 08:58 Vancomycin HCl (Vanco rx to dose) 1 ea DAILY PRN MISC Per rx protocol 01/07/18 19:45 02/06/18 19:44 Vancomycin HCl/ Dextrose 250 ml @ 125 mls/hr Q48H IVPB 01/10/18 21:00 01/15/18 20:59 Vitamin A/Vitamin D (A & D Oint) 1 applic EVERY 12 HOURS TOPIC 01/06/18 21:00 02/05/18 20:59 01/10/18 08:58 Rad Galicia MD January 10, 2018 14:57
[2018-01-10] MEDS ORDERED: D5NS 1000ml IV ONE ×4 (15:12→15:20)
[2018-01-10] MEDS ORDERED: Tubing IV Secondary IV ONE ×3 (15:12→15:20)
[2018-01-10] MEDS ORDERED: NS 275ml ONE (15:14)
[2018-01-10] MEDS ORDERED: Tubing Blood Filter IV ONE (15:20)
[2018-01-10] MEDS ORDERED: Phytonadione 1 MG in D5W 55 ML IVPB ONE (15:30)
[2018-01-10] MEDS: Lactulose 20gm/30ml UDC ORAL SCH (15:40)
[2018-01-10] MEDS: DOPamine 400mg/250ml 250 ML IV SCH (15:45)
--- NOTE | 2018-01-10 19:22 | Cardiology Progress Note ---
Assessment/Plan Assessment/Plan she is on low dose of Levofed Subjective Subjective The patient is very lethargic family at the bedside she opens her eyes, but does not spak Objective Last 24 Hour Vital Signs Date Time Temp Pulse Resp B/P (MAP) Pulse Ox O2 Delivery O2 Flow Rate FiO2 01/10/18 19:00 56 12 100/46 99 Nasal Cannula 2.0 01/10/18 19:00 100/46 01/10/18 18:00 60 13 95/49 99 Nasal Cannula 2.0 01/10/18 18:00 95/49 01/10/18 17:00 57 12 93/49 97 Nasal Cannula 2.0 01/10/18 17:00 102/53 01/10/18 16:00 98.0 60 15 96/49 94 Nasal Cannula 2.0 98.0 01/10/18 16:00 96/49 01/10/18 16:00 64 01/10/18 15:45 96/49 01/10/18 15:00 99/55 01/10/18 15:00 56 13 99/55 95 Nasal Cannula 2.0 01/10/18 14:00 54 13 86/52 98 Nasal Cannula 2.0 01/10/18 14:00 86/60 01/10/18 13:00 98.8 60 16 92/43 98 Nasal Cannula 2.0 98.8 01/10/18 13:00 59 01/10/18 13:00 93/46 01/10/18 12:00 63 13 93/44 98 Nasal Cannula 2.0 01/10/18 12:00 93/44 01/10/18 11:00 92/43 01/10/18 11:00 63 13 111/51 99 Nasal Cannula 2.0 01/10/18 10:00 63 17 98/46 98 Nasal Cannula 2.0 01/10/18 09:58 106/51 01/10/18 09:00 63 17 87/47 98 Nasal Cannula 2.0 01/10/18 08:58 98/46 01/10/18 08:00 98.8 64 16 92/40 98 Nasal Cannula 2.0 98.8 01/10/18 08:00 92/40 01/10/18 08:00 61 01/10/18 07:00 113/54 01/10/18 07:00 63 15 113/54 98 Nasal Cannula 2.0 01/10/18 06:30 68 14 101/52 97 Nasal Cannula 2.0 01/10/18 06:00 108/49 01/10/18 06:00 66 15 105/51 95 Nasal Cannula 2.0 01/10/18 05:30 55 16 59/39 95 Nasal Cannula 2.0 01/10/18 05:00 102/53 01/10/18 05:00 98.4 66 18 90/41 90 Nasal Cannula 2.0 98.4 01/10/18 04:30 62 15 101/44 95 Nasal Cannula 2.0 01/10/18 04:00 61 01/10/18 04:00 60 15 81/36 93 Nasal Cannula 2.0 01/10/18 04:00 81/39 01/10/18 03:30 65 17 98/49 94 Nasal Cannula 2.0 01/10/18 03:00 67 19 99/48 94 Nasal Cannula 2.0 01/10/18 03:00 98/44 01/10/18 02:30 66 22 99/49 95 Nasal Cannula 2.0 01/10/18 02:00 101/45 01/10/18 02:00 68 24 101/45 97 Nasal Cannula 2.0 01/10/18 01:00 63 18 101/43 96 Nasal Cannula 2.0 01/10/18 01:00 101/43 01/10/18 00:30 69 15 99/44 96 Nasal Cannula 2.0 01/10/18 00:00 66 01/10/18 00:00 100/48 01/10/18 00:00 98.6 66 16 100/44 96 Nasal Cannula 2.0 98.6 01/09/18 23:30 43 15 89/44 96 Nasal Cannula 2.0 01/09/18 23:00 64 15 107/50 96 Nasal Cannula 2.0 01/09/18 23:00 107/45 01/09/18 22:30 66 19 109/48 97 Nasal Cannula 2.0 01/09/18 22:00 58 17 104/46 97 Nasal Cannula 2.0 01/09/18 22:00 104/46 18 21:43 80/40 18 21:30 59 16 96/44 97 Nasal Cannula 2.0 01/09/18 21:00 68 16 89/43 97 Nasal Cannula 2.0 01/09/18 20:30 64 16 81/38 97 Nasal Cannula 2.0 01/09/18 20:00 62 01/09/18 20:00 98.5 65 16 88/43 97 Nasal Cannula 2.0 98.5 01/09/18 19:30 65 16 85/41 97 Nasal Cannula 2.0 General Appearance: lethargic, obese - morbidly , other EENT: PERRL/EOMI Neck: other - cannot assess JVD Rhythm: NSR Cardiovascular: regular rhythm Respiratory/Chest: normal breath sounds Abdomen: distended Extremities: moderate edema Neurologic: keg raiser II-XII grossly normal Intake and Output 01/09/18 01/10/18 19:00 07:00 Intake Total 817.00 ml 1150.0 ml Output Total 510 ml 380 ml Balance 307.00 ml 770.0 ml IV Total 817.00 ml 1150.0 ml Output Urine Total 510 ml 380 ml Laboratory Tests Test 01/10/18 04:00 01/10/18 13:00 White Blood Count 7.5 K/UL (4.8-10.8) Red Blood Count 2.96 M/UL (4.20-5.40) L Hemoglobin 8.8 G/DL (12.0-16.0) L Hematocrit 26.5 % (37.0-47.0) L Mean Corpuscular Volume 90 FL (80-99) Mean Corpuscular Hemoglobin 29.6 PG (27.0-31.0) Mean Corpuscular Hemoglobin Concent 33.0 G/DL (32.0-36.0) Red Cell Distribution Width 15.4 % (11.6-14.8) H Platelet Count 50 K/UL (150-450) L Mean Platelet Volume 8.1 FL (6.5-10.1) Neutrophils (%) (Auto) % (45.0-75.0) Lymphocytes (%) (Auto) % (20.0-45.0) Monocytes (%) (Auto) % (1.0-10.0) Eosinophils (%) (Auto) % (0.0-3.0) Basophils (%) (Auto) % (0.0-2.0) Differential Total Cells Counted 100 Neutrophils % (Manual) 68 % (45-75) Lymphocytes % (Manual) 20 % (20-45) Monocytes % (Manual) 7 % (1-10) Eosinophils % (Manual) 5 % (0-3) H Basophils % (Manual) 0 % (0-2) Band Neutrophils 0 % (0-8) Platelet Estimate Decreased L Platelet Morphology Normal Hypochromasia 1+ Anisocytosis 1+ Prothrombin Time 16.1 SEC (9.30-11.50) H Prothromb Time International Ratio 1.5 (0.9-1.1) H Activated Partial Thromboplast Time 53 SEC (23-33) H Sodium Level 136 MMOL/L (136-145) Potassium Level 3.9 MMOL/L (3.5-5.1) Chloride Level 104 MMOL/L (98-107) Carbon Dioxide Level 25 MMOL/L (21-32) Anion Gap 8 mmol/L (5-15) Blood Urea Nitrogen 29 mg/dL (7-18) H Creatinine 2.3 MG/DL (0.55-1.30) H Estimat Glomerular Filtration Rate mL/min (>60) Glucose Level 123 MG/DL (74-106) H Calcium Level 7.5 MG/DL (8.5-10.1) L Phosphorus Level 3.3 MG/DL (2.5-4.9) Magnesium Level 1.5 MG/DL (1.8-2.4) L Total Bilirubin 4.4 MG/DL (0.2-1.0) H Direct Bilirubin 2.2 MG/DL (0.0-0.3) H Aspartate Amino Transf (AST/SGOT) 45 U/L (15-37) H Alanine Aminotransferase (ALT/SGPT) 25 U/L (12-78) Alkaline Phosphatase 83 U/L (46-116) Total Protein 5.5 G/DL (6.4-8.2) L Albumin 2.3 G/DL (3.4-5.0) L Globulin 3.2 g/dL Albumin/Globulin Ratio 0.7 (1.0-2.7) L Ammonia 102 umol/L (11-32) H Ling Pacheco MD January 10, 2018 19:22
[2018-01-10] MEDS: D5NS 1,000 ML IV SCH ×2 (19:44)
[2018-01-10] MEDS: Dyna-Hex 2% Top Sol 2oz TOPIC SCH (20:06)
[2018-01-10] MEDS ORDERED: Vancomycin 1.5 GM/D5W 250ML IVPB SCH (21:00)
--- NOTE | 2018-01-10 23:01 | General Progress Note ---
Assessment/Plan Status: stable Assessment/Plan mdd anxiety d/o buspar 10mg bid provided ro/st Subjective Date patient seen: January 10, 2018 Neurologic/Psychiatric: Reports: anxiety, depressed, emotional problems Allergies: Coded Allergies: ASPIRIN (Unverified Allergy, Unknown, 01/05/18) Uncoded Allergies: TAPE (Allergy, Unknown, 01/05/18) Objective Last 24 Hour Vital Signs Date Time Temp Pulse Resp B/P (MAP) Pulse Ox O2 Delivery O2 Flow Rate FiO2 01/10/18 22:00 60 12 112/47 99 Nasal Cannula 2.0 01/10/18 22:00 99/56 01/10/18 21:30 102/51 01/10/18 21:00 102/54 01/10/18 21:00 59 12 100/46 99 Nasal Cannula 2.0 01/10/18 20:30 112/49 01/10/18 20:06 109/47 01/10/18 20:00 58 12 109/47 99 Nasal Cannula 2.0 01/10/18 20:00 98 Nasal Cannula 2.0 28 01/10/18 20:00 58 01/10/18 20:00 Nasal Cannula 2.0 28 01/10/18 19:30 109/46 01/10/18 19:00 56 12 100/46 99 Nasal Cannula 2.0 01/10/18 19:00 100/46 01/10/18 18:00 60 13 95/49 99 Nasal Cannula 2.0 01/10/18 18:00 95/49 01/10/18 17:00 57 12 93/49 97 Nasal Cannula 2.0 01/10/18 17:00 102/53 01/10/18 16:00 98.0 60 15 96/49 94 Nasal Cannula 2.0 98.0 01/10/18 16:00 96/49 01/10/18 16:00 64 01/10/18 15:45 96/49 01/10/18 15:00 99/55 01/10/18 15:00 56 13 99/55 95 Nasal Cannula 2.0 01/10/18 14:00 54 13 86/52 98 Nasal Cannula 2.0 01/10/18 14:00 86/60 01/10/18 13:00 98.8 60 16 92/43 98 Nasal Cannula 2.0 98.8 01/10/18 13:00 59 01/10/18 13:00 93/46 01/10/18 12:00 63 13 93/44 98 Nasal Cannula 2.0 01/10/18 12:00 93/44 01/10/18 11:00 92/43 01/10/18 11:00 63 13 111/51 99 Nasal Cannula 2.0 01/10/18 10:00 63 17 98/46 98 Nasal Cannula 2.0 01/10/18 09:58 106/51 01/10/18 09:00 63 17 87/47 98 Nasal Cannula 2.0 01/10/18 08:58 98/46 01/10/18 08:00 98.8 64 16 92/40 98 Nasal Cannula 2.0 98.8 01/10/18 08:00 92/40 01/10/18 08:00 61 01/10/18 07:00 113/54 01/10/18 07:00 63 15 113/54 98 Nasal Cannula 2.0 01/10/18 06:30 68 14 101/52 97 Nasal Cannula 2.0 01/10/18 06:00 108/49 01/10/18 06:00 66 15 105/51 95 Nasal Cannula 2.0 01/10/18 05:30 55 16 59/39 95 Nasal Cannula 2.0 01/10/18 05:00 102/53 01/10/18 05:00 98.4 66 18 90/41 90 Nasal Cannula 2.0 98.4 01/10/18 04:30 62 15 101/44 95 Nasal Cannula 2.0 01/10/18 04:00 61 01/10/18 04:00 60 15 81/36 93 Nasal Cannula 2.0 01/10/18 04:00 81/39 01/10/18 03:30 65 17 98/49 94 Nasal Cannula 2.0 01/10/18 03:00 67 19 99/48 94 Nasal Cannula 2.0 01/10/18 03:00 98/44 01/10/18 02:30 66 22 99/49 95 Nasal Cannula 2.0 01/10/18 02:00 101/45 01/10/18 02:00 68 24 101/45 97 Nasal Cannula 2.0 01/10/18 01:00 63 18 101/43 96 Nasal Cannula 2.0 01/10/18 01:00 101/43 01/10/18 00:30 69 15 99/44 96 Nasal Cannula 2.0 01/10/18 00:00 66 01/10/18 00:00 100/48 01/10/18 00:00 98.6 66 16 100/44 96 Nasal Cannula 2.0 98.6 01/09/18 23:30 43 15 89/44 96 Nasal Cannula 2.0 Intake and Output 01/09/18 01/10/18 19:00 07:00 Intake Total 817.00 ml 1150.0 ml Output Total 510 ml 380 ml Balance 307.00 ml 770.0 ml IV Total 817.00 ml 1150.0 ml Output Urine Total 510 ml 380 ml Laboratory Tests 01/10/18 04:00: White Blood Count 7.5, Red Blood Count 2.96L, Hemoglobin 8.8L, Hematocrit 26.5L , Mean Corpuscular Volume 90, Mean Corpuscular Hemoglobin 29.6, Mean Corpuscular Hemoglobin Concent 33.0, Red Cell Distribution Width 15.4H, Platelet Count 50L, Mean Platelet Volume 8.1, Neutrophils (%) (Auto) , Lymphocytes (%) (Auto) , Monocytes (%) (Auto) , Eosinophils (%) (Auto) , Basophils (%) (Auto) , Differential Total Cells Counted 100, Neutrophils % ( Manual) 68, Lymphocytes % (Manual) 20, Monocytes % (Manual) 7, Eosinophils % ( Manual) 5H, Basophils % (Manual) 0, Band Neutrophils 0, Platelet Estimate DecreasedL, Platelet Morphology Normal, Hypochromasia 1+, Anisocytosis 1+, Prothrombin Time 16.1H, Prothromb Time International Ratio 1.5H, Activated Partial Thromboplast Time 53H, Sodium Level 136, Potassium Level 3.9, Chloride Level 104, Carbon Dioxide Level 25, Anion Gap 8, Blood Urea Nitrogen 29H, Creatinine 2.3H, Estimat Glomerular Filtration Rate , Glucose Level 123H, Calcium Level 7.5L, Phosphorus Level 3.3, Magnesium Level 1.5L, Total Bilirubin 4.4H, Direct Bilirubin 2.2H, Aspartate Amino Transf (AST/SGOT) 45H, Alanine Aminotransferase (ALT/SGPT) 25, Alkaline Phosphatase 83, Total Protein 5.5L, Albumin 2.3L, Globulin 3.2, Albumin/Globulin Ratio 0.7L 01/10/18 13:00: Ammonia 102H 01/10/18 20:00: Vancomycin Level Trough 17.7H Height (Feet): 5 Height (Inches): 4.00 Weight (Pounds): 345 General Appearance: no apparent distress, alert, confused Cady Brower M.D. January 10, 2018 23:01
[2018-01-11] VITALS (44 sets, daily range): BP systolic 81–122; BP diastolic 37–63
[2018-01-11 05:42] LABS: HEMATOCRIT 24.6 % (37.0-47.0); HEMOGLOBIN 8.3 G/DL (12.0-16.0); MEAN CORPUSCULAR VOLUME 91 FL (80-99); PLATELET COUNT 30 K/UL (150-450); RED BLOOD COUNT 2.72 M/UL (4.20-5.40); RED CELL DISTRIBUTION WIDTH 15.5 % (11.6-14.8); WHITE BLOOD COUNT 4.7 K/UL (4.8-10.8)
[2018-01-11] MEDS: Piperacillin/Tazobactam 3.375 GM in D5W 110 ML IVPB SCH ×3 (06:06→22:40)
[2018-01-11 06:17] LABS: ALANINE AMINOTRANSFERASE 24 U/L (12-78); ALBUMIN 3.1 G/DL (3.4-5.0); ALBUMIN/GLOBULIN RATIO 1.1 (1.0-2.7); ALKALINE PHOSPHATASE 72 U/L (46-116); ANION GAP 9 mmol/L (5-15); ASPARTATE AMINO TRANSFERASE 33 U/L (15-37); BLOOD UREA NITROGEN 29 mg/dL (7-18); CALCIUM 8.3 MG/DL (8.5-10.1); CARBON DIOXIDE 23 MMOL/L (21-32); CHLORIDE 105 MMOL/L (98-107); CREATININE 2.4 MG/DL (0.55-1.30); POTASSIUM 3.6 MMOL/L (3.5-5.1); SODIUM 137 MMOL/L (136-145)
[2018-01-11 06:21] LABS: AMMONIA 109 umol/L (11-32)
[2018-01-11 06:50] LABS: BILIRUBIN,DIRECT 2.5 MG/DL (0.0-0.3)
[2018-01-11] MEDS ORDERED: Albuterol/Ipratropium 3ml neb HHN PRN (07:45)
--- NOTE | 2018-01-11 07:50 | Pulmonolgy Critical Care Note ---
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 s/p vit K , no change in INR Real Estate Utilization Officer closely follows Echocardiogram with preserved ejection fraction 65-70% Minimally abnormal cardiac enzyme insignificant in view of renal insufficiency as per aircraft captain Electrification Adviser seen and evaluated Per fur machine operator recommendations, hold anticoagulation given severe anemia. Venous duplex BLE negative Supplemental oxygen as needed to keep pulse oximetry above 92% Patient with history of breast cancer and bilateral mastectomy, but no evidence of disease at this time ,as per oncologist Technical Sales Representative closely follows Gentle IV fluids continued closely monitor renal parameters, electrolytes corrected electrolytes as needed avoid nephrotoxins per reconsignment clerk patient had acute kidney injury on chronic renal insufficiency and renal function stable at this time infectious disease specialist follows blood culture negative, urine culture revealed low count of Providencia and Strep , which is contaminant as per ID ; no evidence of infection however initially with leukocytosis , likely reactive due to on acute GI bleeding, per ID recommendations continue antibiotic for now pain management Bowel regimen Psychiatrist seen and evaluated patient, diagnosed patient with major depressive disorder and anxiety disorder reality orientation and supportive therapy provided psychiatric medication regimen optimized overall condition critical, poor prognosis case discussed and evaluated by supervising physician Critical Care - Objective Last 24 Hour Vital Signs Date Time Temp Pulse Resp B/P (MAP) Pulse Ox O2 Delivery O2 Flow Rate FiO2 01/11/18 07:00 92/38 01/11/18 07:00 64 25 92/38 98 Nasal Cannula 2.0 01/11/18 06:30 103/38 01/11/18 06:00 55 13 98/49 100 Nasal Cannula 2.0 01/11/18 06:00 84/45 01/11/18 05:00 55 12 93/39 99 Nasal Cannula 2.0 01/11/18 05:00 82/35 01/11/18 04:00 97/39 01/11/18 04:00 97.8 54 12 97/39 95 Nasal Cannula 2.0 97.8 01/11/18 04:00 57 01/11/18 03:00 90/43 01/11/18 03:00 54 16 90/43 95 Nasal Cannula 2.0 01/11/18 02:30 56 16 84/44 95 Nasal Cannula 2.0 01/11/18 02:30 84/46 01/11/18 02:00 84/42 01/11/18 02:00 61 16 93/47 95 Nasal Cannula 2.0 01/11/18 01:30 95/51 01/11/18 01:30 61 12 81/44 96 Nasal Cannula 2.0 01/11/18 01:00 56 14 87/50 95 Nasal Cannula 2.0 01/11/18 01:00 81/44 01/11/18 00:30 60 16 85/43 95 Nasal Cannula 2.0 01/11/18 00:30 85/43 01/11/18 00:00 58 01/11/18 00:00 87/41 01/11/18 00:00 61 17 87/41 95 Nasal Cannula 2.0 01/10/18 23:30 53 13 89/41 96 Nasal Cannula 2.0 01/10/18 23:30 89/41 01/10/18 23:00 61 12 91/44 99 Nasal Cannula 2.0 18 23:00 88/47 18 22:30 91/44 18 22:00 60 12 112/47 99 Nasal Cannula 2.0 18 22:00 99/56 18 21:30 102/51 18 21:00 102/54 18 21:00 59 12 100/46 99 Nasal Cannula 2.0 18 20:30 112/49 18 20:06 109/47 01/10/18 20:00 58 12 109/47 99 Nasal Cannula 2.0 01/10/18 20:00 98 Nasal Cannula 2.0 28 01/10/18 20:00 58 01/10/18 20:00 Nasal Cannula 2.0 28 01/10/18 19:30 109/46 01/10/18 19:00 56 12 100/46 99 Nasal Cannula 2.0 01/10/18 19:00 100/46 01/10/18 18:00 60 13 95/49 99 Nasal Cannula 2.0 01/10/18 18:00 95/49 01/10/18 17:00 57 12 93/49 97 Nasal Cannula 2.0 01/10/18 17:00 102/53 01/10/18 16:00 98.0 60 15 96/49 94 Nasal Cannula 2.0 98.0 01/10/18 16:00 96/49 01/10/18 16:00 64 01/10/18 15:45 96/49 01/10/18 15:00 99/55 01/10/18 15:00 56 13 99/55 95 Nasal Cannula 2.0 01/10/18 14:00 54 13 86/52 98 Nasal Cannula 2.0 01/10/18 14:00 86/60 01/10/18 13:00 98.8 60 16 92/43 98 Nasal Cannula 2.0 98.8 01/10/18 13:00 59 01/10/18 13:00 93/46 01/10/18 12:00 63 13 93/44 98 Nasal Cannula 2.0 01/10/18 12:00 93/44 01/10/18 11:00 92/43 01/10/18 11:00 63 13 111/51 99 Nasal Cannula 2.0 01/10/18 10:00 63 17 98/46 98 Nasal Cannula 2.0 18 09:58 106/51 01/10/18 09:00 63 17 87/47 98 Nasal Cannula 2.0 01/10/18 08:58 98/46 01/10/18 08:00 98.8 64 16 92/40 98 Nasal Cannula 2.0 98.8 01/10/18 08:00 92/40 01/10/18 08:00 61 Status: other - lethargic, open eyes to deep touch, but almost immediately closes them Condition: critical HEENT: atraumatic, normocephalic, other - O2 viqa NC Neck: other - rij cl INTACT Heart: HR/BP unstable Abdomen: soft, active bowel sounds Extremities: other - +3 edema peripheral Critical Care - Subjective ROS Limited/Unobtainable: Yes Interval Events: still on low dose of pressor, unable to wean on albumin in hope top wean from pressors ammonia rising, GI added Lactulose worsening creat - 2.4 worsening bili and PLT, vit K given, no change in INR Hgb down to 8.3 overall condition worsening, lethargic, IV Access: central - RIJ intact EKG Rhythm: Sinus Rhythm - occas mandy 56-58 FI02: 28 Fluids: D5NS at 50 Drips: Levophed gtt at 1.2 mcg/min I&O: Intake and Output 01/10/18 01/11/18 19:00 07:00 Intake Total 1031.75 ml 1208.365 ml Output Total 300 ml 210 ml Balance 731.75 ml 998.365 ml IV Total 1031.75 ml 1208.365 ml Output Urine Total 300 ml 210 ml # Bowel Movements 1 Abby Mcguire [employer] January 11, 2018 07:50
[2018-01-11] MEDS: Vitamin A&D Oint 2oz Tube TOPIC SCH ×2 (09:00→20:47)
[2018-01-11] MEDS: Midodrine 10mg tab ORAL SCH ×4 (09:00→17:41)
[2018-01-11] MEDS ORDERED: Tubing IV Secondary IV ONE (09:49)
[2018-01-11] MEDS ORDERED: NS 500ML ONE (09:49)
[2018-01-11] MEDS: Lactulose 20gm/30ml UDC ORAL SCH ×4 (10:43→17:41)
[2018-01-11] MEDS: Pantoprazole Inj IV SCH ×2 (10:43→20:46)
[2018-01-11] MEDS ORDERED: Morphine Sulfate 4mg/ml Inj IVP PRN (11:00)
--- NOTE | 2018-01-11 11:30 | General Progress Note ---
Assessment/Plan Assessment/Plan - UGIB - clinically resolved, but still anemic and downward trend - Cirrhosis, from GRECO - No esophageal varcies on Jun 2017 EGD - h/o hepatic encephalopathy - coagulopathy (INR and platelets) - Chronic edema - h/o DVT/PE - off of coumadin now - hypotension, requiring pressors - Azotemia Recommendations - at high anesthesia risk for EGD (due to both hypotension and poor breathing reserves) - no plans for Endoscopy at this time - not clear if benefits justify the risk - Consider IVC filter, since may no longer be a candidate for anticoagulation - Will give a 24-48 hour IV albumin trial --> may help wean off pressors - FFP and PRBC PRN - Xifaxan - BID PP -add lactulose -vit k -placed a dobhoff tube -plan TF if NGT in the right place Subjective ROS Limited/Unobtainable: No Allergies: Coded Allergies: ASPIRIN (Unverified Allergy, Unknown, 01/05/18) Uncoded Allergies: TAPE (Allergy, Unknown, 01/05/18) Objective Last 24 Hour Vital Signs Date Time Temp Pulse Resp B/P (MAP) Pulse Ox O2 Delivery O2 Flow Rate FiO2 01/11/18 11:00 64 20 95/50 99 Nasal Cannula 2.0 01/11/18 10:00 70 20 93/45 99 Nasal Cannula 2.0 01/11/18 09:35 64 18 Nasal Cannula 2.0 28 01/11/18 09:00 66 20 95/44 99 Nasal Cannula 2.0 01/11/18 08:00 98.0 62 20 100/43 98 Nasal Cannula 2.0 98.0 01/11/18 08:00 62 01/11/18 07:13 98 Nasal Cannula 2.0 28 01/11/18 07:13 Nasal Cannula 2.0 28 01/11/18 07:00 92/38 01/11/18 07:00 64 25 92/38 98 Nasal Cannula 2.0 01/11/18 06:30 103/38 01/11/18 06:00 55 13 98/49 100 Nasal Cannula 2.0 01/11/18 06:00 84/45 01/11/18 05:00 55 12 93/39 99 Nasal Cannula 2.0 01/11/18 05:00 82/35 01/11/18 04:00 97/39 01/11/18 04:00 97.8 54 12 97/39 95 Nasal Cannula 2.0 97.8 01/11/18 04:00 57 2018 03:00 90/43 01/11/18 03:00 54 16 90/43 95 Nasal Cannula 2.0 01/11/18 02:30 56 16 84/44 95 Nasal Cannula 2.0 01/11/18 02:30 84/46 01/11/18 02:00 84/42 01/11/18 02:00 61 16 93/47 95 Nasal Cannula 2.0 01/11/18 01:30 95/51 01/11/18 01:30 61 12 81/44 96 Nasal Cannula 2.0 01/11/18 01:00 56 14 87/50 95 Nasal Cannula 2.0 01/11/18 01:00 81/44 01/11/18 00:30 60 16 85/43 95 Nasal Cannula 2.0 01/11/18 00:30 85/43 01/11/18 00:00 58 01/11/18 00:00 87/41 01/11/18 00:00 61 17 87/41 95 Nasal Cannula 2.0 01/10/18 23:30 53 13 89/41 96 Nasal Cannula 2.0 01/10/18 23:30 89/41 01/10/18 23:00 61 12 91/44 99 Nasal Cannula 2.0 01/10/18 23:00 88/47 01/10/18 22:30 91/44 18 22:00 60 12 112/47 99 Nasal Cannula 2.0 01/10/18 22:00 99/56 01/10/18 21:30 102/51 18 21:00 102/54 18 21:00 59 12 100/46 99 Nasal Cannula 2.0 01/10/18 20:30 112/49 18 20:06 109/47 01/10/18 20:00 58 12 109/47 99 Nasal Cannula 2.0 01/10/18 20:00 98 Nasal Cannula 2.0 28 01/10/18 20:00 58 18 20:00 Nasal Cannula 2.0 28 18 19:30 109/46 01/10/18 19:00 56 12 100/46 99 Nasal Cannula 2.0 01/10/18 19:00 100/46 01/10/18 18:00 60 13 95/49 99 Nasal Cannula 2.0 01/10/18 18:00 95/49 01/10/18 17:00 57 12 93/49 97 Nasal Cannula 2.0 01/10/18 17:00 102/53 01/10/18 16:00 98.0 60 15 96/49 94 Nasal Cannula 2.0 98.0 01/10/18 16:00 96/49 01/10/18 16:00 64 01/10/18 15:45 96/49 01/10/18 15:00 99/55 01/10/18 15:00 56 13 99/55 95 Nasal Cannula 2.0 01/10/18 14:00 54 13 86/52 98 Nasal Cannula 2.0 01/10/18 14:00 86/60 01/10/18 13:00 98.8 60 16 92/43 98 Nasal Cannula 2.0 98.8 01/10/18 13:00 59 01/10/18 13:00 93/46 01/10/18 12:00 63 13 93/44 98 Nasal Cannula 2.0 01/10/18 12:00 93/44 Intake and Output 01/10/18 01/11/18 19:00 07:00 Intake Total 1031.75 ml 1208.365 ml Output Total 300 ml 210 ml Balance 731.75 ml 998.365 ml IV Total 1031.75 ml 1208.365 ml Output Urine Total 300 ml 210 ml # Bowel Movements 1 Laboratory Tests 01/10/18 13:00: Ammonia 102H 01/10/18 20:00: Vancomycin Level Trough 17.7H 01/11/18 04:00: Ammonia 109H, White Blood Count 4.7L, Red Blood Count 2.72L, Hemoglobin 8.3L, Hematocrit 24.6L, Mean Corpuscular Volume 91, Mean Corpuscular Hemoglobin 30.4, Mean Corpuscular Hemoglobin Concent 33.6, Red Cell Distribution Width 15.5H, Platelet Count 30L, Mean Platelet Volume 7.8, Neutrophils (%) (Auto) , Lymphocytes (%) (Auto) , Monocytes (%) (Auto) , Eosinophils (%) (Auto) , Basophils (%) (Auto) , Differential Total Cells Counted 100, Neutrophils % ( Manual) 72, Lymphocytes % (Manual) 19L, Monocytes % (Manual) 9, Eosinophils % ( Manual) 0, Basophils % (Manual) 0, Band Neutrophils 0, Platelet Estimate DecreasedL, Platelet Morphology Normal, Hypochromasia 1+, Anisocytosis 1+, Sodium Level 137, Potassium Level 3.6, Chloride Level 105, Carbon Dioxide Level 23, Anion Gap 9, Blood Urea Nitrogen 29H, Creatinine 2.4H, Estimat Glomerular Filtration Rate , Glucose Level 124H, Calcium Level 8.3L, Total Bilirubin 5.0H, Direct Bilirubin 2.5H, Aspartate Amino Transf (AST/SGOT) 33, Alanine Aminotransferase (ALT/SGPT) 24, Alkaline Phosphatase 72, Total Protein 6.0L, Albumin 3.1L, Globulin 2.9, Albumin/Globulin Ratio 1.1 Height (Feet): 5 Height (Inches): 4.00 Weight (Pounds): 345 General Appearance: confused EENT: normal ENT inspection Neck: supple Cardiovascular: normal rate Respiratory/Chest: decreased breath sounds Abdomen: normal bowel sounds, non tender, soft Extremities: non-tender Marlon Gibson MD January 11, 2018 11:30
--- NOTE | 2018-01-11 12:06 | Diagnostic Imaging Report ---
EXAM: XR Abdomen, 2 Views CLINICAL HISTORY: NGT TECHNIQUE: Frontal view of the abdomen/pelvis with upright view of the abdomen. COMPARISON: Abdomen film 01/05/18 FINDINGS: Intraperitoneal space: No free air. Gastrointestinal tract: Unremarkable bowel gas. No dilation. Small calcifications right upper abdomen may be gallstones. Bones/joints: Unremarkable. Tubes, lines and devices: NG tube tip in the stomach, good position. Other findings: IMPRESSION: NG tube tip in the stomach, good position.
[2018-01-11] MEDS: DOPamine 400mg/250ml 250 ML IV SCH (13:51)
--- NOTE | 2018-01-11 14:46 | Diagnostic Imaging Report ---
EXAM: US Abdomen Complete CLINICAL HISTORY: ABD PAIN TECHNIQUE: Real-time ultrasound of the abdomen (complete) with image documentation. COMPARISON: No relevant prior studies available. FINDINGS: Liver: Dense heterogeneous small liver, correlate for cirrhosis. Vague 3.1 cm hypoechoic lesion in the right lobe of the liver. Left lobe of the liver, not well seen. Heterogeneous small liver measuring 9.8 cm. Gallbladder: Gallbladder not well seen. Common bile duct: CBD normal, 3.1 mm. No stones. No dilation. Pancreas: Pancreas not well seen. Kidneys: Kidneys not well seen. Spleen: Spleen, not well seen. Aorta: Aorta not well seen. Inferior vena cava: Unremarkable. Soft tissues: May be recanalized periumbilical vein. Free fluid: Small to moderate ascites. Other findings: Difficult study due to patient's body habitus. IMPRESSION: 1. Dense heterogeneous small liver, correlate for cirrhosis. Vague 3.1 cm hypoechoic lesion in the right lobe of the liver. 2. Small to moderate ascites. 3. May be recanalized periumbilical vein. 4. Limited due to body habitus. The right lobe of the liver, pancreas, spleen, kidneys, gallbladder are not well seen.
--- NOTE | 2018-01-11 15:11 | Internal Med Progress Note ---
Subjective Date of Service: January 11, 2018 Physician Name DayRamiro Attending Physician Perico Randolph MD Current Medications Medications (Trade) Dose Ordered Sig/Miles Route PRN Reason Start Time Stop Time Status Last Admin Dose Admin Acetaminophen (Tylenol) 650 mg Q4H PRN ORAL fever 01/05/18 15:45 02/04/18 15:44 Albuterol/ Ipratropium (Albuterol/ Ipratropium) 3 ml Q4H PRN HHN Shortness of Breath 01/11/18 07:45 01/16/18 07:44 Chlorhexidine Gluconate (Destiny-Hex 2%) 1 applic DAILY@2000 TOPIC 01/06/18 20:00 02/05/18 19:59 01/10/18 20:06 Dextrose (Dextrose 50%) STAT PRN IV Hypoglycemia 01/05/18 15:45 02/04/18 15:44 Dextrose/Sodium Chloride 1,000 ml @ 50 mls/hr Q20H IV 01/06/18 16:00 02/04/18 15:59 01/10/18 19:44 Dopamine HCl/ Dextrose 250 ml @ 0 mls/hr Q24H IV 01/05/18 15:45 02/04/18 15:44 Lactulose (Cephulac) 20 gm THREE TIMES A DAY ORAL 01/10/18 16:00 02/09/18 15:59 01/11/18 13:00 Midodrine (Pro-Amatine) 10 mg THREE TIMES A DAY ORAL 01/07/18 13:00 02/06/18 12:59 01/11/18 13:00 Morphine Sulfate (Morphine Sulfate) 2 mg Q4H PRN IVP For Pain 01/11/18 11:00 01/18/18 10:59 Nitroglycerin (Ntg) 0.4 mg Q5M X 3 DOSES PRN SL Prn Chest Pain 01/05/18 15:45 02/04/18 15:44 Norepinephrine Bitartrate 4 mg/ Dextrose 250 ml @ 0 mls/hr Q24H IV 01/07/18 21:30 02/04/18 19:59 01/09/18 21:43 Ondansetron HCl (Zofran) 4 mg Q6H PRN IVP Nausea & Vomiting 01/05/18 13:30 02/04/18 13:29 01/05/18 13:32 Pantoprazole (Protonix) 40 mg Q12HR IV 01/06/18 21:00 02/05/18 10:29 01/11/18 10:43 Piperacillin Sod/ Tazobactam Sod 3.375 gm/Dextrose 110 ml @ 27.5 mls/hr EVERY 8 HOURS IVPB 01/07/18 23:30 01/12/18 23:29 01/11/18 13:51 Polyethylene Glycol (Miralax) 17 gm HSPRN PRN ORAL Constipation 01/05/18 15:45 02/04/18 15:44 Rifaximin (Xifaxan) 550 mg EVERY 12 HOURS ORAL 01/06/18 22:00 01/13/18 21:59 01/11/18 12:00 Vancomycin HCl (Vanco rx to dose) 1 ea DAILY PRN MISC Per rx protocol 01/07/18 19:45 02/06/18 19:44 Vancomycin HCl/ Dextrose 250 ml @ 125 mls/hr Q48H IVPB 01/10/18 21:00 01/15/18 20:59 01/10/18 21:29 Vitamin A/Vitamin D (A & D Oint) 1 applic EVERY 12 HOURS TOPIC 01/06/18 21:00 02/05/18 20:59 01/11/18 09:00 Allergies: Coded Allergies: ASPIRIN (Unverified Allergy, Unknown, 01/05/18) Uncoded Allergies: TAPE (Allergy, Unknown, 01/05/18) ROS Limited/Unobtainable: Yes Subjective 72 YO F admitted with hematemesis and rectal bleeding. Cover for Int Med-Dr Randolph. ICU Objective Last Vital Signs Date Time Temp Pulse Resp B/P (MAP) Pulse Ox O2 Delivery O2 Flow Rate FiO2 01/11/18 14:00 67 21 107/46 99 Nasal Cannula 2.0 01/11/18 12:00 98.5 98.5 01/11/18 09:35 28 Laboratory Tests Test 01/10/18 20:00 01/11/18 04:00 Vancomycin Level Trough 17.7 ug/mL (5.0-12.0) H White Blood Count 4.7 K/UL (4.8-10.8) L Red Blood Count 2.72 M/UL (4.20-5.40) L Hemoglobin 8.3 G/DL (12.0-16.0) L Hematocrit 24.6 % (37.0-47.0) L Mean Corpuscular Volume 91 FL (80-99) Mean Corpuscular Hemoglobin 30.4 PG (27.0-31.0) Mean Corpuscular Hemoglobin Concent 33.6 G/DL (32.0-36.0) Red Cell Distribution Width 15.5 % (11.6-14.8) H Platelet Count 30 K/UL (150-450) L Mean Platelet Volume 7.8 FL (6.5-10.1) Neutrophils (%) (Auto) % (45.0-75.0) Lymphocytes (%) (Auto) % (20.0-45.0) Monocytes (%) (Auto) % (1.0-10.0) Eosinophils (%) (Auto) % (0.0-3.0) Basophils (%) (Auto) % (0.0-2.0) Differential Total Cells Counted 100 Neutrophils % (Manual) 72 % (45-75) Lymphocytes % (Manual) 19 % (20-45) L Monocytes % (Manual) 9 % (1-10) Eosinophils % (Manual) 0 % (0-3) Basophils % (Manual) 0 % (0-2) Band Neutrophils 0 % (0-8) Platelet Estimate Decreased L Platelet Morphology Normal Hypochromasia 1+ Anisocytosis 1+ Sodium Level 137 MMOL/L (136-145) Potassium Level 3.6 MMOL/L (3.5-5.1) Chloride Level 105 MMOL/L (98-107) Carbon Dioxide Level 23 MMOL/L (21-32) Anion Gap 9 mmol/L (5-15) Blood Urea Nitrogen 29 mg/dL (7-18) H Creatinine 2.4 MG/DL (0.55-1.30) H Estimat Glomerular Filtration Rate mL/min (>60) Glucose Level 124 MG/DL (74-106) H Calcium Level 8.3 MG/DL (8.5-10.1) L Total Bilirubin 5.0 MG/DL (0.2-1.0) H Direct Bilirubin 2.5 MG/DL (0.0-0.3) H Aspartate Amino Transf (AST/SGOT) 33 U/L (15-37) Alanine Aminotransferase (ALT/SGPT) 24 U/L (12-78) Alkaline Phosphatase 72 U/L (46-116) Ammonia 109 umol/L (11-32) H Total Protein 6.0 G/DL (6.4-8.2) L Albumin 3.1 G/DL (3.4-5.0) L Globulin 2.9 g/dL Albumin/Globulin Ratio 1.1 (1.0-2.7) Intake and Output 01/10/18 01/11/18 19:00 07:00 Intake Total 1031.75 ml 1208.365 ml Output Total 300 ml 210 ml Balance 731.75 ml 998.365 ml IV Total 1031.75 ml 1208.365 ml Output Urine Total 300 ml 210 ml # Bowel Movements 1 Objective Objective GENERAL: awake, responsive, in no acute distress. HEAD AND NECK: Pupils are reactive to light. Extraocular movements are intact. Neck was supple. No JVD. Triple-lumen catheter right IJ. LUNGS: Bilaterally no wheezing or rales. Decreased air in the bases. HEART: S1 and S2 RR. Distant heart sounds. No murmur ABDOMEN: Soft, nondistended, nontender, and morbidly obese. CHEST WALL: Bilateral mastectomy was noted, scar tissue and no sign of infection. EXTREMITIES: No cyanosis or clubbing. +2 edema. NEUROLOGIC: Cranial nerves II through XII grossly intact. Motor is 5/5 in all extremities. Gait is unable to obtain secondary to the patient's status. Assessment/Plan Assessment/Plan Assessment/Plan 1. Acute GI bleed. 2. Hemorrhagic shock. 3. Severe anemia most likely secondary to acute blood loss. 4. Acute kidney injury on chronic renal insufficiency. 5. Morbid obesity. 6. History of breast cancer. 7. Hyperkalemia. 8. Hypertension. 9. History of breast cancer, status post bilateral mastectomy. 10. Congestive heart failure, chronic with diastolic dysfunction. 11. Major depression disorder. 12. History of DVT and PE in past, Hold anticoagulation, Coumadin. 13. 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 14. Chronic hypotension. PLAN: in ICU. Dr. Gilmore, Pulmonary/Critical Care, Dr. Sascha Bond from Nephrology Dr. Tenzin Ford from Cardiology Dr. Yohannes Woodall from Gastroenterology. Hold Endoscopy due to high anesthesia risk-see GI note Monitor laboratory and Cultures. Code status is Full Code. POLST noted in the chart. bedrest and at this time for DVT prophylaxis, SCD. Abx: Vanco IV and Zosyn IV weaning Dopamine Drip Dc Sandostatin drip S/P transfusion 5 units packed RBC and 2 units FFP Transfuse for hemoglobin<8.0 and platelets <20K Ramiro Day MD January 11, 2018 15:11
[2018-01-11] MEDS: D5NS 1,000 ML IV SCH (15:49)
--- NOTE | 2018-01-11 15:59 | Nephrology Progress Note ---
Assessment/Plan Problem List: (1) ATN (acute tubular necrosis) (2) Hypotension (3) Hemorrhagic shock (4) GI bleed (5) History of pulmonary embolism (6) History of breast cancer Assessment more encephalopathic Amonia level tan acute renal failure cr higher 2.3 acute GI bleed Hemmorhagic anemia hypotension remains on pressors h/o breast ca h/o Pulmonary embolism Plan transfused one unit 01/09 hemodynamic support on midodrine monitor renal parameters cortisol level 9.8 avoid nephrotoxics per orders per GI discussed with RN Subjective ROS Limited/Unobtainable: No Constitutional: Reports: malaise Objective Objective Last 24 Hour Vital Signs Date Time Temp Pulse Resp B/P (MAP) Pulse Ox O2 Delivery O2 Flow Rate FiO2 01/11/18 15:30 65 19 116/47 97 Nasal Cannula 2.0 01/11/18 15:14 104/50 01/11/18 15:00 66 20 108/50 99 Nasal Cannula 2.0 01/11/18 14:30 68 19 111/43 99 Nasal Cannula 2.0 01/11/18 14:00 67 21 107/46 99 Nasal Cannula 2.0 01/11/18 13:51 95/55 01/11/18 13:30 62 20 92/52 99 Nasal Cannula 2.0 01/11/18 13:00 66 21 96/52 99 Nasal Cannula 2.0 01/11/18 12:30 65 20 101/55 99 Nasal Cannula 2.0 01/11/18 12:00 65 01/11/18 12:00 98.5 66 18 101/50 99 Nasal Cannula 2.0 98.5 01/11/18 11:30 64 20 86/47 99 Nasal Cannula 2.0 01/11/18 11:00 64 20 95/50 99 Nasal Cannula 2.0 01/11/18 10:30 61 17 89/40 99 Nasal Cannula 2.0 01/11/18 10:00 70 20 93/45 99 Nasal Cannula 2.0 01/11/18 09:35 64 18 Nasal Cannula 2.0 28 01/11/18 09:30 64 22 97/57 99 Nasal Cannula 2.0 01/11/18 09:00 66 20 95/44 99 Nasal Cannula 2.0 01/11/18 08:30 63 22 98/48 98 Nasal Cannula 2.0 01/11/18 08:00 98.0 62 20 100/43 98 Nasal Cannula 2.0 98.0 01/11/18 08:00 62 01/11/18 07:30 65 22 93/38 98 Nasal Cannula 2.0 01/11/18 07:13 98 Nasal Cannula 2.0 28 01/11/18 07:13 Nasal Cannula 2.0 28 01/11/18 07:00 92/38 18 07:00 64 25 92/38 98 Nasal Cannula 2.0 01/11/18 06:30 103/38 01/11/18 06:00 55 13 98/49 100 Nasal Cannula 2.0 01/11/18 06:00 84/45 01/11/18 05:00 55 12 93/39 99 Nasal Cannula 2.0 01/11/18 05:00 82/35 01/11/18 04:00 97/39 01/11/18 04:00 97.8 54 12 97/39 95 Nasal Cannula 2.0 97.8 01/11/18 04:00 57 01/11/18 03:00 90/43 01/11/18 03:00 54 16 90/43 95 Nasal Cannula 2.0 01/11/18 02:30 56 16 84/44 95 Nasal Cannula 2.0 01/11/18 02:30 84/46 01/11/18 02:00 84/42 01/11/18 02:00 61 16 93/47 95 Nasal Cannula 2.0 01/11/18 01:30 95/51 01/11/18 01:30 61 12 81/44 96 Nasal Cannula 2.0 01/11/18 01:00 56 14 87/50 95 Nasal Cannula 2.0 18 01:00 81/44 52018 00:30 60 16 85/43 95 Nasal Cannula 2.0 18 00:30 85/43 52018 00:00 58 2018 00:00 87/41 20 00:00 61 17 87/41 95 Nasal Cannula 2.0 18 23:30 53 13 89/41 96 Nasal Cannula 2.0 18 23:30 89/41 518 23:00 61 12 91/44 99 Nasal Cannula 2.0 5/19/18 23:00 88/47 01/10/18 22:30 91/44 01/10/18 22:00 60 12 112/47 99 Nasal Cannula 2.0 01/10/18 22:00 99/56 01/10/18 21:30 102/51 18 21:00 102/54 01/10/18 21:00 59 12 100/46 99 Nasal Cannula 2.0 01/10/18 20:30 112/49 01/10/18 20:06 109/47 01/10/18 20:00 58 12 109/47 99 Nasal Cannula 2.0 01/10/18 20:00 98 Nasal Cannula 2.0 28 01/10/18 20:00 58 01/10/18 20:00 Nasal Cannula 2.0 28 01/10/18 19:30 109/46 01/10/18 19:00 56 12 100/46 99 Nasal Cannula 2.0 01/10/18 19:00 100/46 01/10/18 18:00 60 13 95/49 99 Nasal Cannula 2.0 01/10/18 18:00 95/49 01/10/18 17:00 57 12 93/49 97 Nasal Cannula 2.0 01/10/18 17:00 102/53 01/10/18 16:00 98.0 60 15 96/49 94 Nasal Cannula 2.0 98.0 01/10/18 16:00 96/49 01/10/18 16:00 64 Intake and Output 01/10/18 01/11/18 19:00 07:00 Intake Total 1031.75 ml 1208.365 ml Output Total 300 ml 210 ml Balance 731.75 ml 998.365 ml IV Total 1031.75 ml 1208.365 ml Output Urine Total 300 ml 210 ml # Bowel Movements 1 Laboratory Tests 01/10/18 20:00: Vancomycin Level Trough 17.7H 01/11/18 04:00: White Blood Count 4.7L, Red Blood Count 2.72L, Hemoglobin 8.3L, Hematocrit 24.6L , Mean Corpuscular Volume 91, Mean Corpuscular Hemoglobin 30.4, Mean Corpuscular Hemoglobin Concent 33.6, Red Cell Distribution Width 15.5H, Platelet Count 30L, Mean Platelet Volume 7.8, Neutrophils (%) (Auto) , Lymphocytes (%) (Auto) , Monocytes (%) (Auto) , Eosinophils (%) (Auto) , Basophils (%) (Auto) , Differential Total Cells Counted 100, Neutrophils % ( Manual) 72, Lymphocytes % (Manual) 19L, Monocytes % (Manual) 9, Eosinophils % ( Manual) 0, Basophils % (Manual) 0, Band Neutrophils 0, Platelet Estimate DecreasedL, Platelet Morphology Normal, Hypochromasia 1+, Anisocytosis 1+, Sodium Level 137, Potassium Level 3.6, Chloride Level 105, Carbon Dioxide Level 23, Anion Gap 9, Blood Urea Nitrogen 29H, Creatinine 2.4H, Estimat Glomerular Filtration Rate , Glucose Level 124H, Calcium Level 8.3L, Total Bilirubin 5.0H, Direct Bilirubin 2.5H, Aspartate Amino Transf (AST/SGOT) 33, Alanine Aminotransferase (ALT/SGPT) 24, Alkaline Phosphatase 72, Ammonia 109H, Total Protein 6.0L, Albumin 3.1L, Globulin 2.9, Albumin/Globulin Ratio 1.1 Height (Feet): 5 Height (Inches): 4.00 Weight (Pounds): 345 General Appearance: no apparent distress Objective no change DARIA MCNEILL January 11, 2018 15:59
[2018-01-11 16:59] LABS: HEMOGLOBIN 8.1 G/DL (12.0-16.0); MEAN CORPUSCULAR VOLUME 88 FL (80-99); PLATELET COUNT 31 K/UL (150-450); RED BLOOD COUNT 2.72 M/UL (4.20-5.40); WHITE BLOOD COUNT 6.5 K/UL (4.8-10.8)
[2018-01-11] MEDS: Dyna-Hex 2% Top Sol 2oz TOPIC SCH (19:51)
--- NOTE | 2018-01-11 23:00 | Cardiology Progress Note ---
Assessment/Plan Assessment/Plan looks perfused, her Lefoved dose is up to 4 mcg Subjective Subjective The patient is very lethargic family at the bedside she opens her eyes, but does not speak Objective Last 24 Hour Vital Signs Date Time Temp Pulse Resp B/P (MAP) Pulse Ox O2 Delivery O2 Flow Rate FiO2 01/11/18 19:00 62 19 108/55 97 Nasal Cannula 2.0 01/11/18 18:44 Nasal Cannula 2.0 28 01/11/18 18:44 97 Nasal Cannula 2.0 28 01/11/18 18:30 98.9 65 17 110/56 98 Nasal Cannula 2.0 98.9 01/11/18 18:00 60 19 106/50 97 Nasal Cannula 2.0 01/11/18 17:30 65 19 103/49 97 Nasal Cannula 2.0 01/11/18 17:00 66 18 105/48 97 Nasal Cannula 2.0 01/11/18 16:30 63 18 111/48 97 Nasal Cannula 2.0 01/11/18 16:00 69 01/11/18 16:00 98.6 69 19 106/45 97 Nasal Cannula 2.0 98.6 01/11/18 15:30 65 19 116/47 97 Nasal Cannula 2.0 01/11/18 15:14 104/50 01/11/18 15:00 66 20 108/50 99 Nasal Cannula 2.0 01/11/18 14:30 68 19 111/43 99 Nasal Cannula 2.0 01/11/18 14:00 67 21 107/46 99 Nasal Cannula 2.0 01/11/18 13:51 95/55 01/11/18 13:30 62 20 92/52 99 Nasal Cannula 2.0 01/11/18 13:00 66 21 96/52 99 Nasal Cannula 2.0 01/11/18 12:30 65 20 101/55 99 Nasal Cannula 2.0 01/11/18 12:00 65 01/11/18 12:00 98.5 66 18 101/50 99 Nasal Cannula 2.0 98.5 01/11/18 11:30 64 20 86/47 99 Nasal Cannula 2.0 01/11/18 11:00 64 20 95/50 99 Nasal Cannula 2.0 01/11/18 10:30 61 17 89/40 99 Nasal Cannula 2.0 01/11/18 10:00 70 20 93/45 99 Nasal Cannula 2.0 18 09:35 64 18 Nasal Cannula 2.0 28 18 09:30 64 22 97/57 99 Nasal Cannula 2.0 01/11/18 09:00 66 20 95/44 99 Nasal Cannula 2.0 18 08:30 63 22 98/48 98 Nasal Cannula 2.0 18 08:00 98.0 62 20 100/43 98 Nasal Cannula 2.0 98.0 01/11/18 08:00 62 18 07:30 65 22 93/38 98 Nasal Cannula 2.0 01/11/18 07:13 98 Nasal Cannula 2.0 28 01/11/18 07:13 Nasal Cannula 2.0 28 01/11/18 07:00 92/38 5 07:00 64 25 92/38 98 Nasal Cannula 2.0 01/11/18 06:30 103/38 18 06:00 55 13 98/49 100 Nasal Cannula 2.0 01/11/18 06:00 84/45 52018 05:00 55 12 93/39 99 Nasal Cannula 2.0 01/11/18 05:00 82/35 520/18 04:00 97/39 520/18 04:00 97.8 54 12 97/39 95 Nasal Cannula 2.0 97.8 01/11/18 04:00 57 18 03:00 90/43 5/20/18 03:00 54 16 90/43 95 Nasal Cannula 2.0 01/11/18 02:30 56 16 84/44 95 Nasal Cannula 2.0 2018 02:30 84/46 5/20/18 02:00 84/42 5/20/18 02:00 61 16 93/47 95 Nasal Cannula 2.0 18 01:30 95/51 520/18 01:30 61 12 81/44 96 Nasal Cannula 2.0 2018 01:00 56 14 87/50 95 Nasal Cannula 2.0 20/18 01:00 81/44 5/20/18 00:30 60 16 85/43 95 Nasal Cannula 2.0 20/18 00:30 85/43 52018 00:00 58 520/18 00:00 87/41 01/11/18 00:00 61 17 87/41 95 Nasal Cannula 2.0 01/10/18 23:30 53 13 89/41 96 Nasal Cannula 2.0 01/10/18 23:30 89/41 01/10/18 23:00 61 12 91/44 99 Nasal Cannula 2.0 01/10/18 23:00 88/47 General Appearance: other - morbidly obese EENT: PERRL/EOMI Neck: other - cannot determine JVD due to body habitus Rhythm: NSR Cardiovascular: normal rate Respiratory/Chest: crackles/rales Abdomen: soft Extremities: moderate edema Intake and Output 01/10/18 01/11/18 19:00 07:00 Intake Total 1031.75 ml 1208.365 ml Output Total 300 ml 210 ml Balance 731.75 ml 998.365 ml IV Total 1031.75 ml 1208.365 ml Output Urine Total 300 ml 210 ml # Bowel Movements 1 Laboratory Tests Test 01/11/18 04:00 01/11/18 16:30 White Blood Count 4.7 K/UL (4.8-10.8) L 6.5 K/UL (4.8-10.8) Red Blood Count 2.72 M/UL (4.20-5.40) L 2.72 M/UL (4.20-5.40) L Hemoglobin 8.3 G/DL (12.0-16.0) L 8.1 G/DL (12.0-16.0) L Hematocrit 24.6 % (37.0-47.0) L 24.0 % (37.0-47.0) L Mean Corpuscular Volume 91 FL (80-99) 88 FL (80-99) Mean Corpuscular Hemoglobin 30.4 PG (27.0-31.0) 29.9 PG (27.0-31.0) Mean Corpuscular Hemoglobin Concent 33.6 G/DL (32.0-36.0) 33.9 G/DL (32.0-36.0) Red Cell Distribution Width 15.5 % (11.6-14.8) H 16.0 % (11.6-14.8) H Platelet Count 30 K/UL (150-450) L 31 K/UL (150-450) L Mean Platelet Volume 7.8 FL (6.5-10.1) 7.9 FL (6.5-10.1) Neutrophils (%) (Auto) % (45.0-75.0) % (45.0-75.0) Lymphocytes (%) (Auto) % (20.0-45.0) % (20.0-45.0) Monocytes (%) (Auto) % (1.0-10.0) % (1.0-10.0) Eosinophils (%) (Auto) % (0.0-3.0) % (0.0-3.0) Basophils (%) (Auto) % (0.0-2.0) % (0.0-2.0) Differential Total Cells Counted 100 100 Neutrophils % (Manual) 72 % (45-75) 74 % (45-75) Lymphocytes % (Manual) 19 % (20-45) L 14 % (20-45) L Monocytes % (Manual) 9 % (1-10) 7 % (1-10) Eosinophils % (Manual) 0 % (0-3) 4 % (0-3) H Basophils % (Manual) 0 % (0-2) 0 % (0-2) Band Neutrophils 0 % (0-8) 1 % (0-8) Platelet Estimate Decreased L Decreased L Platelet Morphology Normal Normal Hypochromasia 1+ Anisocytosis 1+ 1+ Sodium Level 137 MMOL/L (136-145) Potassium Level 3.6 MMOL/L (3.5-5.1) Chloride Level 105 MMOL/L (98-107) Carbon Dioxide Level 23 MMOL/L (21-32) Anion Gap 9 mmol/L (5-15) Blood Urea Nitrogen 29 mg/dL (7-18) H Creatinine 2.4 MG/DL (0.55-1.30) H Estimat Glomerular Filtration Rate mL/min (>60) Glucose Level 124 MG/DL (74-106) H Calcium Level 8.3 MG/DL (8.5-10.1) L Total Bilirubin 5.0 MG/DL (0.2-1.0) H Direct Bilirubin 2.5 MG/DL (0.0-0.3) H Aspartate Amino Transf (AST/SGOT) 33 U/L (15-37) Alanine Aminotransferase (ALT/SGPT) 24 U/L (12-78) Alkaline Phosphatase 72 U/L (46-116) Ammonia 109 umol/L (11-32) H Total Protein 6.0 G/DL (6.4-8.2) L Albumin 3.1 G/DL (3.4-5.0) L Globulin 2.9 g/dL Albumin/Globulin Ratio 1.1 (1.0-2.7) Polychromasia 1+ Ling Pacheco MD January 11, 2018 23:00
[2018-01-12] VITALS (34 sets, daily range): BP systolic 87–118; BP diastolic 25–54
[2018-01-12] MEDS: Piperacillin/Tazobactam 3.375 GM in D5W 110 ML IVPB SCH ×2 (05:41→12:41)
[2018-01-12 07:22] LABS: HEMATOCRIT 25.7 % (37.0-47.0); HEMOGLOBIN 8.8 G/DL (12.0-16.0); MEAN CORPUSCULAR VOLUME 91 FL (80-99); PLATELET COUNT 34 K/UL (150-450); RED BLOOD COUNT 2.82 M/UL (4.20-5.40); RED CELL DISTRIBUTION WIDTH 15.5 % (11.6-14.8); WHITE BLOOD COUNT 6.4 K/UL (4.8-10.8)
[2018-01-12 07:32] LABS: AMMONIA 86 umol/L (11-32)
[2018-01-12 07:33] LABS: ALANINE AMINOTRANSFERASE 18 U/L (12-78); ALBUMIN 3.4 G/DL (3.4-5.0); ALBUMIN/GLOBULIN RATIO 1.2 (1.0-2.7); ALKALINE PHOSPHATASE 71 U/L (46-116); ANION GAP 9 mmol/L (5-15); ASPARTATE AMINO TRANSFERASE 29 U/L (15-37); BILIRUBIN,TOTAL 6.4 MG/DL (0.2-1.0); BLOOD UREA NITROGEN 30 mg/dL (7-18); CALCIUM 8.4 MG/DL (8.5-10.1); CARBON DIOXIDE 24 MMOL/L (21-32); CHLORIDE 105 MMOL/L (98-107); CREATININE 2.5 MG/DL (0.55-1.30); POTASSIUM 3.7 MMOL/L (3.5-5.1); SODIUM 138 MMOL/L (136-145)
[2018-01-12 07:35] LABS: BILIRUBIN,DIRECT 3.1 MG/DL (0.0-0.3)
[2018-01-12 07:37] LABS: INR 1.6 (0.9-1.1)
[2018-01-12 07:50] LABS: PHOSPHORUS 3.5 MG/DL (2.5-4.9)
[2018-01-12] MEDS: Pantoprazole Inj IV SCH (08:39)
[2018-01-12] MEDS: Lactulose 20gm/30ml UDC ORAL SCH (08:39)
[2018-01-12] MEDS: Midodrine 10mg tab ORAL SCH ×2 (08:39→12:42)
[2018-01-12] MEDS: Vitamin A&D Oint 2oz Tube TOPIC SCH ×2 (08:40→21:00)
--- NOTE | 2018-01-12 10:49 | Infectious Diseases Prog Note ---
Assessment/Plan Assessment/Plan ASSESSMENT: The patient is a 72-year-old female with Afebrile leukocytosis (due to the GI bleed and acute distress) , SP +ve UCx : low count Providencia , Entero ( contaminant ) Hyptoension ? sepsis due to transient GNR translocation -Bcx neg -Abd US: Dense heterogeneous small liver, correlate for cirrhosis. Vague 3.1 cm hypoechoic lesion in the right lobe of the liver. Small to moderate ascites. May be recanalized periumbilical vein. Limited due to body habitus. The right lobe of the liver, pancreas, spleen, kidneys, gallbladder are not well seen. ? LLEx cellulitis (thigh) no sig changes No evidence or source of infection at this point. VAL No esophageal varcies on Jun 2017 EGD DVT/PE, on anticoagulation. History of cirrhosis/portal hypertension. History of gastropathy. Internal hemorrhoids. History of encephalopathy. Hypertension. COPD. History of breast cancer, bilateral mastectomy. Hysterectomy PLAN: cont IV Vanco ( LLExt cellulitis ) and Zosyn (GNR translocation) d # 6 / 7 Blood transfusion as needed. Monitor chest x-ray. Nephro, GI following Aspiration precautions ICU care Subjective Allergies: Coded Allergies: ASPIRIN (Unverified Allergy, Unknown, 01/05/18) Uncoded Allergies: TAPE (Allergy, Unknown, 01/05/18) Subjective afebrile on 2l NC remains on levophed no leukocytosis Objective Vital Signs Last 24 Hour Vital Signs Date Time Temp Pulse Resp B/P (MAP) Pulse Ox O2 Delivery O2 Flow Rate FiO2 01/12/18 09:00 71 19 96/34 98 Nasal Cannula 2.0 01/12/18 08:30 73 19 90/25 98 Nasal Cannula 2.0 01/12/18 08:00 58 01/12/18 08:00 98.3 57 19 106/27 98 Nasal Cannula 2.0 98.3 01/12/18 07:30 67 19 110/27 98 Nasal Cannula 2.0 01/12/18 07:00 68 17 109/36 98 Nasal Cannula 2.0 01/12/18 07:00 109/36 01/12/18 06:30 68 15 94/39 98 Nasal Cannula 2.0 01/12/18 06:00 94/39 01/12/18 06:00 68 15 118/36 98 Nasal Cannula 2.0 01/12/18 05:30 68 17 106/51 97 Nasal Cannula 2.0 01/12/18 05:00 68 18 109/47 96 Nasal Cannula 2.0 01/12/18 05:00 109/47 01/12/18 04:30 70 18 102/41 96 Nasal Cannula 2.0 01/12/18 04:00 98.4 65 15 104/54 98 Nasal Cannula 2.0 98.4 01/12/18 04:00 102/41 01/12/18 04:00 57 01/12/18 03:30 67 18 105/43 97 Nasal Cannula 2.0 01/12/18 03:00 104/54 01/12/18 03:00 65 15 104/54 98 Nasal Cannula 2.0 01/12/18 02:00 114/48 01/12/18 02:00 65 17 114/48 97 Nasal Cannula 2.0 01/12/18 01:30 65 17 108/52 97 Nasal Cannula 2.0 01/12/18 01:00 98.2 65 17 107/48 97 Nasal Cannula 2.0 98.2 01/12/18 01:00 107/48 01/12/18 00:30 65 17 107/48 97 Nasal Cannula 2.0 01/12/18 00:00 106/54 01/12/18 00:00 98.2 66 17 117/46 97 Nasal Cannula 2.0 98.2 01/12/18 00:00 65 01/11/18 23:30 65 18 121/48 97 Nasal Cannula 2.0 01/11/18 23:00 65 18 116/37 97 Nasal Cannula 2.0 01/11/18 23:00 116/37 01/11/18 22:30 65 18 113/47 97 Nasal Cannula 2.0 01/11/18 22:00 64 18 106/63 97 Nasal Cannula 2.0 01/11/18 22:00 106/63 01/11/18 21:30 64 17 108/50 97 Nasal Cannula 2.0 01/11/18 21:00 111/48 01/11/18 21:00 64 17 111/48 97 Nasal Cannula 2.0 01/11/18 20:30 65 17 106/52 97 Nasal Cannula 2.0 01/11/18 20:00 122/56 01/11/18 20:00 98.5 65 18 122/56 97 Nasal Cannula 2.0 98.5 01/11/18 19:30 62 18 110/60 97 Nasal Cannula 2.0 01/11/18 19:00 62 19 108/55 97 Nasal Cannula 2.0 01/11/18 19:00 110/57 01/11/18 18:44 Nasal Cannula 2.0 28 01/11/18 18:44 97 Nasal Cannula 2.0 28 01/11/18 18:30 98.9 65 17 110/56 98 Nasal Cannula 2.0 98.9 01/11/18 18:00 60 19 106/50 97 Nasal Cannula 2.0 01/11/18 17:30 65 19 103/49 97 Nasal Cannula 2.0 01/11/18 17:00 66 18 105/48 97 Nasal Cannula 2.0 01/11/18 16:30 63 18 111/48 97 Nasal Cannula 2.0 01/11/18 16:00 69 01/11/18 16:00 98.6 69 19 106/45 97 Nasal Cannula 2.0 98.6 01/11/18 15:30 65 19 116/47 97 Nasal Cannula 2.0 01/11/18 15:14 104/50 01/11/18 15:00 66 20 108/50 99 Nasal Cannula 2.0 01/11/18 14:30 68 19 111/43 99 Nasal Cannula 2.0 01/11/18 14:00 67 21 107/46 99 Nasal Cannula 2.0 01/11/18 13:51 95/55 01/11/18 13:30 62 20 92/52 99 Nasal Cannula 2.0 01/11/18 13:00 66 21 96/52 99 Nasal Cannula 2.0 01/11/18 12:30 65 20 101/55 99 Nasal Cannula 2.0 01/11/18 12:00 65 01/11/18 12:00 98.5 66 18 101/50 99 Nasal Cannula 2.0 98.5 01/11/18 11:30 64 20 86/47 99 Nasal Cannula 2.0 01/11/18 11:00 64 20 95/50 99 Nasal Cannula 2.0 Height (Feet): 5 Height (Inches): 4.00 Weight (Pounds): 350 Objective GENERAL: awake, responsive, in no acute distress. HEAD AND NECK: Pupils are reactive to light. Extraocular movements are intact. Neck was supple. No JVD. Triple-lumen catheter right IJ. LUNGS: Bilaterally no wheezing or rales. Decreased air in the bases. HEART: S1 and S2 RR. Distant heart sounds. No murmur ABDOMEN: Soft, nondistended, nontender, and morbidly obese. CHEST WALL: Bilateral mastectomy was noted, scar tissue and no sign of infection. EXTREMITIES: No cyanosis or clubbing. +2 edema. NEUROLOGIC: Cranial nerves II through XII grossly intact. Motor is 5/5 in all extremities. Gait is unable to obtain secondary to the patient's status. Laboratory Tests Test 01/11/18 16:30 01/12/18 05:00 White Blood Count 6.5 K/UL (4.8-10.8) 6.4 K/UL (4.8-10.8) Red Blood Count 2.72 M/UL (4.20-5.40) L 2.82 M/UL (4.20-5.40) L Hemoglobin 8.1 G/DL (12.0-16.0) L 8.8 G/DL (12.0-16.0) L Hematocrit 24.0 % (37.0-47.0) L 25.7 % (37.0-47.0) L Mean Corpuscular Volume 88 FL (80-99) 91 FL (80-99) Mean Corpuscular Hemoglobin 29.9 PG (27.0-31.0) 31.1 PG (27.0-31.0) H Mean Corpuscular Hemoglobin Concent 33.9 G/DL (32.0-36.0) 34.1 G/DL (32.0-36.0) Red Cell Distribution Width 16.0 % (11.6-14.8) H 15.5 % (11.6-14.8) H Platelet Count 31 K/UL (150-450) L 34 K/UL (150-450) L Mean Platelet Volume 7.9 FL (6.5-10.1) 8.0 FL (6.5-10.1) Neutrophils (%) (Auto) % (45.0-75.0) % (45.0-75.0) Lymphocytes (%) (Auto) % (20.0-45.0) % (20.0-45.0) Monocytes (%) (Auto) % (1.0-10.0) % (1.0-10.0) Eosinophils (%) (Auto) % (0.0-3.0) % (0.0-3.0) Basophils (%) (Auto) % (0.0-2.0) % (0.0-2.0) Differential Total Cells Counted 100 100 Neutrophils % (Manual) 74 % (45-75) 77 % (45-75) H Lymphocytes % (Manual) 14 % (20-45) L 11 % (20-45) L Monocytes % (Manual) 7 % (1-10) 9 % (1-10) Eosinophils % (Manual) 4 % (0-3) H 2 % (0-3) Basophils % (Manual) 0 % (0-2) 1 % (0-2) Band Neutrophils 1 % (0-8) 0 % (0-8) Platelet Estimate Decreased L Decreased L Platelet Morphology Normal Normal Polychromasia 1+ Anisocytosis 1+ 1+ Hypochromasia 2+ Spherocytes 2+ Prothrombin Time 16.7 SEC (9.30-11.50) H Prothromb Time International Ratio 1.6 (0.9-1.1) H Sodium Level 138 MMOL/L (136-145) Potassium Level 3.7 MMOL/L (3.5-5.1) Chloride Level 105 MMOL/L (98-107) Carbon Dioxide Level 24 MMOL/L (21-32) Anion Gap 9 mmol/L (5-15) Blood Urea Nitrogen 30 mg/dL (7-18) H Creatinine 2.5 MG/DL (0.55-1.30) H Estimat Glomerular Filtration Rate mL/min (>60) Glucose Level 116 MG/DL (74-106) H Calcium Level 8.4 MG/DL (8.5-10.1) L Phosphorus Level 3.5 MG/DL (2.5-4.9) Magnesium Level 1.8 MG/DL (1.8-2.4) Total Bilirubin 6.4 MG/DL (0.2-1.0) H Direct Bilirubin 3.1 MG/DL (0.0-0.3) H Aspartate Amino Transf (AST/SGOT) 29 U/L (15-37) Alanine Aminotransferase (ALT/SGPT) 18 U/L (12-78) Alkaline Phosphatase 71 U/L (46-116) Ammonia 86 umol/L (11-32) H Total Protein 6.3 G/DL (6.4-8.2) L Albumin 3.4 G/DL (3.4-5.0) Globulin 2.9 g/dL Albumin/Globulin Ratio 1.2 (1.0-2.7) Current Medications Medications (Trade) Dose Ordered Sig/Miles Route PRN Reason Start Time Stop Time Status Last Admin Dose Admin Acetaminophen (Tylenol) 650 mg Q4H PRN ORAL fever 01/05/18 15:45 02/04/18 15:44 Albuterol/ Ipratropium (Albuterol/ Ipratropium) 3 ml Q4H PRN HHN Shortness of Breath 01/11/18 07:45 01/16/18 07:44 Chlorhexidine Gluconate (Destiny-Hex 2%) 1 applic DAILY@2000 TOPIC 01/06/18 20:00 02/05/18 19:59 01/11/18 19:51 Dextrose (Dextrose 50%) STAT PRN IV Hypoglycemia 01/05/18 15:45 02/04/18 15:44 Dextrose/Sodium Chloride 1,000 ml @ 50 mls/hr Q20H IV 01/06/18 16:00 02/04/18 15:59 01/11/18 15:49 Dopamine HCl/ Dextrose 250 ml @ 0 mls/hr Q24H IV 01/05/18 15:45 02/04/18 15:44 Lactulose (Cephulac) 20 gm THREE TIMES A DAY ORAL 01/10/18 16:00 02/09/18 15:59 01/12/18 08:39 Midodrine (Pro-Amatine) 10 mg THREE TIMES A DAY ORAL 01/07/18 13:00 02/06/18 12:59 01/12/18 08:39 Morphine Sulfate (Morphine Sulfate) 2 mg Q4H PRN IVP For Pain 01/11/18 11:00 01/18/18 10:59 Nitroglycerin (Ntg) 0.4 mg Q5M X 3 DOSES PRN SL Prn Chest Pain 01/05/18 15:45 02/04/18 15:44 Norepinephrine Bitartrate 4 mg/ Dextrose 250 ml @ 0 mls/hr Q24H IV 01/07/18 21:30 02/04/18 19:59 01/11/18 15:14 Ondansetron HCl (Zofran) 4 mg Q6H PRN IVP Nausea & Vomiting 01/05/18 13:30 02/04/18 13:29 01/05/18 13:32 Pantoprazole (Protonix) 40 mg DAILY ORAL 01/13/18 09:00 02/12/18 08:59 Piperacillin Sod/ Tazobactam Sod 3.375 gm/Dextrose 110 ml @ 27.5 mls/hr EVERY 8 HOURS IVPB 01/07/18 23:30 01/13/18 23:29 01/12/18 05:41 Rifaximin (Xifaxan) 550 mg EVERY 12 HOURS ORAL 01/06/18 22:00 01/13/18 21:59 01/12/18 08:39 Vancomycin HCl (Vanco rx to dose) 1 ea DAILY PRN MISC Per rx protocol 01/07/18 19:45 02/06/18 19:44 Vancomycin HCl/ Dextrose 250 ml @ 125 mls/hr Q48H IVPB 01/10/18 21:00 01/15/18 20:59 01/10/18 21:29 Vitamin A/Vitamin D (A & D Oint) 1 applic EVERY 12 HOURS TOPIC 01/06/18 21:00 02/05/18 20:59 01/12/18 08:40 Neida Hill M.D. January 12, 2018 10:49
--- NOTE | 2018-01-12 10:51 | General Progress Note ---
Assessment/Plan Assessment/Plan - UGIB - clinically resolved, but still anemic and downward trend - Cirrhosis, from [place] - No esophageal varcies on Jun 2017 EGD - hepatic encephalopathy - coagulopathy (INR and platelets) - Chronic edema - h/o DVT/PE - off of coumadin now - hypotension, requiring pressors - Azotemia Recommendations - at high anesthesia risk for EGD (due to both hypotension and poor breathing reserves) - no plans for Endoscopy at this time - not clear if benefits justify the risk - Consider IVC filter, since may no longer be a candidate for anticoagulation - albumin - FFP and PRBC PRN - Xifaxan -ppi -lactulose -NGTF Subjective ROS Limited/Unobtainable: No Allergies: Coded Allergies: ASPIRIN (Unverified Allergy, Unknown, 01/05/18) Uncoded Allergies: TAPE (Allergy, Unknown, 01/05/18) Objective Last 24 Hour Vital Signs Date Time Temp Pulse Resp B/P (MAP) Pulse Ox O2 Delivery O2 Flow Rate FiO2 01/12/18 09:00 71 19 96/34 98 Nasal Cannula 2.0 01/12/18 08:30 73 19 90/25 98 Nasal Cannula 2.0 01/12/18 08:00 58 01/12/18 08:00 98.3 57 19 106/27 98 Nasal Cannula 2.0 98.3 01/12/18 07:30 67 19 110/27 98 Nasal Cannula 2.0 01/12/18 07:00 68 17 109/36 98 Nasal Cannula 2.0 01/12/18 07:00 109/36 01/12/18 06:30 68 15 94/39 98 Nasal Cannula 2.0 01/12/18 06:00 94/39 01/12/18 06:00 68 15 118/36 98 Nasal Cannula 2.0 01/12/18 05:30 68 17 106/51 97 Nasal Cannula 2.0 01/12/18 05:00 68 18 109/47 96 Nasal Cannula 2.0 01/12/18 05:00 109/47 01/12/18 04:30 70 18 102/41 96 Nasal Cannula 2.0 01/12/18 04:00 98.4 65 15 104/54 98 Nasal Cannula 2.0 98.4 01/12/18 04:00 102/41 01/12/18 04:00 57 01/12/18 03:30 67 18 105/43 97 Nasal Cannula 2.0 01/12/18 03:00 104/54 01/12/18 03:00 65 15 104/54 98 Nasal Cannula 2.0 01/12/18 02:00 114/48 01/12/18 02:00 65 17 114/48 97 Nasal Cannula 2.0 01/12/18 01:30 65 17 108/52 97 Nasal Cannula 2.0 01/12/18 01:00 98.2 65 17 107/48 97 Nasal Cannula 2.0 98.2 01/12/18 01:00 107/48 01/12/18 00:30 65 17 107/48 97 Nasal Cannula 2.0 01/12/18 00:00 106/54 01/12/18 00:00 98.2 66 17 117/46 97 Nasal Cannula 2.0 98.2 01/12/18 00:00 65 01/11/18 23:30 65 18 121/48 97 Nasal Cannula 2.0 01/11/18 23:00 65 18 116/37 97 Nasal Cannula 2.0 01/11/18 23:00 116/37 01/11/18 22:30 65 18 113/47 97 Nasal Cannula 2.0 01/11/18 22:00 64 18 106/63 97 Nasal Cannula 2.0 01/11/18 22:00 106/63 01/11/18 21:30 64 17 108/50 97 Nasal Cannula 2.0 01/11/18 21:00 111/48 01/11/18 21:00 64 17 111/48 97 Nasal Cannula 2.0 01/11/18 20:30 65 17 106/52 97 Nasal Cannula 2.0 01/11/18 20:00 122/56 18 20:00 98.5 65 18 122/56 97 Nasal Cannula 2.0 98.5 01/11/18 19:30 62 18 110/60 97 Nasal Cannula 2.0 01/11/18 19:00 62 19 108/55 97 Nasal Cannula 2.0 01/11/18 19:00 110/57 01/11/18 18:44 Nasal Cannula 2.0 28 01/11/18 18:44 97 Nasal Cannula 2.0 28 01/11/18 18:30 98.9 65 17 110/56 98 Nasal Cannula 2.0 98.9 01/11/18 18:00 60 19 106/50 97 Nasal Cannula 2.0 01/11/18 17:30 65 19 103/49 97 Nasal Cannula 2.0 01/11/18 17:00 66 18 105/48 97 Nasal Cannula 2.0 01/11/18 16:30 63 18 111/48 97 Nasal Cannula 2.0 01/11/18 16:00 69 01/11/18 16:00 98.6 69 19 106/45 97 Nasal Cannula 2.0 98.6 01/11/18 15:30 65 19 116/47 97 Nasal Cannula 2.0 01/11/18 15:14 104/50 01/11/18 15:00 66 20 108/50 99 Nasal Cannula 2.0 01/11/18 14:30 68 19 111/43 99 Nasal Cannula 2.0 01/11/18 14:00 67 21 107/46 99 Nasal Cannula 2.0 01/11/18 13:51 95/55 01/11/18 13:30 62 20 92/52 99 Nasal Cannula 2.0 01/11/18 13:00 66 21 96/52 99 Nasal Cannula 2.0 01/11/18 12:30 65 20 101/55 99 Nasal Cannula 2.0 01/11/18 12:00 65 01/11/18 12:00 98.5 66 18 101/50 99 Nasal Cannula 2.0 98.5 01/11/18 11:30 64 20 86/47 99 Nasal Cannula 2.0 01/11/18 11:00 64 20 95/50 99 Nasal Cannula 2.0 Intake and Output 01/11/18 01/12/18 19:00 07:00 Intake Total 944.25 ml 1789.46 ml Output Total 255 ml 250 ml Balance 689.25 ml 1539.46 ml Free Water 100 ml IV Total 924.25 ml 829.46 ml Tube Feeding 20 ml 360 ml Blood Product 500 ml Output Urine Total 255 ml 250 ml Laboratory Tests 01/11/18 16:30: White Blood Count 6.5, Red Blood Count 2.72L, Hemoglobin 8.1L, Hematocrit 24.0L , Mean Corpuscular Volume 88, Mean Corpuscular Hemoglobin 29.9, Mean Corpuscular Hemoglobin Concent 33.9, Red Cell Distribution Width 16.0H, Platelet Count 31L, Mean Platelet Volume 7.9, Neutrophils (%) (Auto) , Lymphocytes (%) (Auto) , Monocytes (%) (Auto) , Eosinophils (%) (Auto) , Basophils (%) (Auto) , Differential Total Cells Counted 100, Neutrophils % ( Manual) 74, Lymphocytes % (Manual) 14L, Monocytes % (Manual) 7, Eosinophils % ( Manual) 4H, Basophils % (Manual) 0, Band Neutrophils 1, Platelet Estimate DecreasedL, Platelet Morphology Normal, Polychromasia 1+, Anisocytosis 1+ 01/12/18 05:00: White Blood Count 6.4, Red Blood Count 2.82L, Hemoglobin 8.8L, Hematocrit 25.7L , Mean Corpuscular Volume 91, Mean Corpuscular Hemoglobin 31.1H, Mean Corpuscular Hemoglobin Concent 34.1, Red Cell Distribution Width 15.5H, Platelet Count 34L, Mean Platelet Volume 8.0, Neutrophils (%) (Auto) , Lymphocytes (%) (Auto) , Monocytes (%) (Auto) , Eosinophils (%) (Auto) , Basophils (%) (Auto) , Differential Total Cells Counted 100, Neutrophils % ( Manual) 77H, Lymphocytes % (Manual) 11L, Monocytes % (Manual) 9, Eosinophils % ( Manual) 2, Basophils % (Manual) 1, Band Neutrophils 0, Platelet Estimate DecreasedL, Platelet Morphology Normal, Anisocytosis 1+, Hypochromasia 2+, Spherocytes 2+, Prothrombin Time 16.7H, Prothromb Time International Ratio 1.6H , Sodium Level 138, Potassium Level 3.7, Chloride Level 105, Carbon Dioxide Level 24, Anion Gap 9, Blood Urea Nitrogen 30H, Creatinine 2.5H, Estimat Glomerular Filtration Rate , Glucose Level 116H, Calcium Level 8.4L, Phosphorus Level 3.5, Magnesium Level 1.8, Total Bilirubin 6.4H, Direct Bilirubin 3.1H, Aspartate Amino Transf (AST/SGOT) 29, Alanine Aminotransferase (ALT/SGPT) 18, Alkaline Phosphatase 71, Ammonia 86H, Total Protein 6.3L, Albumin 3.4, Globulin 2.9, Albumin/Globulin Ratio 1.2 Height (Feet): 5 Height (Inches): 4.00 Weight (Pounds): 350 General Appearance: lethargic EENT: normal ENT inspection Neck: supple Cardiovascular: normal rate Respiratory/Chest: decreased breath sounds Abdomen: no mass, hypoactive bowel sounds, distended Extremities: non-tender Marlon Gibson MD January 12, 2018 10:51
--- NOTE | 2018-01-12 11:17 | Nephrology Progress Note ---
Assessment/Plan Problem List: (1) ATN (acute tubular necrosis) (2) Hypotension (3) Hemorrhagic shock (4) GI bleed (5) History of pulmonary embolism (6) History of breast cancer Assessment more encephalopathic Amonia level tan acute renal failure cr higher 2.3 acute GI bleed Hemmorhagic anemia hypotension remains on pressors h/o breast ca h/o Pulmonary embolism Plan transfused one unit 01/09 hemodynamic support on midodrine monitor renal parameters cortisol level 9.8 avoid nephrotoxics per orders per GI discussed with RN Subjective ROS Limited/Unobtainable: No Constitutional: Reports: malaise, weakness Objective Objective Last 24 Hour Vital Signs Date Time Temp Pulse Resp B/P (MAP) Pulse Ox O2 Delivery O2 Flow Rate FiO2 01/12/18 09:00 71 19 96/34 98 Nasal Cannula 2.0 01/12/18 08:30 73 19 90/25 98 Nasal Cannula 2.0 01/12/18 08:00 58 01/12/18 08:00 98.3 57 19 106/27 98 Nasal Cannula 2.0 98.3 01/12/18 07:30 67 19 110/27 98 Nasal Cannula 2.0 01/12/18 07:00 68 17 109/36 98 Nasal Cannula 2.0 01/12/18 07:00 109/36 01/12/18 06:30 68 15 94/39 98 Nasal Cannula 2.0 01/12/18 06:00 94/39 01/12/18 06:00 68 15 118/36 98 Nasal Cannula 2.0 01/12/18 05:30 68 17 106/51 97 Nasal Cannula 2.0 01/12/18 05:00 68 18 109/47 96 Nasal Cannula 2.0 01/12/18 05:00 109/47 01/12/18 04:30 70 18 102/41 96 Nasal Cannula 2.0 01/12/18 04:00 98.4 65 15 104/54 98 Nasal Cannula 2.0 98.4 01/12/18 04:00 102/41 01/12/18 04:00 57 01/12/18 03:30 67 18 105/43 97 Nasal Cannula 2.0 01/12/18 03:00 104/54 01/12/18 03:00 65 15 104/54 98 Nasal Cannula 2.0 5/21/18 02:00 114/48 01/12/18 02:00 65 17 114/48 97 Nasal Cannula 2.0 01/12/18 01:30 65 17 108/52 97 Nasal Cannula 2.0 01/12/18 01:00 98.2 65 17 107/48 97 Nasal Cannula 2.0 98.2 01/12/18 01:00 107/48 01/12/18 00:30 65 17 107/48 97 Nasal Cannula 2.0 01/12/18 00:00 106/54 01/12/18 00:00 98.2 66 17 117/46 97 Nasal Cannula 2.0 98.2 01/12/18 00:00 65 01/11/18 23:30 65 18 121/48 97 Nasal Cannula 2.0 01/11/18 23:00 65 18 116/37 97 Nasal Cannula 2.0 01/11/18 23:00 116/37 01/11/18 22:30 65 18 113/47 97 Nasal Cannula 2.0 01/11/18 22:00 64 18 106/63 97 Nasal Cannula 2.0 01/11/18 22:00 106/63 01/11/18 21:30 64 17 108/50 97 Nasal Cannula 2.0 01/11/18 21:00 111/48 01/11/18 21:00 64 17 111/48 97 Nasal Cannula 2.0 01/11/18 20:30 65 17 106/52 97 Nasal Cannula 2.0 01/11/18 20:00 122/56 01/11/18 20:00 98.5 65 18 122/56 97 Nasal Cannula 2.0 98.5 01/11/18 19:30 62 18 110/60 97 Nasal Cannula 2.0 01/11/18 19:00 62 19 108/55 97 Nasal Cannula 2.0 01/11/18 19:00 110/57 01/11/18 18:44 Nasal Cannula 2.0 28 01/11/18 18:44 97 Nasal Cannula 2.0 28 01/11/18 18:30 98.9 65 17 110/56 98 Nasal Cannula 2.0 98.9 01/11/18 18:00 60 19 106/50 97 Nasal Cannula 2.0 01/11/18 17:30 65 19 103/49 97 Nasal Cannula 2.0 01/11/18 17:00 66 18 105/48 97 Nasal Cannula 2.0 01/11/18 16:30 63 18 111/48 97 Nasal Cannula 2.0 01/11/18 16:00 69 01/11/18 16:00 98.6 69 19 106/45 97 Nasal Cannula 2.0 98.6 01/11/18 15:30 65 19 116/47 97 Nasal Cannula 2.0 01/11/18 15:14 104/50 01/11/18 15:00 66 20 108/50 99 Nasal Cannula 2.0 01/11/18 14:30 68 19 111/43 99 Nasal Cannula 2.0 01/11/18 14:00 67 21 107/46 99 Nasal Cannula 2.0 01/11/18 13:51 95/55 01/11/18 13:30 62 20 92/52 99 Nasal Cannula 2.0 01/11/18 13:00 66 21 96/52 99 Nasal Cannula 2.0 01/11/18 12:30 65 20 101/55 99 Nasal Cannula 2.0 01/11/18 12:00 65 01/11/18 12:00 98.5 66 18 101/50 99 Nasal Cannula 2.0 98.5 01/11/18 11:30 64 20 86/47 99 Nasal Cannula 2.0 Intake and Output 01/11/18 01/12/18 19:00 07:00 Intake Total 944.25 ml 1789.46 ml Output Total 255 ml 250 ml Balance 689.25 ml 1539.46 ml Free Water 100 ml IV Total 924.25 ml 829.46 ml Tube Feeding 20 ml 360 ml Blood Product 500 ml Output Urine Total 255 ml 250 ml Laboratory Tests 01/11/18 16:30: White Blood Count 6.5, Red Blood Count 2.72L, Hemoglobin 8.1L, Hematocrit 24.0L , Mean Corpuscular Volume 88, Mean Corpuscular Hemoglobin 29.9, Mean Corpuscular Hemoglobin Concent 33.9, Red Cell Distribution Width 16.0H, Platelet Count 31L, Mean Platelet Volume 7.9, Neutrophils (%) (Auto) , Lymphocytes (%) (Auto) , Monocytes (%) (Auto) , Eosinophils (%) (Auto) , Basophils (%) (Auto) , Differential Total Cells Counted 100, Neutrophils % ( Manual) 74, Lymphocytes % (Manual) 14L, Monocytes % (Manual) 7, Eosinophils % ( Manual) 4H, Basophils % (Manual) 0, Band Neutrophils 1, Platelet Estimate DecreasedL, Platelet Morphology Normal, Polychromasia 1+, Anisocytosis 1+ 01/12/18 05:00: White Blood Count 6.4, Red Blood Count 2.82L, Hemoglobin 8.8L, Hematocrit 25.7L , Mean Corpuscular Volume 91, Mean Corpuscular Hemoglobin 31.1H, Mean Corpuscular Hemoglobin Concent 34.1, Red Cell Distribution Width 15.5H, Platelet Count 34L, Mean Platelet Volume 8.0, Neutrophils (%) (Auto) , Lymphocytes (%) (Auto) , Monocytes (%) (Auto) , Eosinophils (%) (Auto) , Basophils (%) (Auto) , Differential Total Cells Counted 100, Neutrophils % ( Manual) 77H, Lymphocytes % (Manual) 11L, Monocytes % (Manual) 9, Eosinophils % ( Manual) 2, Basophils % (Manual) 1, Band Neutrophils 0, Platelet Estimate DecreasedL, Platelet Morphology Normal, Anisocytosis 1+, Hypochromasia 2+, Spherocytes 2+, Prothrombin Time 16.7H, Prothromb Time International Ratio 1.6H , Sodium Level 138, Potassium Level 3.7, Chloride Level 105, Carbon Dioxide Level 24, Anion Gap 9, Blood Urea Nitrogen 30H, Creatinine 2.5H, Estimat Glomerular Filtration Rate , Glucose Level 116H, Calcium Level 8.4L, Phosphorus Level 3.5, Magnesium Level 1.8, Total Bilirubin 6.4H, Direct Bilirubin 3.1H, Aspartate Amino Transf (AST/SGOT) 29, Alanine Aminotransferase (ALT/SGPT) 18, Alkaline Phosphatase 71, Ammonia 86H, Total Protein 6.3L, Albumin 3.4, Globulin 2.9, Albumin/Globulin Ratio 1.2 Height (Feet): 5 Height (Inches): 4.00 Weight (Pounds): 350 General Appearance: no apparent distress Objective no change DARIA MCNEILL January 12, 2018 11:17
--- NOTE | 2018-01-12 11:19 | Diagnostic Imaging Report ---
Indication: Dyspnea Comparison: 01/05/2018 A single view chest radiograph was obtained. Findings: Right jugular line is present. The tip is projected over the right atrium. Mild vascular congestion present within the lungs. Heart is enlarged. There is a weighted feeding tube present. The tip is below the [id number] as proximal as the stomach. The tip is not visualized. IMPRESSION: Mild vascular congestion may be present. Correlate clinically.
--- NOTE | 2018-01-12 11:43 | Pulmonolgy Critical Care Note ---
Critical Care - Asmt/Plan Problems: (1) Hemorrhagic shock (2) GI bleed (3) Coagulopathy (4) ATN (acute tubular necrosis) (5) History of breast cancer (6) History of pulmonary embolism (7) Morbid obesity Respiratory: monitor respiratory rate, adjust FIO2, CXR Cardiac: stop pressors, continue to monitor HR/BP Renal: F/U I&O, keep IV fluid Infectious Disease: check cultures Gastrointestinal: continue feedings/current rate Endocrine: monitor blood sugar Hematologic: monitor H/H Neurologic: PRN Morphine Affect: PRN ativan Prophylaxis: Protonix Disposition: transfer to Time Spent (Minutes): 60 Notes Reviewed: technology advisor, cardio, renal, GI Discussed with: nurses, consultants, pillowcase maker, family member - with Daughter extensively about DNR and comfort care. Critical Care - Objective Last 24 Hour Vital Signs Date Time Temp Pulse Resp B/P (MAP) Pulse Ox O2 Delivery O2 Flow Rate FiO2 01/12/18 09:00 71 19 96/34 98 Nasal Cannula 2.0 01/12/18 08:30 73 19 90/25 98 Nasal Cannula 2.0 01/12/18 08:00 58 01/12/18 08:00 98.3 57 19 106/27 98 Nasal Cannula 2.0 98.3 01/12/18 07:30 67 19 110/27 98 Nasal Cannula 2.0 01/12/18 07:00 68 17 109/36 98 Nasal Cannula 2.0 01/12/18 07:00 109/36 01/12/18 06:30 68 15 94/39 98 Nasal Cannula 2.0 01/12/18 06:00 94/39 01/12/18 06:00 68 15 118/36 98 Nasal Cannula 2.0 01/12/18 05:30 68 17 106/51 97 Nasal Cannula 2.0 01/12/18 05:00 68 18 109/47 96 Nasal Cannula 2.0 01/12/18 05:00 109/47 01/12/18 04:30 70 18 102/41 96 Nasal Cannula 2.0 01/12/18 04:00 98.4 65 15 104/54 98 Nasal Cannula 2.0 98.4 01/12/18 04:00 102/41 01/12/18 04:00 57 01/12/18 03:30 67 18 105/43 97 Nasal Cannula 2.0 01/12/18 03:00 104/54 01/12/18 03:00 65 15 104/54 98 Nasal Cannula 2.0 01/12/18 02:00 114/48 01/12/18 02:00 65 17 114/48 97 Nasal Cannula 2.0 01/12/18 01:30 65 17 108/52 97 Nasal Cannula 2.0 01/12/18 01:00 98.2 65 17 107/48 97 Nasal Cannula 2.0 98.2 01/12/18 01:00 107/48 01/12/18 00:30 65 17 107/48 97 Nasal Cannula 2.0 01/12/18 00:00 106/54 01/12/18 00:00 98.2 66 17 117/46 97 Nasal Cannula 2.0 98.2 01/12/18 00:00 65 01/11/18 23:30 65 18 121/48 97 Nasal Cannula 2.0 01/11/18 23:00 65 18 116/37 97 Nasal Cannula 2.0 01/11/18 23:00 116/37 01/11/18 22:30 65 18 113/47 97 Nasal Cannula 2.0 01/11/18 22:00 64 18 106/63 97 Nasal Cannula 2.0 01/11/18 22:00 106/63 01/11/18 21:30 64 17 108/50 97 Nasal Cannula 2.0 01/11/18 21:00 111/48 01/11/18 21:00 64 17 111/48 97 Nasal Cannula 2.0 01/11/18 20:30 65 17 106/52 97 Nasal Cannula 2.0 01/11/18 20:00 122/56 01/11/18 20:00 98.5 65 18 122/56 97 Nasal Cannula 2.0 98.5 01/11/18 19:30 62 18 110/60 97 Nasal Cannula 2.0 01/11/18 19:00 62 19 108/55 97 Nasal Cannula 2.0 01/11/18 19:00 110/57 01/11/18 18:44 Nasal Cannula 2.0 28 01/11/18 18:44 97 Nasal Cannula 2.0 28 01/11/18 18:30 98.9 65 17 110/56 98 Nasal Cannula 2.0 98.9 01/11/18 18:00 60 19 106/50 97 Nasal Cannula 2.0 520/18 17:30 65 19 103/49 97 Nasal Cannula 2.0 01/11/18 17:00 66 18 105/48 97 Nasal Cannula 2.0 01/11/18 16:30 63 18 111/48 97 Nasal Cannula 2.0 01/11/18 16:00 69 01/11/18 16:00 98.6 69 19 106/45 97 Nasal Cannula 2.0 98.6 01/11/18 15:30 65 19 116/47 97 Nasal Cannula 2.0 01/11/18 15:14 104/50 01/11/18 15:00 66 20 108/50 99 Nasal Cannula 2.0 01/11/18 14:30 68 19 111/43 99 Nasal Cannula 2.0 01/11/18 14:00 67 21 107/46 99 Nasal Cannula 2.0 01/11/18 13:51 95/55 01/11/18 13:30 62 20 92/52 99 Nasal Cannula 2.0 01/11/18 13:00 66 21 96/52 99 Nasal Cannula 2.0 01/11/18 12:30 65 20 101/55 99 Nasal Cannula 2.0 01/11/18 12:00 65 01/11/18 12:00 98.5 66 18 101/50 99 Nasal Cannula 2.0 98.5 Status: awake Condition: critical HEENT: atraumatic Neck: full ROM Lungs: chest wall tender Heart: HR/BP unstable Abdomen: active bowel sounds, feeding tube Extremities: edema Decubiti: stage Critical Care - Subjective ROS Limited/Unobtainable: No ICU Day: 7 Condition: critical EKG Rhythm: Sinus Rhythm FI02: 28 Tube Feeding Amount: 55 I&O: Intake and Output 01/11/18 01/12/18 19:00 07:00 Intake Total 944.25 ml 1789.46 ml Output Total 255 ml 250 ml Balance 689.25 ml 1539.46 ml Free Water 100 ml IV Total 924.25 ml 829.46 ml Tube Feeding 20 ml 360 ml Blood Product 500 ml Output Urine Total 255 ml 250 ml CXR: pending Labs: Laboratory Tests Test 01/11/18 16:30 01/12/18 05:00 White Blood Count 6.5 K/UL (4.8-10.8) 6.4 K/UL (4.8-10.8) Red Blood Count 2.72 M/UL (4.20-5.40) L 2.82 M/UL (4.20-5.40) L Hemoglobin 8.1 G/DL (12.0-16.0) L 8.8 G/DL (12.0-16.0) L Hematocrit 24.0 % (37.0-47.0) L 25.7 % (37.0-47.0) L Mean Corpuscular Volume 88 FL (80-99) 91 FL (80-99) Mean Corpuscular Hemoglobin 29.9 PG (27.0-31.0) 31.1 PG (27.0-31.0) H Mean Corpuscular Hemoglobin Concent 33.9 G/DL (32.0-36.0) 34.1 G/DL (32.0-36.0) Red Cell Distribution Width 16.0 % (11.6-14.8) H 15.5 % (11.6-14.8) H Platelet Count 31 K/UL (150-450) L 34 K/UL (150-450) L Mean Platelet Volume 7.9 FL (6.5-10.1) 8.0 FL (6.5-10.1) Neutrophils (%) (Auto) % (45.0-75.0) % (45.0-75.0) Lymphocytes (%) (Auto) % (20.0-45.0) % (20.0-45.0) Monocytes (%) (Auto) % (1.0-10.0) % (1.0-10.0) Eosinophils (%) (Auto) % (0.0-3.0) % (0.0-3.0) Basophils (%) (Auto) % (0.0-2.0) % (0.0-2.0) Differential Total Cells Counted 100 100 Neutrophils % (Manual) 74 % (45-75) 77 % (45-75) H Lymphocytes % (Manual) 14 % (20-45) L 11 % (20-45) L Monocytes % (Manual) 7 % (1-10) 9 % (1-10) Eosinophils % (Manual) 4 % (0-3) H 2 % (0-3) Basophils % (Manual) 0 % (0-2) 1 % (0-2) Band Neutrophils 1 % (0-8) 0 % (0-8) Platelet Estimate Decreased L Decreased L Platelet Morphology Normal Normal Polychromasia 1+ Anisocytosis 1+ 1+ Hypochromasia 2+ Spherocytes 2+ Prothrombin Time 16.7 SEC (9.30-11.50) H Prothromb Time International Ratio 1.6 (0.9-1.1) H Sodium Level 138 MMOL/L (136-145) Potassium Level 3.7 MMOL/L (3.5-5.1) Chloride Level 105 MMOL/L (98-107) Carbon Dioxide Level 24 MMOL/L (21-32) Anion Gap 9 mmol/L (5-15) Blood Urea Nitrogen 30 mg/dL (7-18) H Creatinine 2.5 MG/DL (0.55-1.30) H Estimat Glomerular Filtration Rate mL/min (>60) Glucose Level 116 MG/DL (74-106) H Calcium Level 8.4 MG/DL (8.5-10.1) L Phosphorus Level 3.5 MG/DL (2.5-4.9) Magnesium Level 1.8 MG/DL (1.8-2.4) Total Bilirubin 6.4 MG/DL (0.2-1.0) H Direct Bilirubin 3.1 MG/DL (0.0-0.3) H Aspartate Amino Transf (AST/SGOT) 29 U/L (15-37) Alanine Aminotransferase (ALT/SGPT) 18 U/L (12-78) Alkaline Phosphatase 71 U/L (46-116) Ammonia 86 umol/L (11-32) H Total Protein 6.3 G/DL (6.4-8.2) L Albumin 3.4 G/DL (3.4-5.0) Globulin 2.9 g/dL Albumin/Globulin Ratio 1.2 (1.0-2.7) Bakari Gilmore MD January 12, 2018 11:43
[2018-01-12] MEDS ORDERED: Morphine Sulfate 4mg/ml Inj IV PRN (12:15)
--- NOTE | 2018-01-12 12:16 | Internal Med Progress Note ---
Subjective Date of Service: January 12, 2018 Physician Name Day,Ramiro Attending Physician Perico Randolph MD Current Medications Medications (Trade) Dose Ordered Sig/Miles Route PRN Reason Start Time Stop Time Status Last Admin Dose Admin Acetaminophen (Tylenol) 650 mg Q4H PRN ORAL fever 01/05/18 15:45 02/04/18 15:44 Albumin Human 100 ml @ 100 mls/hr ONCE ONCE IV 01/12/18 11:30 01/12/18 12:29 Albuterol/ Ipratropium (Albuterol/ Ipratropium) 3 ml Q4H PRN HHN Shortness of Breath 01/12/18 11:45 01/17/18 11:44 Chlorhexidine Gluconate (Destiny-Hex 2%) 1 applic DAILY@2000 TOPIC 01/06/18 20:00 02/05/18 19:59 01/11/18 19:51 Dextrose (Dextrose 50%) STAT PRN IV Hypoglycemia 01/05/18 15:45 02/04/18 15:44 Furosemide (Lasix) 20 mg ONCE ONCE IV 01/12/18 12:15 01/12/18 12:16 UNV Lactulose (Cephulac) 30 gm THREE TIMES A DAY ORAL 01/12/18 13:00 02/09/18 15:59 Midodrine (Pro-Amatine) 10 mg THREE TIMES A DAY ORAL 01/07/18 13:00 02/06/18 12:59 01/12/18 08:39 Morphine Sulfate (Morphine Sulfate) 2 mg Q4H PRN IVP For Pain 01/11/18 11:00 01/18/18 10:59 Nitroglycerin (Ntg) 0.4 mg Q5M X 3 DOSES PRN SL Prn Chest Pain 01/05/18 15:45 02/04/18 15:44 Ondansetron HCl (Zofran) 4 mg Q6H PRN IVP Nausea & Vomiting 01/05/18 13:30 02/04/18 13:29 01/05/18 13:32 Pantoprazole (Protonix) 40 mg DAILY ORAL 01/13/18 09:00 02/12/18 08:59 Piperacillin Sod/ Tazobactam Sod 3.375 gm/Dextrose 110 ml @ 27.5 mls/hr EVERY 8 HOURS IVPB 01/07/18 23:30 01/13/18 23:29 01/12/18 05:41 Rifaximin (Xifaxan) 550 mg EVERY 12 HOURS ORAL 01/06/18 22:00 01/13/18 21:59 01/12/18 08:39 Vancomycin HCl (Vanco rx to dose) 1 ea DAILY PRN MISC Per rx protocol 01/07/18 19:45 02/06/18 19:44 Vancomycin HCl/ Dextrose 250 ml @ 125 mls/hr Q48H IVPB 01/10/18 21:00 01/15/18 20:59 01/10/18 21:29 Vitamin A/Vitamin D (A & D Oint) 1 applic EVERY 12 HOURS TOPIC 01/06/18 21:00 02/05/18 20:59 01/12/18 08:40 Allergies: Coded Allergies: ASPIRIN (Unverified Allergy, Unknown, 01/05/18) Uncoded Allergies: TAPE (Allergy, Unknown, 01/05/18) ROS Limited/Unobtainable: Yes Subjective 72 YO F admitted with hematemesis and rectal bleeding. Cover for Int Med-Dr Randolph. ICU Objective Last Vital Signs Date Time Temp Pulse Resp B/P (MAP) Pulse Ox O2 Delivery O2 Flow Rate FiO2 01/12/18 09:00 71 19 96/34 98 Nasal Cannula 2.0 01/12/18 08:00 98.3 98.3 01/11/18 18:44 28 Laboratory Tests Test 01/11/18 16:30 01/12/18 05:00 White Blood Count 6.5 K/UL (4.8-10.8) 6.4 K/UL (4.8-10.8) Red Blood Count 2.72 M/UL (4.20-5.40) L 2.82 M/UL (4.20-5.40) L Hemoglobin 8.1 G/DL (12.0-16.0) L 8.8 G/DL (12.0-16.0) L Hematocrit 24.0 % (37.0-47.0) L 25.7 % (37.0-47.0) L Mean Corpuscular Volume 88 FL (80-99) 91 FL (80-99) Mean Corpuscular Hemoglobin 29.9 PG (27.0-31.0) 31.1 PG (27.0-31.0) H Mean Corpuscular Hemoglobin Concent 33.9 G/DL (32.0-36.0) 34.1 G/DL (32.0-36.0) Red Cell Distribution Width 16.0 % (11.6-14.8) H 15.5 % (11.6-14.8) H Platelet Count 31 K/UL (150-450) L 34 K/UL (150-450) L Mean Platelet Volume 7.9 FL (6.5-10.1) 8.0 FL (6.5-10.1) Neutrophils (%) (Auto) % (45.0-75.0) % (45.0-75.0) Lymphocytes (%) (Auto) % (20.0-45.0) % (20.0-45.0) Monocytes (%) (Auto) % (1.0-10.0) % (1.0-10.0) Eosinophils (%) (Auto) % (0.0-3.0) % (0.0-3.0) Basophils (%) (Auto) % (0.0-2.0) % (0.0-2.0) Differential Total Cells Counted 100 100 Neutrophils % (Manual) 74 % (45-75) 77 % (45-75) H Lymphocytes % (Manual) 14 % (20-45) L 11 % (20-45) L Monocytes % (Manual) 7 % (1-10) 9 % (1-10) Eosinophils % (Manual) 4 % (0-3) H 2 % (0-3) Basophils % (Manual) 0 % (0-2) 1 % (0-2) Band Neutrophils 1 % (0-8) 0 % (0-8) Platelet Estimate Decreased L Decreased L Platelet Morphology Normal Normal Polychromasia 1+ Anisocytosis 1+ 1+ Hypochromasia 2+ Spherocytes 2+ Prothrombin Time 16.7 SEC (9.30-11.50) H Prothromb Time International Ratio 1.6 (0.9-1.1) H Sodium Level 138 MMOL/L (136-145) Potassium Level 3.7 MMOL/L (3.5-5.1) Chloride Level 105 MMOL/L (98-107) Carbon Dioxide Level 24 MMOL/L (21-32) Anion Gap 9 mmol/L (5-15) Blood Urea Nitrogen 30 mg/dL (7-18) H Creatinine 2.5 MG/DL (0.55-1.30) H Estimat Glomerular Filtration Rate mL/min (>60) Glucose Level 116 MG/DL (74-106) H Calcium Level 8.4 MG/DL (8.5-10.1) L Phosphorus Level 3.5 MG/DL (2.5-4.9) Magnesium Level 1.8 MG/DL (1.8-2.4) Total Bilirubin 6.4 MG/DL (0.2-1.0) H Direct Bilirubin 3.1 MG/DL (0.0-0.3) H Aspartate Amino Transf (AST/SGOT) 29 U/L (15-37) Alanine Aminotransferase (ALT/SGPT) 18 U/L (12-78) Alkaline Phosphatase 71 U/L (46-116) Ammonia 86 umol/L (11-32) H Total Protein 6.3 G/DL (6.4-8.2) L Albumin 3.4 G/DL (3.4-5.0) Globulin 2.9 g/dL Albumin/Globulin Ratio 1.2 (1.0-2.7) Intake and Output 01/11/18 01/12/18 19:00 07:00 Intake Total 944.25 ml 1789.46 ml Output Total 255 ml 250 ml Balance 689.25 ml 1539.46 ml Free Water 100 ml IV Total 924.25 ml 829.46 ml Tube Feeding 20 ml 360 ml Blood Product 500 ml Output Urine Total 255 ml 250 ml Objective Objective GENERAL: awake, responsive, in no acute distress. HEAD AND NECK: Pupils are reactive to light. Extraocular movements are intact. Neck was supple. No JVD. Triple-lumen catheter right IJ. LUNGS: Bilaterally no wheezing or rales. Decreased air in the bases. HEART: S1 and S2 RR. Distant heart sounds. No murmur ABDOMEN: Soft, nondistended, nontender, and morbidly obese. CHEST WALL: Bilateral mastectomy was noted, scar tissue and no sign of infection. EXTREMITIES: No cyanosis or clubbing. +2 edema. NEUROLOGIC: Cranial nerves II through XII grossly intact. Motor is 5/5 in all extremities. Gait is unable to obtain secondary to the patient's status. Assessment/Plan Assessment/Plan Assessment/Plan 1. Acute GI bleed. 2. Hemorrhagic shock. 3. Severe anemia most likely secondary to acute blood loss. 4. Acute kidney injury on chronic renal insufficiency. 5. Morbid obesity. 6. History of breast cancer. 7. Hyperkalemia. 8. Hypertension. 9. History of breast cancer, status post bilateral mastectomy. 10. Congestive heart failure, chronic with diastolic dysfunction. 11. Major depression disorder. 12. History of DVT and PE in past, Hold anticoagulation, Coumadin. 13. 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 14. Chronic hypotension. PLAN: in ICU. Dr. Gilmore, Pulmonary/Critical Care, Dr. Sascha Bond from Nephrology Dr. Tenzin Ford from Cardiology Dr. Yohannes Woodall from Gastroenterology. Hold Endoscopy due to high anesthesia risk-see GI note Monitor laboratory and Cultures. Code status is Full Code. POLST noted in the chart. bedrest and at this time for DVT prophylaxis, SCD. Abx: Vanco IV and Zosyn IV weaning Dopamine Drip Dc Sandostatin drip S/P transfusion 6 units packed RBC and 2 units FFP Transfuse for hemoglobin<8.0 and platelets <20K Ramiro Day MD January 12, 2018 12:16
--- NOTE | 2018-01-12 12:23 | General Progress Note ---
Assessment/Plan Status: stable Assessment/Plan mdd anxiety d/o buspar 10mg bid provided ro/st the pt lacks capacity the pt benefit palliative care Subjective Date patient seen: January 12, 2018 Allergies: Coded Allergies: ASPIRIN (Unverified Allergy, Unknown, 01/05/18) Uncoded Allergies: TAPE (Allergy, Unknown, 01/05/18) Subjective the pt is more confused. family at bedside the pt unable to make decisions. medically more unstable Objective Last 24 Hour Vital Signs Date Time Temp Pulse Resp B/P (MAP) Pulse Ox O2 Delivery O2 Flow Rate FiO2 01/12/18 09:00 71 19 96/34 98 Nasal Cannula 2.0 01/12/18 08:30 73 19 90/25 98 Nasal Cannula 2.0 01/12/18 08:00 58 01/12/18 08:00 98.3 57 19 106/27 98 Nasal Cannula 2.0 98.3 01/12/18 07:30 67 19 110/27 98 Nasal Cannula 2.0 01/12/18 07:00 68 17 109/36 98 Nasal Cannula 2.0 01/12/18 07:00 109/36 01/12/18 06:30 68 15 94/39 98 Nasal Cannula 2.0 01/12/18 06:00 94/39 01/12/18 06:00 68 15 118/36 98 Nasal Cannula 2.0 01/12/18 05:30 68 17 106/51 97 Nasal Cannula 2.0 01/12/18 05:00 68 18 109/47 96 Nasal Cannula 2.0 01/12/18 05:00 109/47 01/12/18 04:30 70 18 102/41 96 Nasal Cannula 2.0 01/12/18 04:00 98.4 65 15 104/54 98 Nasal Cannula 2.0 98.4 01/12/18 04:00 102/41 01/12/18 04:00 57 01/12/18 03:30 67 18 105/43 97 Nasal Cannula 2.0 01/12/18 03:00 104/54 01/12/18 03:00 65 15 104/54 98 Nasal Cannula 2.0 01/12/18 02:00 114/48 01/12/18 02:00 65 17 114/48 97 Nasal Cannula 2.0 01/12/18 01:30 65 17 108/52 97 Nasal Cannula 2.0 01/12/18 01:00 98.2 65 17 107/48 97 Nasal Cannula 2.0 98.2 01/12/18 01:00 107/48 5 00:30 65 17 107/48 97 Nasal Cannula 2.0 01/12/18 00:00 106/54 01/12/18 00:00 98.2 66 17 117/46 97 Nasal Cannula 2.0 98.2 01/12/18 00:00 65 01/11/18 23:30 65 18 121/48 97 Nasal Cannula 2.0 01/11/18 23:00 65 18 116/37 97 Nasal Cannula 2.0 01/11/18 23:00 116/37 18 22:30 65 18 113/47 97 Nasal Cannula 2.0 01/11/18 22:00 64 18 106/63 97 Nasal Cannula 2.0 01/11/18 22:00 106/63 01/11/18 21:30 64 17 108/50 97 Nasal Cannula 2.0 01/11/18 21:00 111/48 01/11/18 21:00 64 17 111/48 97 Nasal Cannula 2.0 01/11/18 20:30 65 17 106/52 97 Nasal Cannula 2.0 01/11/18 20:00 122/56 01/11/18 20:00 98.5 65 18 122/56 97 Nasal Cannula 2.0 98.5 01/11/18 19:30 62 18 110/60 97 Nasal Cannula 2.0 01/11/18 19:00 62 19 108/55 97 Nasal Cannula 2.0 01/11/18 19:00 110/57 518 18:44 Nasal Cannula 2.0 28 18 18:44 97 Nasal Cannula 2.0 28 18 18:30 98.9 65 17 110/56 98 Nasal Cannula 2.0 98.9 18 18:00 60 19 106/50 97 Nasal Cannula 2.0 01/11/18 17:30 65 19 103/49 97 Nasal Cannula 2.0 18 17:00 66 18 105/48 97 Nasal Cannula 2.0 18 16:30 63 18 111/48 97 Nasal Cannula 2.0 18 16:00 69 5 16:00 98.6 69 19 106/45 97 Nasal Cannula 2.0 98.6 01/11/18 15:30 65 19 116/47 97 Nasal Cannula 2.0 01/11/18 15:14 104/50 01/11/18 15:00 66 20 108/50 99 Nasal Cannula 2.0 01/11/18 14:30 68 19 111/43 99 Nasal Cannula 2.0 01/11/18 14:00 67 21 107/46 99 Nasal Cannula 2.0 01/11/18 13:51 95/55 01/11/18 13:30 62 20 92/52 99 Nasal Cannula 2.0 01/11/18 13:00 66 21 96/52 99 Nasal Cannula 2.0 01/11/18 12:30 65 20 101/55 99 Nasal Cannula 2.0 Intake and Output 01/11/18 01/12/18 19:00 07:00 Intake Total 944.25 ml 1789.46 ml Output Total 255 ml 250 ml Balance 689.25 ml 1539.46 ml Free Water 100 ml IV Total 924.25 ml 829.46 ml Tube Feeding 20 ml 360 ml Blood Product 500 ml Output Urine Total 255 ml 250 ml Laboratory Tests 01/11/18 16:30: White Blood Count 6.5, Red Blood Count 2.72L, Hemoglobin 8.1L, Hematocrit 24.0L , Mean Corpuscular Volume 88, Mean Corpuscular Hemoglobin 29.9, Mean Corpuscular Hemoglobin Concent 33.9, Red Cell Distribution Width 16.0H, Platelet Count 31L, Mean Platelet Volume 7.9, Neutrophils (%) (Auto) , Lymphocytes (%) (Auto) , Monocytes (%) (Auto) , Eosinophils (%) (Auto) , Basophils (%) (Auto) , Differential Total Cells Counted 100, Neutrophils % ( Manual) 74, Lymphocytes % (Manual) 14L, Monocytes % (Manual) 7, Eosinophils % ( Manual) 4H, Basophils % (Manual) 0, Band Neutrophils 1, Platelet Estimate DecreasedL, Platelet Morphology Normal, Polychromasia 1+, Anisocytosis 1+ 01/12/18 05:00: White Blood Count 6.4, Red Blood Count 2.82L, Hemoglobin 8.8L, Hematocrit 25.7L , Mean Corpuscular Volume 91, Mean Corpuscular Hemoglobin 31.1H, Mean Corpuscular Hemoglobin Concent 34.1, Red Cell Distribution Width 15.5H, Platelet Count 34L, Mean Platelet Volume 8.0, Neutrophils (%) (Auto) , Lymphocytes (%) (Auto) , Monocytes (%) (Auto) , Eosinophils (%) (Auto) , Basophils (%) (Auto) , Differential Total Cells Counted 100, Neutrophils % ( Manual) 77H, Lymphocytes % (Manual) 11L, Monocytes % (Manual) 9, Eosinophils % ( Manual) 2, Basophils % (Manual) 1, Band Neutrophils 0, Platelet Estimate DecreasedL, Platelet Morphology Normal, Anisocytosis 1+, Hypochromasia 2+, Spherocytes 2+, Prothrombin Time 16.7H, Prothromb Time International Ratio 1.6H , Sodium Level 138, Potassium Level 3.7, Chloride Level 105, Carbon Dioxide Level 24, Anion Gap 9, Blood Urea Nitrogen 30H, Creatinine 2.5H, Estimat Glomerular Filtration Rate , Glucose Level 116H, Calcium Level 8.4L, Phosphorus Level 3.5, Magnesium Level 1.8, Total Bilirubin 6.4H, Direct Bilirubin 3.1H, Aspartate Amino Transf (AST/SGOT) 29, Alanine Aminotransferase (ALT/SGPT) 18, Alkaline Phosphatase 71, Ammonia 86H, Total Protein 6.3L, Albumin 3.4, Globulin 2.9, Albumin/Globulin Ratio 1.2 Height (Feet): 5 Height (Inches): 4.00 Weight (Pounds): 350 General Appearance: WD/WN, no apparent distress, lethargic, confused Cady Brower M.D. January 12, 2018 12:23
[2018-01-12] MEDS ORDERED: Lactulose 20gm/30ml UDC ORAL SCH (13:00)
[2018-01-12] MEDS: Albuterol/Ipratropium 3ml neb HHN PRN ×3 (13:18→22:46)
--- NOTE | 2018-01-12 13:57 | Cardiology Report ---
APPROVED REPORT EKG Measurement Heart [id number] Sinus rhythm with 1st degree AV block Otherwise normal ECG
[2018-01-12] MEDS: Dyna-Hex 2% Top Sol 2oz TOPIC SCH (20:26)
--- NOTE | 2018-01-12 21:03 | Cardiology Progress Note ---
Assessment/Plan Assessment/Plan 1. Hypovolemic shock. 2. Anemia. 3. Gastrointestinal bleed. 4. History of deep venous thrombosis and pulmonary embolism, on chronic anticoagulation therapy. 5. History of breast cancer remotely, status post bilateral mastectomy. 6. Chronic borderline hypotension. 7. Morbid obesity. 8. Subacute renal insufficiency.cr 1.8-2.1 11/2017 but 1.3-1.5 07/2017 9. cirrhosis 10. thrombocytopenia bp chronic 90-100's range in 11/2017 bc neg urine cx + repeat cardiac enzyme min abn of ? sig with renal isnuf echo normal wall motion cortisol normal off all meds now on comfort care still in icu d/w dtr Subjective ROS Limited/Unobtainable: Yes Subjective family is at bedside , per dtr pt has requested to stop all meds Objective Last 24 Hour Vital Signs Date Time Temp Pulse Resp B/P (MAP) Pulse Ox O2 Delivery O2 Flow Rate FiO2 01/12/18 19:14 98 Nasal Cannula 2.0 28 01/12/18 19:14 Nasal Cannula 2.0 28 01/12/18 19:00 74 18 109/41 96 Nasal Cannula 2.0 01/12/18 18:24 64 20 96 Nasal Cannula 3.0 32 01/12/18 18:16 63 20 98 Nasal Cannula 3.0 32 01/12/18 18:16 32 01/12/18 18:00 58 21 92/38 96 Nasal Cannula 2.0 01/12/18 17:00 69 21 96/41 96 Nasal Cannula 2.0 01/12/18 16:00 71 01/12/18 16:00 72 21 96/52 96 Nasal Cannula 2.0 01/12/18 15:00 73 21 101/39 96 Nasal Cannula 2.0 01/12/18 14:00 71 30 97/43 96 Nasal Cannula 2.0 01/12/18 13:18 65 20 97 Nasal Cannula 3.0 32 01/12/18 13:18 32 01/12/18 13:00 67 27 88/35 97 Nasal Cannula 2.0 01/12/18 12:09 97 Nasal Cannula 2.0 28 01/12/18 12:09 Nasal Cannula 2.0 28 01/12/18 12:00 58 01/12/18 12:00 69 28 99/45 97 Nasal Cannula 2.0 01/12/18 11:00 69 24 95/42 90 Nasal Cannula 2.0 01/12/18 10:30 69 22 101/41 89 Nasal Cannula 2.0 01/12/18 10:00 101/41 01/12/18 10:00 64 19 100/50 98 Nasal Cannula 2.0 01/12/18 09:30 64 19 101/44 98 Nasal Cannula 2.0 01/12/18 09:00 96/34 01/12/18 09:00 71 19 96/34 98 Nasal Cannula 2.0 01/12/18 08:30 73 19 90/25 98 Nasal Cannula 2.0 01/12/18 08:00 106/27 01/12/18 08:00 58 01/12/18 08:00 98.3 57 19 106/27 98 Nasal Cannula 2.0 98.3 01/12/18 07:30 67 19 110/27 98 Nasal Cannula 2.0 01/12/18 07:00 68 17 109/36 98 Nasal Cannula 2.0 01/12/18 07:00 109/36 01/12/18 06:30 68 15 94/39 98 Nasal Cannula 2.0 01/12/18 06:00 94/39 01/12/18 06:00 68 15 118/36 98 Nasal Cannula 2.0 01/12/18 05:30 68 17 106/51 97 Nasal Cannula 2.0 01/12/18 05:00 68 18 109/47 96 Nasal Cannula 2.0 01/12/18 05:00 109/47 01/12/18 04:30 70 18 102/41 96 Nasal Cannula 2.0 01/12/18 04:00 98.4 65 15 104/54 98 Nasal Cannula 2.0 98.4 01/12/18 04:00 102/41 01/12/18 04:00 57 01/12/18 03:30 67 18 105/43 97 Nasal Cannula 2.0 01/12/18 03:00 104/54 01/12/18 03:00 65 15 104/54 98 Nasal Cannula 2.0 01/12/18 02:00 114/48 01/12/18 02:00 65 17 114/48 97 Nasal Cannula 2.0 01/12/18 01:30 65 17 108/52 97 Nasal Cannula 2.0 01/12/18 01:00 98.2 65 17 107/48 97 Nasal Cannula 2.0 98.2 01/12/18 01:00 107/48 01/12/18 00:30 65 17 107/48 97 Nasal Cannula 2.0 01/12/18 00:00 106/54 01/12/18 00:00 98.2 66 17 117/46 97 Nasal Cannula 2.0 98.2 01/12/18 00:00 65 01/11/18 23:30 65 18 121/48 97 Nasal Cannula 2.0 01/11/18 23:00 65 18 116/37 97 Nasal Cannula 2.0 01/11/18 23:00 116/37 01/11/18 22:30 65 18 113/47 97 Nasal Cannula 2.0 01/11/18 22:00 64 18 106/63 97 Nasal Cannula 2.0 01/11/18 22:00 106/63 01/11/18 21:30 64 17 108/50 97 Nasal Cannula 2.0 General Appearance: no apparent distress, lethargic Neck: no JVD Cardiovascular: regular rhythm Respiratory/Chest: lungs clear - anterirly difficult to examine psot Abdomen: non tender, soft Extremities: severe edema Intake and Output 01/11/18 01/12/18 19:00 07:00 Intake Total 944.25 ml 1789.46 ml Output Total 255 ml 250 ml Balance 689.25 ml 1539.46 ml Free Water 100 ml IV Total 924.25 ml 829.46 ml Tube Feeding 20 ml 360 ml Blood Product 500 ml Output Urine Total 255 ml 250 ml Laboratory Tests Test 01/12/18 05:00 White Blood Count 6.4 K/UL (4.8-10.8) Red Blood Count 2.82 M/UL (4.20-5.40) L Hemoglobin 8.8 G/DL (12.0-16.0) L Hematocrit 25.7 % (37.0-47.0) L Mean Corpuscular Volume 91 FL (80-99) Mean Corpuscular Hemoglobin 31.1 PG (27.0-31.0) H Mean Corpuscular Hemoglobin Concent 34.1 G/DL (32.0-36.0) Red Cell Distribution Width 15.5 % (11.6-14.8) H Platelet Count 34 K/UL (150-450) L Mean Platelet Volume 8.0 FL (6.5-10.1) Neutrophils (%) (Auto) % (45.0-75.0) Lymphocytes (%) (Auto) % (20.0-45.0) Monocytes (%) (Auto) % (1.0-10.0) Eosinophils (%) (Auto) % (0.0-3.0) Basophils (%) (Auto) % (0.0-2.0) Differential Total Cells Counted 100 Neutrophils % (Manual) 77 % (45-75) H Lymphocytes % (Manual) 11 % (20-45) L Monocytes % (Manual) 9 % (1-10) Eosinophils % (Manual) 2 % (0-3) Basophils % (Manual) 1 % (0-2) Band Neutrophils 0 % (0-8) Platelet Estimate Decreased L Platelet Morphology Normal Hypochromasia 2+ Anisocytosis 1+ Spherocytes 2+ Prothrombin Time 16.7 SEC (9.30-11.50) H Prothromb Time International Ratio 1.6 (0.9-1.1) H Sodium Level 138 MMOL/L (136-145) Potassium Level 3.7 MMOL/L (3.5-5.1) Chloride Level 105 MMOL/L (98-107) Carbon Dioxide Level 24 MMOL/L (21-32) Anion Gap 9 mmol/L (5-15) Blood Urea Nitrogen 30 mg/dL (7-18) H Creatinine 2.5 MG/DL (0.55-1.30) H Estimat Glomerular Filtration Rate mL/min (>60) Glucose Level 116 MG/DL (74-106) H Calcium Level 8.4 MG/DL (8.5-10.1) L Phosphorus Level 3.5 MG/DL (2.5-4.9) Magnesium Level 1.8 MG/DL (1.8-2.4) Total Bilirubin 6.4 MG/DL (0.2-1.0) H Direct Bilirubin 3.1 MG/DL (0.0-0.3) H Aspartate Amino Transf (AST/SGOT) 29 U/L (15-37) Alanine Aminotransferase (ALT/SGPT) 18 U/L (12-78) Alkaline Phosphatase 71 U/L (46-116) Ammonia 86 umol/L (11-32) H Total Protein 6.3 G/DL (6.4-8.2) L Albumin 3.4 G/DL (3.4-5.0) Globulin 2.9 g/dL Albumin/Globulin Ratio 1.2 (1.0-2.7) Tenzin Ford MD January 12, 2018 21:03
[2018-01-13] VITALS (17 sets, daily range): BP systolic 91–111; BP diastolic 30–52
[2018-01-13] MEDS: Morphine Sulfate 4mg/ml Inj IV PRN ×3 (00:14→16:15)
[2018-01-13] MEDS: Albuterol/Ipratropium 3ml neb HHN PRN ×3 (05:27→19:02)
--- NOTE | 2018-01-13 07:19 | General Progress Note ---
Assessment/Plan Assessment/Plan Assessment - UGIB - Cirrhosis, from [facility] - No esophageal varcies on Jun 2017 EGD - hepatic encephalopathy - coagulopathy - Chronic edema - h/o DVT/PE - hypotension - Azotemia - Terminal Recommendations - agree with comfort measures - Will sign off - Please re- consult PRN Subjective Allergies: Coded Allergies: ASPIRIN (Unverified Allergy, Unknown, 01/05/18) Uncoded Allergies: TAPE (Allergy, Unknown, 01/05/18) Subjective above noted now on comfort measures d/w family at bedside Objective Last 24 Hour Vital Signs Date Time Temp Pulse Resp B/P (MAP) Pulse Ox O2 Delivery O2 Flow Rate FiO2 01/13/18 07:00 75 23 100/52 99 Nasal Cannula 2.0 01/13/18 06:00 75 22 92/37 98 Nasal Cannula 2.0 01/13/18 05:39 75 17 98 Nasal Cannula 3.0 32 01/13/18 05:27 66 24 98 Nasal Cannula 3.0 32 01/13/18 05:27 32 01/13/18 05:00 68 22 104/38 98 Nasal Cannula 2.0 01/13/18 04:00 98.1 69 22 102/39 97 Nasal Cannula 2.0 98.1 01/13/18 03:49 70 01/13/18 03:00 73 21 101/30 96 Nasal Cannula 2.0 01/13/18 02:00 72 24 100/40 97 Nasal Cannula 2.0 01/13/18 01:00 73 24 92/41 97 Nasal Cannula 2.0 01/13/18 00:00 98.1 80 20 91/43 97 Nasal Cannula 2.0 98.1 01/13/18 00:00 73 01/12/18 23:00 71 19 98/36 96 Nasal Cannula 2.0 01/12/18 22:59 68 25 99 Nasal Cannula 3.0 32 01/12/18 22:48 71 17 97 Nasal Cannula 3.0 32 01/12/18 22:48 32 01/12/18 22:00 65 15 98/43 95 Nasal Cannula 2.0 01/12/18 21:00 66 14 87/39 95 Nasal Cannula 2.0 01/12/18 20:00 98.1 75 18 97/40 95 Nasal Cannula 2.0 98.1 01/12/18 20:00 72 01/12/18 19:14 98 Nasal Cannula 2.0 28 01/12/18 19:14 Nasal Cannula 2.0 28 01/12/18 19:00 74 18 109/41 96 Nasal Cannula 2.0 01/12/18 18:24 64 20 96 Nasal Cannula 3.0 32 01/12/18 18:16 63 20 98 Nasal Cannula 3.0 32 01/12/18 18:16 32 01/12/18 18:00 58 21 92/38 96 Nasal Cannula 2.0 01/12/18 17:00 69 21 96/41 96 Nasal Cannula 2.0 01/12/18 16:00 71 01/12/18 16:00 72 21 96/52 96 Nasal Cannula 2.0 01/12/18 15:00 73 21 101/39 96 Nasal Cannula 2.0 01/12/18 14:00 71 30 97/43 96 Nasal Cannula 2.0 01/12/18 13:18 65 20 97 Nasal Cannula 3.0 32 01/12/18 13:18 32 01/12/18 13:00 67 27 88/35 97 Nasal Cannula 2.0 01/12/18 12:09 97 Nasal Cannula 2.0 28 01/12/18 12:09 Nasal Cannula 2.0 28 01/12/18 12:00 58 01/12/18 12:00 69 28 99/45 97 Nasal Cannula 2.0 01/12/18 11:00 69 24 95/42 90 Nasal Cannula 2.0 01/12/18 10:30 69 22 101/41 89 Nasal Cannula 2.0 01/12/18 10:00 101/41 01/12/18 10:00 64 19 100/50 98 Nasal Cannula 2.0 01/12/18 09:30 64 19 101/44 98 Nasal Cannula 2.0 01/12/18 09:00 96/34 01/12/18 09:00 71 19 96/34 98 Nasal Cannula 2.0 01/12/18 08:30 73 19 90/25 98 Nasal Cannula 2.0 01/12/18 08:00 106/27 01/12/18 08:00 58 01/12/18 08:00 98.3 57 19 106/27 98 Nasal Cannula 2.0 98.3 01/12/18 07:30 67 19 110/27 98 Nasal Cannula 2.0 Intake and Output 01/12/18 01/13/18 19:00 07:00 Intake Total 746.86 ml Output Total 64 ml 125 ml Balance 682.86 ml -125 ml IV Total 216.86 ml Tube Feeding 330 ml Other 200 ml Output Urine Total 64 ml 125 ml # Bowel Movements 2 3 Height (Feet): 5 Height (Inches): 4.00 Weight (Pounds): 365 Objective Obese and edematous WW NCAT supple CTA RRR abd soft ext (++) edema Yohannes Woodall MD January 13, 2018 07:19
[2018-01-13] MEDS: Vitamin A&D Oint 2oz Tube TOPIC SCH (09:00)
--- NOTE | 2018-01-13 09:11 | Infectious Diseases Prog Note ---
Assessment/Plan Assessment/Plan ASSESSMENT: The patient is a 72-year-old female with Afebrile leukocytosis (due to the GI bleed and acute distress) , SP +ve UCx : low count Providencia , Entero ( contaminant ) Hyptoension ? sepsis due to transient GNR translocation -Bcx neg -Abd US: Dense heterogeneous small liver, correlate for cirrhosis. Vague 3.1 cm hypoechoic lesion in the right lobe of the liver. Small to moderate ascites. May be recanalized periumbilical vein. Limited due to body habitus. The right lobe of the liver, pancreas, spleen, kidneys, gallbladder are not well seen. ? LLEx cellulitis (thigh) no sig changes No evidence or source of infection at this point. VAL No esophageal varcies on Jun 2017 EGD DVT/PE, on anticoagulation. History of cirrhosis/portal hypertension. History of gastropathy. Internal hemorrhoids. History of encephalopathy. Hypertension. COPD. History of breast cancer, bilateral mastectomy. Hysterectomy PLAN: Patient made comfort care and antibiotics were discontinued ID will sign off now, please call back if needed. Subjective Allergies: Coded Allergies: ASPIRIN (Unverified Allergy, Unknown, 01/05/18) Uncoded Allergies: TAPE (Allergy, Unknown, 01/05/18) Subjective made comfort care Objective Vital Signs Last 24 Hour Vital Signs Date Time Temp Pulse Resp B/P (MAP) Pulse Ox O2 Delivery O2 Flow Rate FiO2 01/13/18 08:00 79 01/13/18 08:00 80 20 93/37 99 Nasal Cannula 2.0 01/13/18 07:00 75 23 100/52 99 Nasal Cannula 2.0 01/13/18 06:00 75 22 92/37 98 Nasal Cannula 2.0 01/13/18 05:39 75 17 98 Nasal Cannula 3.0 32 01/13/18 05:27 66 24 98 Nasal Cannula 3.0 32 01/13/18 05:27 32 01/13/18 05:00 68 22 104/38 98 Nasal Cannula 2.0 01/13/18 04:00 98.1 69 22 102/39 97 Nasal Cannula 2.0 98.1 01/13/18 03:49 70 01/13/18 03:00 73 21 101/30 96 Nasal Cannula 2.0 01/13/18 02:00 72 24 100/40 97 Nasal Cannula 2.0 01/13/18 01:00 73 24 92/41 97 Nasal Cannula 2.0 01/13/18 00:00 98.1 80 20 91/43 97 Nasal Cannula 2.0 98.1 01/13/18 00:00 73 01/12/18 23:00 71 19 98/36 96 Nasal Cannula 2.0 01/12/18 22:59 68 25 99 Nasal Cannula 3.0 32 01/12/18 22:48 71 17 97 Nasal Cannula 3.0 32 01/12/18 22:48 32 01/12/18 22:00 65 15 98/43 95 Nasal Cannula 2.0 01/12/18 21:00 66 14 87/39 95 Nasal Cannula 2.0 01/12/18 20:00 98.1 75 18 97/40 95 Nasal Cannula 2.0 98.1 01/12/18 20:00 72 01/12/18 19:14 98 Nasal Cannula 2.0 28 01/12/18 19:14 Nasal Cannula 2.0 28 01/12/18 19:00 74 18 109/41 96 Nasal Cannula 2.0 01/12/18 18:24 64 20 96 Nasal Cannula 3.0 32 01/12/18 18:16 63 20 98 Nasal Cannula 3.0 32 01/12/18 18:16 32 01/12/18 18:00 58 21 92/38 96 Nasal Cannula 2.0 01/12/18 17:00 69 21 96/41 96 Nasal Cannula 2.0 01/12/18 16:00 71 01/12/18 16:00 72 21 96/52 96 Nasal Cannula 2.0 01/12/18 15:00 73 21 101/39 96 Nasal Cannula 2.0 01/12/18 14:00 71 30 97/43 96 Nasal Cannula 2.0 01/12/18 13:18 65 20 97 Nasal Cannula 3.0 32 01/12/18 13:18 32 01/12/18 13:00 67 27 88/35 97 Nasal Cannula 2.0 01/12/18 12:09 97 Nasal Cannula 2.0 28 01/12/18 12:09 Nasal Cannula 2.0 28 01/12/18 12:00 58 01/12/18 12:00 69 28 99/45 97 Nasal Cannula 2.0 01/12/18 11:00 69 24 95/42 90 Nasal Cannula 2.0 01/12/18 10:30 69 22 101/41 89 Nasal Cannula 2.0 01/12/18 10:00 101/41 01/12/18 10:00 64 19 100/50 98 Nasal Cannula 2.0 01/12/18 09:30 64 19 101/44 98 Nasal Cannula 2.0 Height (Feet): 5 Height (Inches): 4.00 Weight (Pounds): 365 Objective GENERAL: awake, responsive, in no acute distress. HEAD AND NECK: Pupils are reactive to light. Extraocular movements are intact. Neck was supple. No JVD. Triple-lumen catheter right IJ. LUNGS: Bilaterally no wheezing or rales. Decreased air in the bases. HEART: S1 and S2 RR. Distant heart sounds. No murmur ABDOMEN: Soft, nondistended, nontender, and morbidly obese. CHEST WALL: Bilateral mastectomy was noted, scar tissue and no sign of infection. EXTREMITIES: No cyanosis or clubbing. +2 edema. NEUROLOGIC: Cranial nerves II through XII grossly intact. Motor is 5/5 in all extremities. Gait is unable to obtain secondary to the patient's status. Current Medications Medications (Trade) Dose Ordered Sig/Miles Route PRN Reason Start Time Stop Time Status Last Admin Dose Admin Albuterol/ Ipratropium (Albuterol/ Ipratropium) 3 ml Q4H PRN HHN Shortness of Breath 01/12/18 11:45 01/17/18 11:44 01/13/18 05:27 Chlorhexidine Gluconate (Destiny-Hex 2%) 1 applic DAILY@1999 TOPIC 01/06/18 20:00 02/05/18 19:59 01/12/18 20:26 Morphine Sulfate (Morphine Sulfate) 2 mg Q2H PRN IV PAIN 4-10 01/12/18 16:00 01/19/18 15:59 01/13/18 00:14 Vitamin A/Vitamin D (A & D Oint) 1 applic EVERY 12 HOURS TOPIC 01/06/18 21:00 02/05/18 20:59 01/12/18 08:40 Neida Hill M.D. January 13, 2018 09:11
--- NOTE | 2018-01-13 10:49 | Pulmonolgy Critical Care Note ---
Critical Care - Asmt/Plan Problems: (1) Hemorrhagic shock (2) GI bleed (3) Coagulopathy (4) ATN (acute tubular necrosis) (5) History of breast cancer (6) History of pulmonary embolism (7) Morbid obesity Respiratory: monitor respiratory rate, adjust FIO2 - Cardiac: continue to monitor HR/BP Renal: other - no iv fluids at this time Gastrointestinal: hold feedings, other - family doesnt want any feeding at this time Neurologic: PRN Morphine Notes Reviewed: special education classroom aide, cardio, renal, ID Discussed with: nurses, consultants, case finisher, family member - at the bed site extensively. pts other daughter will today at 1:30 PM. Critical Care - Objective Last 24 Hour Vital Signs Date Time Temp Pulse Resp B/P (MAP) Pulse Ox O2 Delivery O2 Flow Rate FiO2 01/13/18 10:00 73 27 94/44 99 Nasal Cannula 2.0 01/13/18 09:00 74 22 101/45 99 Nasal Cannula 2.0 01/13/18 08:00 79 01/13/18 08:00 80 20 93/37 99 Nasal Cannula 2.0 01/13/18 07:20 Nasal Cannula 2.0 28 01/13/18 07:20 99 Nasal Cannula 2.0 28 01/13/18 07:00 75 23 100/52 99 Nasal Cannula 2.0 01/13/18 06:00 75 22 92/37 98 Nasal Cannula 2.0 01/13/18 05:39 75 17 98 Nasal Cannula 3.0 32 01/13/18 05:27 66 24 98 Nasal Cannula 3.0 32 01/13/18 05:27 32 01/13/18 05:00 68 22 104/38 98 Nasal Cannula 2.0 01/13/18 04:00 98.1 69 22 102/39 97 Nasal Cannula 2.0 98.1 01/13/18 03:49 70 01/13/18 03:00 73 21 101/30 96 Nasal Cannula 2.0 01/13/18 02:00 72 24 100/40 97 Nasal Cannula 2.0 01/13/18 01:00 73 24 92/41 97 Nasal Cannula 2.0 01/13/18 00:00 98.1 80 20 91/43 97 Nasal Cannula 2.0 98.1 01/13/18 00:00 73 01/12/18 23:00 71 19 98/36 96 Nasal Cannula 2.0 01/12/18 22:59 68 25 99 Nasal Cannula 3.0 32 01/12/18 22:48 71 17 97 Nasal Cannula 3.0 32 01/12/18 22:48 32 01/12/18 22:00 65 15 98/43 95 Nasal Cannula 2.0 01/12/18 21:00 66 14 87/39 95 Nasal Cannula 2.0 01/12/18 20:00 98.1 75 18 97/40 95 Nasal Cannula 2.0 98.1 01/12/18 20:00 72 01/12/18 19:14 98 Nasal Cannula 2.0 28 01/12/18 19:14 Nasal Cannula 2.0 28 01/12/18 19:00 74 18 109/41 96 Nasal Cannula 2.0 01/12/18 18:24 64 20 96 Nasal Cannula 3.0 32 01/12/18 18:16 63 20 98 Nasal Cannula 3.0 32 01/12/18 18:16 32 01/12/18 18:00 58 21 92/38 96 Nasal Cannula 2.0 01/12/18 17:00 69 21 96/41 96 Nasal Cannula 2.0 01/12/18 16:00 71 01/12/18 16:00 72 21 96/52 96 Nasal Cannula 2.0 01/12/18 15:00 73 21 101/39 96 Nasal Cannula 2.0 01/12/18 14:00 71 30 97/43 96 Nasal Cannula 2.0 01/12/18 13:18 65 20 97 Nasal Cannula 3.0 32 01/12/18 13:18 32 01/12/18 13:00 67 27 88/35 97 Nasal Cannula 2.0 01/12/18 12:09 97 Nasal Cannula 2.0 28 01/12/18 12:09 Nasal Cannula 2.0 28 01/12/18 12:00 58 01/12/18 12:00 69 28 99/45 97 Nasal Cannula 2.0 01/12/18 11:00 69 24 95/42 90 Nasal Cannula 2.0 Status: obtunded Condition: critical HEENT: atraumatic Lungs: clear Heart: HR/BP stable Abdomen: soft, non-tender, feeding tube Extremities: no C/C/E Critical Care - Subjective ROS Limited/Unobtainable: No ICU Day: 8 Condition: critical EKG Rhythm: Sinus Rhythm FI02: 28 Sputum Amount: None Fluids: none Tube Feeding Amount: 55 I&O: Intake and Output 01/12/18 01/13/18 19:00 07:00 Intake Total 746.86 ml Output Total 64 ml 125 ml Balance 682.86 ml -125 ml IV Total 216.86 ml Tube Feeding 330 ml Other 200 ml Output Urine Total 64 ml 125 ml # Bowel Movements 2 3 CXR: none Bakari Gilmore MD January 13, 2018 10:49
--- NOTE | 2018-01-13 10:53 | Nephrology Progress Note ---
Assessment/Plan Problem List: (1) ATN (acute tubular necrosis) (2) Hypotension (3) Hemorrhagic shock (4) GI bleed (5) History of pulmonary embolism (6) History of breast cancer Assessment more encephalopathic Amonia level tan acute renal failure cr higher 2.3 acute GI bleed Hemmorhagic anemia hypotension remains on pressors h/o breast ca h/o Pulmonary embolism Plan comfort care is planned transfused one unit 01/09 per orders discussed with RN Subjective ROS Limited/Unobtainable: No Constitutional: Reports: malaise Objective Objective Last 24 Hour Vital Signs Date Time Temp Pulse Resp B/P (MAP) Pulse Ox O2 Delivery O2 Flow Rate FiO2 01/13/18 10:00 73 27 94/44 99 Nasal Cannula 2.0 01/13/18 09:00 74 22 101/45 99 Nasal Cannula 2.0 01/13/18 08:00 79 01/13/18 08:00 80 20 93/37 99 Nasal Cannula 2.0 01/13/18 07:20 Nasal Cannula 2.0 28 01/13/18 07:20 99 Nasal Cannula 2.0 28 01/13/18 07:00 75 23 100/52 99 Nasal Cannula 2.0 01/13/18 06:00 75 22 92/37 98 Nasal Cannula 2.0 01/13/18 05:39 75 17 98 Nasal Cannula 3.0 32 01/13/18 05:27 66 24 98 Nasal Cannula 3.0 32 01/13/18 05:27 32 01/13/18 05:00 68 22 104/38 98 Nasal Cannula 2.0 01/13/18 04:00 98.1 69 22 102/39 97 Nasal Cannula 2.0 98.1 01/13/18 03:49 70 01/13/18 03:00 73 21 101/30 96 Nasal Cannula 2.0 01/13/18 02:00 72 24 100/40 97 Nasal Cannula 2.0 01/13/18 01:00 73 24 92/41 97 Nasal Cannula 2.0 01/13/18 00:00 98.1 80 20 91/43 97 Nasal Cannula 2.0 98.1 01/13/18 00:00 73 01/12/18 23:00 71 19 98/36 96 Nasal Cannula 2.0 01/12/18 22:59 68 25 99 Nasal Cannula 3.0 32 01/12/18 22:48 71 17 97 Nasal Cannula 3.0 32 01/12/18 22:48 32 01/12/18 22:00 65 15 98/43 95 Nasal Cannula 2.0 01/12/18 21:00 66 14 87/39 95 Nasal Cannula 2.0 01/12/18 20:00 98.1 75 18 97/40 95 Nasal Cannula 2.0 98.1 01/12/18 20:00 72 01/12/18 19:14 98 Nasal Cannula 2.0 28 01/12/18 19:14 Nasal Cannula 2.0 28 01/12/18 19:00 74 18 109/41 96 Nasal Cannula 2.0 01/12/18 18:24 64 20 96 Nasal Cannula 3.0 32 01/12/18 18:16 63 20 98 Nasal Cannula 3.0 32 01/12/18 18:16 32 01/12/18 18:00 58 21 92/38 96 Nasal Cannula 2.0 01/12/18 17:00 69 21 96/41 96 Nasal Cannula 2.0 01/12/18 16:00 71 01/12/18 16:00 72 21 96/52 96 Nasal Cannula 2.0 01/12/18 15:00 73 21 101/39 96 Nasal Cannula 2.0 01/12/18 14:00 71 30 97/43 96 Nasal Cannula 2.0 01/12/18 13:18 65 20 97 Nasal Cannula 3.0 32 01/12/18 13:18 32 01/12/18 13:00 67 27 88/35 97 Nasal Cannula 2.0 01/12/18 12:09 97 Nasal Cannula 2.0 28 01/12/18 12:09 Nasal Cannula 2.0 28 01/12/18 12:00 58 01/12/18 12:00 69 28 99/45 97 Nasal Cannula 2.0 01/12/18 11:00 69 24 95/42 90 Nasal Cannula 2.0 Intake and Output 01/12/18 01/13/18 19:00 07:00 Intake Total 746.86 ml Output Total 64 ml 125 ml Balance 682.86 ml -125 ml IV Total 216.86 ml Tube Feeding 330 ml Other 200 ml Output Urine Total 64 ml 125 ml # Bowel Movements 2 3 Height (Feet): 5 Height (Inches): 4.00 Weight (Pounds): 365 General Appearance: no apparent distress Cardiovascular: tachycardia Respiratory/Chest: decreased breath sounds Abdomen: soft Objective no change DARIA MCNEILL January 13, 2018 10:53
--- NOTE | 2018-01-13 17:53 | Internal Med Progress Note ---
Subjective Date of Service: January 13, 2018 Physician Name Ramiro Day Attending Physician Perico Randolph MD Current Medications Medications (Trade) Dose Ordered Sig/Miles Route PRN Reason Start Time Stop Time Status Last Admin Dose Admin Albuterol/ Ipratropium (Albuterol/ Ipratropium) 3 ml Q4H PRN HHN Shortness of Breath 01/13/18 18:00 01/17/18 17:59 Chlorhexidine Gluconate (Destiyn-Hex 2%) 1 applic DAILY@2000 TOPIC 01/13/18 20:00 02/05/18 19:59 Morphine Sulfate (Morphine Sulfate) 2 mg Q2H PRN IV PAIN 4-10 01/13/18 18:15 01/19/18 18:14 Allergies: Coded Allergies: ASPIRIN (Unverified Allergy, Unknown, 01/05/18) Uncoded Allergies: TAPE (Allergy, Unknown, 01/05/18) ROS Limited/Unobtainable: Yes Subjective 72 YO F admitted with hematemesis and rectal bleeding. Cover for Int Med-Dr Randolph. ICU. Less responsive today Objective Last Vital Signs Date Time Temp Pulse Resp B/P (MAP) Pulse Ox O2 Delivery O2 Flow Rate FiO2 01/13/18 15:00 75 21 103/52 100 Nasal Cannula 2.0 01/13/18 12:20 32 01/13/18 04:00 98.1 98.1 Intake and Output 01/12/18 01/13/18 19:00 07:00 Intake Total 746.86 ml Output Total 64 ml 125 ml Balance 682.86 ml -125 ml IV Total 216.86 ml Tube Feeding 330 ml Other 200 ml Output Urine Total 64 ml 125 ml # Bowel Movements 2 3 Objective Objective GENERAL: lethargic, in no acute distress. HEAD AND NECK: Pupils are reactive to light. Extraocular movements are intact. Neck was supple. No JVD. Triple-lumen catheter right IJ. LUNGS: Bilaterally no wheezing or rales. Decreased air in the bases. HEART: S1 and S2 RR. Distant heart sounds. No murmur ABDOMEN: Soft, nondistended, nontender, and morbidly obese. CHEST WALL: Bilateral mastectomy was noted, scar tissue and no sign of infection. EXTREMITIES: No cyanosis or clubbing. +2 edema. NEUROLOGIC: Cranial nerves II through XII grossly intact. Motor is 5/5 in all extremities. Gait is unable to obtain secondary to the patient's status. Assessment/Plan Assessment/Plan Assessment/Plan 1. Acute GI bleed. 2. Hemorrhagic shock. 3. Severe anemia most likely secondary to acute blood loss. 4. Acute kidney injury on chronic renal insufficiency. 5. Morbid obesity. 6. History of breast cancer. 7. Hyperkalemia. 8. Hypertension. 9. History of breast cancer, status post bilateral mastectomy. 10. Congestive heart failure, chronic with diastolic dysfunction. 11. Major depression disorder. 12. History of DVT and PE in past, Hold anticoagulation, Coumadin. 13. 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 14. Chronic hypotension. PLAN: in ICU. Dr. Gilmore, Pulmonary/Critical Care, Dr. Sascha Bond from Nephrology Dr. Tenzin Ford from Cardiology Dr. Yohannes Woodall from Gastroenterology. Hold Endoscopy due to high anesthesia risk-see GI note Monitor laboratory and Cultures. Code status is DNR/DNI. POLST noted in the chart. bedrest and at this time for DVT prophylaxis, SCD. Abx: Vanco IV and Zosyn IV D/C Dopamine Drip Dc Sandostatin drip S/P transfusion 6 units packed RBC and 2 units FFP Transfer to Med/surg today-comfort care Ramiro Day MD January 13, 2018 17:53
[2018-01-13] MEDS ORDERED: Morphine Sulfate 4mg/ml Inj IV PRN (18:15)
[2018-01-13] MEDS: Dyna-Hex 2% Top Sol 2oz TOPIC SCH (21:27)
--- NOTE | 2018-01-13 23:39 | General Progress Note ---
Assessment/Plan Assessment/Plan encephalopathy provided ro/st the pt lacks capacity the pt benefit palliative care Subjective Allergies: Coded Allergies: ASPIRIN (Unverified Allergy, Unknown, 01/05/18) Uncoded Allergies: TAPE (Allergy, Unknown, 01/05/18) Subjective the pt is obtunded. family at bedside the pt unable to make decisions. medically more unstable Objective Last 24 Hour Vital Signs Date Time Temp Pulse Resp B/P (MAP) Pulse Ox O2 Delivery O2 Flow Rate FiO2 01/13/18 20:00 98.4 99 20 111/50 99 98.4 01/13/18 19:04 96 Nasal Cannula 2.0 28 01/13/18 19:04 Nasal Cannula 2.0 28 01/13/18 19:00 110 18 98 Nasal Cannula 2.0 28 01/13/18 18:50 108 20 96 Nasal Cannula 2.0 28 01/13/18 18:50 28 01/13/18 18:50 108 20 Nasal Cannula 2.0 28 01/13/18 15:00 75 21 103/52 100 Nasal Cannula 2.0 01/13/18 14:00 74 21 98/47 99 Nasal Cannula 2.0 01/13/18 13:00 74 15 103/38 99 Nasal Cannula 2.0 01/13/18 12:20 74 23 98 Nasal Cannula 3.0 32 01/13/18 12:08 36 01/13/18 12:08 75 26 98 Nasal Cannula 4.0 36 01/13/18 12:00 94 01/13/18 12:00 74 31 106/46 99 Nasal Cannula 2.0 01/13/18 11:00 75 24 96/39 99 Nasal Cannula 2.0 01/13/18 10:00 73 27 94/44 99 Nasal Cannula 2.0 01/13/18 09:00 74 22 101/45 99 Nasal Cannula 2.0 01/13/18 08:00 79 01/13/18 08:00 80 20 93/37 99 Nasal Cannula 2.0 01/13/18 07:20 Nasal Cannula 2.0 28 01/13/18 07:20 99 Nasal Cannula 2.0 28 01/13/18 07:00 75 23 100/52 99 Nasal Cannula 2.0 01/13/18 06:00 75 22 92/37 98 Nasal Cannula 2.0 01/13/18 05:39 75 17 98 Nasal Cannula 3.0 32 01/13/18 05:27 66 24 98 Nasal Cannula 3.0 32 01/13/18 05:27 32 01/13/18 05:00 68 22 104/38 98 Nasal Cannula 2.0 01/13/18 04:00 98.1 69 22 102/39 97 Nasal Cannula 2.0 98.1 01/13/18 03:49 70 01/13/18 03:00 73 21 101/30 96 Nasal Cannula 2.0 01/13/18 02:00 72 24 100/40 97 Nasal Cannula 2.0 01/13/18 01:00 73 24 92/41 97 Nasal Cannula 2.0 01/13/18 00:00 98.1 80 20 91/43 97 Nasal Cannula 2.0 98.1 01/13/18 00:00 73 Intake and Output 01/12/18 01/13/18 19:00 07:00 Intake Total 746.86 ml Output Total 64 ml 125 ml Balance 682.86 ml -125 ml IV Total 216.86 ml Tube Feeding 330 ml Other 200 ml Output Urine Total 64 ml 125 ml # Bowel Movements 2 3 Height (Feet): 5 Height (Inches): 4.00 Weight (Pounds): 365 General Appearance: no apparent distress, lethargic, confused Cady Brower M.D. January 13, 2018 23:39
[2018-01-14] VITALS: BP 98/50
[2018-01-14] MEDS: Albuterol/Ipratropium 3ml neb HHN PRN ×4 (00:26→23:08)
[2018-01-14 04:00] VITALS: BP 122/58
--- NOTE | 2018-01-14 12:36 | General Progress Note ---
Assessment/Plan Status: unchanged Assessment/Plan encephalopathy provided ro/st the pt lacks capacity palliative care ativan prn Subjective Date patient seen: January 14, 2018 Allergies: Coded Allergies: ASPIRIN (Unverified Allergy, Unknown, 01/05/18) Uncoded Allergies: TAPE (Allergy, Unknown, 01/05/18) Subjective the pt is obtunded. family at bedside the pt unable to make decisions. medically more unstable Objective Last 24 Hour Vital Signs Date Time Temp Pulse Resp B/P (MAP) Pulse Ox O2 Delivery O2 Flow Rate FiO2 01/14/18 11:08 Nasal Cannula 2.0 28 01/14/18 10:50 78 12 99 Nasal Cannula 2.0 28 01/14/18 10:44 78 12 Nasal Cannula 2.0 28 01/14/18 10:35 99 Nasal Cannula 2.0 28 01/14/18 10:35 28 01/14/18 10:35 78 12 99 Nasal Cannula 2.0 28 01/14/18 04:01 Nasal Cannula 2.0 01/14/18 04:00 97.6 81 16 122/58 98 97.6 01/14/18 00:27 79 8 97 Nasal Cannula 2.0 28 01/14/18 00:15 77 12 95 Nasal Cannula 2.0 28 01/14/18 00:15 28 01/14/18 00:00 97.6 80 17 98/50 95 97.6 01/13/18 20:00 98.4 99 20 111/50 99 98.4 01/13/18 19:04 96 Nasal Cannula 2.0 28 01/13/18 19:04 Nasal Cannula 2.0 28 01/13/18 19:00 110 18 98 Nasal Cannula 2.0 28 01/13/18 18:50 108 20 96 Nasal Cannula 2.0 28 01/13/18 18:50 28 01/13/18 18:50 108 20 Nasal Cannula 2.0 28 01/13/18 15:00 75 21 103/52 100 Nasal Cannula 2.0 01/13/18 14:00 74 21 98/47 99 Nasal Cannula 2.0 01/13/18 13:00 74 15 103/38 99 Nasal Cannula 2.0 Intake and Output 01/13/18 01/14/18 19:00 07:00 Output Total 1610 ml 75 ml Balance -1610 ml -75 ml Output Urine Total 1610 ml 75 ml Height (Feet): 5 Height (Inches): 4.00 Weight (Pounds): 361 Cady Brower M.D. January 14, 2018 12:36
[2018-01-14] MEDS ORDERED: LORazepam 1mg tab ORAL PRN (12:45)
--- NOTE | 2018-01-14 14:24 | Pulmonology Progress Note ---
Assessment/Plan Problems: (1) Need for comfort care (2) Hemorrhagic shock (3) Hypotension (4) Morbid obesity (5) Coagulopathy (6) ATN (acute tubular necrosis) (7) History of breast cancer Assessment/Plan prn morphine comfort care respiratory treatment symptomatic treatment Subjective ROS Limited/Unobtainable: No Constitutional: Reports: no symptoms HEENT: Repors: no symptoms Allergies: Coded Allergies: ASPIRIN (Unverified Allergy, Unknown, 01/05/18) Uncoded Allergies: TAPE (Allergy, Unknown, 01/05/18) Objective Last 24 Hour Vital Signs Date Time Temp Pulse Resp B/P (MAP) Pulse Ox O2 Delivery O2 Flow Rate FiO2 01/14/18 11:08 Nasal Cannula 2.0 01/14/18 10:50 78 12 99 Nasal Cannula 2.0 01/14/18 10:44 78 12 Nasal Cannula 2.0 01/14/18 10:35 99 Nasal Cannula 2.0 01/14/18 10:35 01/14/18 10:35 78 12 99 Nasal Cannula 2.0 01/14/18 04:01 Nasal Cannula 2.0 01/14/18 04:00 97.6 81 16 122/58 98 97.6 01/14/18 00:27 79 8 97 Nasal Cannula 2.0 01/14/18 00:15 77 12 95 Nasal Cannula 2.0 01/14/18 00:15 01/14/18 00:00 97.6 80 17 98/50 95 97.6 01/13/18 20:00 98.4 99 20 111/50 99 98.4 01/13/18 19:04 96 Nasal Cannula 2.0 01/13/18 19:04 Nasal Cannula 2.0 01/13/18 19:00 110 18 98 Nasal Cannula 2.0 01/13/18 18:50 108 20 96 Nasal Cannula 2.0 01/13/18 18:50 28 01/13/18 18:50 108 20 Nasal Cannula 2.0 01/13/18 15:00 75 21 103/52 100 Nasal Cannula 2.0 Intake and Output 01/13/18 01/14/18 19:00 07:00 Output Total 1610 ml 75 ml Balance -1610 ml -75 ml Output Urine Total 1610 ml 75 ml General Appearance: WD/WN HEENT: atraumatic, anicteric Respiratory/Chest: chest wall non-tender, lungs clear Cardiovascular: normal peripheral pulses, normal rate Abdomen: normal bowel sounds, soft, non tender Genitourinary: normal external genitalia Extremities: no cyanosis Current Medications Medications (Trade) Dose Ordered Sig/Miles Route PRN Reason Start Time Stop Time Status Last Admin Dose Admin Albuterol/ Ipratropium (Albuterol/ Ipratropium) 3 ml Q4H PRN HHN Shortness of Breath 01/13/18 18:00 01/17/18 17:59 01/14/18 10:43 Chlorhexidine Gluconate (Destiny-Hex 2%) 1 applic DAILY@2000 TOPIC 01/13/18 20:00 02/05/18 19:59 01/13/18 21:27 Lorazepam (Ativan) 2 mg Q6H PRN ORAL For Anxiety 01/14/18 12:45 01/21/18 12:44 Morphine Sulfate (Morphine Sulfate) 2 mg Q2H PRN IV PAIN 4-10 01/13/18 18:15 01/19/18 18:14 Bakari Gilmore MD January 14, 2018 14:24
--- NOTE | 2018-01-14 17:08 | Nephrology Progress Note ---
Assessment/Plan Problem List: (1) ATN (acute tubular necrosis) (2) Hypotension (3) Hemorrhagic shock (4) GI bleed (5) History of pulmonary embolism (6) History of breast cancer Assessment more encephalopathic Amonia level tan acute renal failure cr higher 2.3 acute GI bleed Hemmorhagic anemia hypotension remains on pressors h/o breast ca h/o Pulmonary embolism Plan comfort care is planned transfused one unit 01/09 per orders discussed with RN Subjective ROS Limited/Unobtainable: No Constitutional: Reports: malaise, weakness Objective Objective Last 24 Hour Vital Signs Date Time Temp Pulse Resp B/P (MAP) Pulse Ox O2 Delivery O2 Flow Rate FiO2 01/14/18 16:01 82 16 99 Nasal Cannula 2.0 01/14/18 15:57 28 01/14/18 15:55 79 16 99 Nasal Cannula 2.0 01/14/18 15:53 99 Nasal Cannula 2.0 01/14/18 15:49 82 16 Nasal Cannula 2.0 01/14/18 11:08 Nasal Cannula 2.0 01/14/18 10:50 78 12 99 Nasal Cannula 2.0 01/14/18 10:44 78 12 Nasal Cannula 2.0 01/14/18 10:35 99 Nasal Cannula 2.0 01/14/18 10:35 01/14/18 10:35 78 12 99 Nasal Cannula 2.0 01/14/18 04:01 Nasal Cannula 2.0 01/14/18 04:00 97.6 81 16 122/58 98 97.6 01/14/18 00:27 79 8 97 Nasal Cannula 2.0 01/14/18 00:15 77 12 95 Nasal Cannula 2.0 01/14/18 00:15 28 01/14/18 00:00 97.6 80 17 98/50 95 97.6 01/13/18 20:00 98.4 99 20 111/50 99 98.4 01/13/18 19:04 96 Nasal Cannula 2.0 01/13/18 19:04 Nasal Cannula 2.0 28 01/13/18 19:00 110 18 98 Nasal Cannula 2.0 01/13/18 18:50 108 20 96 Nasal Cannula 2.0 01/13/18 18:50 28 01/13/18 18:50 108 20 Nasal Cannula 2.0 28 Intake and Output 01/13/18 01/14/18 19:00 07:00 Output Total 1610 ml 75 ml Balance -1610 ml -75 ml Output Urine Total 1610 ml 75 ml Height (Feet): 5 Height (Inches): 4.00 Weight (Pounds): 361 General Appearance: no apparent distress Respiratory/Chest: decreased breath sounds Abdomen: soft Objective no change DARIA MCNEILL January 14, 2018 17:08
[2018-01-14] MEDS: Dyna-Hex 2% Top Sol 2oz TOPIC SCH (20:00)
--- NOTE | 2018-01-14 20:00 | Internal Med Progress Note ---
Subjective Date of Service: January 14, 2018 Physician Name Ramiro Day Attending Physician Perico Randolph MD Current Medications Medications (Trade) Dose Ordered Sig/Miles Route PRN Reason Start Time Stop Time Status Last Admin Dose Admin Albuterol/ Ipratropium (Albuterol/ Ipratropium) 3 ml Q4H PRN HHN Shortness of Breath 01/13/18 18:00 01/17/18 17:59 01/14/18 15:49 Chlorhexidine Gluconate (Destiny-Hex 2%) 1 applic DAILY@2000 TOPIC 01/13/18 20:00 02/05/18 19:59 01/13/18 21:27 Lorazepam (Ativan) 2 mg Q6H PRN ORAL For Anxiety 01/14/18 12:45 01/21/18 12:44 Morphine Sulfate (Morphine Sulfate) 2 mg Q2H PRN IV PAIN 4-10 01/13/18 18:15 01/19/18 18:14 Allergies: Coded Allergies: ASPIRIN (Unverified Allergy, Unknown, 01/05/18) Uncoded Allergies: TAPE (Allergy, Unknown, 01/05/18) ROS Limited/Unobtainable: Yes Subjective 72 YO F admitted with hematemesis and rectal bleeding. Cover for Int Med-Dr Randolph. ICU. Less responsive today Objective Last Vital Signs Date Time Temp Pulse Resp B/P (MAP) Pulse Ox O2 Delivery O2 Flow Rate FiO2 01/14/18 16:01 82 16 99 Nasal Cannula 2.0 28 01/14/18 04:00 97.6 122/58 97.6 Intake and Output 01/13/18 01/14/18 19:00 07:00 Output Total 1610 ml 75 ml Balance -1610 ml -75 ml Output Urine Total 1610 ml 75 ml Objective Objective GENERAL: lethargic, in no acute distress. HEAD AND NECK: Pupils are reactive to light. Extraocular movements are intact. Neck was supple. No JVD. Triple-lumen catheter right IJ. LUNGS: Bilaterally no wheezing or rales. Decreased air in the bases. HEART: S1 and S2 RR. Distant heart sounds. No murmur ABDOMEN: Soft, nondistended, nontender, and morbidly obese. CHEST WALL: Bilateral mastectomy was noted, scar tissue and no sign of infection. EXTREMITIES: No cyanosis or clubbing. +2 edema. NEUROLOGIC: Cranial nerves II through XII grossly intact. Motor is 5/5 in all extremities. Gait is unable to obtain secondary to the patient's status. Assessment/Plan Assessment/Plan Assessment/Plan 1. Acute GI bleed. 2. Hemorrhagic shock. 3. Severe anemia most likely secondary to acute blood loss. 4. Acute kidney injury on chronic renal insufficiency. 5. Morbid obesity. 6. History of breast cancer. 7. Hyperkalemia. 8. Hypertension. 9. History of breast cancer, status post bilateral mastectomy. 10. Congestive heart failure, chronic with diastolic dysfunction. 11. Major depression disorder. 12. History of DVT and PE in past, Hold anticoagulation, Coumadin. 13. 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 14. Chronic hypotension. PLAN: in ICU. Dr. Gilmore, Pulmonary/Critical Care, Dr. Sascha Bond from Nephrology Dr. Tenzin Ford from Cardiology Dr. Yohannes Woodall from Gastroenterology. Hold Endoscopy due to high anesthesia risk-see GI note Monitor laboratory and Cultures. Code status is DNR/DNI. POLST noted in the chart. bedrest and at this time for DVT prophylaxis, SCD. Abx: Vanco IV and Zosyn IV D/C Dopamine Drip Dc Sandostatin drip S/P transfusion 6 units packed RBC and 2 units FFP Transfer to Med/surg today-comfort care Ramiro Day MD January 14, 2018 20:00
--- NOTE | 2018-01-15 06:56 | Diagnostic Imaging Report ---
APPROVED REPORT CPT Code: 34338 Present Symptoms Shortness of breath Comments: Technically difficult/limited visualization due to vessel depth (mid-thigh and calf area). Risk Factors Obesity Bed Rest BILATERAL: Imaging reveals a patent deep venous system bilaterally. There is no evidence of thrombus within the common femoral or popliteal segments. The greater saphenous veins are also within normal limits. Doppler indicates normal spontaneous flow within these segments. The superficial femoral vein mid to distal and calf veins were not well visualized, due to body habitus.
[2018-01-15 08:00] VITALS: BP 102/50
--- NOTE | 2018-01-15 11:17 | Nephrology Progress Note ---
Assessment/Plan Problem List: (1) ATN (acute tubular necrosis) (2) Hypotension (3) Hemorrhagic shock (4) GI bleed (5) History of pulmonary embolism (6) History of breast cancer Assessment more encephalopathic Amonia level tan acute renal failure cr higher 2.3 acute GI bleed Hemmorhagic anemia hypotension remains on pressors h/o breast ca h/o Pulmonary embolism Plan comfort care is planned transfused one unit 01/09 per orders discussed with RN Subjective ROS Limited/Unobtainable: No Constitutional: Reports: malaise Objective Objective Last 24 Hour Vital Signs Date Time Temp Pulse Resp B/P (MAP) Pulse Ox O2 Delivery O2 Flow Rate FiO2 01/15/18 10:22 Nasal Cannula 2.0 28 01/15/18 10:21 94 Nasal Cannula 2.0 28 01/15/18 10:20 86 20 Nasal Cannula 2.0 28 01/15/18 08:00 98.2 84 16 102/50 98 Nasal Cannula 2.0 98.2 01/14/18 23:16 96 20 98 Nasal Cannula 2.0 28 01/14/18 23:06 96 20 97 Nasal Cannula 2.0 28 01/14/18 23:06 28 01/14/18 20:01 Nasal Cannula 2.0 28 01/14/18 20:01 84 16 Nasal Cannula 2.0 28 01/14/18 20:01 98 Nasal Cannula 2.0 28 01/14/18 16:01 82 16 99 Nasal Cannula 2.0 28 01/14/18 15:57 28 01/14/18 15:55 79 16 99 Nasal Cannula 2.0 01/14/18 15:53 99 Nasal Cannula 2.0 28 01/14/18 15:49 82 16 Nasal Cannula 2.0 28 Intake and Output 01/14/18 01/15/18 19:00 07:00 Output Total 150 ml Balance -150 ml Output Urine Total 150 ml # Voids 2 Height (Feet): 5 Height (Inches): 4.00 Weight (Pounds): 361 General Appearance: no apparent distress Objective no change DARIA MCNEILL January 15, 2018 11:17
[2018-01-15] MEDS: Albuterol/Ipratropium 3ml neb HHN PRN ×2 (13:50→20:41)
--- NOTE | 2018-01-15 14:52 | Pulmonology Progress Note ---
Assessment/Plan Problems: (1) Need for comfort care (2) Hemorrhagic shock (3) Hypotension (4) Morbid obesity (5) Coagulopathy (6) ATN (acute tubular necrosis) (7) History of breast cancer Assessment/Plan prn morphine comfort care respiratory treatment symptomatic treatment d/w daughter at the bed site extensively, repeated that there is no need for "feeding" or checking labs now. Subjective ROS Limited/Unobtainable: No Constitutional: Reports: no symptoms HEENT: Repors: no symptoms Respiratory: Reports: no symptoms Allergies: Coded Allergies: ASPIRIN (Unverified Allergy, Unknown, 01/05/18) Uncoded Allergies: TAPE (Allergy, Unknown, 01/05/18) Objective Last 24 Hour Vital Signs Date Time Temp Pulse Resp B/P (MAP) Pulse Ox O2 Delivery O2 Flow Rate FiO2 01/15/18 14:00 82 12 99 Nasal Cannula 2.0 01/15/18 13:54 28 01/15/18 13:50 88 12 97 Nasal Cannula 2.0 01/15/18 10:22 Nasal Cannula 2.0 28 01/15/18 10:21 94 Nasal Cannula 2.0 01/15/18 10:20 86 20 Nasal Cannula 2.0 28 01/15/18 08:00 98.2 84 16 102/50 98 Nasal Cannula 2.0 98.2 01/14/18 23:16 96 20 98 Nasal Cannula 2.0 28 01/14/18 23:06 96 20 97 Nasal Cannula 2.0 01/14/18 23:06 28 01/14/18 20:01 Nasal Cannula 2.0 01/14/18 20:01 84 16 Nasal Cannula 2.0 01/14/18 20:01 98 Nasal Cannula 2.0 28 01/14/18 16:01 82 16 99 Nasal Cannula 2.0 28 01/14/18 15:57 28 01/14/18 15:55 79 16 99 Nasal Cannula 2.0 01/14/18 15:53 99 Nasal Cannula 2.0 01/14/18 15:49 82 16 Nasal Cannula 2.0 28 Intake and Output 01/14/18 01/15/18 19:00 07:00 Output Total 150 ml Balance -150 ml Output Urine Total 150 ml # Voids 2 HEENT: normocephalic, atraumatic Respiratory/Chest: chest wall non-tender Cardiovascular: normal peripheral pulses, no JVD Extremities: no cyanosis Current Medications Medications (Trade) Dose Ordered Sig/Miles Route PRN Reason Start Time Stop Time Status Last Admin Dose Admin Albuterol/ Ipratropium (Albuterol/ Ipratropium) 3 ml Q4H PRN HHN Shortness of Breath 01/13/18 18:00 01/17/18 17:59 01/15/18 13:50 Chlorhexidine Gluconate (Destiny-Hex 2%) 1 applic DAILY@2000 TOPIC 01/13/18 20:00 02/05/18 19:59 01/13/18 21:27 Lorazepam (Ativan) 2 mg Q6H PRN ORAL For Anxiety 01/14/18 12:45 01/21/18 12:44 Morphine Sulfate (Morphine Sulfate) 2 mg Q2H PRN IV PAIN 4-10 01/13/18 18:15 01/19/18 18:14 01/15/18 08:13 Bakari Gilmore MD January 15, 2018 14:52
--- NOTE | 2018-01-15 19:21 | Internal Med Progress Note ---
Subjective Date of Service: January 15, 2018 Physician Name Ramiro Day Attending Physician Perico Randolph MD Current Medications Medications (Trade) Dose Ordered Sig/Miles Route PRN Reason Start Time Stop Time Status Last Admin Dose Admin Albuterol/ Ipratropium (Albuterol/ Ipratropium) 3 ml Q4H PRN HHN Shortness of Breath 01/13/18 18:00 01/17/18 17:59 01/15/18 13:50 Chlorhexidine Gluconate (Destiny-Hex 2%) 1 applic DAILY@2000 TOPIC 01/13/18 20:00 02/05/18 19:59 01/13/18 21:27 Lorazepam (Ativan) 2 mg Q6H PRN ORAL For Anxiety 01/14/18 12:45 01/21/18 12:44 Morphine Sulfate (Morphine Sulfate) 2 mg Q2H PRN IV PAIN 4-10 01/13/18 18:15 01/19/18 18:14 01/15/18 08:13 Allergies: Coded Allergies: ASPIRIN (Unverified Allergy, Unknown, 01/05/18) Uncoded Allergies: TAPE (Allergy, Unknown, 01/05/18) ROS Limited/Unobtainable: Yes Subjective 72 YO F admitted with hematemesis and rectal bleeding. Cover for Int Med-Dr Randolph. ICU. Less responsive today Objective Last Vital Signs Date Time Temp Pulse Resp B/P (MAP) Pulse Ox O2 Delivery O2 Flow Rate FiO2 01/15/18 14:00 82 12 99 Nasal Cannula 2.0 28 01/15/18 08:00 98.2 102/50 98.2 Intake and Output 01/14/18 01/15/18 19:00 07:00 Output Total 150 ml Balance -150 ml Output Urine Total 150 ml # Voids 2 Objective Objective GENERAL: lethargic, in no acute distress. HEAD AND NECK: Pupils are reactive to light. Extraocular movements are intact. Neck was supple. No JVD. Triple-lumen catheter right IJ. LUNGS: Bilaterally no wheezing or rales. Decreased air in the bases. HEART: S1 and S2 RR. Distant heart sounds. No murmur ABDOMEN: Soft, nondistended, nontender, and morbidly obese. CHEST WALL: Bilateral mastectomy was noted, scar tissue and no sign of infection. EXTREMITIES: No cyanosis or clubbing. +2 edema. NEUROLOGIC: Cranial nerves II through XII grossly intact. Motor is 5/5 in all extremities. Gait is unable to obtain secondary to the patient's status. Assessment/Plan Assessment/Plan Assessment/Plan 1. Acute GI bleed. 2. Hemorrhagic shock. 3. Severe anemia most likely secondary to acute blood loss. 4. Acute kidney injury on chronic renal insufficiency. 5. Morbid obesity. 6. History of breast cancer. 7. Hyperkalemia. 8. Hypertension. 9. History of breast cancer, status post bilateral mastectomy. 10. Congestive heart failure, chronic with diastolic dysfunction. 11. Major depression disorder. 12. History of DVT and PE in past, Hold anticoagulation, Coumadin. 13. 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 14. Chronic hypotension. PLAN: in ICU. Dr. Gilmore, Pulmonary/Critical Care, Dr. Sascha Bond from Nephrology Dr. Tenzin Ford from Cardiology Dr. Yohannes Woodall from Gastroenterology. Hold Endoscopy due to high anesthesia risk-see GI note Monitor laboratory and Cultures. Code status is DNR/DNI. POLST noted in the chart. bedrest and at this time for DVT prophylaxis, SCD. Abx: Vanco IV and Zosyn IV D/C Dopamine Drip Dc Sandostatin drip S/P transfusion 6 units packed RBC and 2 units FFP Transfer to Med/surg today-comfort care Ramiro Day MD January 15, 2018 19:21
[2018-01-15] MEDS: Dyna-Hex 2% Top Sol 2oz TOPIC SCH (20:45)
--- NOTE | 2018-01-16 13:02 | Pulmonology Progress Note ---
Assessment/Plan Problems: (1) Need for comfort care (2) Hemorrhagic shock (3) Hypotension (4) Morbid obesity (5) Coagulopathy (6) ATN (acute tubular necrosis) (7) History of breast cancer Assessment/Plan prn morphine comfort care respiratory treatment symptomatic treatment d/w family at the bed site. moribund Subjective ROS Limited/Unobtainable: No Constitutional: Reports: no symptoms HEENT: Repors: no symptoms Respiratory: Reports: no symptoms Allergies: Coded Allergies: ASPIRIN (Unverified Allergy, Unknown, 01/05/18) Uncoded Allergies: TAPE (Allergy, Unknown, 01/05/18) Objective Last 24 Hour Vital Signs Date Time Temp Pulse Resp B/P (MAP) Pulse Ox O2 Delivery O2 Flow Rate FiO2 01/16/18 08:30 95 Nasal Cannula 2.0 28 01/16/18 08:30 82 18 Nasal Cannula 2.0 28 01/16/18 08:30 Nasal Cannula 2.0 28 01/16/18 04:00 Nasal Cannula 2.0 01/16/18 00:00 Nasal Cannula 2.0 01/15/18 20:47 80 16 98 Nasal Cannula 2.0 28 01/15/18 20:47 28 01/15/18 20:46 77 16 94 Nasal Cannula 2.0 28 01/15/18 20:00 93 Nasal Cannula 2.0 28 01/15/18 20:00 Nasal Cannula 2.0 28 01/15/18 20:00 Nasal Cannula 2.0 01/15/18 20:00 77 20 Nasal Cannula 2.0 28 01/15/18 14:00 82 12 99 Nasal Cannula 2.0 01/15/18 13:54 28 01/15/18 13:50 88 12 97 Nasal Cannula 2.0 28 Intake and Output 01/15/18 01/16/18 19:00 07:00 Output Total 100 ml Balance -100 ml Output Urine Total 100 ml # Voids 100 Objective agonal breathing HEENT: normocephalic, atraumatic Respiratory/Chest: chest wall non-tender, crackles/rales Breasts: no masses Cardiovascular: normal peripheral pulses Abdomen: normal bowel sounds, soft, non tender Extremities: no cyanosis Skin: no rash Neurologic/Psychiatric: case manager II-XII grossly normal Current Medications Medications (Trade) Dose Ordered Sig/Miles Route PRN Reason Start Time Stop Time Status Last Admin Dose Admin Albuterol/ Ipratropium (Albuterol/ Ipratropium) 3 ml Q4H PRN HHN Shortness of Breath 01/13/18 18:00 01/17/18 17:59 01/15/18 20:41 Chlorhexidine Gluconate (Destiny-Hex 2%) 1 applic DAILY@2000 TOPIC 01/13/18 20:00 02/05/18 19:59 01/15/18 20:45 Lorazepam (Ativan) 2 mg Q6H PRN ORAL For Anxiety 01/14/18 12:45 01/21/18 12:44 Morphine Sulfate (Morphine Sulfate) 2 mg Q2H PRN IV PAIN 4-10 01/13/18 18:15 01/19/18 18:14 01/15/18 08:13 Bakari Gilmore MD January 16, 2018 13:02
--- NOTE | 2018-01-16 18:43 | General Progress Note ---
Assessment/Plan Assessment/Plan encephalopathy provided ro/st the pt lacks capacity palliative care ativan prn Subjective Date patient seen: January 15, 2018 Allergies: Coded Allergies: ASPIRIN (Unverified Allergy, Unknown, 01/05/18) Uncoded Allergies: TAPE (Allergy, Unknown, 01/05/18) Subjective the pt is obtunded. family at bedside Objective Last 24 Hour Vital Signs Date Time Temp Pulse Resp B/P (MAP) Pulse Ox O2 Delivery O2 Flow Rate FiO2 01/16/18 16:00 Nasal Cannula 2.0 01/16/18 08:30 95 Nasal Cannula 2.0 28 01/16/18 08:30 82 18 Nasal Cannula 2.0 28 01/16/18 08:30 Nasal Cannula 2.0 28 01/16/18 04:00 Nasal Cannula 2.0 01/16/18 00:00 Nasal Cannula 2.0 01/15/18 20:47 80 16 98 Nasal Cannula 2.0 28 01/15/18 20:47 28 01/15/18 20:46 77 16 94 Nasal Cannula 2.0 28 01/15/18 20:00 93 Nasal Cannula 2.0 28 01/15/18 20:00 Nasal Cannula 2.0 28 01/15/18 20:00 Nasal Cannula 2.0 01/15/18 20:00 77 20 Nasal Cannula 2.0 28 Intake and Output 01/15/18 01/16/18 19:00 07:00 Output Total 100 ml Balance -100 ml Output Urine Total 100 ml # Voids 100 Height (Feet): 5 Height (Inches): 4.00 Weight (Pounds): 169 Cady Brower M.D. January 16, 2018 18:43
--- NOTE | 2018-01-16 19:33 | Internal Med Progress Note ---
Subjective Date of Service: January 16, 2018 Physician Name Ramiro Day Attending Physician Perico Randolph MD Current Medications Medications (Trade) Dose Ordered Sig/Miles Route PRN Reason Start Time Stop Time Status Last Admin Dose Admin Albuterol/ Ipratropium (Albuterol/ Ipratropium) 3 ml Q4H PRN HHN Shortness of Breath 01/13/18 18:00 01/17/18 17:59 01/15/18 20:41 Chlorhexidine Gluconate (Destiny-Hex 2%) 1 applic DAILY@2000 TOPIC 01/13/18 20:00 02/05/18 19:59 01/15/18 20:45 Lorazepam (Ativan) 2 mg Q6H PRN ORAL For Anxiety 01/14/18 12:45 01/21/18 12:44 Morphine Sulfate (Morphine Sulfate) 2 mg Q2H PRN IV PAIN 4-10 01/13/18 18:15 01/19/18 18:14 01/15/18 08:13 Allergies: Coded Allergies: ASPIRIN (Unverified Allergy, Unknown, 01/05/18) Uncoded Allergies: TAPE (Allergy, Unknown, 01/05/18) ROS Limited/Unobtainable: Yes Subjective 72 YO F admitted with hematemesis and rectal bleeding. Cover for Int Med-Dr Randolph. ICU. Less responsive today Objective Last Vital Signs Date Time Temp Pulse Resp B/P (MAP) Pulse Ox O2 Delivery O2 Flow Rate FiO2 01/16/18 16:00 Nasal Cannula 2.0 01/16/18 08:30 95 28 01/16/18 08:30 82 18 01/15/18 08:00 98.2 102/50 98.2 Intake and Output 01/15/18 01/16/18 19:00 07:00 Output Total 100 ml Balance -100 ml Output Urine Total 100 ml # Voids 100 Objective Objective GENERAL: lethargic, in no acute distress. HEAD AND NECK: Pupils are reactive to light. Extraocular movements are intact. Neck was supple. No JVD. Triple-lumen catheter right IJ. LUNGS: Bilaterally no wheezing or rales. Decreased air in the bases. HEART: S1 and S2 RR. Distant heart sounds. No murmur ABDOMEN: Soft, nondistended, nontender, and morbidly obese. CHEST WALL: Bilateral mastectomy was noted, scar tissue and no sign of infection. EXTREMITIES: No cyanosis or clubbing. +2 edema. NEUROLOGIC: Cranial nerves II through XII grossly intact. Motor is 5/5 in all extremities. Gait is unable to obtain secondary to the patient's status. Assessment/Plan Assessment/Plan Assessment/Plan 1. Acute GI bleed. 2. Hemorrhagic shock. 3. Severe anemia most likely secondary to acute blood loss. 4. Acute kidney injury on chronic renal insufficiency. 5. Morbid obesity. 6. History of breast cancer. 7. Hyperkalemia. 8. Hypertension. 9. History of breast cancer, status post bilateral mastectomy. 10. Congestive heart failure, chronic with diastolic dysfunction. 11. Major depression disorder. 12. History of DVT and PE in past, Hold anticoagulation, Coumadin. 13. 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 14. Chronic hypotension. PLAN: in ICU. Dr. Gilmore, Pulmonary/Critical Care, Dr. Sascha Bond from Nephrology Dr. Tenzin Ford from Cardiology Dr. Yohannes Woodall from Gastroenterology. Hold Endoscopy due to high anesthesia risk-see GI note Monitor laboratory and Cultures. Code status is DNR/DNI. POLST noted in the chart. bedrest and at this time for DVT prophylaxis, SCD. Abx: Vanco IV and Zosyn IV D/C Dopamine Drip Dc Sandostatin drip S/P transfusion 6 units packed RBC and 2 units FFP Transfer to Med/surg today-comfort care Ramiro Day MD January 16, 2018 19:32
[2018-01-16] MEDS: Dyna-Hex 2% Top Sol 2oz TOPIC SCH (20:00)
--- NOTE | 2018-01-16 22:35 | Psych Consult Progress Note ---
Psych Consult Progress Note Consult 01/15/18 encephalopathy provided ro/st the pt lacks capacity palliative care ativan prn Vital Signs Last 24 Hour Vital Signs Date Time Temp Pulse Resp B/P (MAP) Pulse Ox O2 Delivery O2 Flow Rate FiO2 01/16/18 20:17 94 Nasal Cannula 2.0 28 01/16/18 20:17 Nasal Cannula 2.0 28 01/16/18 20:17 78 18 Nasal Cannula 2.0 28 01/16/18 16:00 Nasal Cannula 2.0 01/16/18 08:30 95 Nasal Cannula 2.0 28 01/16/18 08:30 82 18 Nasal Cannula 2.0 28 01/16/18 08:30 Nasal Cannula 2.0 28 01/16/18 04:00 Nasal Cannula 2.0 01/16/18 00:00 Nasal Cannula 2.0 Medications Current Medications Medications (Trade) Dose Ordered Sig/Miles Route PRN Reason Start Time Stop Time Status Last Admin Dose Admin Albuterol/ Ipratropium (Albuterol/ Ipratropium) 3 ml Q4H PRN HHN Shortness of Breath 01/13/18 18:00 01/17/18 17:59 01/15/18 20:41 Chlorhexidine Gluconate (Destiny-Hex 2%) 1 applic DAILY@2000 TOPIC 01/13/18 20:00 02/05/18 19:59 01/15/18 20:45 Lorazepam (Ativan) 2 mg Q6H PRN ORAL For Anxiety 01/14/18 12:45 01/21/18 12:44 Morphine Sulfate (Morphine Sulfate) 2 mg Q2H PRN IV PAIN 4-10 01/13/18 18:15 01/19/18 18:14 01/15/18 08:13 Cady Brower M.D. January 16, 2018 22:35
[2018-01-17] MEDS ORDERED: Tubing IV Secondary IV ONE ×2 (11:03→11:06)
[2018-01-17] MEDS ORDERED: D5NS 1000ml IV ONE (11:03)
[2018-01-17] MEDS ORDERED: NS 500ML ONE (11:05)
[2018-01-17] MEDS ORDERED: Tubing Blood Filter IV ONE (11:05)
--- NOTE | 2018-01-17 13:16 | Pulmonology Progress Note ---
Assessment/Plan Problems: (1) Need for comfort care (2) Hypotension (3) Morbid obesity (4) ATN (acute tubular necrosis) (5) History of breast cancer Assessment/Plan prn morphine comfort care respiratory treatment symptomatic treatment d/w family at the bed site. moribund Subjective ROS Limited/Unobtainable: Yes Interval Events: deep coma Allergies: Coded Allergies: ASPIRIN (Unverified Allergy, Unknown, 01/05/18) Uncoded Allergies: TAPE (Allergy, Unknown, 01/05/18) Objective Last 24 Hour Vital Signs Date Time Temp Pulse Resp B/P (MAP) Pulse Ox O2 Delivery O2 Flow Rate FiO2 01/17/18 07:56 Nasal Cannula 2.0 28 01/17/18 07:56 85 18 Nasal Cannula 2.0 01/17/18 07:56 95 Nasal Cannula 2.0 28 01/16/18 20:17 94 Nasal Cannula 2.0 28 01/16/18 20:17 Nasal Cannula 2.0 28 01/16/18 20:17 78 18 Nasal Cannula 2.0 01/16/18 16:00 Nasal Cannula 2.0 Intake and Output 01/16/18 01/17/18 19:00 07:00 Output Total 50 ml 0 ml Balance -50 ml 0 ml Output Urine Total 50 ml 0 ml Objective agonal breathing HEENT: normocephalic, atraumatic Respiratory/Chest: decreased breath sounds Cardiovascular: normal peripheral pulses Abdomen: normal bowel sounds Genitourinary: normal external genitalia Current Medications Medications (Trade) Dose Ordered Sig/Miles Route PRN Reason Start Time Stop Time Status Last Admin Dose Admin Albuterol/ Ipratropium (Albuterol/ Ipratropium) 3 ml Q4H PRN HHN Shortness of Breath 01/13/18 18:00 01/17/18 17:59 01/15/18 20:41 Chlorhexidine Gluconate (Destiny-Hex 2%) 1 applic DAILY@2000 TOPIC 01/13/18 20:00 02/05/18 19:59 01/15/18 20:45 Lorazepam (Ativan) 2 mg Q6H PRN ORAL For Anxiety 01/14/18 12:45 01/21/18 12:44 Morphine Sulfate (Morphine Sulfate) 2 mg Q2H PRN IV PAIN 4-10 01/13/18 18:15 01/19/18 18:14 01/15/18 08:13 Bakari Gilmore MD January 17, 2018 13:16
--- NOTE | 2018-01-17 15:19 | Internal Med Progress Note ---
Subjective Date of Service: January 17, 2018 Physician Name Ramiro Day Attending Physician Perico Randolph MD Current Medications Medications (Trade) Dose Ordered Sig/Miles Route PRN Reason Start Time Stop Time Status Last Admin Dose Admin Albuterol/ Ipratropium (Albuterol/ Ipratropium) 3 ml Q4H PRN HHN Shortness of Breath 01/13/18 18:00 01/17/18 17:59 01/15/18 20:41 Chlorhexidine Gluconate (Destiny-Hex 2%) 1 applic DAILY@2000 TOPIC 01/13/18 20:00 02/05/18 19:59 01/15/18 20:45 Lorazepam (Ativan) 2 mg Q6H PRN ORAL For Anxiety 01/14/18 12:45 01/21/18 12:44 Morphine Sulfate (Morphine Sulfate) 2 mg Q2H PRN IV PAIN 4-10 01/13/18 18:15 01/19/18 18:14 01/15/18 08:13 Allergies: Coded Allergies: ASPIRIN (Unverified Allergy, Unknown, 01/05/18) Uncoded Allergies: TAPE (Allergy, Unknown, 01/05/18) Subjective 72 YO F admitted with hematemesis and rectal bleeding. Cover for Int Med-Dr Randolph. Less responsive today Objective Last Vital Signs Date Time Temp Pulse Resp B/P (MAP) Pulse Ox O2 Delivery O2 Flow Rate FiO2 01/17/18 07:56 Nasal Cannula 2.0 28 01/17/18 07:56 85 18 01/17/18 07:56 95 01/15/18 08:00 98.2 102/50 98.2 Intake and Output 01/16/18 01/17/18 19:00 07:00 Output Total 50 ml 0 ml Balance -50 ml 0 ml Output Urine Total 50 ml 0 ml Objective Objective GENERAL: lethargic, in no acute distress. HEAD AND NECK: Pupils are reactive to light. Extraocular movements are intact. Neck was supple. No JVD. Triple-lumen catheter right IJ. LUNGS: Bilaterally no wheezing or rales. Decreased air in the bases. HEART: S1 and S2 RR. Distant heart sounds. No murmur ABDOMEN: Soft, nondistended, nontender, and morbidly obese. CHEST WALL: Bilateral mastectomy was noted, scar tissue and no sign of infection. EXTREMITIES: No cyanosis or clubbing. +2 edema. NEUROLOGIC: Cranial nerves II through XII grossly intact. Motor is 5/5 in all extremities. Gait is unable to obtain secondary to the patient's status. Assessment/Plan Assessment/Plan Assessment/Plan 1. Acute GI bleed. 2. Hemorrhagic shock. 3. Severe anemia most likely secondary to acute blood loss. 4. Acute kidney injury on chronic renal insufficiency. 5. Morbid obesity. 6. History of breast cancer. 7. Hyperkalemia. 8. Hypertension. 9. History of breast cancer, status post bilateral mastectomy. 10. Congestive heart failure, chronic with diastolic dysfunction. 11. Major depression disorder. 12. History of DVT and PE in past, Hold anticoagulation, Coumadin. 13. 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 14. Chronic hypotension. PLAN: in ICU. Dr. Gilmore, Pulmonary/Critical Care, Dr. Sascha Bond from Nephrology Dr. Tenzin Ford from Cardiology Dr. Yohannes Woodall from Gastroenterology. Hold Endoscopy due to high anesthesia risk-see GI note Monitor laboratory and Cultures. Code status is DNR/DNI. POLST noted in the chart. bedrest and at this time for DVT prophylaxis, SCD. Abx: Vanco IV and Zosyn IV S/P transfusion 6 units packed RBC and 2 units FFP Comfort care Discussed with family at bedside Ramiro Day MD January 17, 2018 15:19
[2018-01-17] MEDS: Dyna-Hex 2% Top Sol 2oz TOPIC SCH (20:00)
--- NOTE | 2018-01-18 16:29 | Internal Med Progress Note ---
Subjective Date of Service: January 18, 2018 Physician Name Ramiro Day Attending Physician Perico Randolph MD Current Medications Medications (Trade) Dose Ordered Sig/Miles Route PRN Reason Start Time Stop Time Status Last Admin Dose Admin Chlorhexidine Gluconate (Destiny-Hex 2%) 1 applic DAILY@1999 TOPIC 01/13/18 20:00 02/05/18 19:59 01/15/18 20:45 Lorazepam (Ativan) 2 mg Q6H PRN ORAL For Anxiety 01/14/18 12:45 01/21/18 12:44 Morphine Sulfate (Morphine Sulfate) 2 mg Q2H PRN IV PAIN 4-10 01/13/18 18:15 01/19/18 18:14 01/15/18 08:13 Allergies: Coded Allergies: ASPIRIN (Unverified Allergy, Unknown, 01/05/18) Uncoded Allergies: TAPE (Allergy, Unknown, 01/05/18) ROS Limited/Unobtainable: Yes Subjective 72 YO F admitted with hematemesis and rectal bleeding. Cover for Int Med-Dr Randolph. Less responsive today Objective Last Vital Signs Date Time Temp Pulse Resp B/P (MAP) Pulse Ox O2 Delivery O2 Flow Rate FiO2 01/18/18 08:00 Nasal Cannula 2.0 01/17/18 07:56 28 01/17/18 07:56 85 18 01/17/18 07:56 95 01/15/18 08:00 98.2 102/50 98.2 Intake and Output 01/17/18 01/18/18 19:00 07:00 Output Total 50 ml Balance -50 ml Output Urine Total 50 ml Objective Objective GENERAL: lethargic, in no acute distress. HEAD AND NECK: Pupils are reactive to light. Extraocular movements are intact. Neck was supple. No JVD. Triple-lumen catheter right IJ. LUNGS: Bilaterally no wheezing or rales. Decreased air in the bases. HEART: S1 and S2 RR. Distant heart sounds. No murmur ABDOMEN: Soft, nondistended, nontender, and morbidly obese. CHEST WALL: Bilateral mastectomy was noted, scar tissue and no sign of infection. EXTREMITIES: No cyanosis or clubbing. +2 edema. NEUROLOGIC: Cranial nerves II through XII grossly intact. Motor is 5/5 in all extremities. Gait is unable to obtain secondary to the patient's status. Assessment/Plan Assessment/Plan Assessment/Plan 1. Acute GI bleed. 2. Hemorrhagic shock. 3. Severe anemia most likely secondary to acute blood loss. 4. Acute kidney injury on chronic renal insufficiency. 5. Morbid obesity. 6. History of breast cancer. 7. Hyperkalemia. 8. Hypertension. 9. History of breast cancer, status post bilateral mastectomy. 10. Congestive heart failure, chronic with diastolic dysfunction. 11. Major depression disorder. 12. History of DVT and PE in past, Hold anticoagulation, Coumadin. 13. 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 14. Chronic hypotension. PLAN: in ICU. Dr. Gilmore, Pulmonary/Critical Care, Dr. Sascha Bond from Nephrology Dr. Tenzin Ford from Cardiology Dr. Yohannes Woodall from Gastroenterology. Hold Endoscopy due to high anesthesia risk-see GI note Monitor laboratory and Cultures. Code status is DNR/DNI. POLST noted in the chart. bedrest and at this time for DVT prophylaxis, SCD. Abx: Vanco IV and Zosyn IV S/P transfusion 6 units packed RBC and 2 units FFP Comfort care Discussed with family at bedside Ramiro Day MD January 18, 2018 16:29
[2018-01-18] MEDS: Dyna-Hex 2% Top Sol 2oz TOPIC SCH (20:00)
--- NOTE | 2018-01-19 08:54 | Discharge Summary ---
Discharge Summary Hospital Course Date of Admission January 05, 2018 at 12:49 Date of Discharge January 18, 2018 at 23:00 Admitting Diagnosis GI bleed HPI Elyse Bonilla is a 72 year old female who was admitted on January 05, 2018 at 12:49 for Gi Bleed Hospital Course summary #[id number] Discharge Discharge Disposition Patient Abby Mcguire NP January 19, 2018 08:54
--- NOTE | 2018-01-19 22:45 | Discharge Summary 2 SIG ---
SUMMARY DATE OF ADMISSION: 01/05/2018 DATE OF EXPIRATION: 01/18/2018 REASON FOR ADMISSION: 72-year-old female with past medical history significant for breast cancer, status post bilateral mastectomy, history of GRECO and subsequent liver cirrhosis, portal hypertension, history of internal hemorrhoids, history of DVT and PE, on chronic anticoagulation, history of hepatic encephalopathy, on lactulose therapy, prior history of hypertension, currently borderline chronic hypotension, and morbid obesity, presented to emergency department from the [facility] for evaluation. The patient was noted to have acute rectal bleeding. She started to pass bright red blood per rectum. The patient was hypotensive and was transferred to [facility] via ambulance. WBC 15.4, hemoglobin 8.1, hematocrit 25.3, and platelets 107,000. Repeated in a few hours, hemoglobin 5.5, hematocrit 16.4, and platelets 61,000. BUN 44 and creatinine 2.1. Lactic acid 3.2, total bilirubin 1.4, direct bilirubin 0.5. Troponin with minimal elevation at 0.084. AST 54 and ALT 31. Lipase 138. Potassium 5.4. INR 2.9. Albumin 1.4. Chest x-ray was limited with low lung volumes, mild cardiomegaly, degree of the mild pulmonary vascular congestion not excluded, but no pneumothorax, no pleural effusion. X-ray of the abdomen revealed nonspecific obstructive bowel gas pattern with calcification in the right upper quadrant, which may represent calcified gallstones. Venous duplex of lower extremities revealed patent deep venous system of bilateral lower extremities EKG revealed normal sinus rhythm with first-degree AV block, no ischemic changes. ADMITTING DIAGNOSES: 1. Acute GI bleeding. 2. Hemorrhagic shock. 3. Severe anemia, likely due to acute blood loss. 4. Acute kidney injury on chronic renal insufficiency. 5. Morbid obesity. 6. History of breast cancer. 7. Hyperkalemia. 8. Hypotension. 9. History of breast cancer, status post bilateral mastectomy. 10. Congestive heart failure, chronic with diastolic dysfunction. 11. Major depressive disorder. 12. History of DVT and PE, on chronic anticoagulation. CONSULTANTS: 1. Procurement Buyer, Tenzin Ford M.D. 2. Special Effects Makeup Artist/Critical Care, Bakari Gilmore M.D. 3. Infectious Disease specialist, Rad Galicia M.D. 4. Vegetable Buncher, Sascha Bond M.D. 5. GI specialist, Yohannes Woodall M.D. 6. Electric Cutter Operator/oncologist, Meenakshi Delgado M.D. HOSPITAL COURSE: The patient admitted to ICU. The patient was started on Sandostatin drip and dopamine drip for blood pressure support. The patient was transfused with fresh-frozen plasma and packed red blood cells. The patient initially was Full Code. The patient was kept n.p.o. The patient was on gentle IV hydration. The patient was started on midodrine since unable to be weaned from pressors, however, patient was still unable to be weaned from pressors. The patient started on albumin for 48 hours in hope to wean from pressor. The patient initially was on Sandostatin drip and Protonix intravenously. Somatostatin drip was later discontinued, Protonix continued. . GI closely followed. EGD in 2017 revealed no evidence of esophageal varices. Noted elevated ammonia. Lactulose added to existing regimen and rifaximin was continued. Counts were closely monitored. The patient received total of 6 units of packed red blood cells and 2 units of fresh-frozen plasma with goal to keep hemoglobin above 7 and keep platelets above 25,000. Anemia workup was consistent with anemia of chronic disease. , but the Patient received vitamin K without significant change in INR. Electric Cutter Operator/oncologist had seen and evaluated the patient. The patient was under steel welder/oncologist management after mastectomy for adjuvant therapy. The patient with history of breast cancer, bilateral mastectomy, but no evidence of disease at this time as per oncologist. Per steel welder , even though patient was at high risk for recurrent emboli, since venous duplex was negative, hold anticoagulation for now, given severe anemia. Procurement Buyer closely followed. Echocardiogram revealed preserved ejection fraction of 65% to 70%. Minimally elevated cardiac enzymes were insignificant as per appliance repairer, in view of renal insufficiency. Supplemental oxygen provided as needed to keep pulse oximetry above 92%. Pulmonary toilet provided as needed. Vegetable Buncher closely followed. Renal parameters and electrolytes were closely monitored. Electrolytes were corrected as needed. Nephrotoxins were avoided. Per telehealth coordinator, the patient had acute kidney injury on chronic renal insufficiency. Renal function continued to get worse. Infectious Disease doctor closely followed. Blood cultures were negative. Urine culture revealed low count of Providencia and Strep, likely contaminant as per ID. No evidence of infection, however, the patient initially was with leukocytosis. Per Infectious Disease, leukocytosis was possibly reactive secondary to acute distress and GI bleeding. According to Infectious Disease specialist, the patient possibly may had sepsis secondary to transient gram-negative rods translocation. Antibiotics were initially continued. Pain management provided. Bowel regimen instituted. Supportive care provided. Bowel regimen instituted. Psychiatrist had seen and evaluated the patient, diagnosed the patient with major depressive disorder and anxiety disorder. Initially, when the patient was more alert, reality orientation and supportive therapy provided. Psychiatric medication regimen was optimized. Despite all interventions, the patient was rapidly deteriorating. All doctors agreed that the patient's condition was critical with poor prognosis. Extensive family discussion was taking place for days and finally on 01/13/2018 , family decided to sign DNR/DNI with comfort measures. Dopamine drip was stopped. The patient was subsequently transferred to medical/ surgical floor for comfort care. Respiratory treatment provided as needed. Symptomatic treatment provided. Morphine given on as-needed basis for pain. Patient was pronounced on 01/18/2018 at 2100 hours. Cause of : Cardiopulmonary arrest. FINAL DIAGNOSES: 1. Hypovolemic shock secondary to acute hemorrhage. 2. Acute GI bleeding. 3. Severe anemia secondary to acute blood loss. 4. Acute renal failure, likely due to acute tubular necrosis on chronic renal insufficiency. 5. Possible sepsis secondary to gram-negative zaire translocation. 6. Hepatic encephalopathy. 7. Coagulopathy. 8. Thrombocytopenia. 9. Liver cirrhosis secondary to nonalcoholic steatohepatitis. 10. History of breast carcinoma, status post bilateral mastectomy. 11. History of PE/DVT with chronic anticoagulation. 12. Chronic CHF with diastolic dysfunction. 13. Possible left lower extremity cellulitis. 14. COPD. 15. Major depressive disorder. 16. Anxiety. Perico Randolph M.D. Abby GarciaWyckoff Heights Medical CenterDavid N.P. DR: Juani JOB#: [id number] CC: JUNE
--- NOTE | 2018-01-20 15:48 | General Progress Note ---
Assessment/Plan Assessment/Plan encephalopathy provided ro/st the pt lacks capacity palliative care ativan prn Subjective Date patient seen: January 18, 2018 Allergies: Coded Allergies: ASPIRIN (Unverified Allergy, Unknown, 01/05/18) Uncoded Allergies: TAPE (Allergy, Unknown, 01/05/18) Subjective the pt is obtunded. family at bedside Objective Height (Feet): 5 Height (Inches): 4.00 Weight (Pounds): 137 Cady Brower M.D. January 20, 2018 15:48
== END 2018-01-18 23:00 | disposition expired | DRG 377 ==
LOC: EDBD 12:09 → EMR 12:44 → 2W 12:49 → EDBEDREQSVC 13:04 → EDBEDREQ 13:06 → EDBEDREQSVC 14:14 → EDBEDREQ 14:37 → ICU 14:43 → 4E 01-13 17:14
PROC: 30233N1 Transfusion of Nonautologous Red Blood Cells into Peripheral Vein, Percutaneous Approach (ICD-10-PCS; principal; 2018-01-05)
PROC: 30233K1 Transfusion of Nonautologous Frozen Plasma into Peripheral Vein, Percutaneous Approach (ICD-10-PCS; principal; 2018-01-05)
PROC: 05HM33Z Insertion of Infusion Device into Right Internal Jugular Vein, Percutaneous Approach (ICD-10-PCS; principal; 2018-01-05)
DX: K92.0 Hematemesis (principal); N17.0 Acute kidney failure with tubular necrosis; A41.9 Sepsis, unspecified organism; D62 Acute posthemorrhagic anemia; K76.6 Portal hypertension; I50.32 Chronic diastolic (congestive) heart failure; D68.32 Hemorrhagic disorder due to extrinsic circulating anticoagulants; L03.116 Cellulitis of left lower limb; K92.1 Melena; R57.8 Other shock; Z85.3 Personal history of malignant neoplasm of breast; K75.81 Nonalcoholic steatohepatitis (NASH); K74.69 Other cirrhosis of liver; Z86.711 Personal history of pulmonary embolism; Z86.718 Personal history of other venous thrombosis and embolism; Z79.01 Long term (current) use of anticoagulants; F32.9 Major depressive disorder, single episode, unspecified; F41.9 Anxiety disorder, unspecified; E66.01 Morbid (severe) obesity due to excess calories; Z68.23 Body mass index [BMI] 23.0-23.9, adult; E87.5 Hyperkalemia; I11.0 Hypertensive heart disease with heart failure; D69.6 Thrombocytopenia, unspecified; T45.515A Adverse effect of anticoagulants, initial encounter; Y92.9 Unspecified place or not applicable; Z51.5 Encounter for palliative care; Z66 Do not resuscitate; K72.90 Hepatic failure, unspecified without coma; J44.9 Chronic obstructive pulmonary disease, unspecified
CPT/HCPCS: 36415; 71045; 74018; 76700; 80053; 80061; 80202; 81001; 81003; 82140; 82150; 82248; 82378; 82533; 82550; 82607; 82728; 82746; 82977; 83540; 83550; 83605; 83690; 83735; 83880; 84100; 84133; 84300; 84443; 84484; 84550; 85007; 85025; 85610; 85730; 86140; 86850; 86900; 86901; 86920; 86927; 87040; 87086; 87181; 89050; 93005; 93306; 93970; 94640; 94664; 94760; 99285; 99291; J2405; J3430; J7620